=== PATIENT | female | born 1960 | race Caucasian/White ===

== ENCOUNTER 2017-01-24 10:43 | Inpatient (IN) | payer OTHER ==
[2017-01-24] MEDS ORDERED: SODIUM CHLORIDE 1,000 ML IV STA (11:03)
--- NOTE | 2017-01-24 11:03 | PDOC ---
History of Present Illness - General History Source: Patient, Family, Old Records Exam Limitations: No Limitations - History of Present Illness Initial Comments: 01/24/17 11:12 The patient is a 56-year-old woman, accompanied by family, with a significant past medical history of anemia, lymphoma, human immunodeficiency virus (on 01/06 CD4 count was 153 non compliant with medications for extended period of time), asthma, chronic obstructive pulmonary disease, and liver disease who presents to the emergency department via walk in for further evaluation of persistent shortness of breath for the past month. Upon ER arrival, patient was noted to have a fever of 103, tachycardic to 108, hypoxic to 90% on room air and was immediately placed on 3L O2 NC. Patient states that she has been experiencing a constant productive cough with yellow phlegm with associated left sided shoulder pain and shortness of breath. Patient states she has a history of Pneumonia and states that her current symptoms are similar to her previous presentation. No chills, weakness, chest pain, lightheadedness, dizziness, headache, abdominal pain, nausea, vomiting, diarrhea. Patient called Nurse Practitioner, Abner Camacho on the night of 01/19- 01/20 and was advised to go to the ER. She went to [facility] and had a chest x-ray performed and she was diagnosed with bronchitis and discharged on Cefuroxime. Allergies: None Known Past Surgical History: Left Anxillary Lymph Node Biopsy. Social History: Current everyday cigarettes smoker (approximately 3 cigarettes/ day). Social ETOH use. Cocaine use Primary Care Physician: Dr. Estefanía Vargas [phone] <Dora Vidal - Last Filed: 01/24/17 12:49> <Randal Hdz - Last Filed: 01/24/17 12:53> - General Chief Complaint: Shortness of Breath Stated Complaint: SOB, FEVER, LEG PAIN Time Seen by Provider: 01/24/17 10:57 Past History <Dora Vidal - Last Filed: 01/24/17 12:49> - Past Medical History Anemia: Yes Asthma: Yes Cancer: Yes (LYMPHOMA) Cardiac Disorders: No CVA: No COPD: Yes CHF: No Dementia: No Diabetes: No GI Disorders: No Disorders: No HTN: No Hypercholesterolemia: No HIV: Yes Liver Disease: Yes Suicide Attempt (Hx): No Seizures: No Thyroid Disease: No - Surgical History Abdominal Surgery: Yes Appendectomy: No Cardiac Surgery: No Cholecystectomy: No Lung Surgery: No Neurologic Surgery: No Orthopedic Surgery: No - Immunization History Immunization Up to Date: Yes - Psycho/Social/Smoking Cessation Hx Anxiety: No Suicidal Ideation: No Smoking Status: No Smoking History: Current every day smoker Have you smoked in the past 12 months: Yes Number of Cigarettes Smoked Daily: 3 If you are a former smoker, when did you quit?: 1YR Cigars Per Day: 0 Information on smoking cessation initiated: No 'Breaking Loose' booklet given: 11/04/15 Hx Alcohol Use: No Drug/Substance Use Hx: Yes (occasional cocaine) Substance Use Type: None Hx Substance Use Treatment: Yes <Randal Hdz - Last Filed: 01/24/17 12:53> - Past Medical History Allergies/Adverse Reactions: Allergies Allergy/AdvReac Type Severity Reaction Status Date / Time No Known Allergies Allergy Verified 01/24/17 10:51 Home Medications: Ambulatory Orders Dapsone - 100 mg PO DAILY #30 tablet 06/03/16 Cane 1 each MC DAILY #1 each 07/01/16 Ipratropium/Albuterol Sulfate [Combivent Respimat Inhal Bedias] 4 gm IH QID PRN # 1 aer.w.adap 08/19/16 Fluticasone Propionate [Flovent Diskus] 100 mcg IH BID #1 disk.w.dev 12/13/16 Guaifenesin Dm [Robitussin Dm -] 2 tsp PO Q4H PRN #240 ml 12/13/16 Loratadine [Claritin -] 10 mg PO DAILY PRN #30 tablet 12/13/16 Sodium Chloride [Saline Nasal Bedias] 1 - 2 sprays NS PRN #1 spray 12/13/16 Abacavir/Dolutegravir/Lamivudi [Triumeq Tablet] 1 each PO DAILY #30 tablet 01/06 Albuterol 0.083% Nebulizer Neha [Ventolin 0.083% Nebulizer Soln -] 1 neb NEB QID PRN #120 amp 01/06/17 Albuterol Sulfate Inhaler - [Ventolin HFA Inhaler -] 1 - 2 inh PO QID #1 inhaler 02/23/17 Cefuroxime Axetil [Ceftin -] 500 mg PO Q12H #20 tablet 01/06/17 Darunavir/Cobicistat [Prezcobix 800 mg-150 mg Tablet] 1 each PO DAILY #30 tablet 01/06/17 Nebulizer [Aeroeclipse] 1 each MC QID #1 each NS 01/06/17 Valacyclovir HCl [Valtrex -] 500 mg PO BID #60 tablet 01/06/17 Triamcinolone 0.025% Cream [Aristocort 0.025% Cream -] 1 applic TP BID #6 tube 01/20/17 Review of Systems - Review of Systems Able to Perform ROS?: Yes Constitutional: Yes: Chills, Fever Respiratory: Yes: Cough, Shortness of Breath Cardiac (ROS): Yes: Chest Pain ABD/GI: No: Diarrhea, Vomiting : No: Dysuria Musculoskeletal: Yes: Muscle Pain All Other Systems: Reviewed and Negative <Randal Hdz - Last Filed: 01/24/17 12:53> *Physical Exam - Vital Signs Last Vital Signs Temp Pulse Resp BP Pulse Ox 103 F H 108 H 20 98/37 90 L 01/24/17 10:46 01/24/17 10:46 01/24/17 10:46 01/24/17 10:46 01/24/17 10:46 - Physical Exam Comments: 01/24/17 11:12 GENERAL: The patient is awake, alert, and fully oriented. Ambulating but coughing and tachypneic. HEAD: Normal with no signs of trauma. EYES: Pupils equal, round and reactive to light, extraocular movements intact, sclera anicteric, conjunctiva clear with no pallor. ENT: Ears normal, nares patent, oropharynx clear without exudates. Moist mucous membranes. NECK: Normal range of motion, supple without lymphadenopathy, JVD, or masses. LUNGS: Tachypneic. There are coarse breath sounds throughout with scant expiratory and inspiratory wheezes. There are also decreased breaths sounds at the left base. HEART: Slight tachycardia but Regular rate and rhythm without murmur or rub. ABDOMEN: Soft/nontender/nondistended. BS wnl. No guarding or rebound. No palpable masses. No hepatosplenomegaly. EXTREMITIES: Normal range of motion, no edema. No clubbing or cyanosis. No cords, erythema, or tenderness. NEUROLOGICAL: Cranial nerves II through XII grossly intact. Normal speech. PSYCH: Normal mood, normal affect. SKIN: Warm to the touch. Dry, normal turgor, no rashes or lesions noted. <Dora Vidal - Last Filed: 01/24/17 12:49> - Vital Signs Last Vital Signs Temp Pulse Resp BP Pulse Ox 103 F H 108 H 20 98/37 90 L 01/24/17 10:46 01/24/17 10:46 01/24/17 10:46 01/24/17 10:46 01/24/17 10:46 <Randal Hdz - Last Filed: 01/24/17 12:53> Heart Score/ECG Review #1 ECG reviewed & interpreted by me at: 11:06 General ECG Interpretation: Sinus Rhythm, Normal Rate (94), Normal Intervals ( qtc 94), No acute ischemic changes Compared to previous ECG there are: No significant change (05/06/16) <Randal Hdz - Last Filed: 01/24/17 12:53> ED Treatment Course - LABORATORY CBC & Chemistry Diagram: 01/24/17 11:30 01/24/17 11:30 - RADIOLOGY Radiograph Interpretation: 01/24/17 12:29 EXAM: RAD/CHEST X-RAY PORTABLE IMPRESSION: Sepsis. Single portable chest x-ray. Comparison study January 06, 2017. Airspace opacity noted in the medial aspect of the left lower lobe. No blunting of the left costophrenic angle, effacement of the left diaphragm. Unchanged contour of the cardiomediastinal silhouette. No pneumothorax is seen. Surgical clips are noted in the left axillary region. <Dora Vidal - Last Filed: 01/24/17 12:49> - LABORATORY CBC & Chemistry Diagram: 01/24/17 11:30 01/24/17 11:30 <Randal Hdz - Last Filed: 01/24/17 12:53> Medical Decision Making - Medical Decision Making 01/24/17 12:[address] Vargas. Immediate response. Case was discussed. Admit to [facility]. 01/24/17 12:30 MicroBlogged Symphony 01/24/17 12:[address] Abelardo Valverde. Case discussed. <Dora Vidal - Last Filed: 01/24/17 12:49> - Critical Care Time Total Critical Care Time (minutes): 30 Critical Care Statement: The care of this patient involved high complexity decision making to prevent further life threatening deterioration of the patient 's condition and/or to evalute & treat vital organ system(s) failure or risk of failure. - Medical Decision Making 01/24/17 12:05 A portion of this note was documented by scribe services under my direction. I have reviewed the details of the note, within reason, and agree with the documentation with the following case summary and management plan written by me. 56-year-old female with history of poorly controlled HIV secondary to medication noncompliance, history of COPD presents with persistent cough with shortness of breath and fever/chills over 1-2 weeks. Seen at [facility] and reportedly started on antibiotics, but unclear that she is actually taking any. Presents with evidence of sepsis, febrile and tachycardic and hypoxic. Otherwise alert and ambulating. Remainder of exam as noted 56-year-old immunocompromise female with fever, sepsis. Likely pneumonia with COPD exacerbation Sepsis protocol initiated Antipyretics, antibiotics Admission 01/24/17 12:19 Left lower lobe pneumonia on chest x-ray, chemistries are within normal limits including negative troponin and normal lactate WBC 14.3 with elevated neutrophils and no bands. Received IV antibiotics. Proceed with admission. 01/24/17 12:[address] Vargas, agrees with management. Accepted for inpatient med/surg by Dr. Valverde. <Randal Hdz - Last Filed: 01/24/17 12:53> *DC/Admit/Observation/Transfer - Attestations Scribe Attestion: 01/24/17 11:12 Documentation prepared by Dora Vidal, acting as medical clerk for Randal Hdz MD. <Dora Vidal - Last Filed: 01/24/17 12:49> - Discharge Dispostion Admit: Yes <Randal Hdz - Last Filed: 01/24/17 12:53> Diagnosis at time of Disposition: COPD exacerbation, HIV (human immunodeficiency virus infection) Sepsis Qualifiers: Sepsis type: sepsis due to unspecified organism Qualified Code(s): A41.9 - Sepsis, unspecified organism Left lower lobe pneumonia Qualifiers: Pneumonia type: due to unspecified organism Qualified Code(s): J18.9 - Pneumonia, unspecified organism - Discharge Dispostion Condition at time of disposition: Fair - Referrals Referrals: Estefanía Vargas MD [Primary Care Provider] -
[2017-01-24] MEDS ORDERED: ACETAMINOPHEN 500 MG TABLET (FP) PO ONE (11:04)
[2017-01-24] MEDS ORDERED: ACETAMINOPHEN 325 MG TABLET (FP) ONE ×2 (11:06→11:12)
[2017-01-24 11:39] LABS: VENOUS BLOOD GAS HCO3 26.3 meq/L (19-25); VENOUS PH 7.42 (7.32-7.42)
[2017-01-24 11:40] LABS: BASOPHIL 0.5 % (0-2.0); EOSINOPHIL 0.2 % (0-4.5); MCH 30.7 pg (25.7-33.7); MCHC 33.1 g/dl (32.0-36.0); MEAN CELL VOLUME 92.6 fl (80-96); PLATELET COUNT 242 K/MM3 (134-434); RDW 14.2 % (11.6-15.6); WHITE BLOOD COUNT 14.3 K/mm3 (4.0-10.0)
[2017-01-24] MEDS ORDERED: AZITHROMYCIN IVPB 500 MG in DEXTROSE 5%-WATER - 250 ML IVPB ONE (11:41)
[2017-01-24] MEDS ORDERED: CEFTRIAXONE 1 GM in DEXTROSE 5%-WATER - 50 ML IVPB ONE (11:41)
[2017-01-24 11:55] LABS: ANION GAP 8 (8-16); BILIRUBIN,TOTAL 0.5 mg/dL (0.2-1.0); CALCIUM 8.1 mg/dL (8.5-10.1); CO2 27 mmol/L (21-32); CREATININE 0.9 mg/dL (0.55-1.02); GLUCOSE,RANDOM 81 mg/dL (74-106); SGOT/AST 33 U/L (15-37); SGPT/ALT 44 U/L (12-78); TOT PROT 7.6 g/dl (6.4-8.2)
[2017-01-24] MEDS ORDERED: AZITHROMYCIN IVPB 250 ML IVPB ONE (11:55)
[2017-01-24] MEDS ORDERED: CEFTRIAXONE 50 ML ONE (11:55)
[2017-01-24 11:58] LABS: ALK PHOS 331 U/L (45-117); TROPONIN I < 0.02 ng/ml (0.00-0.05)
[2017-01-24 12:00] LABS: INR 1.19 (0.82-1.09); PROTHROMBIN TIME (PATIENT) 13.1 SEC (9.98-11.88)
[2017-01-24 12:02] LABS: ACTIVATED PTT 31.9 SECONDS (26.9-34.4)
[2017-01-24] MEDS ORDERED: ALBUTEROL SO4 2.5/IPRATROPIUM 0.5 INH SOL 3 ML VIAL.NEB. NEB ONE (12:08)
[2017-01-24] MEDS: SODIUM CHLORIDE 0.9% 1000 ML INFUS.BAG IV PRN ×2 (12:41→15:30)
[2017-01-24 14:19] LABS: URINE APPEARANCE CLEAR; URINE BILIRUBIN NEGATIVE (NEGATIVE); URINE COLOR STRAW; URINE GLUCOSE (UA) NEGATIVE (NEGATIVE); URINE KETONE NEGATIVE (NEGATIVE); URINE LEUK ESTERASE NEGATIVE (NEGATIVE); URINE NITRITE NEGATIVE (NEGATIVE); URINE PROTEIN NEGATIVE (NEGATIVE); URINE UROBILINOGEN NEGATIVE E.U./dl (0.2-1.0)
[2017-01-24 14:32] LABS: URINE BLOOD 1+ (NEGATIVE)
[2017-01-24 14:38] LABS: URINE RBC 2 /hpf (0-3); URINE WBC <1 /hpf (3-5)
--- NOTE | 2017-01-24 14:44 | PN ---
Progress Note (short form) - Note Progress Note: ID consult dictated 56 year old with history of HIV, lymphoma (treated by Dr Hoyos) asthma active cigarette/cocaine smoker no IVDU developed sob,cough, fever yesterday- attributes this to some bad crack she smoked chills with fever in ED this am PE notable for left supraclavicular, left preauricular and left/right axillary adenopathy lungs with bilateral rhonchi labs notable for leukocytosis, anemia, elevated alk phos cxray with LLL infiltrate cd4 153, vl 265,630 imp/reccd CAP-cxray with lobar infiltrate more suggestive of bacterial pneumonia then PCP AIDS- poorly adherent with art new cervical adenopathy- ?recurrent lymphoma asthma active substance use cigarette smoker continue rocephin/zithromax f/u blood cultures, f/u sputum culture check legionella antigen check LDH resume dapsone 100 mg daily (taking intermittently at home) resume ART- she will get family to bring in meds would get ct scan of neck to evaluate adenopathy consider oncology eval (dr hoyos)
--- NOTE | 2017-01-24 14:56 | EKG ---
Test Reason : Blood Pressure : / mmHG Vent. Rate : 094 BPM Atrial Rate : 094 BPM P-R Int : 122 ms QRS Dur : 084 ms QT Int : 344 ms P-R-T Axes : 025 -08 039 degrees QTc Int : 430 ms NORMAL SINUS RHYTHM NORMAL ECG WHEN COMPARED WITH ECG OF 06-MAY-2016 11:06, VENT. RATE HAS INCREASED BY 41 BPM T WAVE VARIATION Confirmed by MAYUR ROACH MD ([id number]) on 01/24/2017 2:56:21 PM Referred By: Confirmed By:MAYUR ROACH MD
--- NOTE | 2017-01-24 15:57 | HP ---
CHIEF COMPLAINT: "i have a bad cough" PCP: Dr Vargas HISTORY OF PRESENT ILLNESS: This is a 56 yo F with PMH of HIV (noncompliant meds [id number] 01/06), anemia, lymphoma, asthma, COPD, Liver disease, and past PNA, who presents with cough, fever and sob. She states she was coughing for the past 2 weeks, productive of white sputum. she has also been getting progressively sob (not on home O2). Her inhalers have not been helping her. she states she has been wheezing more than usual. She has been having fevers and chills for nevin past 3 days and well as nausea. She continues to smoke daily. 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 She was at [facility] on 01/19 where she has CXR, was told she had bronchitis and was given cefuroxime, which did not help her. She denies chest pain, loc, h/a, vomiting, abd pain, constipation or diarrhea. She denies sick contacts. She currently feels ill, better of NC O2 as she was hypoxin 90% on RA. She complains of f/c (admission temp 103F) ER course was notable for: (1)labs (2)cxr (3)ela de la torre Recent Travel: denies PAST MEDICAL HISTORY: as above PAST SURGICAL HISTORY: lymph node biopsy Social History: lives at home with Smokin.5 pack/day x 5 yrs Alcohol: denies Drugs: denies Family History: HTN Allergies No Known Allergies Allergy (Verified 01/24/17 10:51) HOME MEDICATIONS: Home Medications Medication Instructions Recorded Dapsone - 100 mg PO DAILY #30 tablet 06/03/16 Cane 1 each MC DAILY #1 each 07/01/16 Ipratropium/Albuterol Sulfate 4 gm IH QID PRN #1 aer.w.adap 08/19/16 [Combivent Respimat Inhal L[place]] Fluticasone Propionate [Flovent 100 mcg IH BID #1 disk.w.dev 12/13/16 Diskus] Guaifenesin Dm [Robitussin Dm -] 2 tsp PO Q4H PRN #240 ml 12/13/16 Loratadine [Claritin -] 10 mg PO DAILY PRN #30 tablet 12/13/16 Sodium Chloride [Saline Nasal 1 - 2 sprays NS PRN #1 spray 12/13/16 Loring] Abacavir/Dolutegravir/Lamivudi 1 each PO DAILY #30 tablet 01/06/17 [Triumeq Tablet] Albuterol 0.083% Nebulizer Neha 1 neb NEB QID PRN #120 amp 01/06/17 [Ventolin 0.083% Nebulizer Soln -] Albuterol Sulfate Inhaler - 1 - 2 inh PO QID #1 inhaler 01/06/17 [Ventolin HFA Inhaler -] Cefuroxime Axetil [Ceftin -] 500 mg PO Q12H #20 tablet 01/06/17 Darunavir/Cobicistat [Prezcobix 1 each PO DAILY #30 tablet 01/06/17 800 mg-150 mg Tablet] Nebulizer [Aeroeclipse] 1 each MC QID #1 each NS 01/06/17 Valacyclovir HCl [Valtrex -] 500 mg PO BID #60 tablet 01/06/17 Triamcinolone 0.025% Cream 1 applic TP BID #6 tube 01/20/17 [Aristocort 0.025% Cream -] Unobtainable 01/24/17 REVIEW OF SYSTEMS CONSTITUTIONAL: Absent: loss of appetite, weight change HEENT: Absent: rhinorrhea, nasal congestion, throat pain CARDIOVASCULAR: Absent: chest pain, syncope, palpitations RESPIRATORY: Absent: orthopnea, stridor, hemoptysis GASTROINTESTINAL: Absent: abdominal pain, abdominal distension, nausea, vomiting, diarrhea, constipation, melena, hematochezia GENITOURINARY: Absent: dysuria MUSCULOSKELETAL: Absent: myalgia, arthralgia SKIN: Absent: rash, itching, pallor HEMATOLOGIC/IMMUNOLOGIC: Absent: frequent infections ENDOCRINE: Absent: unexplained weight gain, unexplained weight loss NEUROLOGIC: Absent: headache, focal weakness or paresthesias PSYCHIATRIC: Absent: anxiety, depression PHYSICAL EXAMINATION Vital Signs - 24 hr 01/24/17 14:40 Pulse Rate [ 73 Apical] Blood Pressure 91/63 [Left Arm] O2 Sat by Pulse 95 Oximetry (%) GENERAL: Awake, alert, and fully oriented, in no acute distress. HEAD: Normal with no signs of trauma. EYES: Pupils equal, round and reactive to light, extraocular movements intact, sclera anicteric, conjunctiva clear. EARS, NOSE, THROAT: Moist mucous membranes. NECK: supple without masses. LUNGS: RLL ronchi. no wheezes HEART: Regular rate and rhythm, normal S1 and S2 ABDOMEN: Soft, nontender, not distended, normoactive bowel sounds MUSCULOSKELETAL: No CVA tenderness. UPPER EXTREMITIES: 2+ pulses, warm, well-perfused. No peripheral edema. LOWER EXTREMITIES: 2+ pulses, warm, well-perfused. No calf tenderness. No peripheral edema. NEUROLOGICAL: Cranial nerves II-XII grossly intact. PSYCHIATRIC: Cooperative. Good eye contact. Appropriate mood and affect. SKIN: Warm, dry Laboratory Results - last 24 hr 01/24/17 14:00 Urine Color Straw Urine Appearance Clear Urine pH 6.0 Ur Specific Milton 1.003 Urine Protein Negative Urine Glucose (UA) Negative Urine Ketones Negative Urine Blood 1+ H Urine Nitrite Negative Urine Bilirubin Negative Urine Urobilinogen Negative Ur Leukocyte Esterase Negative Urine RBC 2 Urine WBC <1 Ur Epithelial Cells Rare ASSESSMENT/PLAN: Sepsis due to Community acquired PNA -CXR LLL opacity -fever 103 -leukocytosis 14.3 -immunocompromised -lactic acid negative -am cbc -s/p rocephin, azithromycin, can continue -IVF HIV -noncompliant -01/06 AA2=439 -prezcobix, valtrex, triumeg COPD -no apparent exacerbation -duoneb -consider prednisone 40 d Asthma -no apparent exacerbation Anemia -Hgb 10.5 stable Tobacco user -counseled on quitting FEN NS@75 lytes stbable regular diet SCD Dispo: admit to med nils Problem List - Problem (1) COPD exacerbation Code(s): J44.1 - CHRONIC OBSTRUCTIVE PULMONARY DISEASE W (ACUTE) EXACERBATION (2) Left lower lobe pneumonia Code(s): J18.9 - PNEUMONIA, UNSPECIFIED ORGANISM Qualifiers: Pneumonia type: due to unspecified organism (3) Sepsis Code(s): A41.9 - SEPSIS, UNSPECIFIED ORGANISM Qualifiers: Sepsis type: sepsis due to unspecified organism Qualified Code(s): A41.9 - Sepsis, unspecified organism (4) HIV (human immunodeficiency virus infection) Code(s): Z21 - ASYMPTOMATIC HUMAN IMMUNODEFICIENCY VIRUS INFECTION STATUS (5) Fever Code(s): R50.9 - FEVER, UNSPECIFIED Qualifiers: Fever type: unspecified cause of fever Qualified Code(s): R50.9 - Fever , unspecified (6) Hypoxemia Code(s): R09.02 - HYPOXEMIA (7) Pneumonia Code(s): J18.9 - PNEUMONIA, UNSPECIFIED ORGANISM Qualifiers: Pneumonia type: due to unspecified organism Laterality: left Lung location: lower lobe of lung Qualified Code(s): J18.9 - Pneumonia, unspecified organism (8) Tobacco use disorder Code(s): Z72.0 - TOBACCO USE (9) Asthma Code(s): J45.909 - UNSPECIFIED ASTHMA, UNCOMPLICATED (10) COPD (chronic obstructive pulmonary disease) Code(s): J44.9 - CHRONIC OBSTRUCTIVE PULMONARY DISEASE, UNSPECIFIED Visit type - Emergency Visit Emergency Visit: Yes ED Registration Date: 01/24/17 Care time: The patient presented to the Emergency Department on the above date and was hospitalized for further evaluation of their emergent condition. - New Patient This patient is new to me today: Yes Date on this admission: 01/24/17 - Critical Care Critical Care patient: No
[2017-01-24 16:45] VITALS: BMI 23.0
--- NOTE | 2017-01-24 17:56 | PN ---
Teaching Attending Note Name of Resident: Dejah Maedra ATTENDING PHYSICIAN STATEMENT I saw and evaluated the patient. I reviewed the resident's note and discussed the case with the resident. I agree with the resident's findings and plan as documented. SUBJECTIVE: OBJECTIVE: Vital Signs Period Temp Pulse Resp BP Sys/Rosas Pulse Ox Last 24 Hr 99 F-103 F 72-108 18-20 91-104/37-64 90-100 HEART: S1 S2, tachycardic LUNGS: Bilateral rhonchi, crackles at left base ABDOMEN: Soft, non-tender, non-distended, normal BS EXTREMITIES: No edema ASSESSMENT AND PLAN:
[2017-01-24] MEDS: ACETAMINOPHEN 325 MG TABLET (FP) PO PRN (22:15)
--- NOTE | 2017-01-24 22:43 | CONS ---
DATE OF CONSULTATION: DATE OF DICTATION: 01/24/2017 INFECTIOUS DISEASE CONSULTATION REQUESTING PHYSICIAN: Hospitalist Service CONSULTING PHYSICIAN: Farida Angeles M.D. HISTORY OF PRESENT ILLNESS: This is a 56-year-old woman who I follow at the [facility]. She has a history of longstanding HIV disease, history of lymphoma treated by Dr. Felipe in the past. She has a history of asthma. She is an active cigarette and cocaine user. There is no history of any intravenous drug use. About a month back, she had an episode of bronchospasm cough, dysuria. She was treated with a short course of antibiotics. The symptoms occurred again. She went to [facility] where she was given cough medicine. Yesterday she apparently smoked some bad crack and after she smoked that she developed shortness of breath along with worsening of her cough and fever. She presented today with chills and fever in the emergency room. PAST MEDICAL HISTORY: Notable for anemia, lymphoma, HIV disease, asthma, COPD. She has had a left axillary lymph node biopsy, and she has been treated for lymphoma at [facility] with Dr. Felipe; she has not followed up with him. She has no known drug allergies. MEDICATION: As an outpatient include dapsone 100 mg daily. She uses Flovent and Combivent. Her ART includes Triumeq and Prezcobix. She takes Valtrex as well, and she uses nebulizers p.r.n. FAMILY HISTORY: Noncontributory. SOCIAL HISTORY: She lives with her daughter and her daughter's father. She is an active cigarette smoker. She is an active cocaine user. She does not use any injection drugs. Her alcohol use is very rare. REVIEW OF SYSTEMS: She is currently not sexually active. She denies any abdominal pain. She has had no nausea, vomiting. She has had no dysuria. She notes chills and fever and cough, and the chest pain is confined to her left chest when she coughs. PHYSICAL EXAMINATION: Vital signs: Temperature was 103 in the emergency room, repeat was 100, currently 99, pulse 72, blood pressure 104/64, respiratory rate 19. Her O2 saturations are 100%. HEENT: Normocephalic. Eyes are anicteric. She has no thrush. Neck: Supple. She has a left preauricular node as well as supraclavicular adenopathy on the left. She has bilateral axillary nodes. Heart: Regular rate and rhythm. Lungs: Rhonchi throughout and some crackles at the left base. Abdomen: Soft, nontender. Extremities: Without edema. Skin: She has no rash. LABORATORY: White count 14.3, hemoglobin 10.5. INR 1.1. BUN and creatinine are 18 and 0.9 with an alkaline phosphatase of 331 and urinalysis is negative. Influenza screen was done in the emergency room and is negative. Blood cultures and urine cultures have been sent. Chest x-ray reveals left lower lobe infiltrate. Most recent T cells done in December at the [facility], her CD4 count is 153 with a viral load of greater than 250,000. IMPRESSION: 1. In summary, this is a 56-year-old woman with community acquired pneumonia with a left lower lobe infiltrate suggestive of bacterial pneumonia. 2. Acquired immune deficiency syndrome , poorly adherent with her antiretroviral therapy. 3. New cervical adenopathy, concern would be for recurrent lymphoma. 4. Asthma. 5. Active substance use. 6. Cigarette use. I would continue with Zithromax, follow up her cultures, check her legionella urinary antigen. Check an LVH. I would resume dapsone for PCP prophylaxis, which she has been taking intermittently. Would resume her ART. She will get her family to bring in her medications, as the hospital does not carry them. Would get a CAT scan of her neck to evaluate the adenopathy and consider oncology evaluation with Dr. Felipe. FARIDA ANGELES M.D. [id number]
[2017-01-24] MEDS: ALBUTEROL SO4 2.5/IPRATROPIUM 0.5 INH SOL 3 ML VIAL.NEB. NEB PRN (23:40)
[2017-01-25] MEDS: ALBUTEROL SO4 2.5/IPRATROPIUM 0.5 INH SOL 3 ML VIAL.NEB. NEB PRN ×2 (05:34→22:50)
[2017-01-25 08:18] LABS: MCH 31.2 pg (25.7-33.7); MCHC 33.2 g/dl (32.0-36.0); MEAN CELL VOLUME 93.9 fl (80-96); MEAN PLT VOLUME 8.6 fl (7.5-11.1); PLATELET COUNT 199 K/MM3 (134-434); RDW 14.6 % (11.6-15.6)
[2017-01-25] MEDS ORDERED: SENNOSIDES/DOCUSATE COMBO (SENNA PLUS) TABLET (UD) PO PRN (08:21)
--- NOTE | 2017-01-25 08:29 | PN ---
Progress Note (short form) - Note Progress Note: Subjective: no fever or chills, report SOB and productive cough of yellow sputum . reports constipation , also BRBPR yesterday in ER when she was straining in bathroom. also another episode at home Objective: Vital Signs: Last Vital Signs Temp Pulse Resp BP Pulse Ox 98.2 F 78 18 116/60 96 01/25/17 06:18 01/25/17 06:18 01/25/17 06:18 01/25/17 06:18 01/24/17 22:27 Physical Exam: NAD , Awake and alert. HEENT: NC , AT, no facial droop, MMM. LAP in L and R posterior jugular chain . CV: RRR, 2/6 Sm At RUAB Lungs : crackles heard at L base , no wheezes ,good air entry Abd : soft, NT, ND , NL BS Ext : no edema non tender Lymph nodes felt in L and R posterior jugular chain , groins and axillae . REctal: no external hemorrhoids, nl hair distribution , she did not cooperate with rectal exam, no masses felt , examiner finger could not be advanced, but stool was felt low in Rectum. OB Neg Labs: Laboratory Results - last 24 hr 01/24/17 01/24/17 01/24/17 11:03 11:25 11:30 WBC 14.3 H D RBC 3.42 L Hgb 10.5 L Hct 31.7 L MCV 92.6 MCHC 33.1 RDW 14.2 Plt Count 242 D MPV 8.0 D Neutrophils % 81.0 D Lymphocytes % 9.7 D Monocytes % 8.6 Eosinophils % 0.2 D Basophils % 0.5 INR PTT (Actin FS) VBG pH 7.42 POC VBG pCO2 41.7 POC VBG pO2 36.8 Mixed VBG HCO3 26.3 H Sodium Potassium Chloride Carbon Dioxide Anion Gap BUN Creatinine Creat Clearance w eGFR Random Glucose Lactic Acid Calcium Total Bilirubin AST ALT Alkaline Phosphatase Creatine Kinase Troponin I Total Protein Albumin Urine Color Urine Appearance Urine pH Ur Specific [place] Urine Protein Urine Glucose (UA) Urine Ketones Urine Blood Urine Nitrite Urine Bilirubin Urine Urobilinogen Ur Leukocyte Esterase Urine RBC Urine WBC Ur Epithelial Cells Blood Type O POSITIVE Antibody Screen Negative 01/24/17 01/24/17 01/24/17 11:30 11:30 11:30 WBC RBC Hgb Hct MCV MCHC RDW Plt Count MPV Neutrophils % Lymphocytes % Monocytes % Eosinophils % Basophils % INR 1.19 H PTT (Actin FS) 31.9 VBG pH POC VBG pCO2 POC VBG pO2 Mixed VBG HCO3 Sodium 136 Potassium 3.9 Chloride 101 Carbon Dioxide 27 Anion Gap 8 BUN 18 D Creatinine 0.9 Creat Clearance w eGFR > 60 Random Glucose 81 Lactic Acid 0.977 Calcium 8.1 L Total Bilirubin 0.5 D AST 33 ALT 44 Alkaline Phosphatase 331 H Creatine Kinase 45 Troponin I < 0.02 Total Protein 7.6 Albumin 3.0 L Urine Color Urine Appearance Urine pH Ur Specific [place] Urine Protein Urine Glucose (UA) Urine Ketones Urine Blood Urine Nitrite Urine Bilirubin Urine Urobilinogen Ur Leukocyte Esterase Urine RBC Urine WBC Ur Epithelial Cells Blood Type Antibody Screen 01/24/17 01/25/17 14:00 07:40 WBC 10.0 D RBC 3.03 L Hgb 9.5 L Hct 28.4 L MCV 93.9 MCHC 33.2 RDW 14.6 Plt Count 199 MPV 8.6 Neutrophils % Lymphocytes % Monocytes % Eosinophils % Basophils % INR PTT (Actin FS) VBG pH POC VBG pCO2 POC VBG pO2 Mixed VBG HCO3 Sodium Potassium Chloride Carbon Dioxide Anion Gap BUN Creatinine Creat Clearance w eGFR Random Glucose Lactic Acid Calcium Total Bilirubin AST ALT Alkaline Phosphatase Creatine Kinase Troponin I Total Protein Albumin Urine Color Straw Urine Appearance Clear Urine pH 6.0 Ur Specific [place] 1.003 Urine Protein Negative Urine Glucose (UA) Negative Urine Ketones Negative Urine Blood 1+ H Urine Nitrite Negative Urine Bilirubin Negative Urine Urobilinogen Negative Ur Leukocyte Esterase Negative Urine RBC 2 Urine WBC <1 Ur Epithelial Cells Rare Blood Type Antibody Screen Imaging: Cxray reviewed. LLL infiltrate Assessment/Plan: 56 y/o lady with h/l Lymphoma, treated with chemo, HIV,copd , non compliance , anemia , PNA , and drug use who presented with SOB and productive cough , she was found to have LLL PNA 1- LLL CAP : labs pending today. No fever - cont CTX and azithromycin day 2 - follow blood cx , sputum cx and urine legionella nad pneumococcal - good air entry, no wheezes, and no hypoxia, no need for steroids . 2- h/o Lymphoma , not clear which type. treated with chemo long time ago. - now has generalized LAP , in neck , axillae and groins. Likely due to recurrence of her lymphoma . - no need for CT of the neck as LAP is generalized. - will consult Dr. Quiroga - will need an exesional lymph node bx . - check LDH 3- rectal bleed: likely hemorrhoidal in setting of constipation , only 2 episodes. Hb is 10.5 as of yesterday's labs last colonoscopy > 2 yrs ago . per her NL . rectal exam neg for OB . - follow Hb - treat constipation - if Hb drops then might need GI consult , otherwise will have her f/u with GI as out p t - need out pt colonoscopy 4- Normocytic anemia , base lien HB 9.5-10.8. iron studies in past missing ferritin - check iron studies . - B12, folate . - repeat OB in stool 5- HIV to bring meds from home ont sal 6- DVT pX HLOC Visit type - Emergency Visit Emergency Visit: Yes ED Registration Date: 01/24/17 Care time: The patient presented to the Emergency Department on the above date and was hospitalized for further evaluation of their emergent condition. - New Patient This patient is new to me today: Yes Date on this admission: 01/25/17 - Critical Care Critical Care patient: No
[2017-01-25 09:02] LABS: ALBUMIN 2.5 g/dl (3.4-5.0); ANION GAP 8 (8-16); CALCIUM 8.2 mg/dL (8.5-10.1); CO2 26 mmol/L (21-32); CREATININE 0.7 mg/dL (0.55-1.02); GLUCOSE,RANDOM 76 mg/dL (74-106); MAGNESIUM 1.7 mg/dL (1.8-2.4); PHOSPHOROUS 2.7 mg/dL (2.5-4.9); SGOT/AST 34 U/L (15-37); SGPT/ALT 45 U/L (12-78)
[2017-01-25 09:04] LABS: ALK PHOS 282 U/L (45-117); BILIRUBIN,TOTAL 0.6 mg/dL (0.2-1.0); TOT PROT 6.3 g/dl (6.4-8.2)
[2017-01-25] MEDS: AZITHROMYCIN IVPB 250 ML IVPB SCH (11:01)
[2017-01-25] MEDS: cefTRIAXone 2 GM/100 ML BAG (PRE-DOCKED) IVPB SCH (11:02)
[2017-01-25] MEDS: POLYETHYLENE GLYCOL 3350 119 GM BTL PO SCH (11:02)
[2017-01-25] MEDS: DAPSONE 100 MG TABLET PO SCH (14:11)
[2017-01-25] MEDS ORDERED: MAGNESIUM SULF 50% (8.12 MEQ/2 ML-1 GM VIAL) IVPB ONE (16:15)
[2017-01-25] MEDS: ACETAMINOPHEN 325 MG TABLET (FP) PO PRN (22:54)
[2017-01-26 07:53] LABS: BASOPHIL 0.4 % (0-2.0); MCH 31.4 pg (25.7-33.7); MCHC 33.3 g/dl (32.0-36.0); MEAN CELL VOLUME 94.3 fl (80-96); MEAN PLT VOLUME 8.4 fl (7.5-11.1); NEUTROPHILS 66.2 % (42.8-82.8); PLATELET COUNT 208 K/MM3 (134-434); RDW 14.8 % (11.6-15.6); WHITE BLOOD COUNT 5.2 K/mm3 (4.0-10.0)
[2017-01-26 08:41] LABS: LDH 217 U/L (84-246)
[2017-01-26] MEDS: DAPSONE 100 MG TABLET PO SCH (10:25)
[2017-01-26] MEDS: AZITHROMYCIN IVPB 250 ML IVPB SCH (10:25)
[2017-01-26] MEDS: cefTRIAXone 2 GM/100 ML BAG (PRE-DOCKED) IVPB SCH (10:25)
[2017-01-26] MEDS: POLYETHYLENE GLYCOL 3350 119 GM BTL PO SCH (10:26)
--- NOTE | 2017-01-26 12:26 | PN ---
Physical Exam: SUBJECTIVE: Patient seen and examined Patient resting in bed NAD. No acute events. fever 100.2 at 10 pm last night, afebrile since, hemodynamically stable. satting 90% on 2l, now on RA. states she feels better, cough is reduced and denies sob. states her HIV meds are at home but her would not be able to find them. Denies f/c, n/v, abd pain, chest pain, dysuria, h/a. OBJECTIVE: Vital Signs Period Temp Pulse Resp BP Sys/Rosas Pulse Ox Last 24 Hr 97.8 F-100.3 F 64-95 18-20 100-120/51-61 90-94 GENERAL: Awake, alert, and fully oriented, in no acute distress. HEAD: Normal with no signs of trauma. EYES: Pupils equal, round and reactive to light, extraocular movements intact, sclera anicteric, conjunctiva clear. EARS, NOSE, THROAT: Moist mucous membranes. NECK: supple without masses + adenopathy. LUNGS: RLL ronchi. no wheezes HEART: Regular rate and rhythm, normal S1 and S2 ABDOMEN: Soft, nontender, not distended, normoactive bowel sounds MUSCULOSKELETAL: No CVA tenderness. UPPER EXTREMITIES: 2+ pulses, warm, well-perfused. No peripheral edema. LOWER EXTREMITIES: 2+ pulses, warm, well-perfused. No calf tenderness. No peripheral edema. NEUROLOGICAL: Cranial nerves II-XII grossly intact. PSYCHIATRIC: Cooperative. Good eye contact. Appropriate mood and affect. SKIN: Warm, dry Laboratory Results - last 24 hr 01/26/17 01/26/17 07:00 07:00 WBC 5.2 D RBC 3.19 L Hgb 10.0 L Hct 30.1 L MCV 94.3 MCHC 33.3 RDW 14.8 Plt Count 208 MPV 8.4 Neutrophils % 66.2 Lymphocytes % 16.4 D Monocytes % 9.0 Eosinophils % 8.0 H D Basophils % 0.4 LD Total 195 Active Medications Generic Name Dose Route Start Last Admin Trade Name Freq PRN Reason Stop Dose Admin Acetaminophen 650 mg 01/24/17 18:46 01/25/17 22:54 Tylenol - PO 650 mg Q4H PRN Administration FEVER OR PAIN Albuterol/Ipratropium 1 amp 01/24/17 17:33 01/25/17 22:50 Duoneb - NEB 1 amp Q4H PRN Administration SHORTNESS OF BREATH Ceftriaxone Sodium 2 gm 01/25/17 10:00 01/26/17 10:25 Rocephin 2gm Ivpb (Pre-Docked) IVPB 2 gm DAILY HIPOLITO Administration Protocol Dapsone 100 mg 01/25/17 10:00 01/26/17 10:25 Dapsone - PO 100 mg DAILY HIPOLITO Administration Azithromycin 250 mls @ 250 mls/hr 01/25/17 10:00 01/26/17 10:25 Zithromax 500mg Ivpb (Pre-Docked) IVPB 250 mls/hr DAILY [facility]O Administration Polyethylene Glycol 17 gm 01/25/17 10:00 01/26/17 10:26 Miralax (For Daily Use) - PO 17 gm DAILY [facility]OL[facility]O Administration Senna/Docusate Sodium 2 tablet 01/25/17 08:21 Pericolace - PO HS PRN CONSTIPATION Sodium Chloride 600 ml 01/24/17 11:03 01/24/17 15:30 Normal Saline - IV 600 ml Q20M PRN Administration MAP<65mm Hg OR SBP <90 ASSESSMENT/PLAN: Sepsis due to Community acquired PNA -CXR LLL opacity -fever 103 on admission, resolving -leukocytosis resolved -immunocompromised -lactic acid negative -ID: rocephin, azithromycin day 3 -isolation MRSA history HIV -noncompliant -01/06 [id number] -prezcobix, valtrex, triumeg -cant obtain home meds COPD -no apparent exacerbation -duoneb Asthma -no apparent exacerbation Lymphoma -unknown type -s/p chemo and biopsy many yrs ago -cervical adenopathy -consult Dr Quiroga -consider biopsy Anemia -Hgb 10 stable Rectal bleed -no bleeding today -hemorrhoids -recommend outpatient colonoscopy Tobacco user -counseled on quitting FEN no IVF lytes stbable regular diet SCD Dispo: med nils Problem List - Problems (1) COPD exacerbation Code(s): J44.1 - CHRONIC OBSTRUCTIVE PULMONARY DISEASE W (ACUTE) EXACERBATION (2) Left lower lobe pneumonia Code(s): J18.9 - PNEUMONIA, UNSPECIFIED ORGANISM Qualifiers: Pneumonia type: due to unspecified organism Qualified Code(s): J18.1 - Lobar pneumonia, unspecified organism (3) Sepsis Code(s): A41.9 - SEPSIS, UNSPECIFIED ORGANISM Qualifiers: Sepsis type: sepsis due to unspecified organism Qualified Code(s): A41.9 - Sepsis, unspecified organism (4) HIV (human immunodeficiency virus infection) Code(s): Z21 - ASYMPTOMATIC HUMAN IMMUNODEFICIENCY VIRUS INFECTION STATUS (5) Fever Code(s): R50.9 - FEVER, UNSPECIFIED Qualifiers: Fever type: unspecified cause of fever (6) Hypoxemia Code(s): R09.02 - HYPOXEMIA (7) Pneumonia Code(s): J18.9 - PNEUMONIA, UNSPECIFIED ORGANISM Qualifiers: Pneumonia type: due to unspecified organism Laterality: left Lung location: lower lobe of lung Qualified Code(s): J18.1 - Lobar pneumonia, unspecified organism (8) Tobacco use disorder Code(s): Z72.0 - TOBACCO USE (9) Asthma Code(s): J45.909 - UNSPECIFIED ASTHMA, UNCOMPLICATED (10) COPD (chronic obstructive pulmonary disease) Code(s): J44.9 - CHRONIC OBSTRUCTIVE PULMONARY DISEASE, UNSPECIFIED Visit type - Emergency Visit Emergency Visit: Yes ED Registration Date: 01/24/17 Care time: The patient presented to the Emergency Department on the above date and was hospitalized for further evaluation of their emergent condition. - New Patient This patient is new to me today: No - Critical Care Critical Care patient: No - Discharge Referral Referred to [facility] No
--- NOTE | 2017-01-26 12:46 | PN ---
Progress Note (short form) - Note Progress Note: feels better still some low grade temp and cough overall much improved Vital Signs Period Temp Pulse Resp BP Sys/Rosas Pulse Ox Last 24 Hr 97.8 F-100.3 F 64-95 18-20 100-120/51-61 90-94 cor-rrr llungs scattered rhonchi no wheeze abd soft,nt ext no edema +BRIJESH CBC, BMP 01/26/17 07:00 01/25/17 07:40 a/p pneumonia- CAP- improved continue rocephin/zithromax AIDS-continue dapsone can't bring meds, she doesnot want to switch to more pills here to resume on discharge at home BRIJESH-history of NHL treated [phone] Mallory at [facility] I have called him and am waiting call back suspect recurrence substance abuse
--- NOTE | 2017-01-26 15:14 | PN ---
Teaching Attending Note Name of Resident: Dejah Madera ATTENDING PHYSICIAN STATEMENT I saw and evaluated the patient. I reviewed the resident's note and discussed the case with the resident. I agree with the resident's findings and plan as documented. Patient is feeling better, but feels weak. Vital Signs Temperature 97.7 F 01/26/17 14:21 Pulse Rate 76 01/26/17 14:21 Respiratory Rate 20 01/26/17 14:21 Blood Pressure 111/71 01/26/17 14:21 O2 Sat by Pulse Oximetry (%) 94 L 01/26/17 09:00 CBCD WBC 5.2 K/mm3 (4.0-10.0) D 01/26/17 07:00 RBC 3.19 M/mm3 (3.60-5.2) L 01/26/17 07:00 Hgb 10.0 GM/dL (10.7-15.3) L 01/26/17 07:00 Hct 30.1 % (32.4-45.2) L 01/26/17 07:00 MCV 94.3 fl (80-96) 01/26/17 07:00 MCHC 33.3 g/dl (32.0-36.0) 01/26/17 07:00 RDW 14.8 % (11.6-15.6) 01/26/17 07:00 Plt Count 208 K/MM3 (134-434) 01/26/17 07:00 MPV 8.4 fl (7.5-11.1) 01/26/17 07:00 CMP Sodium 141 mmol/L (136-145) 01/25/17 07:40 Potassium 3.5 mmol/L (3.5-5.1) 01/25/17 07:40 Chloride 107 mmol/L (98-107) 01/25/17 07:40 Carbon Dioxide 26 mmol/L (21-32) 01/25/17 07:40 Anion Gap 8 (8-16) 01/25/17 07:40 BUN 10 mg/dL (7-18) D 01/25/17 07:40 Creatinine 0.7 mg/dL (0.55-1.02) D 01/25/17 07:40 Creat Clearance w eGFR > 60 (>60) 01/25/17 07:40 Random Glucose 76 mg/dL (74-106) 01/25/17 07:40 Calcium 8.2 mg/dL (8.5-10.1) L 01/25/17 07:40 Total Bilirubin 0.6 mg/dL (0.2-1.0) 01/25/17 07:40 AST 34 U/L (15-37) 01/25/17 07:40 ALT 45 U/L (12-78) 01/25/17 07:40 Alkaline Phosphatase 282 U/L (45-117) H 01/25/17 07:40 Total Protein 6.3 g/dl (6.4-8.2) L 01/25/17 07:40 Albumin 2.5 g/dl (3.4-5.0) L 01/25/17 07:40 CARDIAC ENZYMES Creatine Kinase 45 IU/L (26-192) 01/24/17 11:30 Troponin I < 0.02 ng/ml (0.00-0.05) 01/24/17 11:30 Current Medications Generic Name Dose Route Start Last Admin Trade Name Thad PRN Reason Stop Dose Admin Acetaminophen 650 mg 01/24/17 18:46 01/25/17 22:54 Tylenol - PO 650 mg Q4H PRN Administration FEVER OR PAIN Albuterol/Ipratropium 1 amp 01/24/17 17:33 01/25/17 22:50 Duoneb - NEB 1 amp Q4H PRN Administration SHORTNESS OF BREATH Ceftriaxone Sodium 2 gm 01/25/17 10:00 01/26/17 10:25 Rocephin 2gm Ivpb (Pre-Docked) IVPB 2 gm DAILY HIPOLITO Administration Protocol Dapsone 100 mg 01/25/17 10:00 01/26/17 10:25 Dapsone - PO 100 mg DAILY HIPOLITO Administration Azithromycin 250 mls @ 250 mls/hr 01/25/17 10:00 01/26/17 10:25 Zithromax 500mg Ivpb (Pre-Docked) IVPB 250 mls/hr DAILY HIPOL[facility]O Administration Polyethylene Glycol 17 gm 01/25/17 10:00 01/26/17 10:26 Miralax (For Daily Use) - PO 17 gm DAILY [facility]O Administration Senna/Docusate Sodium 2 tablet 01/25/17 08:21 Pericolace - PO HS PRN CONSTIPATION Sodium Chloride 600 ml 01/24/17 11:03 01/24/17 15:30 Normal Saline - IV 600 ml Q20M PRN Administration MAP<65mm Hg OR SBP <90 Home Medications Medication Instructions Recorded Dapsone - 100 mg PO DAILY #30 tablet 06/03/16 Ipratropium/Albuterol Sulfate 4 gm IH QID PRN #1 aer.w.adap 08/19/16 [Combivent Respimat Inhal [place]] Fluticasone Propionate [Flovent 100 mcg IH BID #1 disk.w.dev 12/13/16 Diskus] Guaifenesin Dm [Robitussin Dm -] 2 tsp PO Q4H PRN #240 ml 12/13/16 Loratadine [Claritin -] 10 mg PO DAILY PRN #30 tablet 12/13/16 Sodium Chloride [Saline Nasal 1 - 2 sprays NS PRN #1 spray 12/13/16 [place]] Abacavir/Dolutegravir/Lamivudi 1 each PO DAILY #30 tablet 01/06/17 [Triumeq Tablet] Albuterol 0.083% Nebulizer Neha 1 neb NEB QID PRN #120 amp 01/06/17 [Ventolin 0.083% Nebulizer Soln -] Albuterol Sulfate Inhaler - 1 - 2 inh PO QID #1 inhaler 01/06/17 [Ventolin HFA Inhaler -] Darunavir/Cobicistat [Prezcobix 1 each PO DAILY #30 tablet 01/06/17 800 mg-150 mg Tablet] Valacyclovir HCl [Valtrex -] 500 mg PO BID #60 tablet 01/06/17 Unobtainable 01/24/17 Cxray reviewed. LLL infiltrate Assessment/Plan: Patient is a 56 y/o lady with h/l non hodgkin's Lymphoma, s/p chemo, HIV,copd , anemia , PNA , and drug use who presented with SOB and productive cough , she was found to have LLL PNA # Acute LLL CAP : on CTX and azithromycin day 3 , sputum cx and urine legionella /pneumococcal negative # Hx of Non Hodgkin's Lymphoma.s/p chemo long time ago. likely due recurrence of her lymphoma. Consult Dr. Quiroga oncology consult will need an exesional lymph node bx. # Hx of HIV continue meds as per Dr.Hariharan david huang , patient's CD4 count # rectal bleed: likely hemorrhoidal in setting of constipation , only 2 episodes. Hb is 10.5--> 10.0 today As per last colonoscopy was > 2 yrs ago with normal result and negative rectal exam for OB . # Normocytic anemia , base line hemoglobin 9.5-10.8. check Iron studies iron studies, B12, folate DVT pX :SCDs PT evaluation
[2017-01-27 08:22] LABS: MCH 30.8 pg (25.7-33.7); MCHC 32.6 g/dl (32.0-36.0); MEAN CELL VOLUME 94.5 fl (80-96); MEAN PLT VOLUME 8.3 fl (7.5-11.1); PLATELET COUNT 233 K/MM3 (134-434); RDW 14.7 % (11.6-15.6); WHITE BLOOD COUNT 5.2 K/mm3 (4.0-10.0)
[2017-01-27 08:43] LABS: CALCIUM 8.6 mg/dL (8.5-10.1); CREATININE 0.8 mg/dL (0.55-1.02)
[2017-01-27] MEDS: POLYETHYLENE GLYCOL 3350 119 GM BTL PO SCH (09:20)
[2017-01-27] MEDS: DAPSONE 100 MG TABLET PO SCH (09:20)
[2017-01-27] MEDS: cefTRIAXone 2 GM/100 ML BAG (PRE-DOCKED) IVPB SCH (09:23)
[2017-01-27] MEDS: AZITHROMYCIN IVPB 250 ML IVPB SCH (09:28)
[2017-01-27] MEDS: ALBUTEROL SO4 2.5/IPRATROPIUM 0.5 INH SOL 3 ML VIAL.NEB. NEB PRN (11:21)
--- NOTE | 2017-01-27 13:11 | PN ---
Progress Note, Physician Chief Complaint: ID Feeling better - Current Medication List Current Medications: Active Medications Acetaminophen (Tylenol -) 650 mg PO Q4H PRN PRN Reason: FEVER OR PAIN Last Admin: 01/25/17 22:54 Dose: 650 mg Albuterol/Ipratropium (Duoneb -) 1 amp NEB Q4H PRN PRN Reason: SHORTNESS OF BREATH Last Admin: 01/27/17 11:21 Dose: 1 amp Ceftriaxone Sodium (Rocephin 2gm Ivpb (Pre-Docked)) 2 gm IVPB DAILY HIPOLITO PRN Reason: Protocol Last Admin: 01/27/17 09:23 Dose: 2 gm Dapsone (Dapsone -) 100 mg PO DAILY [facility] Last Admin: 01/27/17 09:20 Dose: 100 mg Azithromycin (Zithromax 500mg Ivpb (Pre-Docked)) 250 mls @ 250 mls/hr IVPB DAILY [facility] Last Admin: 01/27/17 09:28 Dose: 250 mls/hr Polyethylene Glycol (Miralax (For Daily Use) -) 17 gm PO DAILY [facility] Last Admin: 01/27/17 09:20 Dose: Not Given Senna/Docusate Sodium (Pericolace -) 2 tablet PO HS PRN PRN Reason: CONSTIPATION Sodium Chloride (Normal Saline -) 600 ml IV Q20M PRN PRN Reason: MAP<65mm Hg OR SBP <90 Last Admin: 01/24/17 15:30 Dose: 600 ml - Objective Vital Signs: Vital Signs Temperature 98.2 F 01/27/17 10:00 Pulse Rate 70 01/27/17 10:00 Respiratory Rate 20 01/27/17 10:00 Blood Pressure 120/78 01/27/17 10:00 O2 Sat by Pulse Oximetry (%) 96 01/27/17 09:00 Constitutional: Yes: Well Nourished, No Distress Neck: Yes: WNL, Supple, Lymphadenopathy Cardiovascular: Yes: Regular Rate and Rhythm, S1, S2 Respiratory: Yes: WNL, Regular, CTA Bilaterally, Rhonchi Gastrointestinal: Yes: WNL, Normal Bowel Sounds, Soft. No: Tenderness Edema: No Labs: CBC, BMP 01/27/17 07:50 01/27/17 07:50 INR, PTT INR 1.19 (0.82-1.09) H 01/24/17 11:30 Problem List - Problems (1) COPD exacerbation Code(s): J44.1 - CHRONIC OBSTRUCTIVE PULMONARY DISEASE W (ACUTE) EXACERBATION (2) Left lower lobe pneumonia Code(s): J18.9 - PNEUMONIA, UNSPECIFIED ORGANISM Qualifiers: Pneumonia type: due to unspecified organism Qualified Code(s): J18.1 - Lobar pneumonia, unspecified organism (3) HIV (human immunodeficiency virus infection) Code(s): Z21 - ASYMPTOMATIC HUMAN IMMUNODEFICIENCY VIRUS INFECTION STATUS Assessment/Plan Microbiology 01/24/17 18:17 Urine For Antigen Detection Legionella Antigen - Final 01/24/17 18:17 Urine For Antigen Detection Streptococcus pneumoniae Antigen (M - Final 01/24/17 18:02 Sputum - Expectorated Gram Stain - Final 01/24/17 18:02 Sputum - Expectorated Sputum Culture - Final NORMAL RESPIRATORY GAVIN 01/24/17 11:20 Blood - Peripheral Venous Blood Culture - Preliminary NO GROWTH OBTAINED AFTER 72 HOURS, INCUBATION TO CONTINUE FOR 2 DAYS. 01/24/17 11:20 Blood - Peripheral Venous Blood Culture - Preliminary NO GROWTH OBTAINED AFTER 72 HOURS, INCUBATION TO CONTINUE FOR 2 DAYS. Laboratory Tests 02/03/12 12/03/14 01/16/15 11:40 06:50 13:15 WBC Hgb Hct Plt Count BUN Creatinine Lactic Acid 1.124 Calcium Direct Bilirubin 0.3 H D AST ALT Alkaline Phosphatase C-Reactive Protein 0.6 Urine RBC Urine WBC 01/16/15 01/17/15 01/17/15 16:20 06:00 06:00 WBC 13.0 H D Hgb 9.0 L D Hct 26.9 L D Plt Count 200 BUN Creatinine Lactic Acid Calcium 7.9 L Direct Bilirubin AST 30 D ALT 45 D Alkaline Phosphatase 515 H D C-Reactive Protein Urine RBC 2 Urine WBC 2 01/27/17 01/27/17 07:50 07:50 WBC 5.2 Hgb 10.6 L Hct Plt Count 233 BUN 13 D Creatinine 0.8 Lactic Acid Calcium Direct Bilirubin AST ALT Alkaline Phosphatase C-Reactive Protein Urine RBC Urine WBC Assessment Pneumonia COPD HIV infection/AIDS History of lymphoma Plan Consider Levofloxacin 750mg daily for 4 days orally Kishan TURCIOS
--- NOTE | 2017-01-27 13:58 | DS ---
Physical Exam: SUBJECTIVE: Patient seen and examined Patient resting in bed NAD. No acute events. afebrile and hemodynamically stable. states she feels better, cough is dry and reduced. denies sob. Denies f/ c, n/v, abd pain, chest pain, dysuria, h/a. OBJECTIVE: Vital Signs Period Temp Pulse Resp BP Sys/Rosas Pulse Ox Last 24 Hr 97.7 F-99.0 F 66-81 20-20 111-120/57-78 94-96 PHYSICAL EXAM GENERAL: Awake, alert, and fully oriented, in no acute distress. HEAD: Normal with no signs of trauma. EYES: Pupils equal, round and reactive to light, extraocular movements intact, sclera anicteric, conjunctiva clear. EARS, NOSE, THROAT: Moist mucous membranes. NECK: supple without masses + adenopathy. LUNGS: mild RLL ronchi. no wheezes HEART: Regular rate and rhythm, normal S1 and S2 ABDOMEN: Soft, nontender, not distended, normoactive bowel sounds MUSCULOSKELETAL: No CVA tenderness. UPPER EXTREMITIES: 2+ pulses, warm, well-perfused. No peripheral edema. LOWER EXTREMITIES: 2+ pulses, warm, well-perfused. No calf tenderness. No peripheral edema. NEUROLOGICAL: Cranial nerves II-XII grossly intact. PSYCHIATRIC: Cooperative. Good eye contact. Appropriate mood and affect. SKIN: Warm, dry LABS Laboratory Results - last 24 hr 01/27/17 01/27/17 07:50 07:50 WBC 5.2 RBC 3.44 L Hgb 10.6 L Hct 32.5 MCV 94.5 MCHC 32.6 RDW 14.7 Plt Count 233 MPV 8.3 Sodium 141 Potassium 3.9 Chloride 109 H Carbon Dioxide 24 Anion Gap 8 BUN 13 D Creatinine 0.8 Random Glucose 81 Calcium 8.6 HOSPITAL COURSE: Date of Admission:01/24/17 This is a 56 yo F with PMH of HIV (noncompliant meds QO7=794 01/06), anemia, lymphoma, asthma, COPD, Liver disease, and past PNA, who presents with cough, fever and sob. She states she was coughing for the past 2 weeks, productive of white sputum, complains of progressively sob. Having fevers and chills for 3 days. On admission hypoxic 90% on RA, fever 103F. She was admitted for Sepsis due to Community acquired PNA. CXR showed LLL opacity. + leukocytosis. Was seen by ID who is also her PCP and was placed on rocephin, azithromycin. Improved clinically throughout admission, leukocytosis resolved and fever resolved. SOB resolved, cough improved. was sent home after 4 day course of IV abx, on PO abx. patient was found to have cervical lymphadenopathy and was advised to f/u with her oncologist Dr Quiroga. Date of Discharge: 01/27/17 Minutes to complete discharge: 30 (na) Discharge Summary Reason For Visit: LEFT LOWER LOBE PNEUMONIA,HIV Current Active Problems COPD exacerbation (Acute) Left lower lobe pneumonia (Acute) Sepsis (Acute) HIV (human immunodeficiency virus infection) (Chronic) Condition: Good - Instructions Diet, Activity, Other Instructions: you were in the hospital due to Pneumonia. you finished a course of IV antibiotics. Take oral antobiotic for 4 more days (sent to your pharmacy.) Please follow up with Dr Vargas, you need to take your HIV medication every day. Please follow up with oncologist Dr Quiroga to assess the enlarged lymph nodes in your neck. Return to hospital if symptoms return. Referrals: Estefanía Vargas MD [Primary Care Provider] - 1 Week Casey Felipe MD [Staff Physician] - Disposition: HOME - Home Medications Comprehensive Discharge Medication List: Ambulatory Orders Dapsone - 100 mg PO DAILY #30 tablet 06/03/16 Ipratropium/Albuterol Sulfate [Combivent Respimat Inhal [place]] 4 gm IH QID PRN # 1 aer.w.adap 08/19/16 Fluticasone Propionate [Flovent Diskus] 100 mcg IH BID #1 disk.w.dev 12/13/16 Guaifenesin Dm [Robitussin Dm -] 2 tsp PO Q4H PRN #240 ml 12/13/16 Loratadine [Claritin -] 10 mg PO DAILY PRN #30 tablet 12/13/16 Sodium Chloride [Saline Nasal [place]] 1 - 2 sprays NS PRN #1 spray 12/13/16 Abacavir/Dolutegravir/Lamivudi [Triumeq Tablet] 1 each PO DAILY #30 tablet 01/06 Albuterol 0.083% Nebulizer Neha [Ventolin 0.083% Nebulizer Soln -] 1 neb NEB QID PRN #120 amp 01/06/17 Albuterol Sulfate Inhaler - [Ventolin HFA Inhaler -] 1 - 2 inh PO QID #1 inhaler 01/06/17 Darunavir/Cobicistat [Prezcobix 800 mg-150 mg Tablet] 1 each PO DAILY #30 tablet 01/06/17 Valacyclovir HCl [Valtrex -] 500 mg PO BID #60 tablet 01/06/17 Levofloxacin [Levaquin -] 750 mg PO DAILY #4 tablet 01/27/17 Problem List - Problems (1) COPD exacerbation Code(s): J44.1 - CHRONIC OBSTRUCTIVE PULMONARY DISEASE W (ACUTE) EXACERBATION (2) Left lower lobe pneumonia Code(s): J18.9 - PNEUMONIA, UNSPECIFIED ORGANISM Qualifiers: Pneumonia type: due to unspecified organism Qualified Code(s): J18.1 - Lobar pneumonia, unspecified organism (3) Sepsis Code(s): A41.9 - SEPSIS, UNSPECIFIED ORGANISM Qualifiers: Sepsis type: sepsis due to unspecified organism Qualified Code(s): A41.9 - Sepsis, unspecified organism (4) HIV (human immunodeficiency virus infection) Code(s): Z21 - ASYMPTOMATIC HUMAN IMMUNODEFICIENCY VIRUS INFECTION STATUS (5) Fever Code(s): R50.9 - FEVER, UNSPECIFIED Qualifiers: Fever type: unspecified cause of fever (6) Hypoxemia Code(s): R09.02 - HYPOXEMIA (7) Pneumonia Code(s): J18.9 - PNEUMONIA, UNSPECIFIED ORGANISM Qualifiers: Pneumonia type: due to unspecified organism Laterality: left Lung location: lower lobe of lung Qualified Code(s): J18.1 - Lobar pneumonia, unspecified organism (8) Tobacco use disorder Code(s): Z72.0 - TOBACCO USE (9) Asthma Code(s): J45.909 - UNSPECIFIED ASTHMA, UNCOMPLICATED (10) COPD (chronic obstructive pulmonary disease) Code(s): J44.9 - CHRONIC OBSTRUCTIVE PULMONARY DISEASE, UNSPECIFIED This patient is new to me today: No Emergency Visit: Yes ED Registration Date: 01/24/17 Care time: The patient presented to the Emergency Department on the above date and was hospitalized for further evaluation of their emergent condition. Critical Care patient: No - Discharge Referral Referred to [facility] Med P.C.: No
[2017-01-27 14:28] VITALS: BP 101/55; PULSE 82; TEMP 98.1
--- NOTE | 2017-01-27 20:07 | PN ---
Teaching Attending Note Name of Resident: Dejah Madera ATTENDING PHYSICIAN STATEMENT I saw and evaluated the patient. I reviewed the resident's note and discussed the case with the resident. I agree with the resident's findings and plan as documented. Vital Signs Temperature 98.1 F 01/27/17 14:27 Pulse Rate 82 01/27/17 14:27 Respiratory Rate 20 01/27/17 14:27 Blood Pressure 101/55 01/27/17 14:27 O2 Sat by Pulse Oximetry (%) 96 01/27/17 09:00 CBCD WBC 5.2 K/mm3 (4.0-10.0) 01/27/17 07:50 RBC 3.44 M/mm3 (3.60-5.2) L 01/27/17 07:50 Hgb 10.6 GM/dL (10.7-15.3) L 01/27/17 07:50 Hct 32.5 % (32.4-45.2) 01/27/17 07:50 MCV 94.5 fl (80-96) 01/27/17 07:50 MCHC 32.6 g/dl (32.0-36.0) 01/27/17 07:50 RDW 14.7 % (11.6-15.6) 01/27/17 07:50 Plt Count 233 K/MM3 (134-434) 01/27/17 07:50 MPV 8.3 fl (7.5-11.1) 01/27/17 07:50 CMP Sodium 141 mmol/L (136-145) 01/27/17 07:50 Potassium 3.9 mmol/L (3.5-5.1) 01/27/17 07:50 Chloride 109 mmol/L (98-107) H 01/27/17 07:50 Carbon Dioxide 24 mmol/L (21-32) 01/27/17 07:50 Anion Gap 8 (8-16) 01/27/17 07:50 BUN 13 mg/dL (7-18) D 01/27/17 07:50 Creatinine 0.8 mg/dL (0.55-1.02) 01/27/17 07:50 Creat Clearance w eGFR > 60 (>60) 01/25/17 07:40 Random Glucose 81 mg/dL (74-106) 01/27/17 07:50 Calcium 8.6 mg/dL (8.5-10.1) 01/27/17 07:50 Total Bilirubin 0.6 mg/dL (0.2-1.0) 01/25/17 07:40 AST 34 U/L (15-37) 01/25/17 07:40 ALT 45 U/L (12-78) 01/25/17 07:40 Alkaline Phosphatase 282 U/L (45-117) H 01/25/17 07:40 Total Protein 6.3 g/dl (6.4-8.2) L 01/25/17 07:40 Albumin 2.5 g/dl (3.4-5.0) L 01/25/17 07:40 CARDIAC ENZYMES Creatine Kinase 45 IU/L (26-192) 01/24/17 11:30 Troponin I < 0.02 ng/ml (0.00-0.05) 01/24/17 11:30 Home Medications Medication Instructions Recorded Dapsone - 100 mg PO DAILY #30 tablet 06/03/16 Ipratropium/Albuterol Sulfate 4 gm IH QID PRN #1 aer.w.adap 08/19/16 [Combivent Respimat Inhal [place]] Fluticasone Propionate [Flovent 100 mcg IH BID #1 disk.w.dev 12/13/16 Diskus] Guaifenesin Dm [Robitussin Dm -] 2 tsp PO Q4H PRN #240 ml 12/13/16 Loratadine [Claritin -] 10 mg PO DAILY PRN #30 tablet 12/13/16 Sodium Chloride [Saline Nasal 1 - 2 sprays NS PRN #1 spray 12/13/16 [place]] Abacavir/Dolutegravir/Lamivudi 1 each PO DAILY #30 tablet 01/06/17 [Triumeq Tablet] Albuterol 0.083% Nebulizer Neha 1 neb NEB QID PRN #120 amp 01/06/17 [Ventolin 0.083% Nebulizer Soln -] Albuterol Sulfate Inhaler - 1 - 2 inh PO QID #1 inhaler 01/06/17 [Ventolin HFA Inhaler -] Darunavir/Cobicistat [Prezcobix 1 each PO DAILY #30 tablet 01/06/17 800 mg-150 mg Tablet] Valacyclovir HCl [Valtrex -] 500 mg PO BID #60 tablet 01/06/17 Levofloxacin [Levaquin -] 750 mg PO DAILY #4 tablet 01/27/17 Cxray reviewed. LLL infiltrate Assessment/Plan: Patient is a 56 y/o lady with h/l non hodgkin's Lymphoma, s/p chemo, HIV,copd , anemia , PNA , and drug use who presented with SOB and productive cough , she was found to have LLL PNA # Acute LLL CAP : completed 3 days of CTX and azithromycin day 3 , will discharge the patient with Levaquin 750mg for 4 days. sputum cx and urine legionella /pneumococcal negative # Hx of Non Hodgkin's Lymphoma.s/p chemo in the past will follow with as an outpatient. for possible recurrence of her lymphoma. needs an exesional lymph node bx.as an outpatient. # Hx of HIV continue meds as per cont dapson as per ID # Normocytic anemia , base line hemoglobin 9.5-10.8.
[2017-01-28] MEDS ORDERED: LEVOFLOXACIN 750 MG TABLET PO SCH (06:00)
== END 2017-01-27 14:43 | disposition home or self-care (01) | DRG 890 ==
LOC: JER 10:43 → JERBED 12:53 → J6S 21:38
PROVIDERS: ADMIT Internal Medicine; ATTEND Internal Medicine
DX: A41.9 Sepsis, unspecified organism (principal); D64.9 Anemia, unspecified; R09.02 Hypoxemia; K62.5 Hemorrhage of anus and rectum; F17.210 Nicotine dependence, cigarettes, uncomplicated; C85.80 Other specified types of non-Hodgkin lymphoma, unspecified site; J18.9 Pneumonia, unspecified organism; J44.1 Chronic obstructive pulmonary disease with (acute) exacerbation; B20 Human immunodeficiency virus [HIV] disease; Z91.14 Patient's other noncompliance with medication regimen; Z85.72 Personal history of non-Hodgkin lymphomas
CPT/HCPCS: 36415; 71010-TC; 80048; 80053; 81003; 81015; 82550; 82803; 83605; 83615; 83735; 84100; 84484; 85025; 85027; 85610; 85730; 86850; 86900; 86901; 87040; 87070; 87081; 87086; 87205; 87254; 87804; 87899; 93005; 93010; 94640; 97116-GP; 97161-GP; 99285-25

== ENCOUNTER 2017-07-02 08:04 | Emergency (ER) | payer OTHER ==
[2017-07-02 08:10] VITALS: BP 125/72; PULSE 74; TEMP 98.2; BMI 22.4
--- NOTE | 2017-07-02 08:54 | PDOC ---
History of Present Illness - General Chief Complaint: Cold Symptoms Stated Complaint: COLD SYMPTOMS Time Seen by Provider: 07/02/17 08:44 History Source: Patient Exam Limitations: No Limitations - History of Present Illness Initial Comments: 07/02/17 08:49 Patient is a 57-year-old female, history of HIV and crack use. Last used 3 days ago. Presents emergency Department with infection to right nares, nasal congestion. Denies any fever, patient with discharge to right nares. Patient denies any fever, no nausea vomiting or diarrhea. Allergies: No known allergies Medications: See medication list Family History: Non-contributory Social History: Denies smoking, alcohol use, or IVDU Review of Systems GENERAL/CONSTITUTIONAL: No fever or chills. No weakness. No weight change. HEAD, EYES, EARS, NOSE AND THROAT: No change in vision. No ear pain or discharge. No sore throat. Right nares with crusted and exudate. Nasal congestion CARDIOVASCULAR: No chest pain or shortness of breath. RESPIRATORY: No cough, wheezing, or hemoptysis. GASTROINTESTINAL: No nausea, vomiting, diarrhea or constipation. No rectal bleeding. GENITOURINARY: No dysuria, frequency, or change in urination. MUSCULOSKELETAL: No joint or muscle swelling or pain. No neck or back pain. SKIN : No rash or easy bruising. Right nares with crusting exudate, nasal congestion NEUROLOGIC: No headache, vertigo, loss of consciousness, or loss of sensation. PSYCHIATRIC: Depression, no anxiety, denies any suicidal ideation HEMATOLOGIC/LYMPHATIC: No anemia, easy bleeding, or history of blood clots. No lymphadenopathy ALLERGIC/IMMUNOLOGIC: No hives or skin allergy. No latex allergy. Physical Exam: GENERAL: The patient is awake, alert, and fully oriented, in no acute distress. EYES: Pupils equal, round and reactive to light, extraocular movements intact, sclera anicteric, conjunctiva clear. ENT: Ears normal, nares right side inflammed, garcía discharge, oropharynx clear without exudates. Moist mucous membranes. No uvula deviation. Right frontal sinus pressure NECK: Normal range of motion, supple without lymphadenopathy, JVD, or masses. LUNGS: Breath sounds equal, clear to auscultation bilaterally. No wheezes, and no crackles. HEART: Regular rate and rhythm, normal S1 and S2 without murmur, rub or gallop. ABDOMEN: Soft, nontender, normoactive bowel sounds. No guarding, no rebound. No masses. No bruising or abrasions MUSCULOSKELETAL: Normal range of motion, no edema. No clubbing or cyanosis. No cords, erythema, or tenderness. No CVA Tenderness with fist. NEUROLOGICAL: Cranial nerves II through XII grossly intact. Normal speech, normal gait. SKIN: Warm, Dry, normal turgor, no rashes or lesions noted. Crusted, wound to right lateral nares with yellowish discharge, garcía discharge from right nares Past History - Past Medical History Allergies/Adverse Reactions: Allergies Allergy/AdvReac Type Severity Reaction Status Date / Time No Known Allergies Allergy Verified 07/02/17 08:10 Home Medications: Ambulatory Orders Abacavir/Dolutegravir/Lamivudi [Triumeq Tablet] 1 each PO DAILY #30 tablet 06/09 Albuterol 0.083% Nebulizer Neha [Ventolin 0.083% Nebulizer Soln -] 1 neb NEB QID PRN #120 amp 06/09/17 Albuterol Sulfate Inhaler - [Ventolin HFA Inhaler -] 1 - 2 inh PO QID #1 inhaler 06/09/17 Beclomethasone Dipropionate [Qvar] 8.7 gm IH BID #1 aer.w.adap 06/09/17 Cetirizine HCl [Zyrtec -] 10 mg PO DAILY #30 tablet 06/09/17 Darunavir/Cobicistat [Prezcobix 800 mg-150 mg Tablet] 1 each PO DAILY #30 tablet 06/09/17 Docusate Sodium [Colace -] 100 mg PO TID PRN #90 capsule 06/09/17 Ipratropium/Albuterol Sulfate [Combivent Respimat Inhal [place]] 4 gm IH QID PRN # 1 aer.w.adap 06/09/17 Sodium Chloride [Saline Nose [place]] 89 ml NS BID PRN #1 spray 06/09/17 Valacyclovir HCl [Valtrex -] 500 mg PO BID #60 tablet 06/09/17 Dapsone - 100 mg PO DAILY 07/01/17 Amox-Tr/K Cl [Augmentin - 875Mg Tablet] 1 tab PO BID #14 tablet 07/02/17 Mupirocin Cream [Bactroban 2% Cream -] 1 applic TP BID #1 tube 07/02/17 Anemia: Yes Asthma: Yes Cancer: Yes (LYMPHOMA) Cardiac Disorders: No CVA: No COPD: Yes CHF: No Dementia: No Diabetes: No GI Disorders: No Disorders: No HTN: No Hypercholesterolemia: No HIV: Yes Liver Disease: Yes Suicide Attempt (Hx): No Seizures: No Thyroid Disease: No - Surgical History Abdominal Surgery: Yes Appendectomy: No Cardiac Surgery: No Cholecystectomy: No Lung Surgery: No Neurologic Surgery: No Orthopedic Surgery: No - Immunization History Immunization Up to Date: Yes - Psycho/Social/Smoking Cessation Hx Anxiety: No Suicidal Ideation: No Smoking Status: No Smoking History: Never smoked Have you smoked in the past 12 months: Yes Number of Cigarettes Smoked Daily: 10 If you are a former smoker, when did you quit?: 1YR Cigars Per Day: 0 Information on smoking cessation initiated: No 'Breaking Loose' booklet given: 11/04/15 Hx Alcohol Use: Yes (occasional) Drug/Substance Use Hx: Yes (occasional cocaine) Substance Use Type: None Hx Substance Use Treatment: Yes *Physical Exam - Vital Signs Last Vital Signs Temp Pulse Resp BP Pulse Ox 98.2 F 74 18 125/72 99 07/02/17 08:07 07/02/17 08:07 07/02/17 08:07 07/02/17 08:07 07/02/17 08:07 Medical Decision Making - Medical Decision Making 07/02/17 08:52 A/P: Patient with acute sinusitis will DC patient on Augmentin, Bactroban cream for crusted lesions to right nares. Patient states that she is requesting to go to rehabilitation, has not actively used in the last 3 days. Called to [facility] , states that they will take walking admissions on Tuesday, patient instructed to go on Tuesday morning. is at bedside who states that he will watch patient closely and bring her on Tuesday Patient currently not under the influence is a right mind. Not demonstrating any erratic behavior. It is reasonable at this time to DC patient home and follow-up on Tuesday. I discussed the physical exam findings, ancillary test results and final diagnoses with the patient. I answered all of the patient's questions. The patient was satisfied with the care received and felt comfortable with the discharge plan and treatment plan. The patient will follow-up and will return to the Emergency Department with any new, persistent or worsening symptoms. *DC/Admit/Observation/Transfer Diagnosis at time of Disposition: Crack cocaine use Sinusitis Qualifiers: Sinusitis location: frontal Chronicity: acute Recurrence: non-recurrent Qualified Code(s): J01.10 - Acute frontal sinusitis, unspecified - Discharge Dispostion Disposition: HOME Condition at time of disposition: Good Admit: No - Prescriptions Prescriptions: Amox-Tr/K Cl [Augmentin - 875Mg Tablet] 1 tab PO BID #14 tablet Mupirocin Cream [Bactroban 2% Cream -] 1 applic TP BID #1 tube - Patient Instructions Printed Discharge Instructions: Sinusitis Additional Instructions: Please take medications as prescribed Please follow up at [address] on Tuesday morning to the behavioral health services for detox. Please return to the emergency Department with any emergent concerns.
== END 2017-07-02 09:02 | disposition home or self-care (01) ==
LOC: JERFT 08:04
DX: J01.10 Acute frontal sinusitis, unspecified (principal); F14.10 Cocaine abuse, uncomplicated; J45.909 Unspecified asthma, uncomplicated; J44.9 Chronic obstructive pulmonary disease, unspecified; Z21 Asymptomatic human immunodeficiency virus [HIV] infection status; Z85.72 Personal history of non-Hodgkin lymphomas; Z87.891 Personal history of nicotine dependence
CPT/HCPCS: 99281-25

== ENCOUNTER 2017-10-08 15:01 | Emergency (ER) | payer OTHER ==
[2017-10-08 15:39] VITALS: BP 132/77; PULSE 82; TEMP 98.5; BMI 23.9
[2017-10-08 16:20] LABS: BASOPHIL 0.8 % (0-2.0); EOSINOPHIL 2.7 % (0-4.5); MCH 30.4 pg (25.7-33.7); MCHC 33.1 g/dl (32.0-36.0); MEAN CELL VOLUME 91.7 fl (80-96); NEUTROPHILS 58.5 % (42.8-82.8); PLATELET COUNT 207 K/MM3 (134-434); RDW 15.6 % (11.6-15.6); WHITE BLOOD COUNT 5.7 K/mm3 (4.0-10.0)
[2017-10-08 16:47] LABS: ANION GAP 7 (8-16); CO2 28 mmol/L (21-32); GLUCOSE,RANDOM 85 mg/dL (74-106)
[2017-10-08 16:48] LABS: TROPONIN I < 0.02 ng/ml (0.00-0.05)
--- NOTE | 2017-10-08 17:19 | PDOC ---
Attending Attestation - HPI HPI: 10/08/17 18:33 The patient is a 57 year old female with a significant PMH of chronic asthma who presents to the emergency department with shortness of breath beginning approximately this morning. The patient complains of no other symptoms today. The patient denies chest pain, shortness of breath, headache and dizziness. Denies fever, chills, nausea, vomit, diarrhea and constipation. Allergies: NKA Past surgical history: None reported Social history: No reported PCP: Dr. Taylor - Physicial Exam PE: 10/08/17 18:36 Vitals: Triage Vital signs reviewed General Appearance: no acute distress, well nourished well developed, Head: Atraumatic, normocephalic Eyes: Pupils equal reactive round, extraocular movement intact Neck: Supple;No Nuchal rigidity Chest Wall: Nontender Cardiac: Regular rate and rhythm, no murmurs, no rubs, no gallops, Lungs: (+) Wheezing with crackles. Extremities: Full range of motion to all extremities, no cyanosis, clubbing, or edema Skin: Warm and dry, no rashes or lesions, no petechiae <Faith Kelly - Last Filed: 10/08/17 18:33> - Resident Resident Name: William Pereira - ED Attending Attestation I have performed the following: I have examined & evaluated the patient, The case was reviewed & discussed with the resident, I agree w/resident's findings & plan, Exceptions are as noted - Medical Decision Making 10/08/17 20:19 This is a 57 yo F with PMH of HIV (in the past noncompliant meds UF6=916 01/06) , anemia, lymphoma, asthma, COPD, Liver disease, and past PNA, who presents with chills sob and muscle pains cough and difficulty breathing Her lung examination was notable for crackles and wheezing. Chest x-ray demonstrated no acute pathology she was treated with Solu-Medrol and DuoNeb's Her d-dimer was resulted as positive a CTA of her chest was ordered Dr. Stinson to f/ u results and reasses <Nam Okeefe - Last Filed: 10/08/17 20:20>
[2017-10-08] MEDS ORDERED: methylPREDNISolone NA SUCC 125 MG/2 ML VIAL IVPB ONE (18:21)
[2017-10-08] MEDS ORDERED: ALBUTEROL SO4 2.5/IPRATROPIUM 0.5 INH SOL 3 ML VIAL.NEB. NEB ONE (18:22)
--- NOTE | 2017-10-08 18:39 | PDOC ---
History of Present Illness - General Chief Complaint: Shortness of Breath Stated Complaint: DIFF. BREATHING Time Seen by Provider: 10/08/17 16:40 History Source: Patient Exam Limitations: No Limitations - History of Present Illness Initial Comments: 10/08/17 19:44 This is a 57 yo F with PMH of HIV (in the past noncompliant meds BS7=605 01/06) , anemia, lymphoma, asthma, COPD, Liver disease, and past PNA, who presents with chills sob and muscle pains since she woke up this morning. Patient usually followed by dr. Quiroga for her lymphoma and chemotherapy treatrment but hasn't been compliant with treatment. Past History - Past Medical History Allergies/Adverse Reactions: Allergies Allergy/AdvReac Type Severity Reaction Status Date / Time No Known Allergies Allergy Verified 10/08/17 16:15 Home Medications: Ambulatory Orders Abacavir/Dolutegravir/Lamivudi [Triumeq Tablet] 1 each PO DAILY #30 tablet 06/09 Albuterol Sulfate Inhaler - [Ventolin HFA Inhaler -] 1 - 2 inh PO QID #1 inhaler 06/09/17 Cetirizine HCl [Zyrtec -] 10 mg PO DAILY #30 tablet 06/09/17 Darunavir/Cobicistat [Prezcobix 800 mg-150 mg Tablet] 1 each PO DAILY #30 tablet 06/09/17 Docusate Sodium [Colace -] 100 mg PO TID PRN #90 capsule 06/09/17 Sodium Chloride [Saline Nose [place]] 89 ml NS BID PRN #1 spray 06/09/17 Valacyclovir HCl [Valtrex -] 500 mg PO BID #60 tablet 06/09/17 Dapsone - 100 mg PO DAILY 07/01/17 Amox-Tr/K Cl [Augmentin - 875Mg Tablet] 1 tab PO BID #14 tablet 07/02/17 Mupirocin Cream [Bactroban 2% Cream -] 1 applic TP BID #1 tube 07/02/17 Albuterol 0.083% Nebulizer Neha [Ventolin 0.083% Nebulizer Soln -] 1 neb NEB QID PRN #120 amp 09/01/17 Beclomethasone Dipropionate [Qvar] 8.7 gm IH BID #1 aer.w.adap 09/01/17 Cefuroxime Axetil [Ceftin -] 500 mg PO Q12H #20 tablet 09/01/17 Dapsone 100 mg GT DAILY #30 tablet 09/01/17 Ipratropium/Albuterol Sulfate [Combivent Respimat Inhal [place]] 4 gm IH QID PRN # 1 aer.w.adap 09/01/17 Methylprednisolone [Medrol Dose [place]] 4 mg PO ASDIR #21 tablet 09/08/17 Unobtainable 10/08/17 Anemia: Yes Asthma: Yes Cancer: Yes (LYMPHOMA) Cardiac Disorders: No CVA: No COPD: Yes CHF: No Dementia: No Diabetes: No GI Disorders: No Disorders: No HTN: No Hypercholesterolemia: No Liver Disease: Yes Seizures: No Thyroid Disease: No - Surgical History Abdominal Surgery: Yes Appendectomy: No Cardiac Surgery: No Cholecystectomy: No Lung Surgery: No Neurologic Surgery: No Orthopedic Surgery: No - Immunization History Immunization Up to Date: Yes - Suicide/Smoking/Psychosocial Hx Smoking Status: No Smoking History: Current every day smoker Have you smoked in the past 12 months: Yes Number of Cigarettes Smoked Daily: 20 If you are a former smoker, when did you quit?: 1YR Cigars Per Day: 0 Information on smoking cessation initiated: No 'Breaking Loose' booklet given: 11/04/15 Hx Alcohol Use: No Drug/Substance Use Hx: No Substance Use Type: None Hx Substance Use Treatment: Yes Review of Systems - Review of Systems Able to Perform ROS?: Yes Is the patient limited Bengali proficient: No Constitutional: Yes: Chills, Fever, Night Sweats HEENTM: No: Symptoms Reported Respiratory: Yes: Cough, Shortness of Breath, Wheezing Cardiac (ROS): No: Symptoms Reported ABD/GI: No: Symptoms Reported : No: Symptoms Reported Musculoskeletal: No: Symptoms Reported Integumentary: No: Symptoms Reported Neurological: No: Symptoms reported All Other Systems: Reviewed and Negative *Physical Exam - Vital Signs Last Vital Signs Temp Pulse Resp BP Pulse Ox 98.5 F 82 14 132/77 95 10/08/17 15:05 10/08/17 15:05 10/08/17 15:05 10/08/17 15:05 10/08/17 15:05 - Physical Exam General Appearance: Yes: Nourished, Appropriately Dressed. No: Apparent Distress HEENT: positive: EOMI, ADA, Normal ENT Inspection Neck: positive: Trachea midline. negative: Tender Respiratory/Chest: positive: Crackles, Wheezing. negative: Chest Tender, Respiratory Distress Cardiovascular: positive: Regular Rhythm, Regular Rate, S1, S2 Gastrointestinal/Abdominal: positive: Normal Bowel Sounds, Flat, Soft. negative : Tender Musculoskeletal: positive: Normal Inspection Extremity: positive: Normal Capillary Refill ED Treatment Course - LABORATORY CBC & Chemistry Diagram: 10/08/17 16:01 10/08/17 16:01 - ADDITIONAL ORDERS Additional order review: Laboratory Results 10/08/17 10/08/17 17:50 16:01 D-Dimer 265 H Sodium 139 Potassium 3.7 D Chloride 104 Carbon Dioxide 28 Anion Gap 7 L BUN 18 D Creatinine 1.0 D Random Glucose 85 Calcium 8.0 L Troponin I < 0.02 10/08/17 16:01 RBC 3.91 MCV 91.7 MCHC 33.1 RDW 15.6 MPV 9.0 Neutrophils % 58.5 Lymphocytes % 27.5 D Monocytes % 10.5 H Eosinophils % 2.7 Basophils % 0.8 Medical Decision Making - Medical Decision Making 10/08/17 19:47 This is a 57 yo F with PMH of HIV anemia, lymphoma, asthma, COPD, Liver disease , and past PNA, who presents with cough,chills and sob. as well as muscle pain. low suspicion for PE D-Dimer + in the 500's, ordered CTA CTA pending, patient signed out to Dr. Corona. 10/08/17 19:49 cbc, cmp WNL *DC/Admit/Observation/Transfer Diagnosis at time of Disposition: Dyspnea - Referrals Referrals: Pauly Taylor [Primary Care Provider] - - Patient Instructions - Post Discharge Activity
--- NOTE | 2017-10-08 19:26 | PDOC ---
*Physical Exam - Vital Signs Patient's care signed out to me by Dr. Pereira. 57 YOF with h/o HIV and lymphoma who presents with SOB and diffuse bodily aches with chest pain since this morning. D-dimer elevated, awaiting chest CT PE protocol. Will decide dispo pending results. Last Vital Signs Temp Pulse Resp BP Pulse Ox 98.5 F 82 14 132/77 95 10/08/17 15:05 10/08/17 15:05 10/08/17 15:05 10/08/17 15:05 10/08/17 15:05 ED Treatment Course - LABORATORY CBC & Chemistry Diagram: 10/08/17 16:01 10/08/17 16:01 - ADDITIONAL ORDERS Additional order review: Laboratory Results 10/08/17 10/08/17 17:50 16:01 D-Dimer 265 H Sodium 139 Potassium 3.7 D Chloride 104 Carbon Dioxide 28 Anion Gap 7 L BUN 18 D Creatinine 1.0 D Random Glucose 85 Calcium 8.0 L Troponin I < 0.02 10/08/17 16:01 RBC 3.91 MCV 91.7 MCHC 33.1 RDW 15.6 MPV 9.0 Neutrophils % 58.5 Lymphocytes % 27.5 D Monocytes % 10.5 H Eosinophils % 2.7 Basophils % 0.8 - Medications Given in the ED: ED Medications Discontinued Medications Generic Name Dose Route Start Last Admin Trade Name Blake PRN Reason Stop Dose Admin Albuterol/Ipratropium 3 amp 10/08/17 18:22 10/08/17 19:10 Duoneb - NEB 10/08/17 18:23 3 amp ONCE ONE Administration Methylprednisolone Sodium Succinate 125 mg 10/08/17 18:21 10/08/17 19:10 Solu-Medrol - IVPB 10/08/17 18:22 125 mg ONCE ONE Administration Medical Decision Making - Medical Decision Making 10/08/17 21:55 CT results without e/o PE but with bilateral mild basilar PNA and mild atelectasis. LDH is sent. 10/08/17 22:24 Patient does not want to wait for results of LDH; wants to leave instead. She is offered admission to the hospital given bilateral PNA with AIDS status in July. She is informed that her illness may be very serious and life threatening. She signs out AMA after doses of Bactrim and Levaquin are given. Rx are sent to her pharmacy for appropriate courses of Bactrim and Levaquin. *DC/Admit/Observation/Transfer Diagnosis at time of Disposition: Pneumonia associated with acquired immune deficiency syndrome (AIDS) - Discharge Dispostion Disposition: AGAINST MEDICAL ADVICE Condition at time of disposition: Fair Admit: No - Prescriptions Prescriptions: Levofloxacin [Levaquin] 750 mg PO DAILY #7 tab Sulfamethoxazole/Trimethoprim [Bactrim Ds -] 2 tab PO TID #120 tablet - Referrals Referrals: Pauly Taylor [Primary Care Provider] - - Patient Instructions Printed Discharge Instructions: DI for Pneumonia -- Adult, DI for AIDS Additional Instructions: You were seen in the ER tonight, and we did both lab studies, a chest x-ray, and a chest CT scan. You have pneumonia on both sides of your lungs and we discussed with you that this is a serious illness. We highly recommended that you stay in the hospital for IV antibiotics and further workup and monitoring. You are choosing to go home instead and signing out against medical advise. Your blood levels of your CD4 cells meed criteria for AIDS today in the ER; you should definitely follow up with your doctor regarding this. We are giving you your first doses of antibiotics here in the ER and sending the remaining antibiotics to your pharmacy. Please pick these up and take the entire course of both, whether or not you feel better. Return to the ER if you feel worse at all with new or worse symptoms like fever, chest pain, cough, passing out, or anything else. - Post Discharge Activity
[2017-10-08] MEDS ORDERED: SULFAMETHOXAZOLE/TRIMETHOPRIM 800MG/160MG D.S. TABLET PO ONE (22:08)
[2017-10-08] MEDS ORDERED: LEVOFLOXACIN 750 MG TABLET PO ONE (22:08)
[2017-10-08] MEDS ORDERED: SULFAMETHOXAZOLE/TRIMETHOPRIM 800MG/160MG D.S. TABLET ONE (22:20)
[2017-10-08] MEDS ORDERED: LEVOFLOXACIN 500 MG TABLET (FP) ONE (22:20)
[2017-10-08] MEDS ORDERED: LEVOFLOXACIN 250 MG TABLET (FP) ONE (22:20)
--- NOTE | 2017-10-10 14:39 | EKG ---
Test Reason : Blood Pressure : / mmHG Vent. Rate : 071 BPM Atrial Rate : 071 BPM P-R Int : 132 ms QRS Dur : 076 ms QT Int : 378 ms P-R-T Axes : 020 000 050 degrees QTc Int : 410 ms NORMAL SINUS RHYTHM NORMAL ECG WHEN COMPARED WITH ECG OF 24-JAN-2017 11:06, NO SIGNIFICANT CHANGE WAS FOUND Confirmed by MAYUR ROACH MD ([id number]) on 10/10/2017 2:38:53 PM Referred By: Confirmed By:MAYUR ROACH MD
== END 2017-10-08 22:53 | disposition left against medical advice (07) ==
LOC: JER 15:01
PROC: 3E0F7GC Introduction of Other Therapeutic Substance into Respiratory Tract, Via Natural or Artificial Opening (ICD-10-PCS; principal; 2017-10-08)
PROC: 3E0333Z Introduction of Anti-inflammatory into Peripheral Vein, Percutaneous Approach (ICD-10-PCS; 2017-10-08)
DX: B59 Pneumocystosis (principal); B20 Human immunodeficiency virus [HIV] disease; J44.9 Chronic obstructive pulmonary disease, unspecified; D64.9 Anemia, unspecified; K76.89 Other specified diseases of liver; F17.210 Nicotine dependence, cigarettes, uncomplicated
CPT/HCPCS: 36415; 71020-TC; 71275-TC; 80048; 83615; 84484; 85025; 85379; 93005; 93010; 94640; 96374; 99283-25

== ENCOUNTER 2017-12-27 10:30 | Emergency (ER) | payer OTHER ==
[2017-12-27] MEDS ORDERED: predniSONE 20 MG TABLET (UD) PO ONE (10:57)
[2017-12-27 11:03] VITALS: BP 150/78; PULSE 89; TEMP 98.1; BMI 28.3
[2017-12-27] MEDS ORDERED: ALBUTEROL SO4 2.5/IPRATROPIUM 0.5 INH SOL 3 ML VIAL.NEB. NEB ONE (11:15)
--- NOTE | 2017-12-27 12:12 | PDOC ---
History of Present Illness - General Chief Complaint: Pain, Acute Stated Complaint: LEG PAIN Time Seen by Provider: 12/27/17 10:33 History Source: Patient Exam Limitations: No Limitations - History of Present Illness Initial Comments: 12/27/17 12:07 57-year-old female presents to the ED for evaluation of bilateral ear pain, frontal headache, sore throat, and cough with wheezing for the past 5 days. Patient states no fever or chills or difficulty breathing. Patient states has been having this chronic right leg pain in the hip region which has been evaluated by her PCP and orthopedist. Patient states has been using her inhaler for her coughing and wheezing with good improvement but symptoms to return within hours. Patient does smoke cigarettes and is HIV positive. Timing/Duration: reports: getting worse Severity: reports: mild Possible Cause: Yes: occasional episodes Modifying Factors: improves with: albuterol inhaler, coughing Associated Symptoms: reports: cough, earache, headache, nasal congestion, sore throat, wheezing Past History - Travel Traveled outside of the country in the last 30 days: No - Past Medical History Allergies/Adverse Reactions: Allergies Allergy/AdvReac Type Severity Reaction Status Date / Time No Known Allergies Allergy Verified 12/27/17 11:05 Home Medications: Ambulatory Orders Albuterol 0.083% Nebulizer Neha [Ventolin 0.083% Nebulizer Soln -] 1 neb NEB QID PRN #120 amp 12/15/17 Albuterol Sulfate Inhaler - [Ventolin HFA Inhaler -] 1 - 2 inh PO QID #1 inhaler 12/15/17 Beclomethasone Dipropionate [Qvar] 8.7 gm IH BID #1 aer.w.adap 12/15/17 Dapsone - 100 mg PO DAILY #30 tablet 12/15/17 Docusate Sodium [Colace -] 100 mg PO TID PRN #90 capsule 12/15/17 Dolutegravir Sodium [Tivicay] 50 mg PO DAILY #30 tablet 12/15/17 Emtricitabine/Tenofov Alafenam [Descovy 200-25 mg Tablet (Nf)] 1 each PO DAILY # 30 tablet 12/15/17 Anemia: Yes Asthma: Yes Cancer: Yes (LYMPHOMA) Cardiac Disorders: No CVA: No COPD: No CHF: No DVT: No Dementia: No Diabetes: No GI Disorders: No Disorders: No HTN: No Hypercholesterolemia: No Liver Disease: Yes Seizures: No Thyroid Disease: No - Surgical History Abdominal Surgery: Yes Appendectomy: No Cardiac Surgery: No Cholecystectomy: No Lung Surgery: No Neurologic Surgery: No Orthopedic Surgery: No - Immunization History Immunization Up to Date: Yes - Suicide/Smoking/Psychosocial Hx Smoking Status: No Smoking History: Unknown if ever smoked Have you smoked in the past 12 months: No Number of Cigarettes Smoked Daily: 20 If you are a former smoker, when did you quit?: 1YR Cigars Per Day: 0 Information on smoking cessation initiated: No 'Breaking Loose' booklet given: 11/04/15 Hx Alcohol Use: No Drug/Substance Use Hx: No Substance Use Type: None Hx Substance Use Treatment: Yes Patient Lives Alone: No Lives with/in: spouse/SO Respiratory Specific PMHX - Complaint Specific PMHX Bronchitis: Yes Pneumonia: No TB (Tuberculosis): No Review of Systems - Review of Systems Able to Perform ROS?: Yes Constitutional: No: Symptoms Reported HEENTM: Yes: Ear Pain, Throat Pain Respiratory: Yes: Cough, Wheezing. No: Shortness of Breath Cardiac (ROS): No: Symptoms Reported ABD/GI: No: Symptoms Reported : No: Symptoms Reported Musculoskeletal: Yes: Joint Pain (right hip) Integumentary: No: Symptoms Reported Neurological: No: Symptoms reported Endocrine: No: Symptoms Reported *Physical Exam - Vital Signs Last Vital Signs Temp Pulse Resp BP Pulse Ox 98.1 F 89 18 150/78 96 12/27/17 10:35 12/27/17 10:35 12/27/17 10:35 12/27/17 10:35 12/27/17 10:35 - Physical Exam General Appearance: Yes: Nourished, Appropriately Dressed. No: Apparent Distress HEENT: positive: EOMI, ADA, TMs Normal, Pharynx Normal, Thrush. negative: Pale Conjunctivae Respiratory/Chest: positive: Wheezing (expiratory bilateral). negative: Respiratory Distress, Accessory Muscle Use, Labored Respiration Cardiovascular: positive: Regular Rhythm, Regular Rate. negative: Murmur Gastrointestinal/Abdominal: positive: Soft. negative: Tenderness Extremity: positive: Normal Capillary Refill. negative: Pedal Edema Integumentary: positive: Normal Color, Warm, Moist Neurologic: positive: Normal Mood/Affect, Motor Strength 5/5 (ambulatory) ED Treatment Course - Medications Given in the ED: ED Medications Discontinued Medications Generic Name Dose Route Start Last Admin Trade Name Blake PRN Reason Stop Dose Admin Albuterol/Ipratropium 1 amp 12/27/17 11:15 12/27/17 11:16 Duoneb - NEB 12/27/17 11:16 1 amp ONCE ONE Administration Prednisone 60 mg 12/27/17 10:57 12/27/17 11:12 Deltasone - PO 12/27/17 10:58 60 mg ONCE ONE Administration Medical Decision Making - Medical Decision Making 12/27/17 12:08 Patient history of asthma, smoking history and HIV presents the ED with complaints of bilateral ear pain, sore throat, wheezing and cough. Patient initially stated leg pain but states that is chronic, has had negative x-ray, and pain is relieved with Tylenol. Patient exam did have expiratory wheezing bilateral along with complaints of sore throat. Due to patient's history I Will treat for acute wheezy bronchitis but will check for influenza since she states her 2 grandchildren just diagnosed last week with influenza. 12/27/17 12:20 She states feeling much better wants to be discharged home. Patient be discharged home with prednisone and a Z-Hieu. patient states has a full inhaler. As per lab we are out of the reagent for influenza testing. *DC/Admit/Observation/Transfer Diagnosis at time of Disposition: Acute wheezy bronchitis - Discharge Dispostion Disposition: HOME Condition at time of disposition: Improved - Referrals Referrals: Guerda Brewster [Primary Care Provider] - - Patient Instructions Printed Discharge Instructions: DI for Acute Bronchitis Additional Instructions: Please take prednisone as prescribed starting tomorrow. Please start azithromycin antibiotic today. Use your inhaler as needed for wheezing. Return to ED if symptoms worsen. Otherwise follow-up with your primary care physician - Post Discharge Activity
== END 2017-12-27 12:31 | disposition home or self-care (01) ==
LOC: JER 10:30
PROC: 3E0F7GC Introduction of Other Therapeutic Substance into Respiratory Tract, Via Natural or Artificial Opening (ICD-10-PCS; principal; 2017-12-27)
PROC: 3E0F7GC Introduction of Other Therapeutic Substance into Respiratory Tract, Via Natural or Artificial Opening (ICD-10-PCS; 2017-12-27)
DX: J20.9 Acute bronchitis, unspecified (principal); J45.909 Unspecified asthma, uncomplicated
CPT/HCPCS: 87804; 94640; 99283-25

== ENCOUNTER 2018-01-20 10:44 | Emergency (ER) | payer OTHER ==
[2018-01-20 10:53] VITALS: BP 119/81; PULSE 76; TEMP 98.4; BMI 25.0
[2018-01-20] MEDS ORDERED: ALBUTEROL SO4 2.5/IPRATROPIUM 0.5 INH SOL 3 ML VIAL.NEB. NEB ONE ×2 (11:40→11:43)
--- NOTE | 2018-01-20 11:40 | PDOC ---
History of Present Illness - General Chief Complaint: Asthma Stated Complaint: ASTHMA History Source: Patient Exam Limitations: No Limitations - History of Present Illness Initial Comments: 01/20/18 19:31 This 57-year-old female who is well known to our facility presents here to the emergency room with complaints of asthma for 2 weeks. She states this is having a cough as well as some wheezing on and off for 2 weeks. She ran out of her albuterol at home. Her next appointment is with Dr. Vargas in a week. Patient medical history positive HIV, patient is a poor historian and is unable to tell me any of her lab work or CD4 count. Past History - Past Medical History Allergies/Adverse Reactions: Allergies Allergy/AdvReac Type Severity Reaction Status Date / Time No Known Allergies Allergy Verified 01/20/18 10:49 Home Medications: Ambulatory Orders Albuterol 0.083% Nebulizer Neha [Ventolin 0.083% Nebulizer Soln -] 1 neb NEB QID PRN #120 amp 12/15/17 Beclomethasone Dipropionate [Qvar] 8.7 gm IH BID #1 aer.w.adap 12/15/17 Dapsone - 100 mg PO DAILY #30 tablet 12/15/17 Docusate Sodium [Colace -] 100 mg PO TID PRN #90 capsule 12/15/17 Dolutegravir Sodium [Tivicay] 50 mg PO DAILY #30 tablet 12/15/17 Emtricitabine/Tenofov Alafenam [Descovy 200-25 mg Tablet (Nf)] 1 each PO DAILY # 30 tablet 12/15/17 Azithromycin [Zithromax Tri-Hieu (3 DAYS) -] 500 mg PO DAILY #3 tablet 12/27/17 predniSONE [Deltasone -] 40 mg PO DAILY #8 tablet 12/27/17 Albuterol Sulfate Inhaler - [Ventolin HFA Inhaler -] 1 - 2 inh PO QID #1 inhaler 01/20/18 Anemia: Yes Asthma: Yes Cancer: Yes (LYMPHOMA) Cardiac Disorders: No CVA: No COPD: No CHF: No DVT: No Dementia: No Diabetes: No GI Disorders: No Disorders: No HTN: No Hypercholesterolemia: No Liver Disease: Yes Seizures: No Thyroid Disease: No - Surgical History Abdominal Surgery: Yes Appendectomy: No Cardiac Surgery: No Cholecystectomy: No Lung Surgery: No Neurologic Surgery: No Orthopedic Surgery: No - Immunization History Immunization Up to Date: Yes - Suicide/Smoking/Psychosocial Hx Smoking Status: No Smoking History: Unknown if ever smoked Have you smoked in the past 12 months: No Number of Cigarettes Smoked Daily: 20 If you are a former smoker, when did you quit?: 1month Cigars Per Day: 0 Information on smoking cessation initiated: No 'Breaking Loose' booklet given: 11/04/15 Hx Alcohol Use: No Drug/Substance Use Hx: No Substance Use Type: None Hx Substance Use Treatment: Yes Respiratory Specific PMHX - Complaint Specific PMHX Bronchitis: Yes Pneumonia: No TB (Tuberculosis): No Review of Systems - Review of Systems Able to Perform ROS?: Yes Comments:: 01/20/18 19:32 General statement: 57-year-old female Hematology: neg history of bleeding/blood thinners Skin: Neg for lesions, rash, bruising. HEENT: Neg symptoms Respiratory: Positive SOB with positive wheezing but no difficulty in breathing Cardiac: Neg chest pain GI: Neg pain, n/v : Neg problems on voiding MS: Neg for joint pain/stiffness, no edema Neuro: Neg for LOC, weakness, Endocrine: Neg for excess thirst/hunger, cold/heat intolerance, excess sweating Allergies: Neg for allergies *Physical Exam - Vital Signs Last Vital Signs Temp Pulse Resp BP Pulse Ox 98.4 F 76 15 119/81 98 01/20/18 10:50 01/20/18 10:50 01/20/18 10:50 01/20/18 10:50 01/20/18 10:50 - Physical Exam Comments: 01/20/18 19:33 General Appearance: This 57-year-old female V/S: hemodynamically stable, afebrile Skin: WNL of pt's skin color, no signs of pallor, mottling, cyanosis Head:symmetrical Eyes: EOM's intact, PERRLA Ears: denies pain Nose: patent Throat: lips, teeth, gums, tongue, buccal mucos pink and moist Lungs: Chest symmetry equal. Cap refill <3 seconds. Lung sounds bilateral wheezing mild no respiratory distress Cardiac: PMI at R 4MCL space, pos S1 and S2, regular rate. Abdomen: Soft, round, nontender : Not observed Muscularskeletal: Gait steady, ambulated in to ER, no edema +PMS Neuro: AAOx3, cognitively intact, speech clear and appropriate. Medical Decision Making - Medical Decision Making 01/20/18 19:33 She initially was seen and examined. Patient underwent a chest x-ray that does not show any infiltrates or consolidation. I have given her a DuoNeb. This seemed to help with her wheezing. I've also ordered her an albuterol inhaler where she can pick it up until she follows up with Dr. Vargas. Patient feels much better and is being discharged. *DC/Admit/Observation/Transfer Diagnosis at time of Disposition: Asthma Qualifiers: Asthma severity: mild - Discharge Dispostion Disposition: HOME Condition at time of disposition: Stable Admit: No - Prescriptions Prescriptions: Albuterol Sulfate Inhaler - [Ventolin HFA Inhaler -] 1 - 2 inh PO QID #1 inhaler - Referrals - Patient Instructions Printed Discharge Instructions: Asthma -- Adult Additional Instructions: Discharge instructions 1. Please follow up with your primary physician within the next few days and explain that you have been seen here in the Emergency Room. 2. If you experience any worsening of symptoms, please return to the ER 3. Rest 4. Drink plenty of water - Post Discharge Activity
== END 2018-01-20 12:50 | disposition home or self-care (01) ==
LOC: JERFT 10:44
PROC: 3E0F7GC Introduction of Other Therapeutic Substance into Respiratory Tract, Via Natural or Artificial Opening (ICD-10-PCS; principal; 2018-01-20)
DX: J45.20 Mild intermittent asthma, uncomplicated (principal); Z21 Asymptomatic human immunodeficiency virus [HIV] infection status; Z86.2 Personal history of diseases of the blood and blood-forming organs and certain disorders involving the immune mechanism; Z87.19 Personal history of other diseases of the digestive system; Z85.72 Personal history of non-Hodgkin lymphomas
CPT/HCPCS: 71046-TC-FY; 94640; 99281-25

== ENCOUNTER 2018-02-17 15:36 | Inpatient (IN) | payer OTHER ==
[2018-02-17 15:59] VITALS: BMI 26.5
--- NOTE | 2018-02-17 16:14 | PDOC ---
History of Present Illness - General Chief Complaint: SIRS, Suspected/Possible Stated Complaint: FEVER Time Seen by Provider: 02/17/18 15:45 - History of Present Illness Initial Comments: This is a 57 yo F with PMH of HIV (dorysy non-compliant on meds [id number] ), anemia, lymphoma, asthma, COPD, liver disease, and past PNA presenting with chills, sob, muscle pains, and cough for the past few days. Her fevers were unmeasured, her cough is occasionally productive, and her muscle aches are in her arms and legs. She states she is non-compliant with some of her HIV mediations because the "liquid ones are nasty". Denies chest pain, headache, visual symptoms, nausea, vomiting, diarrhea, focal neuro deficit, neck stiffness , or other symptoms. 02/17/18 16:19 Past History - Past Medical History Allergies/Adverse Reactions: Allergies Allergy/AdvReac Type Severity Reaction Status Date / Time No Known Allergies Allergy Verified 02/17/18 15:46 Home Medications: Ambulatory Orders Albuterol 0.083% Nebulizer Neha [Ventolin 0.083% Nebulizer Soln -] 1 neb NEB QID PRN #120 amp 12/15/17 Beclomethasone Dipropionate [Qvar] 8.7 gm IH BID #1 aer.w.adap 12/15/17 Dapsone - 100 mg PO DAILY #30 tablet 12/15/17 Docusate Sodium [Colace -] 100 mg PO TID PRN #90 capsule 12/15/17 Dolutegravir Sodium [Tivicay] 50 mg PO DAILY #30 tablet 12/15/17 Emtricitabine/Tenofov Alafenam [Descovy 200-25 mg Tablet (Nf)] 1 each PO DAILY # 30 tablet 12/15/17 Azithromycin [Zithromax Tri-Hieu (3 DAYS) -] 500 mg PO DAILY #3 tablet 12/27/17 predniSONE [Deltasone -] 40 mg PO DAILY #8 tablet 12/27/17 Albuterol Sulfate Inhaler - [Ventolin HFA Inhaler -] 1 - 2 inh PO QID #1 inhaler 01/20/18 Sulfamethoxazole/Trimethoprim [Bactrim Ds -] 1 tab PO BID #14 tablet 01/25/18 Calamine/Zinc Oxide [Calamine Lotion] 1 applic TP QID PRN #1 bottle 01/30/18 Gabapentin [Neurontin -] 100 mg PO HS PRN #30 capsule MDD 300mg 01/30/18 Valacyclovir HCl [Valtrex -] 1,000 mg PO TID #21 tablet 01/30/18 Cane 1 each MC PRN #1 each 02/09/18 Unobtainable Medication List 02/17/18 Anemia: Yes Asthma: Yes Cancer: Yes (LYMPHOMA) Cardiac Disorders: No CVA: No COPD: No CHF: No DVT: No Dementia: No Diabetes: No GI Disorders: No Disorders: No HTN: Yes Hypercholesterolemia: No Liver Disease: Yes Seizures: No Thyroid Disease: No - Surgical History Abdominal Surgery: Yes Appendectomy: No Cardiac Surgery: No Cholecystectomy: No Lung Surgery: No Neurologic Surgery: No Orthopedic Surgery: No - Immunization History Immunization Up to Date: Yes - Suicide/Smoking/Psychosocial Hx Smoking Status: No Smoking History: Current some day smoker Have you smoked in the past 12 months: Yes Number of Cigarettes Smoked Daily: 20 If you are a former smoker, when did you quit?: 1month Cigars Per Day: 0 Information on smoking cessation initiated: No 'Breaking Loose' booklet given: 11/04/15 Hx Alcohol Use: No Drug/Substance Use Hx: No Substance Use Type: None Hx Substance Use Treatment: Yes Review of Systems - Review of Systems Constitutional: Yes: Chills, Fever HEENTM: No: Blurred Vision, Tearing Respiratory: Yes: Cough, Shortness of Breath, Productive cough Cardiac (ROS): No: Chest Pain, Irregular Heart Rate ABD/GI: No: Diarrhea, Nausea, Vomiting : No: Burning, Dysuria, Discharge Musculoskeletal: No: Back Pain, Joint Pain Integumentary: No: Bruising, Change in Color Neurological: No: Headache, Numbness, Paresthesia *Physical Exam - Vital Signs Last Vital Signs Temp Pulse Resp BP Pulse Ox 101.6 F H 85 20 121/68 97 02/17/18 15:46 02/17/18 15:46 02/17/18 15:46 02/17/18 15:46 02/17/18 15:46 - Physical Exam General Appearance: Yes: Nourished, Appropriately Dressed. No: Apparent Distress HEENT: positive: EOMI, ADA, Normal ENT Inspection, Normal Voice Neck: positive: Trachea midline, Normal Thyroid, Supple. negative: Tender, Rigid Respiratory/Chest: negative: Chest Tender, Lungs Clear (blateral inspiratory and expiratory crackles worsened at the LLB), Normal Breath Sounds, Respiratory Distress, Accessory Muscle Use, Labored Respiration Cardiovascular: positive: Regular Rhythm, Regular Rate Gastrointestinal/Abdominal: positive: Normal Bowel Sounds, Flat, Soft. negative : Tender Musculoskeletal: positive: Normal Inspection. negative: CVA Tenderness Extremity: positive: Normal Capillary Refill, Normal Inspection, Normal Range of Motion. negative: Tender, Coldness Integumentary: positive: Normal Color, Dry, Warm Neurologic: positive: Fully Oriented, Alert, Normal Response, Motor Strength 5/ 5. negative: Normal Mood/Affect (easily excitable) ED Treatment Course - LABORATORY CBC & Chemistry Diagram: 02/17/18 16:40 02/17/18 16:40 Medical Decision Making - Medical Decision Making 57 year old immuncompromised patient with HIV medication non-compliant with medications. Labs WNL but CXR demonstrating LLL infiltrate. Will admit for immunocompromised PNA. Given Vanc and Cefepime (although not neutropenic, patient is immuncompromised) an admitted under Dr. Peres. 02/17/18 18:53 *DC/Admit/Observation/Transfer Diagnosis at time of Disposition: PNA (pneumonia) Qualifiers: Pneumonia type: due to unspecified organism Laterality: left Lung location: lower lobe of lung Qualified Code(s): J18.1 - Lobar pneumonia, unspecified organism - Discharge Dispostion Condition at time of disposition: Stable Admit: Yes - Referrals Referrals: Pauly Taylor [Primary Care Provider] - - Patient Instructions - Post Discharge Activity
[2018-02-17] MEDS ORDERED: IBUPROFEN 600 MG TABLET (FP) PO ONE (16:33)
[2018-02-17] MEDS ORDERED: ALBUTEROL SO4 2.5/IPRATROPIUM 0.5 INH SOL 3 ML VIAL.NEB. NEB ONE (16:35)
[2018-02-17] MEDS ORDERED: SODIUM CHLORIDE 0.9% 500 ML INFUS.BAG IV ONE (16:39)
[2018-02-17 16:51] LABS: BASO % 0.4 % (0-2.0); HEMATOCRIT 30.8 % (32.4-45.2); HEMOGLOBIN 10.5 GM/dL (10.7-15.3); LYMPH % 17.6 % (8-40); MCH 31.8 pg (25.7-33.7); MCHC 34.2 g/dl (32.0-36.0); MEAN CELL VOLUME 92.8 fl (80-96); MEAN PLT VOLUME 8.6 fl (7.5-11.1); MONO % 8.1 % (3.8-10.2); NEUT % 70.9 % (42.8-82.8); PLATELET COUNT 246 K/MM3 (134-434); RBC 3.32 M/mm3 (3.60-5.2); RDW 13.7 % (11.6-15.6); WHITE BLOOD COUNT 6.5 K/mm3 (4.0-10.0)
[2018-02-17 16:53] LABS: VENOUS PC02 49.9 mmHg (38-52); VENOUS PH 7.34 (7.32-7.42); VENOUS PO2 26.1 mmHg (28-48)
[2018-02-17 17:17] LABS: ALBUMIN 3.4 g/dl (3.4-5.0); ANION GAP 9 (8-16); BILIRUBIN,TOTAL 0.4 mg/dL (0.2-1.0); BLOOD UREA NITROGEN 15 mg/dL (7-18); CALCIUM 9.1 mg/dL (8.5-10.1); CHLORIDE 104 mmol/L (98-107); CO2 26 mmol/L (21-32); CREATININE 0.9 mg/dL (0.55-1.02); GLUCOSE,RANDOM 81 mg/dL (74-106); LDH 222 U/L (84-246); POTASSIUM 3.8 mmol/L (3.5-5.1); SGOT/AST 20 U/L (15-37); SGPT/ALT 35 U/L (12-78); SODIUM 139 mmol/L (136-145); TOT PROT 7.7 g/dl (6.4-8.2)
[2018-02-17 17:18] LABS: ALK PHOS 274 U/L (45-117)
[2018-02-17] MEDS ORDERED: VANCOMYCIN 1,500 MG in DEXTROSE 5%-WATER - 500 ML IVPB ONE (18:06)
[2018-02-17] MEDS ORDERED: CEFEPIME HCL/D5W 2 GM/50 ML BAG IVPB ONE (18:08)
--- NOTE | 2018-02-17 18:19 | PDOC ---
Attending Attestation - Resident Resident Name: Patricia Calvert - ED Attending Attestation I have performed the following: I have examined & evaluated the patient, The case was reviewed & discussed with the resident, I agree w/resident's findings & plan, Exceptions are as noted - HPI HPI: 02/17/18 18:16 The patient is a 57 year old male with history of HIV (CD4 unknown, not medication compliant), anemia, lymphoma s/p resection, asthma, COPD, liver disease, drug abuse, who presents to the ED with complaints of shortness of breath, cough, fever, diffuse myalgias, and malaise for approximately 1 week. Pt denies dysuria. Denies N/V/D, denies abdominal pain. Denies chest pain. Denies LEYVA/neck pain. - Physicial Exam PE: 02/17/18 18:18 "GENERAL: Awake, alert, and fully oriented, in no acute distress. Generally weak appearing. HEAD: No signs of trauma EYES: PERRLA, EOMI, sclera anicteric, conjunctiva clear ENT: Auricles normal inspection, hearing grossly normal, nares patent, oropharynx clear without exudates. Moist mucosa NECK: Nontender, no stepoffs, Normal ROM, supple, no lymphadenopathy, JVD, or masses LUNGS: diffuse rhonchi, L>R, no wheezes HEART: Regular rate and rhythm, normal S1 and S2, no murmurs, rubs or gallops ABDOMEN: Soft, normoactive bowel sounds. No guarding, no rebound. No masses EXTREMITIES: Normal range of motion, no edema. No clubbing or cyanosis. No cords, erythema, or tenderness NEUROLOGICAL: Cranial nerves II through XII intact. 5/5 strength and sensation in all extremities, Normal speech, normal gait, normal cerebellar function SKIN: Warm, Dry, normal turgor, no rashes or lesions noted. " - Medical Decision Making 02/17/18 18:18 57 F with malaise, cough, SOB x 1 week. Has fever of 101 in ED and rhonchi on lung exam, concerning for PNA. Pt with unknown CD4 count, possible PCP. - Labs, LDH - Cultures - CXR, UA - IVF, Abx - Admit
[2018-02-17 19:00] LABS: URINE APPEARANCE CLEAR; URINE BILIRUBIN NEGATIVE (<2.0 mg/dL); URINE BLOOD NEGATIVE (NEGATIVE); URINE COLOR YELLOW; URINE GLUCOSE (UA) NEGATIVE (NEGATIVE); URINE KETONE TRACE (NEGATIVE); URINE LEUK ESTERASE NEGATIVE (NEGATIVE); URINE NITRITE NEGATIVE (NEGATIVE); URINE PROTEIN NEGATIVE (NEGATIVE); URINE UROBILINOGEN 4.0 E.U/dl mg/dL (0.2-1.0)
--- NOTE | 2018-02-17 20:33 | HP ---
CHIEF COMPLAINT: fwvwr, chills, cough PCP: none HISTORY OF PRESENT ILLNESS: The patient is a 57 year old female with a PMH of HIV (diagnosed 20 years ago, last CD4 204 02/09/18), lymphoma s/p chemotherapy 2 years ago, parotid mass, never f/u with oncologist, recent treatment for bronchitis (02/09/18), herpes zoster 01/30/18 who presented to the hospital complaining of subjective fever, chills, cough (bringing up yellow sputum), nasal congestion, muscle pain and sore throat that started 4-5 days ago. She went to [facility] where she was given ear drops for 'ear infection". She is still taking the medication but doesn't remember the name. She also states that she went to [facility] after she fell at home on 4 days ago. She states that she slipped and hit her left knee and head but didn't loose consciousness. The patient also reports increased frequency to urination for 4-5 days. The patient also reports that she was treated for skin infection last month but doesn't remember the name of medication. She is following Dr Vargas but doesn't take antiviral medications due to bad taste. She doesn't remember her home medications. She denies dysuria, urgency, chest pain, palpitations, nausea, vomiting, diarrhea. The patient is a poor historian. History was taken partially from her and from medical records. ER course was notable for: (1)CXR (2)CBC, CMP (3)Cefepime and Vancomycin PAST MEDICAL HISTORY: as above PAST SURGICAL HISTORY: c sections Social History: Smokin-4/ day, cut down from 1,5 pack a day for 20 years Alcohol: occasionally beer Drugs: denies Family History: mother; n/a father; recently due to bone cancer 9 children; healthy Lives with , uses crutches Allergies No Known Allergies Allergy (Verified 02/17/18 15:46) HOME MEDICATIONS: Home Medications Medication Instructions Recorded Albuterol 0.083% Nebulizer Neha 1 neb NEB QID PRN #120 amp 12/15/17 [Ventolin 0.083% Nebulizer Soln -] Beclomethasone Dipropionate [Qvar] 8.7 gm IH BID #1 aer.w.adap 02/01/18 Dapsone - 100 mg PO DAILY #30 tablet 12/15/17 Docusate Sodium [Colace -] 100 mg PO TID PRN #90 capsule 12/15/17 Dolutegravir Sodium [Tivicay] 50 mg PO DAILY #30 tablet 12/15/17 Emtricitabine/Tenofov Alafenam 1 each PO DAILY #30 tablet 12/15/17 [Descovy 200-25 mg Tablet (Nf)] Azithromycin [Zithromax Tri-Hieu (3 500 mg PO DAILY #3 tablet 12/27/17 DAYS) -] predniSONE [Deltasone -] 40 mg PO DAILY #8 tablet 12/27/17 Albuterol Sulfate Inhaler - 1 - 2 inh PO QID #1 inhaler 01/20/18 [Ventolin HFA Inhaler -] Sulfamethoxazole/Trimethoprim 1 tab PO BID #14 tablet 01/25/18 [Bactrim Ds -] Calamine/Zinc Oxide [Calamine 1 applic TP QID PRN #1 bottle 01/30/18 Lotion] Gabapentin [Neurontin -] 100 mg PO HS PRN #30 capsule MDD 01/30/18 300mg Valacyclovir HCl [Valtrex -] 1,000 mg PO TID #21 tablet 01/30/18 Cane 1 each MC PRN #1 each 02/09/18 Unobtainable Medication List 02/17/18 REVIEW OF SYSTEMS CONSTITUTIONAL: fever, chills Absent: diaphoresis, generalized weakness, malaise, loss of appetite, weight change HEENT: nasal congestion, throat pain Absent: rhinorrhea, throat swelling, difficulty swallowing, mouth swelling CARDIOVASCULAR: Absent: chest pain, syncope, palpitations, irregular heart rate, lightheadedness , peripheral edema RESPIRATORY: cough, shortness of breath, Absent: dyspnea with exertion, orthopnea, wheezing, stridor, hemoptysis GASTROINTESTINAL: Absent: abdominal pain, abdominal distension, nausea, vomiting, diarrhea, constipation GENITOURINARY: frequency Absent: dysuria, urgency, hesitancy, hematuria, flank pain, genital pain MUSCULOSKELETAL: myalgia Absent: arthralgia, joint swelling, back pain, neck pain SKIN: Absent: rash, itching, pallor HEMATOLOGIC/IMMUNOLOGIC: Absent: easy bleeding, easy bruising ENDOCRINE: Absent: unexplained weight gain, unexplained weight loss NEUROLOGIC: Absent: headache, focal weakness or paresthesias, dizziness PSYCHIATRIC: Absent: anxiety, depression PHYSICAL EXAMINATION Vital Signs - 24 hr 02/17/18 02/17/18 15:46 17:00 Temperature 101.6 F H 99.2 F Pulse Rate 85 Pulse Rate [ 90 Apical] Respiratory 20 Rate Blood Pressure 121/68 Blood Pressure 128/63 [Left Arm] O2 Sat by Pulse 97 96 Oximetry (%) GENERAL: Awake, alert, and fully oriented, in no acute distress. HEAD: Normal with no signs of trauma. EYES: Pupils equal, round and reactive to light, extraocular movements intact, sclera anicteric, conjunctiva clear. No lid lag. EARS, NOSE, THROAT: Ears normal, nares patent, oropharynx clear without exudates. Moist mucous membranes, left parotid enlarged 3x3 cm, tender to palpation, no skin rash, right parotid gland 1 cm, mild tenderness. NECK: Normal range of motion, supple without lymphadenopathy, JVD, or masses. LUNGS: Breath sounds equal, ronchi and rales, crackles more on right side, no wheezing. No accessory muscle use. HEART: Regular rate and rhythm, normal S1 and S2 without murmur, rub or gallop. ABDOMEN: Soft, nontender, not distended, normoactive bowel sounds, no guarding, no rebound, no masses. No hepatomegaly or splenomegaly. MUSCULOSKELETAL: Normal range of motion at all joints. No bony deformities or tenderness. No CVA tenderness. UPPER EXTREMITIES: 2+ pulses, warm, no cyanosis. No clubbing. No peripheral edema. LOWER EXTREMITIES: 2+ pulses, warm. No calf tenderness. No peripheral edema, left knee: no tenderness, no crepitus, nl ROM. NEUROLOGICAL: No facial asymmetry, motor 5/5, sensation intact, normal speech. Gait not observed. PSYCHIATRIC: Cooperative, anxious. SKIN: Warm, dry, normal turgor, dark brown rash in left upper extremity, no redness, no swelling. Laboratory Results - last 24 hr 02/17/18 02/17/18 02/17/18 16:40 16:40 16:40 WBC 6.5 RBC 3.32 L Hgb 10.5 L D Hct 30.8 L D MCV 92.8 MCH 31.8 MCHC 34.2 RDW 13.7 Plt Count 246 MPV 8.6 Neutrophils % 70.9 D Lymphocytes % 17.6 D Monocytes % 8.1 Eosinophils % 3.0 Basophils % 0.4 VBG pH 7.34 POC VBG pCO2 49.9 POC VBG pO2 26.1 L D Mixed VBG HCO3 26.3 H Sodium 139 Potassium 3.8 Chloride 104 Carbon Dioxide 26 Anion Gap 9 BUN 15 Creatinine 0.9 Creat Clearance w eGFR > 60 Random Glucose 81 Lactic Acid Calcium 9.1 Total Bilirubin 0.4 D AST 20 ALT 35 Alkaline Phosphatase 274 H LD Total 222 Total Protein 7.7 Albumin 3.4 Urine Color Urine Appearance Urine pH Ur Specific [place] Urine Protein Urine Glucose (UA) Urine Ketones Urine Blood Urine Nitrite Urine Bilirubin Urine Urobilinogen Ur Leukocyte Esterase 02/17/18 02/17/18 16:40 18:35 WBC RBC Hgb Hct MCV MCH MCHC RDW Plt Count MPV Neutrophils % Lymphocytes % Monocytes % Eosinophils % Basophils % VBG pH POC VBG pCO2 POC VBG pO2 Mixed VBG HCO3 Sodium Potassium Chloride Carbon Dioxide Anion Gap BUN Creatinine Creat Clearance w eGFR Random Glucose Lactic Acid 1.4 Calcium Total Bilirubin AST ALT Alkaline Phosphatase LD Total Total Protein Albumin Urine Color Yellow Urine Appearance Clear Urine pH 5.0 Ur Specific [place] 1.020 Urine Protein Negative Urine Glucose (UA) Negative Urine Ketones Trace H Urine Blood Negative Urine Nitrite Negative Urine Bilirubin Negative Urine Urobilinogen 4.0 e.u/dl H Ur Leukocyte Esterase Negative ASSESSMENT/PLAN: The patient is a 57 year old female with a PMH of HIV (diagnosed 20 years ago, last CD4 204 02/09/18), lymphoma s/p chemotherapy 2 years ago, b/l parotid mass, who presented to the hospital complaining of subjective fever, chills, cough ( bringing up yellow sputum), nasal congestion and sore throat that started 4-5 days ago. She is admitted for pneumonia. CAP in immunocompromised patient: -records from [facility] (02/09/18) show that she was given Azithromycin, done CXR - the patient doesn't remember if she took the medication -fever recorded in ED to 101.6, CXR suggestive of infiltrate on left side, waiting for official read -given Cefepime and Vacomycin in ED, will continue Ceftriaxone 1 g daily and Azithromycin 500 mg first day, followed by 250 mg IV -ordered urine Legionella, Flu swab -consulted Dr Vargas-ID -Albuterol given n ED, will continue HIV: -CD4 204, CD4/CD8 ratio 0.22 -f/u ID recommendations -will confirm home medications in AM Parotid mass: -diagnosed with MRI, possible adenoma, never followed with [facility] -the patient states that she has appointment in February Lymphoma; -s/p chemiotherapy, her Oncologist is Dr Felipe -h/o of right adnexal mass, never followed obgyn Herpes zoster: -treated with Valtrex -brown rash in LUE, no signs of active infection Nicotine dependance: -counseling DVT PPX: -Heparin sq -ambulating -scds F/E/N: no/no changes/regular diet The patient will bring her home medication list in the morning. Problem List - Problem (1) Pneumonia Code(s): J18.9 - PNEUMONIA, UNSPECIFIED ORGANISM Qualifiers: Pneumonia type: due to unspecified organism Laterality: left Lung location: lower lobe of lung Qualified Code(s): J18.1 - Lobar pneumonia, unspecified organism (2) Fever Code(s): R50.9 - FEVER, UNSPECIFIED Qualifiers: Fever type: unspecified cause of fever (3) Herpes zoster Code(s): B02.9 - ZOSTER WITHOUT COMPLICATIONS (4) Left lower lobe pneumonia Code(s): J18.9 - PNEUMONIA, UNSPECIFIED ORGANISM Qualifiers: Pneumonia type: due to unspecified organism Qualified Code(s): J18.1 - Lobar pneumonia, unspecified organism (5) Parotid swelling Code(s): R60.9 - EDEMA, UNSPECIFIED (6) Pneumonia associated with acquired immune deficiency syndrome (AIDS) Code(s): B20 - HUMAN IMMUNODEFICIENCY VIRUS [HIV] DISEASE; J18.9 - PNEUMONIA, UNSPECIFIED ORGANISM (7) HIV (human immunodeficiency virus infection) Code(s): Z21 - ASYMPTOMATIC HUMAN IMMUNODEFICIENCY VIRUS INFECTION STATUS (8) Lymphoma Code(s): C85.90 - NON-HODGKIN LYMPHOMA, UNSPECIFIED, UNSPECIFIED SITE Qualifiers: Lymphoma type: unspecified type (9) Smoking Code(s): F17.200 - NICOTINE DEPENDENCE, UNSPECIFIED, UNCOMPLICATED Visit type - Emergency Visit Emergency Visit: Yes ED Registration Date: 02/17/18 Care time: The patient presented to the Emergency Department on the above date and was hospitalized for further evaluation of their emergent condition. - New Patient This patient is new to me today: Yes Date on this admission: 02/18/18 - Critical Care Critical Care patient: No Hospitalist Screening - Colonoscopy Questionnaire Colonoscopy Questionnaire: Colonoscopy Questionnaire - Patient: 50 - 75 years old and never had a screening colonoscopy: No History of colon or rectal polyps, or CA: No History of IBD, Crohn's disease or UC: No History of abdominal radiation therapy as a child: No - Relative: 1 with colon or rectal CA, or polyps at age 60 or younger: No Colon or rectal CA diagnosed at age 45 or younger: No Multiple relatives with colon or rectal CA: No - Outcome: Screening Result: Negative Screen
[2018-02-17] MEDS: ALBUTEROL SO4 0.083% IH SOL 2.5 MG/3 ML VIAL.NEB. NEB PRN (22:41)
[2018-02-17] MEDS: HEPARIN NA (PORCINE) 5,000 UNITS/ML 1ML VIAL SQ SCH (23:00)
--- NOTE | 2018-02-17 23:21 | PN ---
Teaching Attending Note Name of Resident: Amara Rosas ATTENDING PHYSICIAN STATEMENT I saw and evaluated the patient. I reviewed the resident's note and discussed the case with the resident. I agree with the resident's findings and plan as documented. SUBJECTIVE: OBJECTIVE: ASSESSMENT AND PLAN: 57 y/o female patient with hx of HIV non-compliant, DL, HTN, herpes presented with worsening SOB, and fever, she was recently diagnosed with atypical pneumonia however the patient did not complete the therapy, she was just taking medication for her ear infection the drops. she stated that she is non-compliant with her HIV medication due to the taste of the medicaiton . ROS negative PE: AAOX3 s1 and S2 RRR lungs Good air entry with rhochi on the left lower base no edema normal bowel sounds PERRLA Plan: admit to med surg start iv ceftriaxone and azithromycin ID consult if the patient CD4 count is low star the patient on prophylaxis for PCP
[2018-02-18] MEDS ORDERED: IBUPROFEN 600 MG TABLET (FP) PO ONE (01:02)
[2018-02-18] MEDS ORDERED: SODIUM CHLORIDE 0.9% 500 ML INFUS.BAG IV ONE (06:04)
[2018-02-18 07:31] LABS: BASO % 0.6 % (0-2.0); EOS % 6.9 % (0-4.5); HEMATOCRIT 27.1 % (32.4-45.2); HEMOGLOBIN 9.4 GM/dL (10.7-15.3); LYMPH % 13.5 % (8-40); MCH 32.1 pg (25.7-33.7); MCHC 34.6 g/dl (32.0-36.0); MEAN CELL VOLUME 92.9 fl (80-96); MEAN PLT VOLUME 8.7 fl (7.5-11.1); MONO % 6.3 % (3.8-10.2); NEUT % 72.7 % (42.8-82.8); PLATELET COUNT 212 K/MM3 (134-434); RBC 2.92 M/mm3 (3.60-5.2); RDW 13.8 % (11.6-15.6); WHITE BLOOD COUNT 5.7 K/mm3 (4.0-10.0)
[2018-02-18 07:56] LABS: CHLORIDE 110 mmol/L (98-107); POTASSIUM 3.7 mmol/L (3.5-5.1); SODIUM 141 mmol/L (136-145)
[2018-02-18 08:03] LABS: ALBUMIN 2.6 g/dl (3.4-5.0); ALK PHOS 222 U/L (45-117); ANION GAP 7 (8-16); BILIRUBIN,TOTAL 0.3 mg/dL (0.2-1.0); BLOOD UREA NITROGEN 17 mg/dL (7-18); CALCIUM 8.2 mg/dL (8.5-10.1); CO2 24 mmol/L (21-32); CREATININE 0.8 mg/dL (0.55-1.02); GLUCOSE,RANDOM 100 mg/dL (74-106); SGOT/AST 16 U/L (15-37); SGPT/ALT 26 U/L (12-78)
--- NOTE | 2018-02-18 08:07 | PN ---
Progress Note, Physician Chief Complaint: ID One of multiple admissions for this 57 y/o HIV positive female of many years admitted with fevers couph sputum production and SOB. She was seen earlier this week [facility]'s ER and give Z pack. However she did not feel better so admitted now. Apparently told she had an ear infection recently by another provider. Followed for years in the [facility] HIV clinic and supposedly on Dolutegavir and Truvada. There is long history of nonadherence to ART. That said her recent T cells count 204 with HIV PCR RNA January 50 copies really good numbers for her. She smokes and has COPD - Current Medication List Current Medications: Active Medications Albuterol Sulfate (Ventolin 0.083% Nebulizer Soln -) 1 amp NEB Q6H PRN PRN Reason: SHORT OF BREATH/WHEEZING Last Admin: 02/17/18 22:41 Dose: 1 amp Heparin Sodium (Porcine) (Heparin -) 5,000 unit SQ BID HIPOLITO Last Admin: 02/17/18 23:00 Dose: 5,000 unit Azithromycin 500 mg/ Dextrose 250 mls @ 250 mls/hr IVPB ONCE ONE Stop: 02/18/18 10:59 Azithromycin 250 mg/ Dextrose 250 mls @ 250 mls/hr IVPB DAILY [facility] CEFTRIAXONE 1 G/50 ML PREMIX (Ceftriaxone 1 Gm-D5w Bag) 50 mls @ 100 mls/hr IVPB DAILY HIPOLITO - Objective Vital Signs: Vital Signs Temperature 98.0 F 02/18/18 06:28 Pulse Rate 60 02/18/18 07:51 Respiratory Rate 18 02/18/18 07:51 Blood Pressure 102/60 02/18/18 07:51 O2 Sat by Pulse Oximetry (%) 97 02/18/18 04:00 Constitutional: Yes: No Distress HENT: Yes: Other (Left parotid swelling nontender ( chronic)) Cardiovascular: Yes: Regular Rate and Rhythm, S1, S2 Respiratory: Yes: Rales Gastrointestinal: Yes: WNL, Normal Bowel Sounds, Soft. No: Tenderness, Tenderness, Epigastrium Edema: No Labs: CBC, BMP 02/18/18 06:00 Problem List - Problems (1) Pneumonia Code(s): J18.9 - PNEUMONIA, UNSPECIFIED ORGANISM Qualifiers: Pneumonia type: due to unspecified organism Laterality: left Lung location: lower lobe of lung Qualified Code(s): J18.1 - Lobar pneumonia, unspecified organism (2) Lymphadenitis Code(s): I88.9 - NONSPECIFIC LYMPHADENITIS, UNSPECIFIED (3) Parotid swelling Code(s): R60.9 - EDEMA, UNSPECIFIED (4) COPD (chronic obstructive pulmonary disease) Code(s): J44.9 - CHRONIC OBSTRUCTIVE PULMONARY DISEASE, UNSPECIFIED (5) HIV (human immunodeficiency virus infection) Code(s): Z21 - ASYMPTOMATIC HUMAN IMMUNODEFICIENCY VIRUS INFECTION STATUS Assessment/Plan Microbiology 01/26/17 17:45 Nose MRSA Screen - Final Mr S Aureus 01/26/17 17:45 Nares - Left Nares MRSA Screen - Final Mr S Aureus Laboratory Tests 02/17/18 02/18/18 16:40 06:00 WBC 5.7 Hgb 9.4 L D Hct 27.1 L RDW 13.8 Alkaline Phosphatase 274 H Assessment Left lung consolidation History of MRSA colonization HIV infection COPD Left parotid swelling Extensive lymphadenopathy by history Smoker Plan Vancomycin and Levofloxacin Examine left ear for Otitis Ct imaging CHEST and ABD PELVIS for comparison LGA Being followed [place] for parotid swelling CRP LDH ESR Kishan TURCIOS
[2018-02-18] MEDS ORDERED: AZITHROMYCIN IVPB 500 MG in DEXTROSE 5%-WATER - 250 ML IVPB ONE (10:00)
[2018-02-18] MEDS ORDERED: CEFTRIAXONE 1 GM in DEXTROSE 5%-WATER - 50 ML IVPB SCH (10:00)
[2018-02-18] MEDS: HEPARIN NA (PORCINE) 5,000 UNITS/ML 1ML VIAL SQ SCH ×2 (10:40→22:33)
--- NOTE | 2018-02-18 10:49 | PN ---
Progress Note, Physician Chief Complaint: PATIENT SEEN, NOTES AND RECORDS REVIEWED I AGREE WITH RESIDENTS PLAN - Current Medication List Current Medications: Active Medications Albuterol Sulfate (Ventolin 0.083% Nebulizer Soln -) 1 amp NEB Q6H PRN PRN Reason: SHORT OF BREATH/WHEEZING Last Admin: 02/17/18 22:41 Dose: 1 amp Heparin Sodium (Porcine) (Heparin -) 5,000 unit SQ BID [place]OL[place]O Last Admin: 02/18/18 10:40 Dose: 5,000 unit Vancomycin HCl 1,000 mg/ (Dextrose) 250 mls @ 166.667 mls/hr IVPB BID HIPOL[place]O PRN Reason: Protocol Levofloxacin (Levaquin 500 Mg Premixed Ivpb -) 500 mg in 100 mls @ 100 mls/hr IVPB DAILY [facility] Last Admin: 02/18/18 10:40 Dose: 100 mls/hr - Objective Vital Signs: Vital Signs Temperature 97.7 F 02/18/18 10:00 Pulse Rate 60 02/18/18 10:00 Respiratory Rate 18 02/18/18 10:00 Blood Pressure 100/53 02/18/18 10:00 O2 Sat by Pulse Oximetry (%) 97 02/18/18 04:00 Constitutional: Yes: Mild Distress Eyes: Yes: WNL HENT: Yes: WNL Neck: Yes: WNL Cardiovascular: Yes: WNL Respiratory: Yes: On Nasal O2, Rhonchi, SOB Gastrointestinal: Yes: WNL Genitourinary: Yes: WNL Musculoskeletal: Yes: Muscle Weakness Integumentary: Yes: WNL Wound/Incision: Yes: Clean/Dry Neurological: Yes: Pre-Existing Deficit ...Motor Strength: LLE, RLE Labs: CBC, BMP 02/18/18 06:00 02/18/18 06:00 Problem List - Problems (1) Pneumonia Code(s): J18.9 - PNEUMONIA, UNSPECIFIED ORGANISM Qualifiers: Pneumonia type: due to unspecified organism Laterality: left Lung location: lower lobe of lung Qualified Code(s): J18.1 - Lobar pneumonia, unspecified organism (2) AIDS Code(s): B20 - HUMAN IMMUNODEFICIENCY VIRUS [HIV] DISEASE (3) Acute wheezy bronchitis Code(s): J20.9 - ACUTE BRONCHITIS, UNSPECIFIED (4) Depression Code(s): F32.9 - MAJOR DEPRESSIVE DISORDER, SINGLE EPISODE, UNSPECIFIED Assessment/Plan IV ABX ID AND PULM EVAL NEBS OOB TO CHAIR DVT PROPHYLAXIS
[2018-02-18] MEDS: VANCOMYCIN 1,000 MG in DEXTROSE 5%-WATER - 250 ML IVPB SCH ×2 (11:37→22:32)
[2018-02-18] MEDS: ALBUTEROL SO4 0.083% IH SOL 2.5 MG/3 ML VIAL.NEB. NEB PRN (20:49)
[2018-02-19 08:28] LABS: ANION GAP 9 (8-16); BLOOD UREA NITROGEN 12 mg/dL (7-18); CALCIUM 8.9 mg/dL (8.5-10.1); CHLORIDE 111 mmol/L (98-107); CO2 25 mmol/L (21-32); CREATININE 0.7 mg/dL (0.55-1.02); GLUCOSE,RANDOM 81 mg/dL (74-106); POTASSIUM 4.3 mmol/L (3.5-5.1); SODIUM 145 mmol/L (136-145)
--- NOTE | 2018-02-19 08:33 | PN ---
Progress Note, Physician Chief Complaint: ID Feeling much better NO fever couph less Vancomycin and Levofloxacin - Current Medication List Current Medications: Active Medications Albuterol Sulfate (Ventolin 0.083% Nebulizer Soln -) 1 amp NEB Q6H PRN PRN Reason: SHORT OF BREATH/WHEEZING Last Admin: 02/18/18 20:49 Dose: 1 amp Heparin Sodium (Porcine) (Heparin -) 5,000 unit SQ BID HIPOLITO Last Admin: 02/18/18 22:33 Dose: 5,000 unit Vancomycin HCl 1,000 mg/ (Dextrose) 250 mls @ 166.667 mls/hr IVPB BID [place] PRN Reason: Protocol Last Admin: 02/18/18 22:32 Dose: 166.667 mls/hr Levofloxacin (Levaquin 500 Mg Premixed Ivpb -) 500 mg in 100 mls @ 100 mls/hr IVPB DAILY [facility] Last Admin: 02/18/18 10:40 Dose: 100 mls/hr - Objective Vital Signs: Vital Signs Temperature 97.9 F 02/19/18 06:08 Pulse Rate 63 02/19/18 06:08 Respiratory Rate 18 02/19/18 06:08 Blood Pressure 101/63 02/19/18 06:08 O2 Sat by Pulse Oximetry (%) 97 02/18/18 21:00 Constitutional: Yes: No Distress HENT: Yes: WNL, Atraumatic Neck: Yes: WNL, Supple Cardiovascular: Yes: Regular Rate and Rhythm, S1, S2 Respiratory: Yes: WNL, Regular, CTA Bilaterally Gastrointestinal: Yes: Soft. No: Tenderness Edema: No Problem List - Problems (1) Pneumonia Code(s): J18.9 - PNEUMONIA, UNSPECIFIED ORGANISM Qualifiers: Pneumonia type: due to unspecified organism Laterality: left Lung location: lower lobe of lung Qualified Code(s): J18.1 - Lobar pneumonia, unspecified organism (2) Lymphadenitis Code(s): I88.9 - NONSPECIFIC LYMPHADENITIS, UNSPECIFIED (3) Parotid swelling Code(s): R60.9 - EDEMA, UNSPECIFIED (4) COPD (chronic obstructive pulmonary disease) Code(s): J44.9 - CHRONIC OBSTRUCTIVE PULMONARY DISEASE, UNSPECIFIED (5) HIV (human immunodeficiency virus infection) Code(s): Z21 - ASYMPTOMATIC HUMAN IMMUNODEFICIENCY VIRUS INFECTION STATUS Assessment/Plan Microbiology 02/17/18 23:45 Urine For Antigen Detection Legionella Antigen - Final 02/17/18 23:45 Urine For Antigen Detection Streptococcus pneumoniae Antigen (M - Final 02/17/18 23:30 Nasopharyngeal Swab Influenza Types A,B Antigen (ALEX) - Final 02/17/18 23:30 Nasopharyngeal Swab - Final 02/17/18 16:43 Blood - Peripheral Venous Blood Culture - Preliminary NO GROWTH OBTAINED AFTER 24 HOURS, INCUBATION TO CONTINUE FOR 4 DAYS. 02/17/18 16:40 Blood - Peripheral Venous Blood Culture - Preliminary NO GROWTH OBTAINED AFTER 24 HOURS, INCUBATION TO CONTINUE FOR 4 DAYS. Laboratory Tests 02/18/18 02/19/18 02/19/18 06:00 06:00 06:00 WBC 5.7 Pending Hgb Pending Hct Pending BUN 12 Creatinine 0.7 Assessment Unofficially I do not see much infiltrated or effusion left base ? atalectasis Need official reading for adenopathy? Plan Stop Vancomycin Continue Levofloxacin IV Consider discharge in 24 hours Kishan TURCIOS
[2018-02-19 08:34] LABS: HEMATOCRIT 28.9 % (32.4-45.2); HEMOGLOBIN 9.8 GM/dL (10.7-15.3); MCH 31.5 pg (25.7-33.7); MCHC 33.9 g/dl (32.0-36.0); MEAN CELL VOLUME 93.1 fl (80-96); MEAN PLT VOLUME 8.6 fl (7.5-11.1); PLATELET COUNT 247 K/MM3 (134-434); RDW 14.4 % (11.6-15.6); WHITE BLOOD COUNT 3.7 K/mm3 (4.0-10.0)
[2018-02-19 08:38] LABS: LDH 179 U/L (84-246)
[2018-02-19] MEDS: HEPARIN NA (PORCINE) 5,000 UNITS/ML 1ML VIAL SQ SCH ×2 (09:22→21:25)
[2018-02-19] MEDS: VANCOMYCIN 1,000 MG in DEXTROSE 5%-WATER - 250 ML IVPB SCH ×2 (09:23→21:25)
[2018-02-19] MEDS ORDERED: AZITHROMYCIN IVPB 250 MG in DEXTROSE 5%-WATER - 250 ML IVPB SCH (10:00)
--- NOTE | 2018-02-19 12:41 | PN ---
Progress Note (short form) - Note Progress Note: 57 y/o female patient with hx of HIV non-compliant, DL, HTN, herpes presented with worsening SOB, and fever, she was recently diagnosed with atypical pneumonia however the patient did not complete the therapy, she was just taking medication for her ear infection the drops. she is doing well no fever or chills cough improved ROS negative PE: AAOX3 s1 and S2 RRR lungs Good air entry with rhochi on the left lower base no edema normal bowel sounds PERRLA Plan: levofloxacin IV f/u with ID recommendation Visit type - Emergency Visit Emergency Visit: No - New Patient This patient is new to me today: No - Critical Care Critical Care patient: No - Discharge Referral Referred to [facility] Med P.C.: No
--- NOTE | 2018-02-19 15:32 | PN ---
Progress Note (short form) - Note Progress Note: PULMONARY CONSULTATION DICTATED 02/19/18 IMP [facility] PNEUMONIA HIV H/O LYMPHOMA S/P CHEMO ASTHMA/COPD TOBACCO ABUSE PLAN IV ABX PER ID INHALED BRONCHODILATORS O2 F/U CHEST X-RAYS TO DOCUMENT RESOLUTION SMOKING CESSATION COUNSELED DR WILSON Problem List - Problems (1) Pneumonia Code(s): J18.9 - PNEUMONIA, UNSPECIFIED ORGANISM Qualifiers: Pneumonia type: due to unspecified organism Laterality: left Lung location: lower lobe of lung Qualified Code(s): J18.1 - Lobar pneumonia, unspecified organism (2) AIDS Code(s): B20 - HUMAN IMMUNODEFICIENCY VIRUS [HIV] DISEASE (3) Asthma exacerbation in COPD Code(s): J44.1 - CHRONIC OBSTRUCTIVE PULMONARY DISEASE W (ACUTE) EXACERBATION; J45.901 - UNSPECIFIED ASTHMA WITH (ACUTE) EXACERBATION (4) HIV (human immunodeficiency virus infection) Code(s): Z21 - ASYMPTOMATIC HUMAN IMMUNODEFICIENCY VIRUS INFECTION STATUS (5) Tobacco use disorder Code(s): Z72.0 - TOBACCO USE (6) COPD (chronic obstructive pulmonary disease) Code(s): J44.9 - CHRONIC OBSTRUCTIVE PULMONARY DISEASE, UNSPECIFIED
--- NOTE | 2018-02-19 16:12 | CONS ---
DATE OF CONSULTATION: 02/19/2018 REFERRING PHYSICIAN: Tyson Dolan MD. HISTORY OF PRESENT ILLNESS: The patient is a 57-year-old female with a past medical history of HIV diagnosed 20 years ago; last CD4 count was 204 that was in January 2018, history of lymphoma, status post chemotherapy 2 years ago prior to this, history of tobacco use greater than 1 pack a day for many years currently smokes 5 cigarettes a day, and asthma admitted to [facility] on February 17 secondary to complaint of fever, chills, cough productive of yellow sputum, congestion, muscle pain and weakness. The patient denied any nausea, vomiting, or diarrhea and he denies any hemoptysis. The patient apparently went to [facility] at which time she was given ear drops for an ear infection. The patient went to [facility] 4 days prior to admission status post fall 4 but there was no loss of consciousness. The patient is also complaining about frequent urination. The patient was admitted with the above complaints. On admission she had a chest x-ray performed which revealed possible left lower lobe pneumonia. She was evaluated by Dr. Holley for infectious disease and placed on antibiotic therapy. She underwent a CT scan of the chest which revealed a nodular infiltrate in the left base. The patient denies any hemoptysis and she denies any chest pains or palpitations. She denies any shortness of breath or bronchospasm. PAST MEDICAL HISTORY: Again include HIV, history of lymphoma, and asthma. REVIEW OF SYSTEMS: Positive . No congestion, no fever, no hemoptysis, no abdominal pain, and no shortness of breath. CURRENT MEDICATIONS: Include Levaquin, vancomycin, heparin, and albuterol. SOCIAL HISTORY: She was born in [place] and moved to the [facility] years ago. Positive history of tobacco use. No occupational exposures. PHYSICAL EXAMINATION: General: The patient is a well-developed, well-nourished female, awake and alert in no acute distress. Vital Signs: Blood pressure is 104/71, respiratory rate is 20, temperature is 97.9, and oxygen saturation is 95% on room air. HEENT: Normocephalic, atraumatic. Neck: Supple. Heart: Regular, S1, S2. Chest: A few crackles at the left base. Abdomen: Soft, bowel sounds are positive. Extremities: No cyanosis or edema. LABORATORY DATA: WBC is 3.7, hemoglobin 9.8, hematocrit 28.9, with a platelet count of 247,000. BUN 12, creatinine 0.7. Chest CT as noted earlier. IMPRESSION: 1. Pneumonia left lower lobe, community-acquired. 2. History of human immunodeficiency virus. 3. History of lymphoma, status post chemotherapy. 4. History of asthma. 5. Tobacco abuse PLAN: Continue inhaled bronchodilators, supplemental oxygen, and Bactrim antibiotics. Obtain followup chest -x-ray, documented resolution of infiltrates. Smoking cessation counseled. NOEMI WILSON M.D. [id number]
[2018-02-19] MEDS ORDERED: DOLUTEGRAVIR SODIUM 50 MG TABLET PO SCH (17:45)
[2018-02-19] MEDS ORDERED: PT OWN MED DRAWER 7, Y5N ONE (20:42)
--- NOTE | 2018-02-20 09:53 | PN ---
Progress Note (short form) - Note Progress Note: ID Levofloxacin Asymtomatic Selected Entries 02/20/18 05:57 Temperature 97.6 F Pulse Rate 59 L Respiratory 20 Rate Blood Pressure 112/52 Microbiology 02/17/18 23:45 Urine For Antigen Detection Legionella Antigen - Final 02/17/18 23:45 Urine For Antigen Detection Streptococcus pneumoniae Antigen (M - Final 02/17/18 23:30 Nasopharyngeal Swab Influenza Types A,B Antigen (ALEX) - Final 02/17/18 23:30 Nasopharyngeal Swab - Final 02/17/18 16:43 Blood - Peripheral Venous Blood Culture - Preliminary NO GROWTH OBTAINED AFTER 48 HOURS, INCUBATION TO CONTINUE FOR 3 DAYS. 02/17/18 16:40 Blood - Peripheral Venous Blood Culture - Preliminary NO GROWTH OBTAINED AFTER 48 HOURS, INCUBATION TO CONTINUE FOR 3 DAYS. Laboratory Tests 02/19/18 02/19/18 02/19/18 06:00 06:00 06:00 WBC 3.7 L D Hgb 9.8 L Hct 28.9 L ESR 77 H BUN 12 Creatinine 0.7 Assessment Still no reading on CT scans Small PNA COPD Plan PO Levofloxacin for 5 days Give her copies of the CT scan reports to take to [facility] Holley MD Problem List - Problems (1) Pneumonia Code(s): J18.9 - PNEUMONIA, UNSPECIFIED ORGANISM Qualifiers: Pneumonia type: due to unspecified organism Laterality: left Lung location: lower lobe of lung Qualified Code(s): J18.1 - Lobar pneumonia, unspecified organism (2) Lymphadenitis Code(s): I88.9 - NONSPECIFIC LYMPHADENITIS, UNSPECIFIED (3) Parotid swelling Code(s): R60.9 - EDEMA, UNSPECIFIED (4) COPD (chronic obstructive pulmonary disease) Code(s): J44.9 - CHRONIC OBSTRUCTIVE PULMONARY DISEASE, UNSPECIFIED (5) HIV (human immunodeficiency virus infection) Code(s): Z21 - ASYMPTOMATIC HUMAN IMMUNODEFICIENCY VIRUS INFECTION STATUS
[2018-02-20] MEDS: ALBUTEROL SO4 0.083% IH SOL 2.5 MG/3 ML VIAL.NEB. NEB PRN (09:54)
[2018-02-20] MEDS ORDERED: EMTRICITABINE 200MG/TENOFOVIR 300MG PO SCH (10:00)
[2018-02-20] MEDS ORDERED: DESCOVY PO SCH (10:00)
[2018-02-20] MEDS ORDERED: TIVICAY 50 MG PO SCH (10:00)
[2018-02-20] MEDS ORDERED: DOLUTEGRAVIR SODIUM 50 MG TABLET PO SCH (10:00)
[2018-02-20] MEDS: HEPARIN NA (PORCINE) 5,000 UNITS/ML 1ML VIAL SQ SCH (10:41)
--- NOTE | 2018-02-20 13:48 | PN ---
Progress Note (short form) - Note Progress Note: Breathing feels better. Residual cough. No hemoptysis. Intake & Output 02/17/18 02/18/18 02/19/18 02/20/18 23:59 23:59 23:59 23:59 Intake Total 100 1650 1500 480 Balance 100 1650 1500 480 Weight 150 lb Last Vital Signs Temp Pulse Resp BP Pulse Ox 97.8 F 73 18 119/73 98 02/20/18 13:25 02/20/18 13:25 02/20/18 13:25 02/20/18 13:25 02/20/18 09:00 Active Medications Albuterol Sulfate (Ventolin 0.083% Nebulizer Soln -) 1 amp NEB Q6H PRN PRN Reason: SHORT OF BREATH/WHEEZING Last Admin: 02/20/18 09:54 Dose: 1 amp Heparin Sodium (Porcine) (Heparin -) 5,000 unit SQ BID [facility] Last Admin: 02/20/18 10:41 Dose: 5,000 unit Levofloxacin (Levaquin -) 500 mg PO DAILY@0600 [facility] Tivicay ( Dolutegravir) 50mg Non-Formulary Med 1 each PO DAILY [facility] Last Admin: 02/20/18 10:41 Dose: 1 each Descovy ( Emtricitabine And Tenofovir Alafenamide) Non- Formulary Med 1 each PO DAILY [facility] Last Admin: 02/20/18 10:41 Dose: 1 each Constitutional: Yes: NAD Eyes: Yes: WNL HENT: Yes: WNL Neck: Yes: WNL Cardiovascular: Yes: WNL Respiratory: Yes: On Nasal O2, Rhonchi Gastrointestinal: Yes: WNL Genitourinary: Yes: WNL Musculoskeletal: Yes: Muscle Weakness Integumentary: Yes: WNL Wound/Incision: Yes: Clean/Dry Neurological: Yes: Pre-Existing Deficit ...Motor Strength: LLE, RLE Labs: Problem List - Problems (1) Pneumonia Code(s): J18.9 - PNEUMONIA, UNSPECIFIED ORGANISM Qualifiers: Pneumonia type: due to unspecified organism Laterality: left Lung location: lower lobe of lung Qualified Code(s): J18.1 - Lobar pneumonia, unspecified organism (2) AIDS Code(s): B20 - HUMAN IMMUNODEFICIENCY VIRUS [HIV] DISEASE (3) Asthma exacerbation in COPD Code(s): J44.1 - CHRONIC OBSTRUCTIVE PULMONARY DISEASE W (ACUTE) EXACERBATION; J45.901 - UNSPECIFIED ASTHMA WITH (ACUTE) EXACERBATION (4) HIV (human immunodeficiency virus infection) Code(s): Z21 - ASYMPTOMATIC HUMAN IMMUNODEFICIENCY VIRUS INFECTION STATUS (5) Tobacco use disorder Code(s): Z72.0 - TOBACCO USE (6) COPD (chronic obstructive pulmonary disease) Code(s): J44.9 - CHRONIC OBSTRUCTIVE PULMONARY DISEASE, UNSPECIFIED IMP LLL PNEUMONIA HIV H/O LYMPHOMA S/P CHEMO ASTHMA/COPD TOBACCO ABUSE PLAN IV ABX PER ID INHALED BRONCHODILATORS O2 F/U CHEST X-RAYS TO DOCUMENT RESOLUTION (PATIENT FOLLOWS AT [facility]) SMOKING CESSATION COUNSELED DR FULLER
[2018-02-20 17:39] VITALS: BP 122/65; PULSE 72; TEMP 97.6
--- NOTE | 2018-02-20 17:55 | DS ---
Physical Examination Vital Signs: Vital Signs Temperature 97.6 F 02/20/18 17:38 Pulse Rate 72 02/20/18 17:38 Respiratory Rate 20 02/20/18 17:38 Blood Pressure 122/65 02/20/18 17:38 O2 Sat by Pulse Oximetry (%) 98 02/20/18 09:00 Cardiovascular: Yes: S1, S2 Respiratory: Yes: Regular. No: Wheezes Gastrointestinal: Yes: Normal Bowel Sounds, Soft Labs: CBC, BMP 02/19/18 06:00 02/19/18 06:00 Discharge Summary Reason For Visit: PNEUMONIA Current Active Problems Pneumonia (Acute) Hospital Course: 57 year old female with a PMH of HIV (diagnosed 20 years ago, last CD4 204 ), lymphoma s/p chemotherapy 2 years ago, parotid mass, never f/u with oncologist, recent treatment for bronchitis (02/09/18), herpes zoster 01/30/18 who presented to the hospital complaining of subjective fever, chills, cough ( bringing up yellow sputum), nasal congestion, muscle pain and sore throat that started 4-5 days ago. She went to [facility] where she was given ear drops for ' ear infection". She is still taking the medication but doesn't remember the name. She also states that she went to [facility] after she fell at home on 4 days ago. She states that she slipped and hit her left knee and head but didn't loose consciousness. The patient also reports increased frequency to urination for 4-5 days. The patient also reports that she was treated for skin infection last month but doesn't remember the name of medication. She is following Dr Vargas but doesn't take antiviral medications due to bad taste. Problem List - Problems (1) Pneumonia PO Levofloxacin for 5 days Give her copies of the CT scan reports to take to [place] per dr Holley Code(s): J18.9 - PNEUMONIA, UNSPECIFIED ORGANISM Qualifiers: Pneumonia type: due to unspecified organism Laterality: left Lung location: lower lobe of lung Qualified Code(s): J18.1 - Lobar pneumonia, unspecified organism (2) Lymphoma F/U CHEST X-RAYS TO DOCUMENT RESOLUTION (PATIENT FOLLOWS AT [facility]) Code(s): I88.9 - NONSPECIFIC LYMPHADENITIS, UNSPECIFIED (3) Parotid swelling Code(s): R60.9 - EDEMA, UNSPECIFIED (4) COPD (chronic obstructive pulmonary disease) 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 Code(s): J44.9 - CHRONIC OBSTRUCTIVE PULMONARY DISEASE, UNSPECIFIED (5) HIV (human immunodeficiency virus infection) resume meds id follow up Code(s): Z21 - ASYMPTOMATIC HUMAN IMMUNODEFICIENCY VIRUS INFECTION STATUS Condition: Improved - Instructions Referrals: Pauly Taylor [Primary Care Provider] - Disposition: HOME - Home Medications Comprehensive Discharge Medication List: Ambulatory Orders Albuterol 0.083% Nebulizer Neha [Ventolin 0.083% Nebulizer Soln -] 1 neb NEB QID PRN #120 amp 12/15/17 Beclomethasone Dipropionate [Qvar] 8.7 gm IH BID #1 aer.w.adap 12/15/17 Dapsone - 100 mg PO DAILY #30 tablet 12/15/17 Docusate Sodium [Colace -] 100 mg PO TID PRN #90 capsule 12/15/17 Dolutegravir Sodium [Tivicay] 50 mg PO DAILY #30 tablet 12/15/17 Emtricitabine/Tenofov Alafenam [Descovy 200-25 mg Tablet (Nf)] 1 each PO DAILY # 30 tablet 12/15/17 Albuterol Sulfate Inhaler - [Ventolin HFA Inhaler -] 1 - 2 inh PO QID #1 inhaler 01/20/18 Sulfamethoxazole/Trimethoprim [Bactrim DS -] 1 tab PO BID #14 tablet 01/25/18 Calamine/Zinc Oxide [Calamine Lotion] 1 applic TP QID PRN #1 bottle 01/30/18 Gabapentin [Neurontin -] 100 mg PO HS PRN #30 capsule MDD 300mg 01/30/18 Valacyclovir HCl [Valtrex -] 1,000 mg PO TID #21 tablet 01/30/18 Cane 1 each MC PRN #1 each 02/09/18 Unobtainable Medication List 02/17/18 levoFLOXacin [Levaquin -] 500 mg PO DAILY@0600 #5 tablet 02/20/18
--- NOTE | 2018-02-21 13:36 | EKG ---
Test Reason : Blood Pressure : / mmHG Vent. Rate : 083 BPM Atrial Rate : 083 BPM P-R Int : 132 ms QRS Dur : 078 ms QT Int : 338 ms P-R-T Axes : 016 008 040 degrees QTc Int : 397 ms NORMAL SINUS RHYTHM NORMAL ECG WHEN COMPARED WITH ECG OF 08-OCT-2017 16:41, NO SIGNIFICANT CHANGE WAS FOUND Confirmed by MD Gonsalez Daniel ([id number]) on 02/21/2018 1:35:55 PM Referred By: Confirmed By:Renato Gonsalez MD
== END 2018-02-20 18:52 | disposition home or self-care (01) | DRG 894 ==
LOC: JER 15:36 → JERBED 19:25 → J7W 20:50
PROVIDERS: ADMIT Internal Medicine; ATTEND Family Medicine
DX: J18.9 Pneumonia, unspecified organism (principal); B20 Human immunodeficiency virus [HIV] disease; F32.9 Major depressive disorder, single episode, unspecified; F17.210 Nicotine dependence, cigarettes, uncomplicated; Z80.7 Family history of other malignant neoplasms of lymphoid, hematopoietic and related tissues; B02.9 Zoster without complications; R60.9 Edema, unspecified; R50.9 Fever, unspecified; Z86.14 Personal history of Methicillin resistant Staphylococcus aureus infection; J44.1 Chronic obstructive pulmonary disease with (acute) exacerbation; J20.9 Acute bronchitis, unspecified; J44.0 Chronic obstructive pulmonary disease with (acute) lower respiratory infection
CPT/HCPCS: 36415; 71046-TC-FY; 71250-TC; 74176-TC; 80048; 80053; 81003; 82803; 83605; 83615; 85025; 85027; 85651; 86038; 86140; 86431; 87040; 87804; 87899; 93005; 93010; 94010; 94640; 97116-GP; 97161-GP; 99282-25; J1644

== ENCOUNTER 2018-04-19 08:53 | Emergency (ER) | payer OTHER ==
[2018-04-19 09:04] VITALS: BP 129/79; PULSE 69; TEMP 97.7; BMI 26.7
--- NOTE | 2018-04-19 09:15 | PDOC ---
History of Present Illness - General Chief Complaint: Chronic pain Stated Complaint: NECK PAIN Time Seen by Provider: 04/19/18 09:14 History Source: Patient Exam Limitations: No Limitations - History of Present Illness Initial Comments: 04/19/18 10:01 Patient is a 58-year-old female PMH of HIV, lymphoma, and asthma, who presents emergency Department with neck pain and right arm pain status post mechanical trip and fall on Tuesday04/14/18. Patient states she was evaluated at [facility] after the fall and given crutches for leg pain and back pain. She states that her leg pain has since resolved. She states that she now feels neck pain. States that was worse yesterday. She states that today she can move it but still has some residual pain. Denies numbness and tingling to the extremities, weakness, fevers, nausea, vomiting, saddle anesthesia, bladder bowel incontinence. Past History - Travel Traveled outside of the country in the last 30 days: No Close contact w/someone who was outside of country & ill: No - Past Medical History Allergies/Adverse Reactions: Allergies Allergy/AdvReac Type Severity Reaction Status Date / Time No Known Allergies Allergy Verified 04/19/18 09:00 Home Medications: Ambulatory Orders Albuterol 0.083% Nebulizer Neha [Ventolin 0.083% Nebulizer Soln -] 1 neb NEB QID PRN #120 amp 12/15/17 Docusate Sodium [Colace -] 100 mg PO TID PRN #90 capsule 12/15/17 Albuterol Sulfate Inhaler - [Ventolin HFA Inhaler -] 1 - 2 inh PO QID #1 inhaler 03/23/18 Beclomethasone Dipropionate [Qvar] 8.7 gm IH BID #1 aer.w.adap 03/23/18 Dapsone - 100 mg PO DAILY #30 tablet 03/23/18 Dolutegravir Sodium [Tivicay] 50 mg PO DAILY #30 tablet 03/23/18 Emtricitabine/Tenofov Alafenam [Descovy 200-25 mg Tablet (Nf)] 1 each PO DAILY # 30 tablet 03/23/18 Anemia: Yes Asthma: Yes Cancer: Yes (LYMPHOMA 2016) Cardiac Disorders: No CVA: No COPD: No CHF: No DVT: No Dementia: No Diabetes: No GI Disorders: No Disorders: No HTN: Yes Hypercholesterolemia: No Liver Disease: Yes Seizures: No Thyroid Disease: No - Surgical History Abdominal Surgery: Yes Appendectomy: No Cardiac Surgery: No Cholecystectomy: No Lung Surgery: No Neurologic Surgery: No Orthopedic Surgery: No - Immunization History Immunization Up to Date: Yes - Suicide/Smoking/Psychosocial Hx Smoking Status: No Smoking History: Current some day smoker Have you smoked in the past 12 months: Yes Number of Cigarettes Smoked Daily: 20 If you are a former smoker, when did you quit?: 1month Cigars Per Day: 0 Information on smoking cessation initiated: Yes 'Breaking Loose' booklet given: 11/04/15 Hx Alcohol Use: No Drug/Substance Use Hx: No Substance Use Type: None Hx Substance Use Treatment: Yes Review of Systems - Review of Systems Able to Perform ROS?: Yes Comments:: 04/19/18 09:45 CONSTITUTIONAL: Absent: fever, chills, diaphoresis, generalized weakness, malaise, loss of appetite HEENT: Absent: rhinorrhea, nasal congestion, throat pain, throat swelling, difficulty swallowing, mouth swelling, ear pain, eye pain, visual Changes MUSCULOSKELETAL: Present: neck pain, R arm pain Absent: myalgia, arthralgia, joint swelling SKIN: Absent: rash, itching, pallor NEUROLOGIC: Absent: headache, focal weakness or paresthesias, dizziness, unsteady gait, seizure, mental status changes, bladder or bowel incontinence PSYCHIATRIC: Absent: anxiety, depression, suicidal or homicidal ideation, hallucinations. Is the patient limited Portuguese proficient: No *Physical Exam - Vital Signs Last Vital Signs Temp Pulse Resp BP Pulse Ox 97.7 F 69 16 129/79 99 04/19/18 09:01 04/19/18 09:01 04/19/18 09:01 04/19/18 09:01 04/19/18 09:01 - Physical Exam Comments: 04/19/18 09:46 GENERAL: Well developed, well nourished. Awake and alert. No acute distress. HEENT: Normocephalic, atraumatic. PERRLA, EOMI. No conjunctival pallor. Sclera are non- icteric. Moist mucous membranes. Oropharynx is clear. NECK: TTP of the trapezius muscles b/l. No midline tenderness. Supple. Full ROM. No JVD. No lymphadenopathy. MUSCULOSKELETAL Normal range of motion at all joints. No bony deformities or tenderness. No CVA tenderness. EXTREMITIES: No cyanosis. No clubbing. No edema. No calf tenderness. SKIN: Warm and dry. Normal capillary refill. No rashes. No jaundice. NEUROLOGICAL: Alert, awake, appropriate. Cranial nerves 2-12 intact. No deficits to light touch and temperature in face, upper extremities and lower extremities. No motor deficits in the in face, upper extremities and lower extremities. Normoreflexic in the upper and lower extremities. Normal speech. Toes are down- going bilaterally. Gait is normal without ataxia. PSYCHIATRIC: Cooperative. Good eye contact. Appropriate mood and affect. Medical Decision Making - Medical Decision Making 04/19/18 10:02 Patient is a 58-year-old female with PMH of HIV, lymphoma, and asthma, who presents emergency department today with neck pain status post mechanical trip and fall approximately 1 week ago. Patient is currently afebrile, vital signs are stable. Patient has tenderness to palpation of both trapezius muscles in the neck. Most likely whiplash from a trip and fall. Patient has full range of motion at this time no midline tenderness, or lymphadenopathy. Toradol given with relief. Will DC home at this time with naproxen. Patient to follow-up with her primary care doctor. Return precautions given. Patient says all discharge instructions and all questions were answered. *DC/Admit/Observation/Transfer Diagnosis at time of Disposition: Neck pain - Discharge Dispostion Disposition: HOME Condition at time of disposition: Good Decision to Admit order: No - Referrals Referrals: Eder Jean MD [Primary Care Provider] - Estefanía Vargas MD [Staff Physician] - - Patient Instructions Printed Discharge Instructions: DI for Neck Pain Additional Instructions: You have neck pain Please take the Naprosyn twice a day for one week to help with your symptoms You may use heating packs to the area Please follow up with your primary care doctor this week Return to the ED if you have worsening pain, fevers, nausea, vomiting, headaches or have any changes in your symptoms - Post Discharge Activity
[2018-04-19] MEDS ORDERED: KETOROLAC TROMETHAMINE 60 MG/2 ML VIAL IM ONE (09:38)
[2018-04-19] MEDS ORDERED: KETOROLAC TROMETHAMINE 60 MG/2 ML VIAL ONE (09:45)
== END 2018-04-19 10:02 | disposition home or self-care (01) ==
LOC: JERFT 08:53
PROC: 3E0233Z Introduction of Anti-inflammatory into Muscle, Percutaneous Approach (ICD-10-PCS; principal; 2018-04-19)
DX: M54.2 Cervicalgia (principal)
CPT/HCPCS: 99281-25

== ENCOUNTER 2018-10-19 09:26 | Emergency (ER) | payer OTHER ==
[2018-10-19 09:39] VITALS: TEMP 98.4; BMI 22.6
--- NOTE | 2018-10-19 09:42 | PDOC ---
History of Present Illness - General Chief Complaint: Pain, Acute Stated Complaint: ABD PAIN History Source: Patient Exam Limitations: No Limitations Past History - Past Medical History Allergies/Adverse Reactions: Allergies Allergy/AdvReac Type Severity Reaction Status Date / Time No Known Allergies Allergy Verified 10/19/18 09:33 Home Medications: Ambulatory Orders Albuterol 0.083% Nebulizer Neha [Ventolin 0.083% Nebulizer Soln -] 1 neb NEB QID PRN #120 amp 09/28/18 Albuterol Sulfate Inhaler - [Ventolin HFA Inhaler -] 1 - 2 inh PO QID #1 inhaler 09/28/18 Budesonide/Formeterol Fumarate [SYMBICORT 80/4.5mcg -] 2 inh PO BID #1 cannister 09/28/18 Dapsone - 100 mg PO DAILY #30 tablet 09/28/18 Docusate Sodium [Colace -] 100 mg PO TID PRN #90 capsule 09/28/18 Dolutegravir Sodium [Tivicay] 50 mg PO DAILY #30 tablet 09/28/18 Emtricitabine/Tenofov Alafenam [Descovy 200-25 mg Tablet (Nf)] 1 each PO DAILY # 30 tablet 09/28/18 Polyethylene Glycol 3350 [Miralax 119 gm Btl -] 17 gm PO DAILY PRN #1 bottle Valacyclovir HCl [Valtrex -] 500 mg PO BID #60 tablet 09/28/18 Anemia: Yes Asthma: Yes Cancer: Yes (LYMPHOMA 2016) Cardiac Disorders: No CVA: No COPD: No CHF: No DVT: No Dementia: No Diabetes: No GI Disorders: No Disorders: No HTN: Yes Hypercholesterolemia: No Liver Disease: Yes Seizures: No Thyroid Disease: No - Surgical History Abdominal Surgery: Yes Appendectomy: No Cardiac Surgery: No Cholecystectomy: No Lung Surgery: No Neurologic Surgery: No Orthopedic Surgery: No - Immunization History Immunization Up to Date: Yes - Suicide/Smoking/Psychosocial Hx Smoking Status: No Smoking History: Smoker current status UNK Have you smoked in the past 12 months: Yes Number of Cigarettes Smoked Daily: 20 If you are a former smoker, when did you quit?: 1month Cigars Per Day: 0 'Breaking Loose' booklet given: 11/04/15 Hx Alcohol Use: No Drug/Substance Use Hx: No (Crack in the past) Substance Use Type: None Hx Substance Use Treatment: No *Physical Exam - Vital Signs Last Vital Signs Temp Pulse Resp BP Pulse Ox 98.4 F 75 16 128/80 98 10/19/18 09:38 10/19/18 09:38 10/19/18 09:38 10/19/18 09:38 10/19/18 09:38 Moderate Sedation - Procedure Monitoring Vital Signs: Procedure Monitoring Vital Signs Temperature 98.4 F 10/19/18 09:38 Pulse Rate 75 10/19/18 09:38 Respiratory Rate 16 10/19/18 09:38 Blood Pressure 128/80 10/19/18 09:38 O2 Sat by Pulse Oximetry (%) 98 10/19/18 09:38 ED Treatment Course - LABORATORY CBC & Chemistry Diagram: 10/19/18 10:40 10/19/18 10:40 *DC/Admit/Observation/Transfer Diagnosis at time of Disposition: HIV (human immunodeficiency virus infection) Abdominal pain Qualifiers: Abdominal location: right lower quadrant Qualified Code(s): R10.31 - Right lower quadrant pain - Discharge Dispostion Disposition: HOME Decision to Admit order: No - Referrals Referrals: Estefanía Vargas MD [Primary Care Provider] - Mathew Lennon MD [Staff Physician] - - Patient Instructions Printed Discharge Instructions: DI for Abdominal Pain-Adult Additional Instructions: you were seen in the emergency department for your diarrhea and abdominal pain. your labs were within normal limits except for a lower white blood cell count and an absolute neutrophil count of 1.0. I spoke to Dr. Madden and he agreed that you are safe to go home, but should follow up with your Dr. Wills within 72 hours after discharge. Please keep yourself hydrated and please return to the emergency department if you have worsening pain or new concerning symptoms such as altered mental status, abdominal pain, vaginal bleeding/ discharge, and fevers. Thank you. Please follow up with the referred orthopedic doctor within 72 hours after discharge for follow up care for your right hip. - Post Discharge Activity
[2018-10-19 10:55] LABS: BASO % 1.3 % (0-2.0); EOS % 8.8 % (0-4.5); HEMATOCRIT 42.3 % (32.4-45.2); HEMOGLOBIN 13.4 GM/dL (10.7-15.3); LYMPH % 44.1 % (8-40); MCH 29.3 pg (25.7-33.7); MCHC 31.7 g/dl (32.0-36.0); MEAN CELL VOLUME 92.5 fl (80-96); MEAN PLT VOLUME 9.6 fl (7.5-11.1); MONO % 13.3 % (3.8-10.2); NEUT % 32.5 % (42.8-82.8); PLATELET COUNT 214 K/MM3 (134-434); RBC 4.57 M/mm3 (3.60-5.2); RDW 16.6 % (11.6-15.6); WHITE BLOOD COUNT 2.9 K/mm3 (4.0-10.0)
[2018-10-19 11:14] LABS: URINE APPEARANCE SLCLOUDY; URINE BILIRUBIN NEGATIVE (<2.0 mg/dL); URINE COLOR YELLOW; URINE GLUCOSE (UA) NEGATIVE (NEGATIVE); URINE KETONE NEGATIVE (NEGATIVE); URINE LEUK ESTERASE NEGATIVE (NEGATIVE); URINE NITRITE NEGATIVE (NEGATIVE); URINE PROTEIN NEGATIVE (NEGATIVE); URINE UROBILINOGEN NEGATIVE mg/dL (0.2-1.0)
[2018-10-19 11:36] LABS: ALBUMIN 3.6 g/dl (3.4-5.0); ALK PHOS 204 U/L (45-117); ANION GAP 6 MMOL/L (8-16); BILIRUBIN,TOTAL 0.5 mg/dL (0.2-1); BLOOD UREA NITROGEN 9 mg/dL (7-18); CALCIUM 8.8 mg/dL (8.5-10.1); CHLORIDE 108 mmol/L (98-107); CO2 25 mmol/L (21-32); CREATININE 0.7 mg/dL (0.55-1.3); GLUCOSE,RANDOM 74 mg/dL (74-106); POTASSIUM 4.6 mmol/L (3.5-5.1); SGOT/AST 37 U/L (15-37); SGPT/ALT 32 U/L (13-61); SODIUM 139 mmol/L (136-145); TOT PROT 7.7 g/dl (6.4-8.2)
[2018-10-19] MEDS ORDERED: SODIUM CHLORIDE 1,000 ML IV STA (12:00)
[2018-10-19 12:14] LABS: INR 1.03 (0.83-1.09); PROTHROMBIN TIME (PATIENT) 12.1 SEC (9.7-13.0)
[2018-10-19 12:16] LABS: ACTIVATED PTT 27.6 SECONDS (25.2-36.5)
--- NOTE | 2018-10-19 13:15 | PDOC ---
Attending Attestation - Resident Resident Name: OcHakan - ED Attending Attestation I have performed the following: I have examined & evaluated the patient, The case was reviewed & discussed with the resident, I agree w/resident's findings & plan, Exceptions are as noted - HPI HPI: 10/19/18 13:14 58 F with h/o HIV/AIDS on ARVs, asthma, lymphoma, presenting with abdominal pain. Pt states that she ate "bad pork" days ago and shortly after began to have diffuse abdominal pain and diarrhea. Pt saw her PMD yesterday and was told to come to the ER. She presents today with improvement in her pain and diarrhea. She states that she feels much better but reports that her R hip has been bothering her. Pt has chronic R hip pain. Denies any recent trauma. Denies weakness/numbness in her leg. Denies F/C. Denies back pain. - Physicial Exam PE: 10/19/18 13:22 "GENERAL: Awake, alert, and fully oriented, in no acute distress. HEAD: No signs of trauma EYES: PERRLA, EOMI, sclera anicteric, conjunctiva clear ENT: Auricles normal inspection, hearing grossly normal, nares patent, oropharynx clear without exudates. Moist mucosa NECK: Nontender, no stepoffs, Normal ROM, supple, no lymphadenopathy, JVD, or masses LUNGS: Breath sounds equal, clear to auscultation bilaterally. No wheezes, and no crackles HEART: Regular rate and rhythm, normal S1 and S2, no murmurs, rubs or gallops ABDOMEN: Soft, nontender, normoactive bowel sounds. No guarding, no rebound. No masses EXTREMITIES: Normal range of motion, no edema. No clubbing or cyanosis. No cords, erythema, or tenderness NEUROLOGICAL: Cranial nerves II through XII intact. 5/5 strength and sensation in all extremities, Normal speech, normal gait, normal cerebellar function SKIN: Warm, Dry, normal turgor, no rashes or lesions noted. - Medical Decision Making 10/19/18 13:22 58 F with diarrhea and abdominal pain, now resolved. Likely food poisoning. Pt also with chronic R hip pain. No back pain or neuro deficits on exam. Pt able to ambulate without pain, no evidence of septic arthritis. 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 Pt reassessed - continues to feel well with no abdominal pain or diarrhea. Pt is well appearing, with normal vitals. Clinically stable for DC at this time. I discussed the physical exam findings, ancillary test results and final diagnoses with the patient. I answered all of the patient's questions. The patient was satisfied with the care received and felt comfortable with the discharge plan and treatment plan. The patient agrees to follow up with the primary care physician within 24-72 hours.
[2018-10-19] MEDS ORDERED: KETOROLAC TROMETHAMINE 15 MG/ML VIAL IVPUSH ONE (14:03)
[2018-10-19] MEDS ORDERED: KETOROLAC TROMETHAMINE 15 MG/ML VIAL ONE (14:13)
[2018-10-19 14:51] VITALS: BP 139/83; PULSE 71
== END 2018-10-19 14:50 | disposition home or self-care (01) ==
LOC: JER 09:26
PROC: 3E0337Z Introduction of Electrolytic and Water Balance Substance into Peripheral Vein, Percutaneous Approach (ICD-10-PCS; principal; 2018-10-19)
PROC: 3E033GC Introduction of Other Therapeutic Substance into Peripheral Vein, Percutaneous Approach (ICD-10-PCS; 2018-10-19)
DX: R10.31 Right lower quadrant pain (principal); B20 Human immunodeficiency virus [HIV] disease; Z85.72 Personal history of non-Hodgkin lymphomas; D72.819 Decreased white blood cell count, unspecified
CPT/HCPCS: 36415; 71045-TC-FY; 74177-TC; 80053; 81003; 83605; 85025; 85610; 85730; 87086; 99284-25; J7030

== ENCOUNTER 2019-01-25 05:00 | Inpatient (IN) | payer OTHER ==
[2019-01-25] MEDS ORDERED: methylPREDNISolone NA SUCC 125 MG/2 ML VIAL IVPB ONE (05:17)
[2019-01-25] MEDS ORDERED: SODIUM CHLORIDE 1,000 ML IV STA ×2 (05:18→12:06)
[2019-01-25] MEDS ORDERED: ACETAMINOPHEN 1000 MG/100 ML VIAL (NON FORMULARY) IVPB ONE (05:18)
--- NOTE | 2019-01-25 05:21 | PDOC ---
Attending Attestation - Resident Resident Name: Bartolo Araiza - ED Attending Attestation I have performed the following: I have examined & evaluated the patient, The case was reviewed & discussed with the resident, I agree w/resident's findings & plan - HPI HPI: 01/25/19 05:18 58-year-old female HIV positive, meet needs criteria with a CD4 count of less than 200 on last documented labs with fever cough and shortness of breath. Patient denies abdominal pain or vomiting. She has had multiple episodes of pneumonia in the past. - Physicial Exam PE: 01/25/19 05:18 Agree with resident's exam - Medical Decision Making 01/25/19 05:18 58-year-old female with fever cough, HIV positive with AIDS criteria Chest x-ray, sepsis evaluation DuoNeb's, Zithromax 500 mg IV with probable admission
[2019-01-25] MEDS ORDERED: ACETAMINOPHEN INJECTION 100 ML IVPB ONE (05:23)
[2019-01-25] MEDS ORDERED: methylPREDNISolone NA SUCC 125 MG/2 ML VIAL ONE (05:23)
[2019-01-25] MEDS ORDERED: ALBUTEROL SO4 2.5/IPRATROPIUM 0.5 INH SOL 3 ML VIAL.NEB. NEB ONE (05:23)
[2019-01-25] MEDS: ALBUTEROL SO4 2.5/IPRATROPIUM 0.5 INH SOL 3 ML VIAL.NEB. NEB SCH ×4 (05:35→06:09)
[2019-01-25 05:37] LABS: ALLENS TEST POSITIVE
--- NOTE | 2019-01-25 05:38 | PDOC ---
History of Present Illness - General Chief Complaint: Cold Symptoms Stated Complaint: FLU-LIKE SYMPTOMS Time Seen by Provider: 01/25/19 05:04 History Source: Patient Exam Limitations: No Limitations - History of Present Illness Initial Comments: 01/25/19 05:33 Patient is 58F with history of HIV/AIDS (last CD4 170 in 10/01), anemia, HTN, lymphoma (in remission), asthma, cocaine abuse here today complaining of shortness of breath and cough. Patient states that she has a cough at baseline, but it was so bad today that she couldn't sleep. Endorses fevers, chills, and substernal chest pain worse with inspiration. Denies nausea, vomiting, abdominal pain. Denies leg swelling, dysuria. Patient endorses compliance with HIV medications. Chart review shows multiple admissions for pneumonia. Past History - Past Medical History Allergies/Adverse Reactions: Allergies Allergy/AdvReac Type Severity Reaction Status Date / Time No Known Allergies Allergy Verified 01/25/19 05:09 Home Medications: Ambulatory Orders Dapsone - 100 mg PO DAILY #30 tablet 09/28/18 Docusate Sodium [Colace -] 100 mg PO TID PRN #90 capsule 09/28/18 Polyethylene Glycol 3350 [Miralax 119 gm Btl -] 17 gm PO DAILY PRN #1 bottle Albuterol 0.083% Nebulizer Neha [Ventolin 0.083% Nebulizer Soln -] 1 neb NEB QID PRN #120 amp 10/24/18 Albuterol Sulfate Inhaler - [Ventolin HFA Inhaler -] 1 - 2 inh PO QID #1 inhaler 10/24/18 Budesonide/Formeterol Fumarate [SYMBICORT 80/4.5mcg -] 2 inh PO BID #1 cannister 10/24/18 Dolutegravir Sodium [Tivicay] 50 mg PO DAILY #30 tablet 10/24/18 Emtricitabine/Tenofov Alafenam [Descovy 200-25 mg Tablet (Nf)] 1 each PO DAILY # 30 tablet 10/24/18 Valacyclovir HCl [Valtrex -] 500 mg PO BID #60 tablet 10/24/18 Azithromycin [Zithromax -] 250 mg PO DAILY #6 tablet 11/02/18 Cefuroxime Axetil [Ceftin -] 500 mg PO Q12H #20 tablet 12/19/18 Prednisone 10 mg PO DAILY #20 tablet 12/19/18 Anemia: Yes Asthma: Yes Cancer: Yes (LYMPHOMA 2016) Cardiac Disorders: No CVA: No COPD: No CHF: No DVT: No Dementia: No Diabetes: No GI Disorders: No Disorders: No HTN: Yes Hypercholesterolemia: No Liver Disease: Yes Seizures: No Thyroid Disease: No - Surgical History Abdominal Surgery: Yes Appendectomy: No Cardiac Surgery: No Cholecystectomy: No Lung Surgery: No Neurologic Surgery: No Orthopedic Surgery: No - Immunization History Immunization Up to Date: Yes - Suicide/Smoking/Psychosocial Hx Smoking Status: No Smoking History: Current every day smoker Have you smoked in the past 12 months: Yes Number of Cigarettes Smoked Daily: 5 If you are a former smoker, when did you quit?: 1month Cigars Per Day: 0 Information on smoking cessation initiated: No 'Breaking Loose' booklet given: 11/04/15 Hx Alcohol Use: No Drug/Substance Use Hx: No Substance Use Type: None Hx Substance Use Treatment: No Review of Systems - Review of Systems Able to Perform ROS?: Yes Comments:: 01/25/19 05:36 GENERAL/CONSTITUTIONAL: +fever +chills. No weakness. HEAD, EYES, EARS, NOSE AND THROAT: No change in vision. No sore throat. CARDIOVASCULAR: +chest pain +shortness of breath RESPIRATORY: +cough, +wheezing, no hemoptysis. GASTROINTESTINAL: No nausea, vomiting, diarrhea or constipation. GENITOURINARY: No dysuria, frequency, or change in urination. MUSCULOSKELETAL: No joint or muscle swelling or pain. No neck or back pain. SKIN: No rash NEUROLOGIC: No headache, vertigo, loss of consciousness, or change in strength/ sensation. ENDOCRINE: No increased thirst. No abnormal weight change HEMATOLOGIC/LYMPHATIC: +anemia, no easy bleeding, or history of blood clots. ALLERGIC/IMMUNOLOGIC: No hives or skin allergy. *Physical Exam - Vital Signs Last Vital Signs Temp Pulse Resp BP Pulse Ox 101.1 F H 92 H 18 129/79 96 01/25/19 05:09 01/25/19 05:09 01/25/19 05:09 01/25/19 05:09 01/25/19 05:09 - Physical Exam Comments: 01/25/19 05:38 GENERAL: Awake, alert, and fully oriented, in no acute distress HEAD: No signs of trauma, normocephalic, atraumatic EYES: PERRLA, EOMI, sclera anicteric, conjunctiva clear ENT: Auricles normal inspection, hearing grossly normal, nares patent, oropharynx clear without exudates. Moist mucosa NECK: Normal ROM, supple, no lymphadenopathy, JVD, or masses LUNGS: No distress, speaks full sentences, loud wheezes and coarse breath sounds bilaterally HEART: Regular rate and rhythm, normal S1 and S2, no murmurs, rubs or gallops, peripheral pulses normal and equal bilaterally. ABDOMEN: Soft, nontender, normoactive bowel sounds. No guarding, no rebound. No masses EXTREMITIES: Normal inspection, Normal range of motion, no edema. No clubbing or cyanosis. NEUROLOGICAL: Cranial nerves II through XII grossly intact. Normal speech, no focal sensorimotor deficits SKIN: Warm, Dry, normal turgor, no rashes or lesions noted. Moderate Sedation - Procedure Monitoring Vital Signs: Procedure Monitoring Vital Signs Temperature 101.1 F H 01/25/19 05:09 Pulse Rate 92 H 01/25/19 05:09 Respiratory Rate 18 01/25/19 05:09 Blood Pressure 129/79 01/25/19 05:09 O2 Sat by Pulse Oximetry (%) 96 01/25/19 05:09 ED Treatment Course - LABORATORY CBC & Chemistry Diagram: 01/25/19 05:40 01/25/19 05:40 - RADIOLOGY Radiology Studies Ordered: Category Date Time Status CHEST X-RAY PORTABLE* [RAD] Stat Radiology 01/25/19 05:15 Ordered Medical Decision Making - Medical Decision Making 01/25/19 05:39 Patient is 58F with history of HIV/AIDS, anemia, asthma, lymphoma, htn, cocaine abuse here today with wheezing, shortness of breath, fever. Vitals notable for fever, hypoxia, tachycardia. Septic criteria met, sepsis order set used. DDx includes, but is not limited to: pneumonia, copd/asthma exacerbation, pneumocystis, influenza. ABG, influenza added to sepsis order set. Tylenol, steroids, duonebs and fluids ordered. Patient will require admission. 01/25/19 05:44 Aa gradient of 36.7 01/25/19 05:50 EKG shows NSR with rate of 85. No st elevation/depressions. Normal axis. Normal intervals. No significant t wave abnormalities. 01/25/19 06:05 CXR shows ?LLL infiltrate, given immunocompromised state, low threshold to cover. Will cover for CAP. CXR not consistent with pneumocystis. 01/25/19 06:18 Flu neg, cbc reassuring. 01/25/19 07:[address] Sanchez. *DC/Admit/Observation/Transfer Diagnosis at time of Disposition: Pneumonia - Discharge Dispostion Condition at time of disposition: Stable - Referrals Referrals: Eder Jean MD [Primary Care Provider] - - Patient Instructions - Post Discharge Activity
[2019-01-25 05:41] LABS: ARTERIAL BLD GAS O2 SATURATION 92.6 % (95-98); ARTERIAL BLOOD GAS BASE EXCESS 1.5 meq/l (-2-2); ARTERIAL BLOOD GAS PCO2 34.9 mmHg (35-45); ARTERIAL BLOOD GAS PO2 69.4 mmHg (80-105); ARTERIAL BLOOD GAS pH 7.46 (7.35-7.45); CARBOXYHEMOGLOBIN 0 % (0-2)
[2019-01-25 05:57] LABS: BASO % 0.5 % (0-2.0); EOS % 1.9 % (0-4.5); HEMATOCRIT 36.2 % (32.4-45.2); HEMOGLOBIN 12.4 GM/dL (10.7-15.3); LYMPH % 17.3 % (8-40); MCH 31.5 pg (25.7-33.7); MCHC 34.2 g/dl (32.0-36.0); MONO % 6.1 % (3.8-10.2); NEUT % 74.2 % (42.8-82.8); PLATELET COUNT 224 K/MM3 (134-434); RBC 3.94 M/mm3 (3.60-5.2); WHITE BLOOD COUNT 9.9 K/mm3 (4.0-10.0)
[2019-01-25] MEDS ORDERED: CEFTRIAXONE 1,000 MG in DEXTROSE 5%-WATER - 50 ML IVPB ONE (06:05)
[2019-01-25] MEDS ORDERED: AZITHROMYCIN IVPB 500 MG in DEXTROSE 5%-WATER - 250 ML IVPB ONE (06:05)
[2019-01-25] MEDS ORDERED: CEFTRIAXONE 1 GM/50 ML BAG ONE (06:38)
[2019-01-25] MEDS ORDERED: AZITHROMYCIN IVPB 500 MG/250 ML BAG IVPB ONE (06:54)
[2019-01-25 07:04] LABS: ALBUMIN 3.1 g/dl (3.4-5.0); ALK PHOS 215 U/L (45-117); ANION GAP 6 MMOL/L (8-16); BILIRUBIN,TOTAL 0.4 mg/dL (0.2-1); BLOOD UREA NITROGEN 11 mg/dL (7-18); CALCIUM 8.4 mg/dL (8.5-10.1); CHLORIDE 106 mmol/L (98-107); CO2 27 mmol/L (21-32); CREATININE 0.8 mg/dL (0.55-1.3); GLUCOSE,RANDOM 124 mg/dL (74-106); POTASSIUM 3.6 mmol/L (3.5-5.1); SGOT/AST 16 U/L (15-37); SGPT/ALT 19 U/L (13-61); SODIUM 138 mmol/L (136-145); TOT PROT 6.8 g/dl (6.4-8.2)
--- NOTE | 2019-01-25 07:12 | PDOC ---
*Physical Exam - Vital Signs Last Vital Signs Temp Pulse Resp BP Pulse Ox 99.1 F 92 H 18 129/79 98 01/25/19 06:36 01/25/19 05:09 01/25/19 05:09 01/25/19 05:09 01/25/19 05:53 ED Treatment Course - LABORATORY CBC & Chemistry Diagram: 01/25/19 05:40 01/25/19 05:40 - ADDITIONAL ORDERS Additional order review: Laboratory Results 01/25/19 01/25/19 01/25/19 05:40 05:40 05:40 Anticoagulation Therapy Puncture Site ABG pH ABG pCO2 at Pt Temp ABG pO2 at Pt Temp ABG HCO3 ABG O2 Sat (Measured) ABG O2 Content ABG Base Excess Hern[place] Test Carboxyhemoglobin Methemoglobin O2 Delivery Device Oxygen Flow Rate Vent Mode Vent Rate Mechanical Rate Pressure Support Vent Sodium Potassium Chloride Carbon Dioxide Anion Gap BUN Creatinine Creat Clearance w eGFR Random Glucose Lactic Acid 2.1 H Calcium Total Bilirubin AST ALT Alkaline Phosphatase LD Total 167 Troponin I < 0.02 Total Protein Albumin 01/25/19 01/25/19 05:40 05:28 Anticoagulation Therapy No Result Required. Puncture Site No Result Required. ABG pH 7.46 H ABG pCO2 at Pt Temp 34.9 L ABG pO2 at Pt Temp 69.4 L ABG HCO3 24.5 ABG O2 Sat (Measured) 92.6 L ABG O2 Content 15.8 ABG Base Excess 1.5 [place] Test Positive Carboxyhemoglobin 0 Methemoglobin 0.2 O2 Delivery Device Room air Oxygen Flow Rate 21% Vent Mode No Result Required. Vent Rate No Result Required. Mechanical Rate No Result Required. Pressure Support Vent No Result Required. Sodium 138 Potassium 3.6 Chloride 106 Carbon Dioxide 27 Anion Gap 6 L BUN 11 Creatinine 0.8 Creat Clearance w eGFR > 60 Random Glucose 124 H Lactic Acid Calcium 8.4 L Total Bilirubin 0.4 AST 16 ALT 19 Alkaline Phosphatase 215 H LD Total Troponin I Total Protein 6.8 Albumin 3.1 L 01/25/19 05:40 RBC 3.94 MCV 92.0 MCHC 34.2 RDW 14.0 D MPV 9.0 Neutrophils % 74.2 D Lymphocytes % 17.3 D Monocytes % 6.1 Eosinophils % 1.9 Basophils % 0.5 - Medications Given in the ED: ED Medications Discontinued Medications Generic Name Dose Route Start Last Admin Trade Name Freq PRN Reason Stop Dose Admin Acetaminophen 1,000 mg 01/25/19 05:18 01/25/19 05:51 Ofirmev Injection - IVPB 01/25/19 05:19 1,000 mg ONCE ONE Administration Albuterol/Ipratropium 1 amp 01/25/19 05:30 01/25/19 06:09 Duoneb - NEB 01/25/19 06:16 1 amp Q15M HIPOLITO Administration Sodium Chloride 1,000 mls @ 1,000 mls/hr 01/25/19 05:18 01/25/19 05:51 Normal Saline - IV 01/25/19 06:17 1,000 mls/hr ASDIR STA Administration Azithromycin 500 mg/ Dextrose 250 mls @ 250 mls/hr 01/25/19 06:05 01/25/19 07 :01 IVPB 01/25/19 07:04 250 mls/hr ONCE ONE Administration Ceftriaxone Sodium 1,000 mg/ 50 mls @ 100 mls/hr 01/25/19 06:05 01/25/19 06: 44 Dextrose IVPB 01/25/19 06:34 100 mls/hr ONCE ONE Administration Methylprednisolone Sodium Succinate 125 mg 01/25/19 05:17 01/25/19 05:51 Solu-Medrol - IVPB 01/25/19 05:18 125 mg ONCE ONE Administration Medical Decision Making - Medical Decision Making 01/25/19 07:00 Received sign out from resident Dr. Araiza. In short, pt is a 58 y/ o female presenting for several days of progressive cough and SOB. Found to be febrile, hypoxic, mildly tachycardic. CXR concerning for left lower lobe pneumonia. Pt is HIV positive, last CD4 170 (09/2018). H/o of COPD/Asthma. 01/25/19 07:18 [facility] setting of AIDS and COPD. 01/25/19 08:10 Telephone consult with resident Dr. Mayfield. Verbally appraised of the pts HPI, ED course, and current plan of management. Will admit pt to med/surg on inpatient status for attending [place]. *DC/Admit/Observation/Transfer Diagnosis at time of Disposition: Pneumonia Qualifiers: Pneumonia type: due to unspecified organism Laterality: left Lung location: lower lobe of lung Qualified Code(s): J18.1 - Lobar pneumonia, unspecified organism - Discharge Dispostion Condition at time of disposition: Stable Decision to Admit order: Yes - Referrals - Patient Instructions - Post Discharge Activity
[2019-01-25] MEDS ORDERED: ALBUTEROL SO4 0.083% IH SOL 2.5 MG/3 ML VIAL.NEB. NEB PRN (09:54)
[2019-01-25] MEDS ORDERED: ACETAMINOPHEN 325 MG TABLET (FP) PO PRN (09:54)
[2019-01-25] MEDS ORDERED: POLYETHYLENE GLYCOL 3350 119 GM BTL PO PRN (10:01)
[2019-01-25] MEDS ORDERED: DOCUSATE SODIUM 100 MG CAPSULE (FP) PO PRN (10:01)
--- NOTE | 2019-01-25 10:10 | HP ---
CHIEF COMPLAINT:shortness of breath PCP: [facility] HISTORY OF PRESENT ILLNESS: 58 yo F with PMHx of HIV(on ART), lymphoma and asthma presents with 3 day history of worsening shortness of breath and cough. She states that for past three days she has had cough productive of yellow sputum with associated body aches, headaches and subjective fevers. [facility] is [facility] at [facility] for her HIV last seen 12/19/2018 . CD4 at that time was 170. She is on prophylaxis Dapsone. She endorses sick boyfriend at home. Denies CP, palpitations, abdominal pain, nausea, or vomiting. ER course was notable for: (1)CXR shows mild congestive changes. (2)Fever 101.1 (3) Recent Travel: denies PAST MEDICAL HISTORY: HIV(on ART), lymphoma and asthma PAST SURGICAL HISTORY: none Social History: Smokin cigs/day - 50 pack year smoking history Alcohol: socially Drugs: Crack cocaine occasionally last use 2 weeks ago. Family History: Allergies No Known Allergies Allergy (Verified 01/25/19 05:09) HOME MEDICATIONS: Home Medications Medication Instructions Recorded Dapsone - 100 mg PO DAILY #30 tablet 09/28/18 Docusate Sodium [Colace -] 100 mg PO TID PRN #90 capsule 09/28/18 Polyethylene Glycol 3350 [Miralax 17 gm PO DAILY PRN #1 bottle 09/28/18 119 gm Btl -] Albuterol 0.083% Nebulizer Neha 1 neb NEB QID PRN #120 amp 10/24/18 [Ventolin 0.083% Nebulizer Soln -] Albuterol Sulfate Inhaler - 1 - 2 inh PO QID #1 inhaler 10/24/18 [Ventolin HFA Inhaler -] Budesonide/Formeterol Fumarate 2 inh PO BID #1 cannister 10/24/18 [SYMBICORT 80/4.5mcg -] Dolutegravir Sodium [Tivicay] 50 mg PO DAILY #30 tablet 10/24/18 Emtricitabine/Tenofov Alafenam 1 each PO DAILY #30 tablet 10/24/18 [Descovy 200-25 mg Tablet (Nf)] Valacyclovir HCl [Valtrex -] 500 mg PO BID #60 tablet 10/24/18 Azithromycin [Zithromax -] 250 mg PO DAILY #6 tablet 11/02/18 Cefuroxime Axetil [Ceftin -] 500 mg PO Q12H #20 tablet 12/19/18 Prednisone 10 mg PO DAILY #20 tablet 12/19/18 REVIEW OF SYSTEMS CONSTITUTIONAL: fever, chills, diaphoresis, generalized weakness Absent: malaise, loss of appetite, weight change HEENT: Absent: rhinorrhea, nasal congestion, throat pain, throat swelling, difficulty swallowing, mouth swelling, ear pain, eye pain, visual changes CARDIOVASCULAR: Absent: chest pain, syncope, palpitations, irregular heart rate, lightheadedness , peripheral edema RESPIRATORY: cough, shortness of breath Absent: , dyspnea with exertion, orthopnea, wheezing, stridor, hemoptysis GASTROINTESTINAL: Absent: abdominal pain, abdominal distension, nausea, vomiting, diarrhea, constipation, melena, hematochezia GENITOURINARY: Absent: dysuria, frequency, urgency, hesitancy, hematuria, flank pain, genital pain MUSCULOSKELETAL: Absent: myalgia, arthralgia, joint swelling, back pain, neck pain SKIN: Absent: rash, itching, pallor HEMATOLOGIC/IMMUNOLOGIC: Absent: easy bleeding, easy bruising, lymphadenopathy, frequent infections ENDOCRINE: Absent: unexplained weight gain, unexplained weight loss, heat intolerance, cold intolerance NEUROLOGIC: Absent: headache, focal weakness or paresthesias, dizziness, unsteady gait, seizure, mental status changes, bladder or bowel incontinence PSYCHIATRIC: Absent: anxiety, depression, suicidal or homicidal ideation, hallucinations. PHYSICAL EXAMINATION Vital Signs - 24 hr 01/25/19 01/25/19 01/25/19 05:09 05:30 05:53 Temperature 101.1 F H Pulse Rate 92 H Pulse Rate [ Apical] Respiratory 18 Rate Blood Pressure 129/79 Blood Pressure [Right] O2 Sat by Pulse 96 100 98 Oximetry (%) 01/25/19 01/25/19 06:36 08:33 Temperature 99.1 F Pulse Rate Pulse Rate [ 93 H Apical] Respiratory 18 Rate Blood Pressure Blood Pressure 98/50 L [Right] O2 Sat by Pulse 94 L Oximetry (%) GENERAL: AAOx3, NAD HEAD: NCAT EYES: PERRLA,EOMI, sclera anicteric, conjunctiva clear. No lid lag. EARS, NOSE, THROAT:Moist mucous membranes.No thrush NECK: Normal ROM, Supple without lymphadenopathy, JVD, or masses. LUNGS: Slightly diminished breath sounds LLL. minimal wheezes, and no crackles. No accessory muscle use. HEART:RRR, normal S1 and S2 without murmur, rub or gallop. ABDOMEN: Soft, NTND,NABS no guarding, no rebound, no masses. No hepatomegaly or splenomegaly. MUSCULOSKELETAL: RLE tenderness. No CVA tenderness. LOWER EXTREMITIES: 2+ pulses, warm, well-perfused. No calf tenderness. No peripheral edema. NEUROLOGICAL: Cranial nerves II-XII intact. Normal speech. gait not observed PSYCHIATRIC: Cooperative. Good eye contact. Appropriate mood and affect. SKIN: Warm, dry, normal turgor, no rashes or lesions noted, normal capillary refill. Laboratory Results - last 24 hr 01/25/19 01/25/19 01/25/19 05:28 05:40 05:40 WBC 9.9 RBC 3.94 Hgb 12.4 Hct 36.2 MCV 92.0 MCH 31.5 MCHC 34.2 RDW 14.0 D Plt Count 224 MPV 9.0 Absolute Neuts (auto) 7.3 Neutrophils % 74.2 D Lymphocytes % 17.3 D Monocytes % 6.1 Eosinophils % 1.9 Basophils % 0.5 Nucleated RBC % 0 Anticoagulation Therapy No Result Required. Puncture Site No Result Required. ABG pH 7.46 H ABG pCO2 at Pt Temp 34.9 L ABG pO2 at Pt Temp 69.4 L ABG HCO3 24.5 ABG O2 Sat (Measured) 92.6 L ABG O2 Content 15.8 ABG Base Excess 1.5 [place] Test Positive Carboxyhemoglobin 0 Methemoglobin 0.2 O2 Delivery Device Room air Oxygen Flow Rate 21% Vent Mode No Result Required. Vent Rate No Result Required. Mechanical Rate No Result Required. Pressure Support Vent No Result Required. Sodium 138 Potassium 3.6 Chloride 106 Carbon Dioxide 27 Anion Gap 6 L BUN 11 Creatinine 0.8 Creat Clearance w eGFR > 60 Random Glucose 124 H Lactic Acid Calcium 8.4 L Total Bilirubin 0.4 AST 16 ALT 19 Alkaline Phosphatase 215 H LD Total Troponin I Total Protein 6.8 Albumin 3.1 L Influenza A (Rapid) Influenza B (Rapid) 01/25/19 01/25/19 01/25/19 05:40 05:40 05:40 WBC RBC Hgb Hct MCV MCH MCHC RDW Plt Count MPV Absolute Neuts (auto) Neutrophils % Lymphocytes % Monocytes % Eosinophils % Basophils % Nucleated RBC % Anticoagulation Therapy Puncture Site ABG pH ABG pCO2 at Pt Temp ABG pO2 at Pt Temp ABG HCO3 ABG O2 Sat (Measured) ABG O2 Content ABG Base Excess [place] Test Carboxyhemoglobin Methemoglobin O2 Delivery Device Oxygen Flow Rate Vent Mode Vent Rate Mechanical Rate Pressure Support Vent Sodium Potassium Chloride Carbon Dioxide Anion Gap BUN Creatinine Creat Clearance w eGFR Random Glucose Lactic Acid 2.1 H Calcium Total Bilirubin AST ALT Alkaline Phosphatase LD Total 167 Troponin I < 0.02 Total Protein Albumin Influenza A (Rapid) Influenza B (Rapid) 01/25/19 05:40 WBC RBC Hgb Hct MCV MCH MCHC RDW Plt Count MPV Absolute Neuts (auto) Neutrophils % Lymphocytes % Monocytes % Eosinophils % Basophils % Nucleated RBC % Anticoagulation Therapy Puncture Site ABG pH ABG pCO2 at Pt Temp ABG pO2 at Pt Temp ABG HCO3 ABG O2 Sat (Measured) ABG O2 Content ABG Base Excess [place] Test Carboxyhemoglobin Methemoglobin O2 Delivery Device Oxygen Flow Rate Vent Mode Vent Rate Mechanical Rate Pressure Support Vent Sodium Potassium Chloride Carbon Dioxide Anion Gap BUN Creatinine Creat Clearance w eGFR Random Glucose Lactic Acid Calcium Total Bilirubin AST ALT Alkaline Phosphatase LD Total Troponin I Total Protein Albumin Influenza A (Rapid) Negative Influenza B (Rapid) Negative IMAGING: * CXR: A single AP view of the chest reveal scoliosis with convexity to the right, left axillary clips, normal mediastinum and some mild congestive changes. The angles are sharp. The soft tissues are intact. Correlation recommended. Reported By: Flaco Agudelo MD 01/25/19 0708 ASSESSMENT/PLAN: 58 yo F with PMHx of HIV(on ART), lymphoma and asthma presents with 3 day history of worsening shortness of breath and cough admitted to med/surg for community acquired PNA in the setting of HIV. Problem List - Problem (1) Acute bronchitis Assessment/Plan: * Given Ceftriaxone and Azithro in ER * Will continue with Azithro 500mg daily * Will consult ID * on dapsone for PCP prophylaxis. * Flu negative * Urine for PNA antigens sent * Sputum for stain and culture pending. * BD TX PRN * supplemental O2 PRN - maintain SpO2>90% * Prednisone 10mg PO daily. (2) AIDS Assessment/Plan: * Cont. descovy, tivicay * Dapsone (Dapsone -) 100 mg PO DAILY [facility] * Valacyclovir HCl (Valtrex -) 500 mg PO BID [facility] * Consult ID. * Last CD4 09/28/18 170 (3) Asthma Assessment/Plan: * Continue Symbicort * Albuterol PRN SOB (4) Non-Hodgkin lymphoma Assessment/Plan: * no active disease * routine f/u with oncology (5) Tobacco use Assessment/Plan: * Counseled on importance of cessation and explained the health impact of continued use. * No motivation to quit. * offered nicotine patch (6) Crack cocaine use Assessment/Plan: Counseled on the importance of cessation and health impact of continued use. * She seems receptive and agrees she needs to quit. (7) DVT prophylaxis Assessment/Plan: Lovenox 40mg SQ (8) Lactic acid increased Assessment/Plan: this elevation was seen after 4 rounds of Duonebs * Will give 1L bolus of NS * repeat LA in PM Visit type - Emergency Visit Emergency Visit: Yes ED Registration Date: 01/25/19 Care time: The patient presented to the Emergency Department on the above date and was hospitalized for further evaluation of their emergent condition. - New Patient This patient is new to me today: Yes Date on this admission: 01/29/19 - Critical Care Critical Care patient: No
[2019-01-25] MEDS ORDERED: predniSONE 10 MG TABLET (UD) PO SCH (10:15)
[2019-01-25 10:26] LABS: INR 1.16 (0.83-1.09); PROTHROMBIN TIME (PATIENT) 13.7 SEC (9.7-13.0)
--- NOTE | 2019-01-25 10:49 | EKG ---
Test Reason : Blood Pressure : / mmHG Vent. Rate : 085 BPM Atrial Rate : 085 BPM P-R Int : 140 ms QRS Dur : 080 ms QT Int : 354 ms P-R-T Axes : 070 -20 049 degrees QTc Int : 421 ms NORMAL SINUS RHYTHM NORMAL ECG WHEN COMPARED WITH ECG OF 01-JUN-2018 09:45, NO SIGNIFICANT CHANGE WAS FOUND Confirmed by JED COVINGTON MD ([id number]) on 01/25/2019 10:49:05 AM Referred By: Confirmed By:JED COVINGTON MD
[2019-01-25 10:57] LABS: BASO % 0.1 % (0-2.0); EOS % 0.1 % (0-4.5); HEMATOCRIT 36.1 % (32.4-45.2); HEMOGLOBIN 12.2 GM/dL (10.7-15.3); LYMPH % 2.4 % (8-40); MCH 31.6 pg (25.7-33.7); MCHC 33.8 g/dl (32.0-36.0); MEAN CELL VOLUME 93.5 fl (80-96); MONO % 2.3 % (3.8-10.2); NEUT % 95.1 % (42.8-82.8); PLATELET COUNT 242 K/MM3 (134-434); RBC 3.86 M/mm3 (3.60-5.2); RDW 14.6 % (11.6-15.6); WHITE BLOOD COUNT 11.7 K/mm3 (4.0-10.0)
[2019-01-25] MEDS ORDERED: valACYclovir HCL 500 MG TABLET (FP) ONE (11:13)
[2019-01-25] MEDS: DOLUTEGRAVIR SODIUM 50 MG TABLET (NON-FORMULARY) PO SCH (11:20)
[2019-01-25] MEDS: valACYclovir HCL 500 MG TABLET (FP) PO SCH ×2 (11:20→22:58)
[2019-01-25] MEDS: DAPSONE 100 MG TABLET PO SCH (11:20)
[2019-01-25] MEDS: ENOXAPARIN NA (PORCINE) 40 MG/0.4 ML DISP.SYRIN SQ SCH (11:20)
[2019-01-25] MEDS: EMTRICITABINE/TENOFOV ALAFENAM (DESCOVY) TABLET PO SCH (11:20)
[2019-01-25 13:07] LABS: ANISOCYTOSIS 0; MACROCYTOSIS 1+; PLATELET ESTIMATE NORMAL
[2019-01-25] MEDS ORDERED: predniSONE 20 MG TABLET (UD) PO SCH (19:48)
--- NOTE | 2019-01-25 19:52 | PN ---
Teaching Attending Note Name of Resident: Cristiano Mayfield ATTENDING PHYSICIAN STATEMENT I saw and evaluated the patient. I reviewed the resident's note and discussed the case with the resident. I agree with the resident's findings and plan as documented. SUBJECTIVE: Some improvement in SOB. No further fevers. Cough - yellow sputum. No CP/hemoptysis OBJECTIVE: Tmax 101.1, currently afebrile. Hemodynamically Stable. Last Vital Signs Temp Pulse Resp BP Pulse Ox 99.1 F 69 16 97/50 L 96 01/25/19 06:36 01/25/19 11:21 01/25/19 11:21 01/25/19 11:21 01/25/19 11:21 HEENT - Atraumatic, Normocephalic Heart - S1, S2, RRR Lungs - few scattered wheeze Abdomen - Soft, non-tender. Bowel Sounds normal. Extremities - No edema, no calf tenderness Laboratory Results - last 24 hr 01/25/19 01/25/19 01/25/19 05:28 05:40 05:40 WBC 9.9 RBC 3.94 Hgb 12.4 Hct 36.2 MCV 92.0 MCH 31.5 MCHC 34.2 RDW 14.0 D Plt Count 224 MPV 9.0 Absolute Neuts (auto) 7.3 Neutrophils % 74.2 D Neutrophils % (Manual) Band Neutrophils % Lymphocytes % 17.3 D Lymphocytes % (Manual) Monocytes % 6.1 Monocytes % (Manual) Eosinophils % 1.9 Eosinophils % (Manual) Basophils % 0.5 Basophils % (Manual) Myelocytes % (Man) Promyelocytes % (Man) Blast Cells % (Manual) Nucleated RBC % 0 Metamyelocytes Hypochromia Platelet Estimate Polychromasia Poikilocytosis Anisocytosis Microcytosis Macrocytosis PT with INR 13.70 H INR 1.16 H Anticoagulation Therapy No Result Required. Puncture Site No Result Required. ABG pH 7.46 H ABG pCO2 at Pt Temp 34.9 L ABG pO2 at Pt Temp 69.4 L ABG HCO3 24.5 ABG O2 Sat (Measured) 92.6 L ABG O2 Content 15.8 ABG Base Excess 1.5 [place] Test Positive Carboxyhemoglobin 0 Methemoglobin 0.2 O2 Delivery Device Room air Oxygen Flow Rate 21% Vent Mode No Result Required. Vent Rate No Result Required. Mechanical Rate No Result Required. Pressure Support Vent No Result Required. Sodium Potassium Chloride Carbon Dioxide Anion Gap BUN Creatinine Creat Clearance w eGFR Random Glucose Lactic Acid Calcium Total Bilirubin AST ALT Alkaline Phosphatase LD Total Troponin I Total Protein Albumin Influenza A (Rapid) Influenza B (Rapid) 01/25/19 01/25/19 01/25/19 05:40 05:40 05:40 WBC RBC Hgb Hct MCV MCH MCHC RDW Plt Count MPV Absolute Neuts (auto) Neutrophils % Neutrophils % (Manual) Band Neutrophils % Lymphocytes % Lymphocytes % (Manual) Monocytes % Monocytes % (Manual) Eosinophils % Eosinophils % (Manual) Basophils % Basophils % (Manual) Myelocytes % (Man) Promyelocytes % (Man) Blast Cells % (Manual) Nucleated RBC % Metamyelocytes Hypochromia Platelet Estimate Polychromasia Poikilocytosis Anisocytosis Microcytosis Macrocytosis PT with INR INR Anticoagulation Therapy Puncture Site ABG pH ABG pCO2 at Pt Temp ABG pO2 at Pt Temp ABG HCO3 ABG O2 Sat (Measured) ABG O2 Content ABG Base Excess Hernesto Test Carboxyhemoglobin Methemoglobin O2 Delivery Device Oxygen Flow Rate Vent Mode Vent Rate Mechanical Rate Pressure Support Vent Sodium 138 Potassium 3.6 Chloride 106 Carbon Dioxide 27 Anion Gap 6 L BUN 11 Creatinine 0.8 Creat Clearance w eGFR > 60 Random Glucose 124 H Lactic Acid 2.1 H Calcium 8.4 L Total Bilirubin 0.4 AST 16 ALT 19 Alkaline Phosphatase 215 H LD Total Troponin I < 0.02 Total Protein 6.8 Albumin 3.1 L Influenza A (Rapid) Influenza B (Rapid) 01/25/19 01/25/19 01/25/19 05:40 05:40 09:45 WBC 11.7 H RBC 3.86 Hgb 12.2 Hct 36.1 MCV 93.5 MCH 31.6 MCHC 33.8 RDW 14.6 Plt Count 242 MPV 9.0 Absolute Neuts (auto) 11.1 H Neutrophils % 95.1 H D Neutrophils % (Manual) 94.0 H Band Neutrophils % 1.0 Lymphocytes % 2.4 L D Lymphocytes % (Manual) 3.0 L Monocytes % 2.3 L Monocytes % (Manual) 1 L Eosinophils % 0.1 D Eosinophils % (Manual) 0.0 Basophils % 0.1 Basophils % (Manual) 0.0 Myelocytes % (Man) 0 Promyelocytes % (Man) 0 Blast Cells % (Manual) 0 Nucleated RBC % 0 Metamyelocytes 0 Hypochromia 0 Platelet Estimate Normal Polychromasia 0 Poikilocytosis 1+ Anisocytosis 0 Microcytosis 0 Macrocytosis 1+ PT with INR INR Anticoagulation Therapy Puncture Site ABG pH ABG pCO2 at Pt Temp ABG pO2 at Pt Temp ABG HCO3 ABG O2 Sat (Measured) ABG O2 Content ABG Base Excess Hernesto Test Carboxyhemoglobin Methemoglobin O2 Delivery Device Oxygen Flow Rate Vent Mode Vent Rate Mechanical Rate Pressure Support Vent Sodium Potassium Chloride Carbon Dioxide Anion Gap BUN Creatinine Creat Clearance w eGFR Random Glucose Lactic Acid Calcium Total Bilirubin AST ALT Alkaline Phosphatase LD Total 167 Troponin I Total Protein Albumin Influenza A (Rapid) Negative Influenza B (Rapid) Negative 01/25/19 09:56 WBC RBC Hgb Hct MCV MCH MCHC RDW Plt Count MPV Absolute Neuts (auto) Neutrophils % Neutrophils % (Manual) Band Neutrophils % Lymphocytes % Lymphocytes % (Manual) Monocytes % Monocytes % (Manual) Eosinophils % Eosinophils % (Manual) Basophils % Basophils % (Manual) Myelocytes % (Man) Promyelocytes % (Man) Blast Cells % (Manual) Nucleated RBC % Metamyelocytes Hypochromia Platelet Estimate Polychromasia Poikilocytosis Anisocytosis Microcytosis Macrocytosis PT with INR INR Anticoagulation Therapy Puncture Site ABG pH ABG pCO2 at Pt Temp ABG pO2 at Pt Temp ABG HCO3 ABG O2 Sat (Measured) ABG O2 Content ABG Base Excess Hernesto Test Carboxyhemoglobin Methemoglobin O2 Delivery Device Oxygen Flow Rate Vent Mode Vent Rate Mechanical Rate Pressure Support Vent Sodium Potassium Chloride Carbon Dioxide Anion Gap BUN Creatinine Creat Clearance w eGFR Random Glucose Lactic Acid 4.1 H* Calcium Total Bilirubin AST ALT Alkaline Phosphatase LD Total Troponin I Total Protein Albumin Influenza A (Rapid) Influenza B (Rapid) Current Medications Generic Name Dose Route Start Last Admin Trade Name Freq PRN Reason Stop Dose Admin Acetaminophen 650 mg 01/25/19 09:54 Tylenol - PO Q4H PRN FEVER Albuterol Sulfate 1 amp 01/25/19 09:54 Ventolin 0.083% Nebulizer Soln - NEB Q4H PRN SHORT OF BREATH/WHEEZING Budesonide/Formoterol Fumarate 2 puff 01/25/19 10:15 Symbicort 80/4.5mcg - IH BID HIPOLITO Dapsone 100 mg 01/25/19 10:15 01/25/19 11:20 Dapsone - PO 100 mg DAILY HIPOLITO Administration Docusate Sodium 100 mg 01/25/19 10:01 01/25/19 11:20 Colace - PO 100 mg TID PRN Administration CONSTIPATION Enoxaparin Sodium 40 mg 01/25/19 10:15 01/25/19 11:20 Lovenox - SQ 40 mg DAILY HIPOLITO Administration Azithromycin 500 mg in 250 mls @ 250 mls/hr 01/26/19 10:00 Zithromax 500mg Ivpb (Pre-Docked) IVPB DAILY [facility] Polyethylene Glycol 17 gm 01/25/19 10:01 Miralax (For Daily Use) - PO DAILY PRN CONSTIPATION Prednisone 40 mg 01/25/19 19:48 Deltasone - PO DAILY HIPOLITO Valacyclovir HCl 500 mg 01/25/19 10:15 01/25/19 11:20 Valtrex - PO 500 mg BID HIPOLITO Administration Home Medications Medication Instructions Recorded Dapsone - 100 mg PO DAILY #30 tablet 09/28/18 Docusate Sodium [Colace -] 100 mg PO TID PRN #90 capsule 09/28/18 Polyethylene Glycol 3350 [Miralax 17 gm PO DAILY PRN #1 bottle 09/28/18 119 gm Btl -] Albuterol 0.083% Nebulizer Neha 1 neb NEB QID PRN #120 amp 10/24/18 [Ventolin 0.083% Nebulizer Soln -] Albuterol Sulfate Inhaler - 1 - 2 inh PO QID #1 inhaler 10/24/18 [Ventolin HFA Inhaler -] Budesonide/Formeterol Fumarate 2 inh PO BID #1 cannister 10/24/18 [SYMBICORT 80/4.5mcg -] Dolutegravir Sodium [Tivicay] 50 mg PO DAILY #30 tablet 10/24/18 Emtricitabine/Tenofov Alafenam 1 each PO DAILY #30 tablet 10/24/18 [Descovy 200-25 mg Tablet (Nf)] Valacyclovir HCl [Valtrex -] 500 mg PO BID #60 tablet 10/24/18 Azithromycin [Zithromax -] 250 mg PO DAILY #6 tablet 11/02/18 Cefuroxime Axetil [Ceftin -] 500 mg PO Q12H #20 tablet 12/19/18 Prednisone 10 mg PO DAILY #20 tablet 12/19/18 ASSESSMENT AND PLAN: 58 year old female with history of HIV/AIDS (on HAART, Dapsone prophylaxis), Lymphoma, Asthma, active smoker presents with 3 day history of SOB, cough, yellow sputum. No chest pain/hemoptysis. 1. Acute Asthma/?COPD Exacerbation ?cocaine induced bronchospasm Flu neg CXR - no infiltrate Currently afebrile, hemodynamically stable. Unknown COPD, active smoker, counselled. DuoNebs, Prednisone 40mg, Azithromycin Continue Symbicort 2. HIV/AIDS CD4 09/28/18 170 Continue HAART Continue Dapsone/Valacyclovir ID consulted. 3. Non-Hodgkin's Lymphoma - in resmission - follow with Oncology 4. Substance Abuse - crack cocaine Counselled. 5. Elevated LActaic Acid. Not acidotic. Secondary to multiple Beonchodilator Nebs in succession. Hydrate and repeat Lactic Acid. DVT Px - Lovenox.
[2019-01-25 22:47] VITALS: BMI 23.4
[2019-01-25] MEDS: BUDESONIDE/FORMETEROL FUMARATE 80/4.5 mcg INHALER IH SCH ×2 (22:58→23:02)
--- NOTE | 2019-01-26 07:33 | PN ---
Physical Exam: SUBJECTIVE: Patient seen and examined OBJECTIVE: Vital Signs Period Temp Pulse Resp BP Sys/Rosas Pulse Ox Last 24 Hr 98.4 F-98.5 F 69-95 16-20 97-133/50-96 94-97 GENERAL: AAOx3, NAD HEAD: NCAT EYES: PERRLA,EOMI, sclera anicteric, conjunctiva clear. No lid lag. EARS, NOSE, THROAT:Moist mucous membranes.No thrush NECK: Normal ROM, Supple without lymphadenopathy, JVD, or masses. LUNGS: Slightly diminished breath sounds LLL. minimal wheezes, and no crackles. No accessory muscle use. HEART:RRR, normal S1 and S2 without murmur, rub or gallop. ABDOMEN: Soft, NTND,NABS no guarding, no rebound, no masses. No hepatomegaly or splenomegaly. MUSCULOSKELETAL: RLE tenderness. No CVA tenderness. LOWER EXTREMITIES: 2+ pulses, warm, well-perfused. No calf tenderness. No peripheral edema. NEUROLOGICAL: Cranial nerves II-XII intact. Normal speech. gait not observed PSYCHIATRIC: Cooperative. Good eye contact. Appropriate mood and affect. SKIN: Warm, dry, normal turgor, no rashes or lesions noted, normal capillary refill. Laboratory Results - last 24 hr 01/25/19 01/25/19 01/25/19 05:40 09:45 09:56 WBC 11.7 H RBC 3.86 Hgb 12.2 Hct 36.1 MCV 93.5 MCH 31.6 MCHC 33.8 RDW 14.6 Plt Count 242 MPV 9.0 Absolute Neuts (auto) 11.1 H Neutrophils % 95.1 H D Neutrophils % (Manual) 94.0 H Band Neutrophils % 1.0 Lymphocytes % 2.4 L D Lymphocytes % (Manual) 3.0 L Monocytes % 2.3 L Monocytes % (Manual) 1 L Eosinophils % 0.1 D Eosinophils % (Manual) 0.0 Basophils % 0.1 Basophils % (Manual) 0.0 Myelocytes % (Man) 0 Promyelocytes % (Man) 0 Blast Cells % (Manual) 0 Nucleated RBC % 0 Metamyelocytes 0 Hypochromia 0 Platelet Estimate Normal Polychromasia 0 Poikilocytosis 1+ Anisocytosis 0 Microcytosis 0 Macrocytosis 1+ PT with INR 13.70 H INR 1.16 H Lactic Acid 4.1 H* Active Medications Generic Name Dose Route Start Last Admin Trade Name Freq PRN Reason Stop Dose Admin Acetaminophen 650 mg 01/25/19 09:54 01/26/19 01:10 Tylenol - PO 650 mg Q4H PRN Administration FEVER Albuterol Sulfate 1 amp 01/25/19 09:54 Ventolin 0.083% Nebulizer Soln - NEB Q4H PRN SHORT OF BREATH/WHEEZING Budesonide/Formoterol Fumarate 2 puff 01/25/19 10:15 01/25/19 23:02 Symbicort 80/4.5mcg - IH 2 puff BID HIPOLITO Administration Dapsone 100 mg 01/25/19 10:15 01/25/19 11:20 Dapsone - PO 100 mg DAILY HIPOLITO Administration Docusate Sodium 100 mg 01/25/19 10:01 01/25/19 11:20 Colace - PO 100 mg TID PRN Administration CONSTIPATION Enoxaparin Sodium 40 mg 01/25/19 10:15 01/25/19 11:20 Lovenox - SQ 40 mg DAILY HIPOLITO Administration Azithromycin 500 mg in 250 mls @ 250 mls/hr 01/26/19 10:00 Zithromax 500mg Ivpb (Pre-Docked) IVPB DAILY [facility] Polyethylene Glycol 17 gm 01/25/19 10:01 Miralax (For Daily Use) - PO DAILY PRN CONSTIPATION Prednisone 40 mg 01/25/19 19:48 Deltasone - PO DAILY HIPOLITO Valacyclovir HCl 500 mg 01/25/19 10:15 01/25/19 22:58 Valtrex - PO 500 mg BID HIPOLITO Administration IMAGING: * CXR: A single AP view of the chest reveal scoliosis with convexity to the right, left axillary clips, normal mediastinum and some mild congestive changes. The angles are sharp. The soft tissues are intact. Correlation recommended. Reported By: Flaco Agudelo MD 01/25/19 0708 ASSESSMENT/PLAN: 58 yo F with PMHx of HIV(on ART), lymphoma and asthma presents with 3 day history of worsening shortness of breath and cough admitted to med/surg for community acquired PNA in the setting of HIV. Acute bronchitis Given Ceftriaxone and Azithro in ER Will continue with Azithro 500mg daily Will consult ID on dapsone for PCP prophylaxis. Flu negative Urine for PNA antigens sent Sputum for stain and culture pending. BD TX PRN supplemental O2 PRN - maintain SpO2>90% Prednisone 10mg PO daily. Elevated LActaic Acid. Not acidotic. Secondary to multiple Bronchodilators Nebs in succession. Hydrate and repeat Lactic Acid AIDS Cont. descovy, tivicay Dapsone (Dapsone -) 100 mg PO DAILY HIPOLITO Valacyclovir HCl (Valtrex -) 500 mg PO BID HIPOLITO Consult ID. Last CD4 09/28/18 170 Asthma Continue Symbicort Albuterol PRN SOB Non-Hodgkin lymphoma in resmission - follow with Oncology no active disease routine f/u with oncology Tobacco use Counseled on importance of cessation and explained the health impact of continued use. No motivation to quit. offered nicotine patch Crack cocaine use Counseled on the importance of cessation and health impact of continued use. * She seems receptive and agrees she needs to quit. DVT prophylaxis Lovenox 40mg SQ
[2019-01-26 08:21] LABS: ALBUMIN 2.9 g/dl (3.4-5.0); ALK PHOS 211 U/L (45-117); ANION GAP 8 MMOL/L (8-16); BILIRUBIN,TOTAL 0.2 mg/dL (0.2-1); BLOOD UREA NITROGEN 23 mg/dL (7-18); CALCIUM 8.5 mg/dL (8.5-10.1); CHLORIDE 112 mmol/L (98-107); CO2 22 mmol/L (21-32); CREATININE 0.9 mg/dL (0.55-1.3); GLUCOSE,RANDOM 112 mg/dL (74-106); MAGNESIUM 1.7 mg/dL (1.8-2.4); PHOSPHOROUS 2.8 mg/dL (2.5-4.9); POTASSIUM 3.8 mmol/L (3.5-5.1); SGOT/AST 30 U/L (15-37); SGPT/ALT 32 U/L (13-61); SODIUM 143 mmol/L (136-145); TOT PROT 6.3 g/dl (6.4-8.2)
[2019-01-26] MEDS ORDERED: PT OWN MED DRAWER 7, Y5N ONE (09:39)
[2019-01-26] MEDS: valACYclovir HCL 500 MG TABLET (FP) PO SCH (09:48)
[2019-01-26] MEDS: DOLUTEGRAVIR SODIUM 50 MG TABLET (NON-FORMULARY) PO SCH (09:49)
[2019-01-26] MEDS: DAPSONE 100 MG TABLET PO SCH (09:49)
[2019-01-26] MEDS: EMTRICITABINE/TENOFOV ALAFENAM (DESCOVY) TABLET PO SCH (09:49)
[2019-01-26] MEDS: BUDESONIDE/FORMETEROL FUMARATE 80/4.5 mcg INHALER IH SCH (09:52)
[2019-01-26] MEDS: ENOXAPARIN NA (PORCINE) 40 MG/0.4 ML DISP.SYRIN SQ SCH (09:52)
[2019-01-26] MEDS ORDERED: AZITHROMYCIN IVPB 500 MG/250 ML BAG IVPB SCH (10:00)
[2019-01-26 10:57] VITALS: BP 118/68; PULSE 68; TEMP 98
--- NOTE | 2019-01-26 13:52 | DS ---
Physical Exam: SUBJECTIVE: Patient seen and examined at bedside. no acute events overnight. pt says her cough and breathing are much improved. denies fever, chills, cp, sob, n /v/d, urinary sxs, weakness OBJECTIVE: Vital Signs Period Temp Pulse Resp BP Sys/Rosas Pulse Ox Last 24 Hr 98 F-98.5 F 68-95 18-20 104-133/54-96 95-97 PHYSICAL EXAM GENERAL: AAOx3, NAD HEAD: NCAT EYES: PERRLA,EOMI, sclera anicteric, conjunctiva clear. No lid lag. EARS, NOSE, THROAT:Moist mucous membranes.No thrush NECK: Normal ROM, Supple without lymphadenopathy, JVD, or masses. LUNGS: minimal wheezes, and no crackles. No accessory muscle use. HEART:RRR, normal S1 and S2 without murmur, rub or gallop. ABDOMEN: Soft, NTND,NABS no guarding, no rebound, no masses. No hepatomegaly or splenomegaly. MUSCULOSKELETAL: no tenderness. No CVA tenderness. LOWER EXTREMITIES: 2+ pulses, warm, well-perfused. No calf tenderness. No peripheral edema. NEUROLOGICAL: Cranial nerves II-XII intact. Normal speech. gait not observed PSYCHIATRIC: Cooperative. Good eye contact. Appropriate mood and affect. SKIN: Warm, dry, normal turgor, no rashes or lesions noted, normal capillary refill. LABS Laboratory Results - last 24 hr 01/26/19 01/26/19 06:30 09:50 Sodium 143 Potassium 3.8 Chloride 112 H Carbon Dioxide 22 Anion Gap 8 BUN 23 H Creatinine 0.9 Creat Clearance w eGFR 64.09 Random Glucose 112 H Lactic Acid 2.1 H Calcium 8.5 Phosphorus 2.8 Magnesium 1.7 L Total Bilirubin 0.2 AST 30 ALT 32 Alkaline Phosphatase 211 H Total Protein 6.3 L Albumin 2.9 L IMAGING: CXR: A single AP view of the chest reveal scoliosis with convexity to the right, left axillary clips, normal mediastinum and some mild congestive changes. The angles are sharp. The soft tissues are intact. Correlation recommended. Reported By: Flaco Agudelo MD 01/25/19 0708 HOSPITAL COURSE: Date of Admission:01/25/19 Date of Discharge: 01/26/19 58 yo F with PMHx HIV/AIDS Last CD4 09/28/18 170 (on HAART, Dapsone prophylaxis) , Lymphoma, Asthma, active smoker presents with 3 day history of SOB, cough, yellow sputum. No chest pain/hemoptysis. Admitted for Acute Asthma/?COPD Exacerbation ?cocaine induced bronchospasm. one episode of fever that quickly resolved. currently afebrile, hemodynamically stable. +leukocytosis but likely 2/2 steroids. Flu neg, bcx neg, CXR - no infiltrate. s/p Ceftriaxone and Azithro in ER. we tx w/ DuoNebs, Prednisone 40mg, Azithromycin. pt sxs improved. pt did not require any intubation or ICU level of care. we will dc pt w/ 3 more days of azithro and prednisone. Unknown COPD but active smoker, pt has not had PFTs, we referred pt to pulm outpt ([facility] ) for PFT w/u. pt counseled on importance of smoking cessation and explained the health impact of continued use. offered and prescribed nicotine patch. Of note pt noted w/ Elevated Lactaic Acid, but not acidotic. Likely 2/2 multiple Bronchodilator Nebs in succession. repeat Lactic Acid is downtrending/ resolving. #HIV/AIDS CD4 09/28/18 170 Continue HAART Continue Dapsonefor PCP prophylaxis. c/w Valacyclovir #Non-Hodgkin lymphoma in resmission - follow with Oncology outpt routine f/u with oncology #Crack cocaine use Counseled on the importance of cessation and health impact of continued use. She seems receptive and agrees she needs to quit. pt stable and ready for dc w/ appropriate f/u w/ pulm Minutes to complete discharge: 39 Discharge Summary Reason For Visit: PNEUMONIA ASSOCIATED W ACQUIRED IMMUNE DEFICIENCY Condition: Stable - Instructions Diet, Activity, Other Instructions: you came in for shortness of breath and cough. we gave you steroids, breathing treatment, and antibiotic azithromycin which helped your symptoms. you chest x ray was normal. you did not have a pneumonia infection. You likely had an exacerbation of your asthma or you may also have a disease called COPD (chronic obstructive pulmonary disease) which is typically seen in smokers. Please follow up with [facility] [employer] with Dr. Fried within 1 week and discuss getting PFTs (pulmonary function test) to assess your lung function and to see if you have COPD. Please stop smoking as this will worsen your asthma and COPD if you have it and smoking can lead to cancer. we will prescribe you nicotine patches to help you with quitting. please take one patch per day Please resume your home meds NEW MEDICATIONS Please continue taking prednisone 40mg once a day for 3 more days Please continue taking aziththromycin 250mg once a day for 3 more days Please follow up with [facility] [employer] with Dr. Fried within 1 week If you experience any fevers, chills, shortness of breath, chest pain, nausea, vomit, diarrhea, please call 911 or go to the ER. Referrals: Froylan Fried MD [Staff Physician] - 1 Week Disposition: HOME - Home Medications Comprehensive Discharge Medication List: Ambulatory Orders Dapsone - 100 mg PO DAILY #30 tablet 09/28/18 Docusate Sodium [Colace -] 100 mg PO TID PRN #90 capsule 09/28/18 Polyethylene Glycol 3350 [Miralax 119 gm Btl -] 17 gm PO DAILY PRN #1 bottle Albuterol Sulfate Inhaler - [Ventolin HFA Inhaler -] 1 - 2 inh PO QID #1 inhaler 10/24/18 Budesonide/Formeterol Fumarate [SYMBICORT 80/4.5mcg -] 2 inh PO BID #1 cannister 10/24/18 Dolutegravir Sodium [Tivicay] 50 mg PO DAILY #30 tablet 10/24/18 Emtricitabine/Tenofov Alafenam [Descovy 200-25 mg Tablet (Nf)] 1 each PO DAILY # 30 tablet 10/24/18 Valacyclovir HCl [Valtrex -] 500 mg PO BID #60 tablet 10/24/18 Azithromycin 250 mg PO DAILY 3 Days #3 tablet 01/26/19 predniSONE [Deltasone -] 40 mg PO DAILY 3 Days #6 tablet 01/26/19 This patient is new to me today: Yes Date on this admission: 01/26/19 Emergency Visit: Yes ED Registration Date: 01/25/19 Care time: The patient presented to the Emergency Department on the above date and was hospitalized for further evaluation of their emergent condition. Critical Care patient: No - Discharge Referral Referred to [facility] Med [facility].: No
--- NOTE | 2019-01-26 15:17 | PN ---
Teaching Attending Note Name of Resident: Ernst Graham ATTENDING PHYSICIAN STATEMENT I saw and evaluated the patient. I reviewed the resident's note and discussed the case with the resident. I agree with the resident's findings and plan as documented. SUBJECTIVE: Improvement in Cough and SOB. No further fevers. No CP/hemoptysis OBJECTIVE: Afebrile. Hemodynamically Stable. Last Vital Signs Temp Pulse Resp BP Pulse Ox 98 F 68 18 118/68 97 01/26/19 10:56 01/26/19 10:56 01/26/19 10:56 01/26/19 10:56 01/26/19 09:00 HEENT - Atraumatic, Normocephalic Heart - S1, S2, RRR Lungs - occasional wheeze Abdomen - Soft, non-tender. Bowel Sounds normal. Extremities - No edema, no calf tenderness Laboratory Results - last 24 hr 01/26/19 01/26/19 06:30 09:50 Sodium 143 Potassium 3.8 Chloride 112 H Carbon Dioxide 22 Anion Gap 8 BUN 23 H Creatinine 0.9 Creat Clearance w eGFR 64.09 Random Glucose 112 H Lactic Acid 2.1 H Calcium 8.5 Phosphorus 2.8 Magnesium 1.7 L Total Bilirubin 0.2 AST 30 ALT 32 Alkaline Phosphatase 211 H Total Protein 6.3 L Albumin 2.9 L Discharge Medications Medication Instructions Recorded Dapsone - 100 mg PO DAILY #30 tablet 09/28/18 Docusate Sodium [Colace -] 100 mg PO TID PRN #90 capsule 09/28/18 Polyethylene Glycol 3350 [Miralax 17 gm PO DAILY PRN #1 bottle 09/28/18 119 gm Btl -] Albuterol Sulfate Inhaler - 1 - 2 inh PO QID #1 inhaler 10/24/18 [Ventolin HFA Inhaler -] Budesonide/Formeterol Fumarate 2 inh PO BID #1 cannister 10/24/18 [SYMBICORT 80/4.5mcg -] Dolutegravir Sodium [Tivicay] 50 mg PO DAILY #30 tablet 10/24/18 Emtricitabine/Tenofov Alafenam 1 each PO DAILY #30 tablet 10/24/18 [Descovy 200-25 mg Tablet (Nf)] Valacyclovir HCl [Valtrex -] 500 mg PO BID #60 tablet 10/24/18 Azithromycin 250 mg PO DAILY 3 Days #3 tablet 01/26/19 Nicotine Patch [Nicoderm Patch -] 1 patch TD DAILY #15 patch 01/26/19 predniSONE [Deltasone -] 40 mg PO DAILY 3 Days #6 tablet 01/26/19 ASSESSMENT AND PLAN: 58 year old female with history of HIV/AIDS (on HAART, Dapsone prophylaxis), Lymphoma s/p CTx 10 years ago, Asthma, active smoker presents with 3 day history of SOB, cough, yellow sputum. No chest pain/hemoptysis. 1. Acute Asthma/?COPD Exacerbation with possible superimposed ?cocaine induced bronchospasm Flu neg CXR - no infiltrate Currently afebrile, hemodynamically stable. Unknown COPD, active smoker, counselled. Continue Prednisone 40mg, Azithromycin for total 5 days. Continue Symbicort and Albuterol. SpO2 97% on RA - medically stable for discharge home Pulm follow up as out-patient for PFTs and care optimization 2. HIV/AIDS CD4 09/28/18 170 Continue HAART Continue Dapsone/Valacyclovir Will follow with ID as out-patient. 3. Non-Hodgkin's Lymphoma s/p CTx over 10 years ago - in remission. 4. Substance Abuse - crack cocaine Counselled. 5. Elevated Lactic Acid. Not acidotic. Secondary to multiple Bronchodilator Nebs in succession. Repeat Lactate improved s/p IV hydration Medically Stable for discharge with Pulmonary follow up.
== END 2019-01-26 13:32 | disposition home or self-care (01) | DRG 140 ==
LOC: JER 05:00 → JERBED 07:12 → J6S 22:03
PROC: 3E0F7GC Introduction of Other Therapeutic Substance into Respiratory Tract, Via Natural or Artificial Opening (ICD-10-PCS; principal; 2019-01-25)
DX: J44.1 Chronic obstructive pulmonary disease with (acute) exacerbation (principal); B20 Human immunodeficiency virus [HIV] disease; J45.901 Unspecified asthma with (acute) exacerbation; M41.9 Scoliosis, unspecified; I10 Essential (primary) hypertension; J20.9 Acute bronchitis, unspecified; F14.10 Cocaine abuse, uncomplicated; D64.9 Anemia, unspecified; Z85.72 Personal history of non-Hodgkin lymphomas; F17.210 Nicotine dependence, cigarettes, uncomplicated; D72.829 Elevated white blood cell count, unspecified
CPT/HCPCS: 36415; 36600; 71045-TC-FY; 80053; 82375; 82803; 83050; 83605; 83615; 83735; 84100; 84484; 85025; 85610; 87040; 87804; 93005; 93010; 99284-25; J0131; J7030

== ENCOUNTER 2019-02-10 10:48 | Emergency (ER) | payer OTHER ==
[2019-02-10 11:09] VITALS: BP 111/60; PULSE 80; TEMP 97.9; BMI 24.0
--- NOTE | 2019-02-10 11:17 | PDOC ---
History of Present Illness - General Chief Complaint: Urinary Problem Stated Complaint: ABD PAIN Time Seen by Provider: 02/10/19 11:16 History Source: Patient, Family Past History - Travel Traveled outside of the country in the last 30 days: No Close contact w/someone who was outside of country & ill: No - Past Medical History Allergies/Adverse Reactions: Allergies Allergy/AdvReac Type Severity Reaction Status Date / Time No Known Allergies Allergy Verified 02/10/19 10:59 Home Medications: Ambulatory Orders Docusate Sodium [Colace -] 100 mg PO TID PRN #90 capsule 09/28/18 Polyethylene Glycol 3350 [Miralax 119 gm Btl -] 17 gm PO DAILY PRN #1 bottle Albuterol Sulfate Inhaler - [Ventolin HFA Inhaler -] 1 - 2 inh PO QID #1 inhaler 02/01/19 Budesonide/Formeterol Fumarate [SYMBICORT 80/4.5mcg -] 2 inh PO BID #1 cannister 02/01/19 Citalopram Hydrobromide [Celexa -] 20 mg PO DAILY #30 tablet 02/01/19 Dapsone - 100 mg PO DAILY #30 tablet 02/01/19 Dolutegravir Sodium [Tivicay] 50 mg PO DAILY #30 tablet 02/01/19 Emtricitabine/Tenofov Alafenam [Descovy 200-25 mg Tablet (Nf)] 1 each PO DAILY # 30 tablet 02/01/19 Valacyclovir HCl [Valtrex -] 500 mg PO BID #60 tablet 02/01/19 Cephalexin Monohydrate [Keflex -] 500 mg PO BID #14 capsule 02/10/19 Phenazopyridine HCl [Pyridium -] 100 mg PO TID #9 tablet 02/10/19 Anemia: Yes Asthma: Yes Cancer: Yes ([facility]MPH[facility] 2016) Cardiac Disorders: No CVA: No COPD: No CHF: No DVT: No Dementia: No Diabetes: No GI Disorders: No Disorders: No HTN: Yes Hypercholesterolemia: No Liver Disease: Yes Seizures: No Thyroid Disease: No - Surgical History Abdominal Surgery: Yes Appendectomy: No Cardiac Surgery: No Cholecystectomy: No Lung Surgery: No Neurologic Surgery: No Orthopedic Surgery: No - Immunization History Immunization Up to Date: Yes - Suicide/Smoking/Psychosocial Hx Smoking Status: No Smoking History: Current every day smoker Have you smoked in the past 12 months: Yes Number of Cigarettes Smoked Daily: 20 If you are a former smoker, when did you quit?: 1month Cigars Per Day: 0 Information on smoking cessation initiated: No 'Breaking Loose' booklet given: 01/25/19 Hx Alcohol Use: Yes (occasionally) Drug/Substance Use Hx: Yes (crack) Substance Use Type: Cocaine Hx Substance Use Treatment: No Review of Systems - Review of Systems Able to Perform ROS?: Yes Comments:: 02/10/19 12:25 CONSTITUTIONAL: Absent: fever, chills, diaphoresis, generalized weakness, malaise, loss of appetite HEENT: Absent: rhinorrhea, nasal congestion, throat pain, throat swelling, difficulty swallowing, mouth swelling, ear pain, eye pain, visual Changes CARDIOVASCULAR: Absent: chest pain, loss of consciousness, palpitations, irregular heart rate, peripheral edema RESPIRATORY: Absent: cough, shortness of breath, dyspnea with exertion, orthopnea, wheezing, stridor, hemoptysis GASTROINTESTINAL: Present: lower abdominal discomfort Absent: abdominal pain, abdominal distension , nausea, vomiting, diarrhea, constipation, melena, hematochezia GENITOURINARY: Present: frequency, urgency, Absent: dysuria, hesitancy, hematuria, flank pain, genital pain MUSCULOSKELETAL: Absent: myalgia, arthralgia, joint swelling SKIN: Absent: rash, itching, pallor NEUROLOGIC: Absent: headache, focal weakness or paresthesias, dizziness, unsteady gait, seizure, mental status changes, bladder or bowel incontinence PSYCHIATRIC: Absent: anxiety, depression, suicidal or homicidal ideation, hallucinations. Is the patient limited [place]ian proficient: No *Physical Exam - Vital Signs Last Vital Signs Temp Pulse Resp BP Pulse Ox 97.9 F 80 18 111/60 98 02/10/19 11:01 02/10/19 11:01 02/10/19 11:01 02/10/19 11:01 02/10/19 11:01 - Physical Exam Comments: 02/10/19 12:27 GENERAL: Well developed, well nourished. Awake and alert. No acute distress. ABDOMINAL: Suprapubic discomfort. Soft. Non-tender. Non-distended. No rebound or guarding. No organomegaly. Normoactive bowel sounds. MUSCULOSKELETAL Normal range of motion at all joints. No bony deformities or tenderness. No CVA tenderness. EXTREMITIES: No cyanosis. No clubbing. No edema. No calf tenderness. SKIN: Warm and dry. Normal capillary refill. No rashes. No jaundice. NEUROLOGICAL: Alert, awake, appropriate. Cranial nerves 2-12 intact. No deficits to light touch and temperature in face, upper extremities and lower extremities. No motor deficits in the in face, upper extremities and lower extremities. Normoreflexic in the upper and lower extremities. Normal speech. Toes are down- going bilaterally. Gait is normal without ataxia. PSYCHIATRIC: Cooperative. Good eye contact. Appropriate mood and affect. Medical Decision Making - Medical Decision Making 02/10/19 12:29 The patient is a 58-year-old female with past medical history of HIV, last CD4 count 180 (09/2018) presents to the ER with 1 day of suprapubic tenderness, increased frequency and urgency. She states that she was up all last night using the restroom. Patient admits that she has had incontinence over the past couple of months, however it has been worse over the past night. Denies fevers, chills, difficulty breathing, nausea, vomiting and diarrhea. A/P: UTI Urine shows trace leukocytes with 2 WBCs, however given patient's HIV status and superpubic tenderness we will treat prophylactically. Keflex sent to the pharmacy. Suspect incontinence is due to structural issue. Patient has 8 children. We'll refer to [facility] [facility]. Patient is comfortable with discharge planning I discussed the physical exam findings, ancillary test results and final diagnoses with the patient. I answered all of the patient's questions. The patient was satisfied with the care received and felt comfortable with the discharge plan and treatment plan. The Patient agrees to follow up with the primary care physician/specialist within 24-72 hours. Return precautions were given. *DC/Admit/Observation/Transfer Diagnosis at time of Disposition: UTI (urinary tract infection) Qualifiers: Urinary tract infection type: acute cystitis Hematuria presence: without hematuria Qualified Code(s): N30.00 - Acute cystitis without hematuria - Discharge Dispostion Disposition: HOME Condition at time of disposition: Stable Decision to Admit order: No - Prescriptions Prescriptions: Cephalexin Monohydrate [Keflex -] 500 mg PO BID #14 capsule Phenazopyridine HCl [Pyridium -] 100 mg PO TID #9 tablet - Referrals Referrals: Rosa Joseph DO [Staff Physician] - - Patient Instructions Printed Discharge Instructions: DI for Urinary Tract Infection (UTI) Additional Instructions: You have a urinary tract infection. This caused by bacteria. Please drink plenty of fluids. Take your antibiotics as prescribed. Finish the entire dose even if you feel better. You may take Tylenol or Motrin as needed for pain Please follow up with your primary care doctor this week. Return to the emergency department if you have fevers, chills, nausea, vomiting , back pain, or have any changes in your symptoms. - Post Discharge Activity
[2019-02-10 12:09] LABS: EPI CELLS 0.9 /HPF (0-5); URINE APPEARANCE CLEAR; URINE BACTERIA 9.6 /hpf (NEGATIVE); URINE BILIRUBIN NEGATIVE (NEGATIVE); URINE CASTS 1 /hpf (0-8); URINE COLOR YELLOW; URINE GLUCOSE (UA) NEGATIVE (NEGATIVE); URINE KETONE NEGATIVE (NEGATIVE); URINE LEUK ESTERASE TRACE (NEGATIVE); URINE NITRITE NEGATIVE (NEGATIVE); URINE PROTEIN NEGATIVE (NEGATIVE); URINE RBC 4 /hpf (0-4); URINE UROBILINOGEN 0.2 mg/dL (0.2-1.0); URINE WBC 2 /hpf (0-5)
== END 2019-02-10 12:40 | disposition home or self-care (01) ==
LOC: JER 10:48 → JERFT 10:48
DX: N30.00 Acute cystitis without hematuria (principal); I10 Essential (primary) hypertension; J45.909 Unspecified asthma, uncomplicated; D64.9 Anemia, unspecified; Z85.72 Personal history of non-Hodgkin lymphomas; B20 Human immunodeficiency virus [HIV] disease; F17.210 Nicotine dependence, cigarettes, uncomplicated
CPT/HCPCS: 81003; 87086; 99281-25

== ENCOUNTER 2019-02-14 07:51 | Emergency (ER) | payer OTHER ==
[2019-02-14 08:13] VITALS: BP 110/80; PULSE 71; TEMP 98.5; BMI 24.0
--- NOTE | 2019-02-14 09:10 | PDOC ---
Attending Attestation - HPI HPI: 02/14/19 09:29 The patient is a 58-year-old, with a past medical history of asthma, COPD, DM, HIV/AIDS (last CD4 count 180 (09/2018), lymphoma -2016, crack cocaine abuse, who presents to the ED with 3 days of cough and increased shortness of breath. Patient used her ventolin pump once at home with no relief of her symptoms. She also reports headache, runny nose, and lower back pain. The patient denies any fever, chills, nausea, vomiting, diarrhea, constipation or abdominal pain. Denies any chest pain or palpitations. Denies any urinary symptoms. Allergies: NKA Surgical History: None reported. Social History: Crack cocaine abuse. - Medical Decision Making 02/14/19 11:53 Dr. Vargas was paged and notified via phone service. <Jessica Jackman - Last Filed: 02/14/19 11:53> - Resident Resident Name: Letitia Whittington - ED Attending Attestation I have performed the following: I have examined & evaluated the patient, The case was reviewed & discussed with the resident, I agree w/resident's findings & plan, Exceptions are as noted - Physicial Exam PE: 02/14/19 11:44 Patient is awake and alert, mildly tachypneic and dyspneic, hypoxemic on room air at 93%; and mild respiratory distress Normocephalic, atraumatic PERRLA, EOMI, conjunctiva pink No JVD RRR Bibasilar rhonchi more pronounced at the left base, with mild end expiratory wheezing bilaterally No lower extremity edema - Medical Decision Making 02/14/19 11:45 Patient is a 58-year-old female with history of HIV/AIDS on haart, COPD, crack/ cocaine use presents with signs and symptoms of acute COPD exacerbation. ACS or AK highly unlikely. Patient denies chest pain. Does complain of mildly productive cough. Patient's afebrile, normotensive, with a heart rate of 70-80 in the ED. Chest x-ray reveals no evidence of infiltrate or effusion. There is no evidence of significant leukocytosis. We'll administer Combivent therapy, Solu-Medrol, magnesium sulfate, will reassess. 02/14/19 12:43 Patient reassessed. Patient is resting comfortably. Patient's tachypnea has resolved. Patient's oxygen saturation on room air is noted to be 96%. Adventitious lung sounds have also resolved. Patient eating a meal in the ER. Patient's case discussed with Dr. Vargas of infectious disease. Will order hepatitis panel to evaluate for elevated LFTs. Given the patient has no right upper quadrant symptoms, she will be discharged with outpatient follow-up. Will discharge with Z-Hieu, by mouth prednisone and continuous albuterol MDI as needed. <Shyam Ortega - Last Filed: 02/14/19 12:45> Attestations - Attestations 02/14/19 09:30 Documentation prepared by Jessica Jackman, acting as medical assistant cardiology for Shyam Ortega MD. <Jessica Jackman - Last Filed: 02/14/19 11:53>
[2019-02-14] MEDS ORDERED: ALBUTEROL SO4 2.5/IPRATROPIUM 0.5 INH SOL 3 ML VIAL.NEB. NEB ONE (09:21)
--- NOTE | 2019-02-14 09:22 | PDOC ---
History of Present Illness <Letitia Whittington - Last Filed: 02/14/19 12:18> <Shyam Ortega - Last Filed: 02/14/19 12:48> - General Chief Complaint: Asthma Stated Complaint: ASTHMA Time Seen by Provider: 02/14/19 08:52 Past History - Past Medical History Anemia: Yes Asthma: Yes Cancer: Yes ([facility]MPH[facility] 2016) Cardiac Disorders: No CVA: No COPD: No CHF: No DVT: No Dementia: No Diabetes: No GI Disorders: No Disorders: No HTN: Yes Hypercholesterolemia: No Liver Disease: Yes Seizures: No Thyroid Disease: No - Surgical History Abdominal Surgery: Yes Appendectomy: No Cardiac Surgery: No Cholecystectomy: No Lung Surgery: No Neurologic Surgery: No Orthopedic Surgery: No - Immunization History Immunization Up to Date: Yes - Suicide/Smoking/Psychosocial Hx Smoking Status: No Smoking History: Never smoked Have you smoked in the past 12 months: Yes Number of Cigarettes Smoked Daily: 20 If you are a former smoker, when did you quit?: 1month Cigars Per Day: 0 'Breaking Loose' booklet given: 01/25/19 Hx Alcohol Use: No Drug/Substance Use Hx: No Substance Use Type: Cocaine Hx Substance Use Treatment: No <Letitia Whittington - Last Filed: 02/14/19 12:18> <Shyam Ortega - Last Filed: 02/14/19 12:48> - Past Medical History Allergies/Adverse Reactions: Allergies Allergy/AdvReac Type Severity Reaction Status Date / Time No Known Allergies Allergy Verified 02/14/19 08:09 Home Medications: Ambulatory Orders Docusate Sodium [Colace -] 100 mg PO TID PRN #90 capsule 09/28/18 Polyethylene Glycol 3350 [Miralax 119 gm Btl -] 17 gm PO DAILY PRN #1 bottle Albuterol Sulfate Inhaler - [Ventolin HFA Inhaler -] 1 - 2 inh PO QID #1 inhaler 02/01/19 Budesonide/Formeterol Fumarate [SYMBICORT 80/4.5mcg -] 2 inh PO BID #1 cannister 02/01/19 Citalopram Hydrobromide [Celexa -] 20 mg PO DAILY #30 tablet 02/01/19 Dapsone - 100 mg PO DAILY #30 tablet 02/01/19 Dolutegravir Sodium [Tivicay] 50 mg PO DAILY #30 tablet 02/01/19 Emtricitabine/Tenofov Alafenam [Descovy 200-25 mg Tablet (Nf)] 1 each PO DAILY # 30 tablet 02/01/19 Valacyclovir HCl [Valtrex -] 500 mg PO BID #60 tablet 02/01/19 Cephalexin Monohydrate [Keflex -] 500 mg PO BID #14 capsule 02/10/19 Phenazopyridine HCl [Pyridium -] 100 mg PO TID #9 tablet 02/10/19 Azithromycin [Zithromax 250mg Tablets -] 250 mg PO UTDICT #6 tab 02/14/19 predniSONE [Deltasone -] 40 mg PO DAILY #10 tablet 02/14/19 Review of Systems - Review of Systems Comments:: General: No fevers, no chills, no weight or appetite change, no malaise HEENT: No changes in vision, no changes in hearing, no congestion, no sore throat CV: No chest pain, no palpitations, no LE edema Pulm: +SOB, no cough, +wheezing GI: No nausea or vomiting, no change in bowel habits, no melena : +frequency, no urgency, no dysuria Musc: + chronic back pain, no joint swelling, no recent injury Skin: No rash, no lesions, no erythema Endo: No excessive thirst, no heat/cold intolerance Heme: No unusual bruising or bleeding, no swollen glands Neuro: No syncope, no numbness/tingling, no focal weakness Vasc: No claudication Psych: No recent change in mood, no SI or HI <Letitia Whittington - Last Filed: 02/14/19 12:18> *Physical Exam - Vital Signs Last Vital Signs Temp Pulse Resp BP Pulse Ox 98.5 F 71 16 110/80 94 L 02/14/19 08:09 02/14/19 08:09 02/14/19 08:09 02/14/19 08:09 02/14/19 08:09 - Physical Exam Comments: General: Comfortable, no acute distress HEENT: PERRL, EOMI, MMM, voice normal, normal neck ROM, no LAD Cards: RRR, no murmur appreciated Pulm: Mild diffuse wheezing, worst in left lower lung posteriorly. Productive cough Abd: Soft, nontender, nondistended Ext: Atraumatic. No LE edema. ROM intact. Strength 5/5 and equal bilaterally Vasc: Extremities WWP. Neuro: A&Ox3, CN grossly intact, normal speech, motor/sensory grossly intact and symmetric Psych: Mood appropriate to situation <Letitia Whittington - Last Filed: 02/14/19 12:18> - Vital Signs Last Vital Signs Temp Pulse Resp BP Pulse Ox 98.5 F 71 16 110/80 94 L 02/14/19 08:09 02/14/19 08:09 02/14/19 08:09 02/14/19 08:09 02/14/19 08:09 <Shyam Ortega - Last Filed: 02/14/19 12:48> ED Treatment Course - LABORATORY CBC & Chemistry Diagram: 02/14/19 09:33 02/14/19 09:17 - RADIOLOGY Radiology Studies Ordered: Category Date Time Status CHEST PA & LAT [RAD] Stat Radiology 02/14/19 09:17 Ordered <PkLetitia - Last Filed: 02/14/19 12:18> - LABORATORY CBC & Chemistry Diagram: 02/14/19 09:33 02/14/19 09:17 - ADDITIONAL ORDERS Additional order review: Laboratory Results 02/14/19 09:17 Sodium 139 Potassium 4.0 Chloride 106 Carbon Dioxide 24 Anion Gap 8 BUN 12 Creatinine 0.8 Creat Clearance w eGFR 73.42 Random Glucose 80 Calcium 8.1 L Total Bilirubin 0.3 AST 80 H ALT 117 H Alkaline Phosphatase 401 H Total Protein 6.9 Albumin 3.5 02/14/19 09:33 RBC 3.55 L MCV 95.6 MCHC 33.2 RDW 16.5 H MPV 9.1 Neutrophils % 42.9 D Lymphocytes % 36.4 D Monocytes % 15.8 H D Eosinophils % 3.7 D Basophils % 1.2 D - Medications Given in the ED: ED Medications Discontinued Medications Generic Name Dose Route Start Last Admin Trade Name Freq PRN Reason Stop Dose Admin Albuterol/Ipratropium 1 amp 02/14/19 09:30 02/14/19 10:15 Duoneb - NEB 02/14/19 10:16 1 amp Q15M HIPOLITO Administration Magnesium Sulfate 2 gm 02/14/19 10:38 04/03/19 11:05 Magnesium Sulfate IVPB 02/14/19 10:39 2 gm ONCE ONE Administration Methylprednisolone Sodium Succinate 125 mg 02/14/19 10:00 02/14/19 10:15 Solu-Medrol - IVPUSH 02/14/19 10:01 125 mg ONCE ONE Administration <Shyam Ortega - Last Filed: 02/14/19 12:48> Medical Decision Making - Medical Decision Making 02/14/19 09:19 Sarah Shannon is a 58yo woman with a PMH of HIV/AIDs (CD4 ), HTN, lymphoma ( in remission), COPD, current smoking, crack cocaine abuse, chronic anemia who presents with 2-3 days of increased cough and SOB. Her only other symptom is frequent urination - Most likely COPD exacerbation, viral URI. Ddx also includes pneumonia, TB, or more rare pulmonary diseases including fungal infection given her HIV/AIDs status - Mildly hypoxic on RA - CBC, CMP, UA, CXR - Duonebs for SOB and cough - Re-eval after completing meds 02/14/19 10:39 - Labs reviewed. No concerning abnormalities - CXR completed. No focal pathology or acute change from previous - Given methylprednisolone for continued hypoxia at 94% (baseline in high 90's) - IV mag ordered. Will re-eval when completed 02/14/19 12:18 - Feels significantly improved following steroids, IV mag - Labs w/ LFT elevations. Dr Ortega spoke to Dr Vargas; recommending hepatitis panel. Ordered by Dr Ortega. <Letitia Whittington - Last Filed: 02/14/19 12:18> *DC/Admit/Observation/Transfer <Letitia Whittington - Last Filed: 02/14/19 12:18> <Shyam Ortega - Last Filed: 02/14/19 12:48> Diagnosis at time of Disposition: Acute exacerbation of chronic bronchitis HIV (human immunodeficiency virus infection) Qualifiers: HIV symptom status: unspecified Qualified Code(s): B20 - Human immunodeficiency virus [HIV] disease - Discharge Dispostion Disposition: HOME Condition at time of disposition: Stable - Referrals Referrals: Estefanía Vargas MD [Staff Physician] - - Patient Instructions Printed Discharge Instructions: DI for Chronic Bronchitis Additional Instructions: Your liver function test indicates some degree of liver inflammation. Please follow-up with infectious disease for further evaluation and treatment. Take medication as advised. Return immediately for worsening symptoms.
[2019-02-14] MEDS: ALBUTEROL SO4 2.5/IPRATROPIUM 0.5 INH SOL 3 ML VIAL.NEB. NEB SCH ×4 (09:30→10:15)
[2019-02-14 09:40] LABS: BASO % 1.2 % (0-2.0); EOS % 3.7 % (0-4.5); HEMATOCRIT 33.9 % (32.4-45.2); HEMOGLOBIN 11.3 GM/dL (10.7-15.3); LYMPH % 36.4 % (8-40); MCH 31.8 pg (25.7-33.7); MCHC 33.2 g/dl (32.0-36.0); MEAN CELL VOLUME 95.6 fl (80-96); MEAN PLT VOLUME 9.1 fl (7.5-11.1); MONO % 15.8 % (3.8-10.2); NEUT % 42.9 % (42.8-82.8); PLATELET COUNT 178 K/MM3 (134-434); RBC 3.55 M/mm3 (3.60-5.2); RDW 16.5 % (11.6-15.6); WHITE BLOOD COUNT 4.1 K/mm3 (4.0-10.0)
[2019-02-14] MEDS ORDERED: methylPREDNISolone NA SUCC 125 MG/2 ML VIAL IVPUSH ONE (10:00)
[2019-02-14] MEDS ORDERED: methylPREDNISolone NA SUCC 125 MG/2 ML VIAL ONE (10:08)
[2019-02-14 10:14] LABS: ALBUMIN 3.5 g/dl (3.4-5.0); ALK PHOS 401 U/L (45-117); ANION GAP 8 MMOL/L (8-16); BILIRUBIN,TOTAL 0.3 mg/dL (0.2-1); BLOOD UREA NITROGEN 12 mg/dL (7-18); CALCIUM 8.1 mg/dL (8.5-10.1); CHLORIDE 106 mmol/L (98-107); CO2 24 mmol/L (21-32); CREATININE 0.8 mg/dL (0.55-1.3); GLUCOSE,RANDOM 80 mg/dL (74-106); SGOT/AST 80 U/L (15-37); SGPT/ALT 117 U/L (13-61); SODIUM 139 mmol/L (136-145); TOT PROT 6.9 g/dl (6.4-8.2)
[2019-02-14] MEDS ORDERED: MAGNESIUM SULF 50% (8.12 MEQ/2 ML-1 GM VIAL) IVPB ONE (10:38)
[2019-02-14] MEDS ORDERED: MAGNESIUM 1GM/D5W - 2 GM/200 ML IVPB IVPB ONE (10:48)
[2019-02-14] MEDS ORDERED: chlordiazePOXIDE HCL 25 MG CAPSULE ONE (10:56)
[2019-02-14] MEDS ORDERED: predniSONE 20 MG TABLET (UD) PO ONE (12:44)
[2019-02-14] MEDS ORDERED: predniSONE 20 MG TABLET (UD) ONE (13:16)
[2019-02-15 04:18] LABS: HEP.C VIRUS AB <0.1 s/co ratio (0.0-0.9)
== END 2019-02-14 13:19 | disposition home or self-care (01) ==
LOC: JER 07:51
PROC: 3E0F7GC Introduction of Other Therapeutic Substance into Respiratory Tract, Via Natural or Artificial Opening (ICD-10-PCS; principal; 2019-02-14)
PROC: 3E033GC Introduction of Other Therapeutic Substance into Peripheral Vein, Percutaneous Approach (ICD-10-PCS; 2019-02-14)
DX: B20 Human immunodeficiency virus [HIV] disease (principal); J42 Unspecified chronic bronchitis; I10 Essential (primary) hypertension; F17.210 Nicotine dependence, cigarettes, uncomplicated; C85.80 Other specified types of non-Hodgkin lymphoma, unspecified site; F14.10 Cocaine abuse, uncomplicated
CPT/HCPCS: 36415; 71046-TC-FY; 80053; 80074; 85025; 94640; 96374; 96375; 99282-25

== ENCOUNTER 2019-04-03 16:57 | Emergency (ER) | payer OTHER ==
--- NOTE | 2019-04-03 17:02 | PDOC ---
Rapid Medical Evaluation Time Seen by Provider: 04/03/19 17:01 Medical Evaluation: Allergies Allergy/AdvReac Type Severity Reaction Status Date / Time No Known Allergies Allergy Verified 02/14/19 08:09 04/03/19 17:07 I have performed a brief in-person evaluation of this patient. The patient presents with a chief complaint of: cough, short of breath Pertinent physical exam findings:stable and in NAD, non-focal, rhonchous cough I have ordered the following:labs, chest xray The patient will proceed to the ED for further evaluation.
[2019-04-03 17:06] VITALS: PULSE 92; BMI 26.5
[2019-04-03] MEDS ORDERED: ALBUTEROL SO4 2.5/IPRATROPIUM 0.5 INH SOL 3 ML VIAL.NEB. NEB ONE ×2 (17:07→20:40)
[2019-04-03 17:47] LABS: BASO % 0.8 % (0-2.0); EOS % 11.6 % (0-4.5); HEMATOCRIT 37.1 % (32.4-45.2); HEMOGLOBIN 12.2 GM/dL (10.7-15.3); LYMPH % 36.5 % (8-40); MCH 30.9 pg (25.7-33.7); MCHC 32.8 g/dl (32.0-36.0); MEAN CELL VOLUME 94.4 fl (80-96); MONO % 11.3 % (3.8-10.2); NEUT % 39.8 % (42.8-82.8); PLATELET COUNT 226 K/MM3 (134-434); RBC 3.93 M/mm3 (3.60-5.2); RDW 15.5 % (11.6-15.6); WHITE BLOOD COUNT 6.2 K/mm3 (4.0-10.0)
--- NOTE | 2019-04-03 19:50 | PDOC ---
*Physical Exam - Vital Signs Last Vital Signs Temp Pulse Resp BP Pulse Ox 98.1 F 92 H 19 164/82 91 L 04/03/19 17:03 04/03/19 17:03 04/03/19 17:03 04/03/19 17:03 04/03/19 17:03 ED Treatment Course - LABORATORY CBC & Chemistry Diagram: 04/03/19 17:23 04/03/19 17:23 - ADDITIONAL ORDERS Additional order review: 04/03/19 17:23 RBC 3.93 MCV 94.4 MCHC 32.8 RDW 15.5 MPV 9.0 Neutrophils % 39.8 L Lymphocytes % 36.5 Monocytes % 11.3 H Eosinophils % 11.6 H D Basophils % 0.8 - Medications Given in the ED: ED Medications Discontinued Medications Generic Name Dose Route Start Last Admin Trade Name Freq PRN Reason Stop Dose Admin Albuterol/Ipratropium 1 amp 04/03/19 17:07 04/03/19 17:27 Duoneb - NEB 04/03/19 17:08 1 amp ONCE ONE Administration Medical Decision Making - Medical Decision Making 04/03/19 19:49 Patient seen by the advanced practice provider under my direct supervision. Ancillary testing reviewed as necessary. I agree with plan as outlined by the advanced practice provider. *DC/Admit/Observation/Transfer Diagnosis at time of Disposition: Cephalgia - Referrals - Patient Instructions - Post Discharge Activity
[2019-04-03] MEDS ORDERED: predniSONE 20 MG TABLET (UD) PO ONE (20:00)
[2019-04-03] MEDS ORDERED: predniSONE 20 MG TABLET (UD) ONE (20:39)
[2019-04-03 20:41] LABS: ALBUMIN 3.7 g/dl (3.4-5.0); BILIRUBIN,TOTAL 0.3 mg/dL (0.2-1); CALCIUM 8.9 mg/dL (8.5-10.1); CREATININE 0.8 mg/dL (0.55-1.3); POTASSIUM 3.9 mmol/L (3.5-5.1); TOT PROT 7.5 g/dl (6.4-8.2)
[2019-04-03] MEDS ORDERED: ALBUTEROL SO4 2.5/IPRATROPIUM 0.5 INH SOL 3 ML VIAL.NEB. NEB SCH (20:45)
[2019-04-03] MEDS: ALBUTEROL SO4 2.5/IPRATROPIUM 0.5 INH SOL 3 ML VIAL.NEB. NEB SCH ×3 (20:45→21:15)
[2019-04-03] MEDS ORDERED: IBUPROFEN 400 MG TABLET (FP) PO ONE (20:49)
[2019-04-03 21:15] VITALS: BP 113/83; TEMP 97.3
--- NOTE | 2019-04-03 21:41 | PDOC ---
History of Present Illness - General Chief Complaint: Pain, Acute Stated Complaint: LEFT SHOULDER PAIN, wheezing Time Seen by Provider: 04/03/19 17:01 History Source: Patient Exam Limitations: No Limitations Past History - Past Medical History Allergies/Adverse Reactions: Allergies Allergy/AdvReac Type Severity Reaction Status Date / Time No Known Allergies Allergy Verified 04/03/19 17:06 Home Medications: Ambulatory Orders Docusate Sodium [Colace -] 100 mg PO TID PRN #90 capsule 09/28/18 Polyethylene Glycol 3350 [Miralax 119 gm Btl -] 17 gm PO DAILY PRN #1 bottle Dapsone - 100 mg PO DAILY #30 tablet 02/01/19 Dolutegravir Sodium [Tivicay] 50 mg PO DAILY #30 tablet 02/01/19 Emtricitabine/Tenofov Alafenam [Descovy 200-25 mg Tablet (Nf)] 1 each PO DAILY # 30 tablet 02/01/19 Valacyclovir HCl [Valtrex -] 500 mg PO BID #60 tablet 02/01/19 Cephalexin Monohydrate [Keflex -] 500 mg PO BID #14 capsule 02/10/19 Phenazopyridine HCl [Pyridium -] 100 mg PO TID #9 tablet 02/10/19 Azithromycin [Zithromax 250mg Tablets -] 250 mg PO UTDICT #6 tab 02/14/19 predniSONE [Deltasone -] 40 mg PO DAILY #10 tablet 02/14/19 Budesonide/Formeterol Fumarate [SYMBICORT 80/4.5mcg -] 2 inh PO BID #1 cannister 02/27/19 Albuterol Sulfate Inhaler - [Ventolin HFA Inhaler -] 1 - 2 inh PO QID PRN #1 inhaler 03/06/19 Bacitracin - [Bacitracin Topical Ointment -] 1 applic TP BID #15 g 03/06/19 predniSONE [Deltasone -] 40 mg PO DAILY #8 tablet 04/03/19 Anemia: Yes Asthma: Yes Cancer: Yes (LYMPHOMA 2016) Cardiac Disorders: No CVA: No COPD: Yes CHF: No DVT: No Dementia: No Diabetes: No GI Disorders: No Disorders: No HTN: Yes Hypercholesterolemia: No Liver Disease: Yes Seizures: No Thyroid Disease: No - Surgical History Abdominal Surgery: Yes Appendectomy: No Cardiac Surgery: No Cholecystectomy: No Lung Surgery: No Neurologic Surgery: No Orthopedic Surgery: No - Immunization History Immunization Up to Date: Yes - Suicide/Smoking/Psychosocial Hx Smoking Status: No Smoking History: Current every day smoker Have you smoked in the past 12 months: Yes Number of Cigarettes Smoked Daily: 20 If you are a former smoker, when did you quit?: 1month Cigars Per Day: 0 Information on smoking cessation initiated: No 'Breaking Loose' booklet given: 01/25/19 Hx Alcohol Use: No Drug/Substance Use Hx: No Substance Use Type: Cocaine Hx Substance Use Treatment: No *Physical Exam - Vital Signs Last Vital Signs Temp Pulse Resp BP Pulse Ox 97.3 F L 92 H 19 113/83 100 04/03/19 21:12 04/03/19 21:12 04/03/19 21:12 04/03/19 21:12 04/03/19 21:12 - Physical Exam General Appearance: No: Apparent Distress HEENT: positive: Normal Voice, TMs Normal, Pharynx Normal. negative: Pharyngeal Erythema, Tonsillar Exudate, Tonsillar Erythema Neck: positive: Supple. negative: Rigidity, Tender lateral, Tender midline Respiratory/Chest: positive: Wheezing. negative: Respiratory Distress, Labored Respiration, Rhonchi, Stridor Cardiovascular: positive: Regular Rhythm, Regular Rate, S1, S2. negative: Murmur Gastrointestinal/Abdominal: positive: Normal Bowel Sounds, Soft. 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 NML intact, Fully Oriented, Alert, Normal Mood/ Affect, Motor Strength 5/5 ED Treatment Course - LABORATORY CBC & Chemistry Diagram: 04/03/19 17:23 04/03/19 17:23 - ADDITIONAL ORDERS Additional order review: Laboratory Results 04/03/19 17:23 Sodium 139 Potassium 3.9 Chloride 107 Carbon Dioxide 27 Anion Gap 5 L BUN 16 Creatinine 0.8 Est GFR (CKD-EPI)AfAm 92.87 Est GFR (CKD-EPI)NonAf 80.13 Random Glucose 94 Calcium 8.9 Total Bilirubin 0.3 AST 49 H ALT 68 H Alkaline Phosphatase 422 H Total Protein 7.5 Albumin 3.7 04/03/19 17:23 RBC 3.93 MCV 94.4 MCHC 32.8 RDW 15.5 MPV 9.0 Neutrophils % 39.8 L Lymphocytes % 36.5 Monocytes % 11.3 H Eosinophils % 11.6 H D Basophils % 0.8 - RADIOLOGY Radiology Studies Ordered: Category Date Time Status HEAD CT WITH CONTRAST [CT] Stat CT Scan 04/03/19 20:49 Ordered - Medications Given in the ED: ED Medications Discontinued Medications Generic Name Dose Route Start Last Admin Trade Name Blake PRN Reason Stop Dose Admin Albuterol/Ipratropium 1 amp 04/03/19 17:07 04/03/19 17:27 Duoneb - NEB 04/03/19 17:08 1 amp ONCE ONE Administration Albuterol/Ipratropium 1 amp 04/03/19 20:00 04/03/19 20:45 Duoneb - NEB 04/03/19 20:31 1 amp Q15M HIPOLITO Administration Albuterol/Ipratropium 1 amp 04/03/19 20:45 04/03/19 20:45 Duoneb - NEB 04/03/19 21:16 1 amp Q15M HIPOL[place]O Administration Prednisone 60 mg 04/03/19 20:00 04/03/19 20:45 Deltasone - PO 04/03/19 20:01 60 mg ONCE ONE Administration Medical Decision Making - Medical Decision Making 59 y/o F hx of former smoker (quit 3 months ago), former use of crack cocaine ( last used around 3 months ago), AIDS, lymphoma (in remission), HTN, COPD presents with L LEYVA x 3 days (pain is behind the L ear and along the skull). States she went to [facility] regarding this pain yesterday, but they just gave her a Toradol shot and duoneb treatments and sent her home; states pain is still not gone. Also having some SOB since 4 days ago. (Was seen here 1 month ago for COPD exacerbation). States she was not discharged on steroids when leaving [facility] yesterday. Denies fever, cp, abd pain, n/v/d, changes in vision/gait, numbness/tingling/weakness of extremities. L sided skull pain - PE unremarkable, no focal deficits D/W attending - recommends CT head to r/o anomaly given patient's history COPD exacerbation - duonebs, steroids, reassess CXR shows no acute findings 04/03/19 21:42 Patient feeling better on reassessment CT head negative (finding of old stroke noted);patient given copy of report Liver enzymes elevated - were elevated in the past as well; had hepatitis panel done which was negative; advised to f/u with her PCP regarding this Stable for dc 04/03/19 22:36 *DC/Admit/Observation/Transfer Diagnosis at time of Disposition: COPD exacerbation Cephalgia Qualifiers: Headache type: unspecified Headache chronicity pattern: acute headache Intractability: not intractable Qualified Code(s): R51 - Headache - Discharge Dispostion Disposition: HOME Condition at time of disposition: Improved Decision to Admit order: No - Prescriptions Prescriptions: predniSONE [Deltasone -] 40 mg PO DAILY #8 tablet - Referrals - Patient Instructions Printed Discharge Instructions: DI for Headache, DI for Chronic Obstructive Pulmonary Disease Additional Instructions: Thank you for choosing [facility]. It was a pleasure taking care of you. Your CT scan of head was normal Of note your liver enzymes were elevated in your labs; they were elevated in the past as well. Recommend follow-up with your doctor regarding this Please also follow-up with your svp monetization for management of your COPD Return to the Emergency Department if your symptoms worsen or persist or have other concerning symptoms. - Post Discharge Activity
== END 2019-04-03 22:50 | disposition home or self-care (01) ==
LOC: JER 16:57
PROC: 3E0F7GC Introduction of Other Therapeutic Substance into Respiratory Tract, Via Natural or Artificial Opening (ICD-10-PCS; principal; 2019-04-03)
PROC: 3E0F7GC Introduction of Other Therapeutic Substance into Respiratory Tract, Via Natural or Artificial Opening (ICD-10-PCS; 2019-04-03)
PROC: 3E0F7GC Introduction of Other Therapeutic Substance into Respiratory Tract, Via Natural or Artificial Opening (ICD-10-PCS; 2019-04-03)
DX: J44.1 Chronic obstructive pulmonary disease with (acute) exacerbation (principal); R51 Headache; I10 Essential (primary) hypertension; J44.9 Chronic obstructive pulmonary disease, unspecified; B20 Human immunodeficiency virus [HIV] disease
CPT/HCPCS: 36415; 70450-TC; 71046-TC-FY; 80053; 85025; 94640; 99282-25

== ENCOUNTER 2019-04-07 12:54 | Inpatient (IN) | payer OTHER ==
[2019-04-07 13:02] VITALS: BMI 20.3
[2019-04-07] MEDS ORDERED: SODIUM CHLORIDE 1,565 ML IV ONE (13:24)
[2019-04-07] MEDS ORDERED: ALBUTEROL SO4 2.5/IPRATROPIUM 0.5 INH SOL 3 ML VIAL.NEB. NEB ONE ×2 (13:25→13:59)
--- NOTE | 2019-04-07 13:26 | PDOC ---
History of Present Illness - General Chief Complaint: Shortness of Breath Stated Complaint: SHORTNESS OF BREATH Time Seen by Provider: 04/07/19 13:09 History Source: Patient Exam Limitations: No Limitations - History of Present Illness Initial Comments: 04/07/19 13:13 59YOF with complex medical h/o HIV (last CD4 count done 03/29 was 324), lymphoma (in remission), HTN, COPD, chronically elevated LFTs, former smoker (quit 3 months ago), and former use of crack cocaine (last used around 3 months ago), who p/w SOB, chest pain, and cough. She additionally notes a recent diffuse headache (present for the past week and unchanging, but no neck pain/stiffness) , as well as right hip/upper thigh pain since falling from ground level about a week ago. She has not taken medication for any of her symptoms. Denies n/v/d/c, chest pain, abdominal pain, or other symptoms. Adherent to her HAART therapy regimen and sees Dr. Vargas regularly. Past History - Past Medical History Allergies/Adverse Reactions: Allergies Allergy/AdvReac Type Severity Reaction Status Date / Time No Known Allergies Allergy Verified 04/03/19 17:06 Home Medications: Ambulatory Orders Docusate Sodium [Colace -] 100 mg PO TID PRN #90 capsule 09/28/18 Polyethylene Glycol 3350 [Miralax 119 gm Btl -] 17 gm PO DAILY PRN #1 bottle Dapsone - 100 mg PO DAILY #30 tablet 02/01/19 Dolutegravir Sodium [Tivicay] 50 mg PO DAILY #30 tablet 02/01/19 Emtricitabine/Tenofov Alafenam [Descovy 200-25 mg Tablet (Nf)] 1 each PO DAILY # 30 tablet 02/01/19 Valacyclovir HCl [Valtrex -] 500 mg PO BID #60 tablet 02/01/19 Cephalexin Monohydrate [Keflex -] 500 mg PO BID #14 capsule 02/10/19 Phenazopyridine HCl [Pyridium -] 100 mg PO TID #9 tablet 02/10/19 Azithromycin [Zithromax 250mg Tablets -] 250 mg PO UTDICT #6 tab 02/14/19 predniSONE [Deltasone -] 40 mg PO DAILY #10 tablet 02/14/19 Budesonide/Formeterol Fumarate [SYMBICORT 80/4.5mcg -] 2 inh PO BID #1 cannister 02/27/19 Albuterol Sulfate Inhaler - [Ventolin HFA Inhaler -] 1 - 2 inh PO QID PRN #1 inhaler 03/06/19 Bacitracin - [Bacitracin Topical Ointment -] 1 applic TP BID #15 g 03/06/19 predniSONE [Deltasone -] 40 mg PO DAILY #8 tablet 04/03/19 Albuterol 0.083% Nebulizer Neha [Ventolin 0.083% Nebulizer Soln -] 1 neb NEB Q6H PRN #120 vial 04/06/19 Anemia: Yes Asthma: Yes Cancer: Yes (LYMPHOMA 2016) Cardiac Disorders: No CVA: No COPD: Yes CHF: No DVT: No Dementia: No Diabetes: No GI Disorders: No Disorders: No HTN: Yes Hypercholesterolemia: No Liver Disease: Yes Seizures: No Thyroid Disease: No - Surgical History Abdominal Surgery: Yes Appendectomy: No Cardiac Surgery: No Cholecystectomy: No Lung Surgery: No Neurologic Surgery: No Orthopedic Surgery: No - Immunization History Immunization Up to Date: Yes - Suicide/Smoking/Psychosocial Hx Smoking Status: No Smoking History: Former smoker Have you smoked in the past 12 months: No Number of Cigarettes Smoked Daily: 20 If you are a former smoker, when did you quit?: 1month Cigars Per Day: 0 Information on smoking cessation initiated: No 'Breaking Loose' booklet given: 01/25/19 Hx Alcohol Use: No Drug/Substance Use Hx: No Substance Use Type: Cocaine Hx Substance Use Treatment: No Review of Systems - Review of Systems Able to Perform ROS?: Yes Comments:: 04/07/19 13:30 GEN: fever, chills, malaise, generalized weakness, no weight change HEENT: no ear pain, sore throat, vision change, or eye pain CV: no chest pain, palpitations, lightheadedness, syncope, or edema RESP: cough, wheezing, SOB GI: no abdominal pain, nausea, vomiting, diarrhea, constipation, or white/black/ bloody stool : no dysuria, hematuria, incontinence, retention, bleeding, or discharge MSK: right thigh/hip pain (since falling), no neck/back pain, muscle weakness/ pain, or joint swelling/pain NEURO: headache, no seizure, vertigo, numbness, tingling, or focal weakness PSYCH: no substance use, no behavior change SKIN: no jaundice, no rash ROS otherwise negative except as noted in HPI *Physical Exam - Vital Signs Last Vital Signs Temp Pulse Resp BP Pulse Ox 101.7 F H 90 18 135/80 93 L 04/07/19 12:59 04/07/19 12:59 04/07/19 12:59 04/07/19 12:59 04/07/19 12:59 - Physical Exam Comments: 04/07/19 13:36 GENERAL: nontoxic but a bit uncomfortable appearing, A/Ox4, mild distress, answers questions appropriately, a bit bizarre affect and hyperkinetic movement HEENT: PERRLA, EOMI, slightly dry mucous membranes NECK/BACK: no midline ttp, no spinal stepoff or deformity, no hematoma, full ROM , neck supple CARDIOVASCULAR: regular rate/rhythm, normal S1S2, no MGR, strong peripheral pulses, capillary refill <2 seconds, extremities wwp, no edema LUNGS/RESPIRATORY: mild respiratory distress, able to lay flat on bed without worsening SOB, b/l faint wheezes and rhonchi, diffuse crackles, frequent productive-sounding cough GI/ABDOMEN: symmetric [id number], normoactive BS, soft, no ttp, no midline pulsatile masses : no CVA tenderness EXTREMITIES: no muscle atrophy, no acute deformity SKIN: warm and dry, no pallor, no jaundice, no rash, no bruising, no skin breakdown, no cuts, no lesions NEUROLOGICAL: GCS 15, CN II-XII grossly intact, 5/5 strength proximally and distally, no facial droop Heart Score/ECG Review #1 04/07/19 12:58 NSR, rate 90, normal axis and intervals, no ischemic ST-T changes ED Treatment Course - LABORATORY CBC & Chemistry Diagram: 04/07/19 14:03 04/07/19 14:03 Medical Decision Making - Medical Decision Making 04/07/19 13:30 59YOF HIV+ patient presents with SOB, cough, and fever worsening for the past day. Initial Vital Signs Temp Pulse Resp BP Pulse Ox 101.7 F H 90 18 135/80 93 L 04/07/19 12:59 04/07/19 12:59 04/07/19 12:59 04/07/19 12:59 04/07/19 12:59 Exam: As noted in Physical Exam section. DDX IBNLT: PNA (with some c/f PCP PNA although patient has CD4 of 324 from 9 days ago), bronchitis, COPD exacerbation, viral URI, Unlikely CHF as she has no reported hx, unlikely UTI as she has no sxs, but these diagnoses are still considered. Low c/f meningitis as patient's headache has been present for one week and not worsening W/U ordered: EKG CXR Sepsis order set Tx ordered: IVF DuoNebs EKG: Reviewed; results as noted in ECG Review section. RAD/CHEST X-RAY PORTABLE* Chest: Sepsis A single AP view of the chest is submitted. Since the prior study of 04/03/2019 at 1746 hours, the mediastinum is unchanged and not enlarged. There is a normal heart, normal aorta and slightly prominent cresencio. The lungs are well expanded. There are some new atelectatic change suggested at the left base. The angles are sharp. The bones are intact. There are left axillary clips as before. Impression: New atelectasis left base. Otherwise stable findings since 04/03/2019. Laboratory Tests 04/07/19 04/07/19 04/07/19 14:03 14:03 14:03 WBC 8.6 RBC 3.99 Hgb 12.2 Hct 37.1 MCV 92.9 MCH 30.6 MCHC 32.9 RDW 14.9 Plt Count 222 MPV 9.0 Absolute Neuts (auto) 5.6 Neutrophils % 65.6 D Lymphocytes % 24.3 D Monocytes % 8.4 Eosinophils % 1.1 D Basophils % 0.6 Nucleated RBC % 0 PT with INR INR PTT (Actin FS) Sodium 138 Potassium 4.2 Chloride 105 Carbon Dioxide 27 Anion Gap 7 L BUN 15 Creatinine 0.7 Est GFR (CKD-EPI)AfAm 109.15 Est GFR (CKD-EPI)NonAf 94.17 Random Glucose 75 Lactic Acid 0.8 Calcium 8.5 Total Bilirubin 0.4 AST 36 ALT 47 Alkaline Phosphatase 306 H Total Protein 7.0 Albumin 3.3 L 04/07/19 14:12 WBC RBC Hgb Hct MCV MCH MCHC RDW Plt Count MPV Absolute Neuts (auto) Neutrophils % Lymphocytes % Monocytes % Eosinophils % Basophils % Nucleated RBC % PT with INR 12.70 INR 1.08 PTT (Actin FS) 31.2 Sodium Potassium Chloride Carbon Dioxide Anion Gap BUN Creatinine Est GFR (CKD-EPI)AfAm Est GFR (CKD-EPI)NonAf Random Glucose Lactic Acid Calcium Total Bilirubin AST ALT Alkaline Phosphatase Total Protein Albumin Reassessment: Patient remains SOB, agreeable to admission plan. Vital Signs Temperature 101.7 F H 04/07/19 12:59 Pulse Rate 90 04/07/19 12:59 Respiratory Rate 18 04/07/19 12:59 Blood Pressure 135/80 04/07/19 12:59 O2 Sat by Pulse Oximetry (%) 98 04/07/19 13:17 04/07/19 15:25 The patient has new baseline supplemental O2 requirement and desaturates to low 90s on RA. She also came in febrile and is immune compromised. The Pt is unsafe for discharge at this time. They require further hospital observation, workup, and treatment. [facility]blog sent to [facility] for admission. Blank Decision to Admit order is placed per ED protocol. 04/07/19 15:[address] Vargas/[facility]. Dr. Morse in the ED seeing the patient. Patient going to Med/Surg Obs. Decision to Admit order corrected. *DC/Admit/Observation/Transfer Diagnosis at time of Disposition: COPD exacerbation Pneumonia Qualifiers: Pneumonia type: due to unspecified organism Laterality: left Lung location: lower lobe of lung Qualified Code(s): J18.1 - Lobar pneumonia, unspecified organism HIV (human immunodeficiency virus infection) Qualifiers: HIV symptom status: unspecified Qualified Code(s): B20 - Human immunodeficiency virus [HIV] disease - Discharge Dispostion Condition at time of disposition: Guarded Decision to Admit order: Yes - Referrals - Patient Instructions - Post Discharge Activity
[2019-04-07] MEDS ORDERED: ACETAMINOPHEN 1000 MG/100 ML VIAL (NON FORMULARY) IVPB ONE (13:35)
--- NOTE | 2019-04-07 14:07 | PDOC ---
Documentation entered by Molly Lyon SCRIBE, acting as scribe for Leilani Loo MD. Leilani Loo MD: This documentation has been prepared by the jagrutiibe, Molly Lyon SCRIBE, under my direction and personally reviewed by me in its entirety. I confirm that the documentation accurately reflects all work, treatment, procedures, and medical decision making performed by me. Attending Attestation - Resident Resident Name: Re Corona - ED Attending Attestation I have performed the following: I have examined & evaluated the patient, The case was reviewed & discussed with the resident, I agree w/resident's findings & plan - HPI HPI: 04/07/19 13:58 The patient is a 59 year old female with a significant past medical history of anemia, asthma, COPD, HIV/AIDS( last CD count 324), lymphoma (2016), hypertension, liver disease, and crack cocaine abuse (lat use 3 months ago) who presents to the emergency department with shortness of breath for 1 week. Associated with chest pain and productive cough with her shortness of breath. The patient also endorses a diffuse headache for a week as well with no neck pain and right lower extremity pain s/p falling a week ago . She denies taking any pain medication for any of her symptoms. She denies any other symptoms or complaints. Allergies: NKDA Past Medical History: as documented in EMR/HPI Social history: crack cocaine abuse (last use 3 months ago) Meds: as documented in EMR (compliant with HAART Therapy) ID: Dr. Vargas 04/07/19 14:14 - Physicial Exam PE: 04/07/19 14:06 Agree with the resident's HPI and PE as documented in the electronic medical record. NAD, well appearing, EOMI, PERRL, MMM, nl conjunctiva, anicteric; neck supple. lungs with bilateral diffuse wheezing, RRR, abdomen soft nontender. Back nontender. MET[place]F x4, no focal neuro deficits. No peripheral edema. normal color for ethnicity, WWP. 04/07/19 14:14 - Medical Decision Making 04/07/19 14:06 See HPI for details. Prior notes reviewed, including admissions, discharges and consultations. Vital signs reviewed, wnl. +fever, normal sats for copd and respirations. diffusely wheezing, no respiratory distress. Diff diagnosis includes ACS, angina, COPD exacerbation,pulmonary edema, effusion , viral syndrome, pneumonia, PCP pneumonia, UTI, dehydration, electrolyte/ metabolic derangements. laboratory results and imaging reviewed, basic labs and lytes wnl, VBG normal, normal sats and defer abg testing as no significant co2/bicarb derangements, pH normal. oxygenation improved. UA_prelim neg CXR_left atelectasis vs pna, infiltrate. otherwise unremarkable Cardiac panel_neg EKG normal sinus rhythm at 90 bpm, no interval abnormalities, narrow QRS, ST and T wave segments and morphology normal. ED course - IVF hydration, IV tylenol for fever. - duonebs x3 and solumedrol, given her wheezing and h/o copd. - blood/sputum and urine cultures as pt states she is urinating frequently - iv abx with ceftriaxone and azithromycin for pna coverage in immunocompromised and symptomatic pt with respiratory sx. - VS rechecked, deferfesced normotensive and sats up to 98% after tx. admit for medical management, presumed pna, hydration and copd exacerbation 04/07/19 15:29 04/10/19 10:08 Heart Score/ECG Review #1 ECG reviewed & interpreted by me at: 12:55 General ECG Interpretation: Sinus Rhythm, Normal Rate Compared to previous ECG there are: No significant change 04/07/19 14:07 EKG normal sinus rhythm at 90 bpm, no interval abnormalities, narrow QRS, ST and T wave segments and morphology normal. ED Treatment Course - LABORATORY CBC & Chemistry Diagram: 04/08/19 06:30 04/08/19 06:30 - ADDITIONAL ORDERS Additional order review: 04/07/19 14:03 RBC 3.99 MCV 92.9 MCHC 32.9 RDW 14.9 MPV 9.0 Neutrophils % 65.6 D Lymphocytes % 24.3 D Monocytes % 8.4 Eosinophils % 1.1 D Basophils % 0.6 - RADIOLOGY Radiograph Interpretation: 04/07/19 14:32 Chest X-ray Impression: New atelectasis left base. Otherwise stable findings since 2018. Reported By: Flaco Agudelo MD - Medications Given in the ED: ED Medications Discontinued Medications Generic Name Dose Route Start Last Admin Trade Name Freq PRN Reason Stop Dose Admin Acetaminophen 1,000 mg 04/07/19 13:35 04/07/19 14:11 Ofirmev Injection - IVPB 04/07/19 13:36 1,000 mg ONCE ONE Administration Albuterol/Ipratropium 2 amp 04/07/19 13:25 04/07/19 14:11 Duoneb - NEB 04/07/19 13:26 2 amp ONCE ONE Administration Methylprednisolone Sodium Succinate 125 mg 04/07/19 14:12 04/07/19 14:20 Solu-Medrol - IVPB 04/07/19 14:13 125 mg ONCE ONE Administration
[2019-04-07] MEDS ORDERED: methylPREDNISolone NA SUCC 125 MG/2 ML VIAL IVPB ONE (14:12)
[2019-04-07] MEDS ORDERED: methylPREDNISolone NA SUCC 125 MG/2 ML VIAL ONE (14:14)
[2019-04-07 14:16] LABS: VENOUS PC02 38.9 mmHg (41-51); VENOUS PH 7.43 (7.31-7.41)
[2019-04-07 14:24] LABS: BASO % 0.6 % (0-2.0); EOS % 1.1 % (0-4.5); HEMATOCRIT 37.1 % (32.4-45.2); HEMOGLOBIN 12.2 GM/dL (10.7-15.3); LYMPH % 24.3 % (8-40); MCH 30.6 pg (25.7-33.7); MCHC 32.9 g/dl (32.0-36.0); MEAN CELL VOLUME 92.9 fl (80-96); MONO % 8.4 % (3.8-10.2); NEUT % 65.6 % (42.8-82.8); PLATELET COUNT 222 K/MM3 (134-434); RBC 3.99 M/mm3 (3.60-5.2); RDW 14.9 % (11.6-15.6); WHITE BLOOD COUNT 8.6 K/mm3 (4.0-10.0)
[2019-04-07 14:38] LABS: INR 1.08 (0.83-1.09); PROTHROMBIN TIME (PATIENT) 12.7 SEC (9.7-13.0)
[2019-04-07 14:40] LABS: ACTIVATED PTT 31.2 SECONDS (25.2-36.5)
[2019-04-07] MEDS ORDERED: AZITHROMYCIN IVPB 500 MG in DEXTROSE 5%-WATER - 250 ML IVPB ONE (14:41)
[2019-04-07] MEDS ORDERED: CEFTRIAXONE 1,000 MG in DEXTROSE 5%-WATER - 50 ML IVPB ONE (14:41)
[2019-04-07 14:58] LABS: ALBUMIN 3.3 g/dl (3.4-5.0); ALK PHOS 306 U/L (45-117); ANION GAP 7 MMOL/L (8-16); BILIRUBIN,TOTAL 0.4 mg/dL (0.2-1); BLOOD UREA NITROGEN 15 mg/dL (7-18); CALCIUM 8.5 mg/dL (8.5-10.1); CHLORIDE 105 mmol/L (98-107); CO2 27 mmol/L (21-32); CREATININE 0.7 mg/dL (0.55-1.3); GLUCOSE,RANDOM 75 mg/dL (74-106); POTASSIUM 4.2 mmol/L (3.5-5.1); SGOT/AST 36 U/L (15-37); SGPT/ALT 47 U/L (13-61); SODIUM 138 mmol/L (136-145)
[2019-04-07] MEDS ORDERED: AZITHROMYCIN IVPB 500 MG/250 ML BAG IVPB ONE (15:00)
[2019-04-07] MEDS ORDERED: CEFTRIAXONE 1 GM/50 ML BAG ONE (15:00)
--- NOTE | 2019-04-07 15:26 | EKG ---
Test Reason : Blood Pressure : / mmHG Vent. Rate : 090 BPM Atrial Rate : 090 BPM P-R Int : 130 ms QRS Dur : 080 ms QT Int : 336 ms P-R-T Axes : 039 -17 042 degrees QTc Int : 411 ms NORMAL SINUS RHYTHM NORMAL ECG WHEN COMPARED WITH ECG OF 25-JAN-2019 05:40, NO SIGNIFICANT CHANGE WAS FOUND Confirmed by MD Gonsalez Daniel ([id number]) on 04/07/2019 3:26:28 PM Referred By: Confirmed By:Renato Gonsalez MD
--- NOTE | 2019-04-07 16:19 | HP ---
CHIEF COMPLAINT: shortness of breath, cough, fevers PCP: Dr. Vargas at [facility] Oncologist: Dr. Felipe Arabic Translator: Dr. Fried HISTORY OF PRESENT ILLNESS: 59 yof with PMHx of HIV on HAART (Last CD4 324 in 03/2019), Lymphoma s/p chemo ( 10 years ago, in remission), Asthma/COPD, former smoker (quit 4 months ago), H/ o crack cocaine use comes with fevers, cough with white sputum, dyspnea, prompting her to come to the ED. Patient vague in the onset of symptoms, initially reports 1 week, then 3 days, pos sick contact grand daughter with cold prior to onset of symptoms. Was seen in ED on 04/03 with dyspnea, headache, discharged on 4 days of prednisone 40 mg daily which she finished yesterday. 12 point ROS done, no chest pain, dizziness, URI like illness, abdominal or urinary symptoms currently. Reports poor oral intake today. ER course was notable for: (1) Fevers 101.7 (2) CXR ?Left basilar atelectasis (3) Ceftriaxone/azithromycin/Solumedrol Recent Travel: denies PAST MEDICAL HISTORY: HIV on HAART (Last CD4 324 in 03/2019), Lymphoma s/p chemo (10 years ago, in remission), Asthma/COPD, former smoker (quit 4 months ago), H/ o crack cocaine PAST SURGICAL HISTORY: Social History: Smoking: former smoker (quit 4 months ago) reports 1 PPD x ?5 years Alcohol: Prior history, vague in her story Drugs: h/o crack cocaine use Family History: Allergies No Known Allergies Allergy (Verified 04/03/19 17:06) HOME MEDICATIONS: Home Medications Medication Instructions Recorded Docusate Sodium [Colace -] 100 mg PO TID PRN #90 capsule 09/28/18 Polyethylene Glycol 3350 [Miralax 17 gm PO DAILY PRN #1 bottle 09/28/18 119 gm Btl -] Dapsone - 100 mg PO DAILY #30 tablet 02/01/19 Dolutegravir Sodium [Tivicay] 50 mg PO DAILY #30 tablet 02/01/19 Emtricitabine/Tenofov Alafenam 1 each PO DAILY #30 tablet 02/01/19 [Descovy 200-25 mg Tablet (Nf)] Valacyclovir HCl [Valtrex -] 500 mg PO BID #60 tablet 02/01/19 Phenazopyridine HCl [Pyridium -] 100 mg PO TID #9 tablet 02/10/19 Budesonide/Formeterol Fumarate 2 inh PO BID #1 cannister 02/27/19 [SYMBICORT 80/4.5mcg -] Albuterol Sulfate Inhaler - 1 - 2 inh PO QID PRN #1 inhaler 03/06/19 [Ventolin HFA Inhaler -] REVIEW OF SYSTEMS 12 point ROS done, per HPI PHYSICAL EXAMINATION Vital Signs - 24 hr 04/07/19 04/07/19 12:59 13:17 Temperature 101.7 F H Pulse Rate 90 Respiratory 18 Rate Blood Pressure 135/80 O2 Sat by Pulse 93 L 98 Oximetry (%) GENERAL: Awake, alert, and fully oriented, in no acute distress, mild tachypnea , able to speak in full sentences. HEAD: Normal with no signs of trauma. EYES: Pupils equal, round and reactive to light, extraocular movements intact, sclera anicteric, conjunctiva clear. No lid lag. EARS, NOSE, THROAT: Ears normal, nares patent, oropharynx clear without exudates.dry mucous membranes. NECK: Normal range of motion, supple, no JVD LUNGS: decreased air entry, scattered, left basilar rales HEART: Regular rate and rhythm, normal S1 and S2 ABDOMEN: Soft, nontender, not distended, normoactive bowel sounds, no guarding, no rebound, no masses. MUSCULOSKELETAL: Normal range of motion at all joints. No bony deformities or tenderness. No CVA tenderness. UPPER EXTREMITIES: 2+ pulses, warm, well-perfused. No cyanosis. No clubbing. No peripheral edema. LOWER EXTREMITIES: 2+ pulses, warm, well-perfused. No calf tenderness. No peripheral edema. NEUROLOGICAL: AAOX3, facial symmetry, Cranial nerves II-XII intact. Normal speech. Normal gait. PSYCHIATRIC: Cooperative. Good eye contact. Appropriate mood and affect. SKIN: Warm, dry, normal turgor, no rashes or lesions noted, normal capillary refill. Laboratory Results - last 24 hr 04/07/19 04/07/19 04/07/19 14:03 14:03 14:03 WBC 8.6 RBC 3.99 Hgb 12.2 Hct 37.1 MCV 92.9 MCH 30.6 MCHC 32.9 RDW 14.9 Plt Count 222 MPV 9.0 Absolute Neuts (auto) 5.6 Neutrophils % 65.6 D Lymphocytes % 24.3 D Monocytes % 8.4 Eosinophils % 1.1 D Basophils % 0.6 Nucleated RBC % 0 PT with INR INR PTT (Actin FS) VBG pH 7.43 H POC VBG pCO2 38.9 L POC VBG pO2 63.0 H VBG HCO3 25.6 VBG O2 Sat (Boni) 91.1 H VBG Base Excess 1.8 Sodium 138 Potassium 4.2 Chloride 105 Carbon Dioxide 27 Anion Gap 7 L BUN 15 Creatinine 0.7 Est GFR (CKD-EPI)AfAm 109.15 Est GFR (CKD-EPI)NonAf 94.17 Random Glucose 75 Lactic Acid Calcium 8.5 Total Bilirubin 0.4 AST 36 ALT 47 Alkaline Phosphatase 306 H Total Protein 7.0 Albumin 3.3 L 04/07/19 04/07/19 14:03 14:12 WBC RBC Hgb Hct MCV MCH MCHC RDW Plt Count MPV Absolute Neuts (auto) Neutrophils % Lymphocytes % Monocytes % Eosinophils % Basophils % Nucleated RBC % PT with INR 12.70 INR 1.08 PTT (Actin FS) 31.2 VBG pH POC VBG pCO2 POC VBG pO2 VBG HCO3 VBG O2 Sat (Boni) VBG Base Excess Sodium Potassium Chloride Carbon Dioxide Anion Gap BUN Creatinine Est GFR (CKD-EPI)AfAm Est GFR (CKD-EPI)NonAf Random Glucose Lactic Acid 0.8 Calcium Total Bilirubin AST ALT Alkaline Phosphatase Total Protein Albumin CXR left basilar atelectasis EKG NSR, no acute ST-T changes ASSESSMENT/PLAN: 59 yof with PMHx of HIV on HAART (Last CD4 324 in 03/2019), Lymphoma s/p chemo ( 10 years ago, in remission), Asthma/COPD, former smoker (quit 4 months ago), H/ o crack cocaine use, recently seen in ED with dyspnea/headache, d/flaca on 4 days of prednisone, redmitted with suspected LLL PNA/acute bronchitis -Suspected LLL PNA/Acute bronchitis -Acute COPD excacerbation -HIV On HAART -h/o tobacco/crack cocaine use -Lymphoma in remission Plan: Levaquin, blood/sputum cultures. Check Infleunza/RSV Based on current presentation, will hold off on further broad spectrum antibiotics, though was recently hospitalized. IVF, Prednisone, standing and prn nebs. ID consult, Continue HAART, dapsone, valacyclovir check drug screen DVTPPX lovenox Admit to obs Dispo d/c in 24-48 hours if improved and no concerns. Plan discussed with patient in detail, all questions answered. total admit time spent 65 min. Visit type - Emergency Visit Emergency Visit: Yes ED Registration Date: 04/07/19 Care time: The patient presented to the Emergency Department on the above date and was hospitalized for further evaluation of their emergent condition. - New Patient This patient is new to me today: Yes Date on this admission: 04/07/19 - Critical Care Critical Care patient: No
[2019-04-07] MEDS ORDERED: ACETAMINOPHEN 325 MG TABLET (FP) PO PRN (16:48)
[2019-04-07] MEDS ORDERED: ALBUTEROL SO4 0.083% IH SOL 2.5 MG/3 ML VIAL.NEB. NEB PRN (16:53)
[2019-04-07] MEDS ORDERED: POLYETHYLENE GLYCOL 3350 119 GM BTL PO PRN (16:57)
[2019-04-07] MEDS ORDERED: DOCUSATE SODIUM 100 MG CAPSULE (FP) PO PRN (16:57)
[2019-04-07] MEDS ORDERED: PNEUMOC 13-VAL CONJ-DIP CRM/PF 0.5 ML DISP.SYRIN IM ONE (17:43)
[2019-04-07] MEDS ORDERED: FLU VACCINE QUAD 60 MCG/0.5 ML (MDV 18-19) IM ONE (17:43)
[2019-04-07] MEDS: SODIUM CHLORIDE 1,000 ML IV SCH (19:01)
[2019-04-07] MEDS ORDERED: PT OWN MED DRAWER 7, Y5N ONE ×3 (19:13→22:33)
[2019-04-07] MEDS: ALBUTEROL SO4 2.5/IPRATROPIUM 0.5 INH SOL 3 ML VIAL.NEB. NEB SCH (20:57)
[2019-04-07] MEDS: BUDESONIDE/FORMETEROL FUMARATE 80/4.5 mcg INHALER IH SCH (21:35)
[2019-04-07] MEDS: PHENAZOPYRIDINE HCL 100 MG TABLET (FP) PO SCH (21:36)
[2019-04-07] MEDS: valACYclovir HCL 500 MG TABLET (FP) PO SCH (21:36)
[2019-04-08] MEDS ORDERED: SODIUM CHLORIDE 500 ML IV STA (00:15)
[2019-04-08 01:04] LABS: URINE APPEARANCE CLEAR; URINE BILIRUBIN NEGATIVE (NEGATIVE); URINE COLOR YELLOW; URINE GLUCOSE (UA) 2+ (NEGATIVE); URINE KETONE NEGATIVE (NEGATIVE); URINE LEUK ESTERASE NEGATIVE (NEGATIVE); URINE NITRITE NEGATIVE (NEGATIVE); URINE PROTEIN NEGATIVE (NEGATIVE)
[2019-04-08 01:20] LABS: COCAINE, UR NEGATIVE ng/ml (CUTOFF=300); METHADONE, UR NEGATIVE ng/ml (CUTOFF=300); OPIATES, URI NEGATIVE ng/ml (CUTOFF=300); PHENCYCLIDINE,URINE NEGATIVE ng/ml (CUTOFF=25); URINE AMPHETAMINES NEGATIVE ng/ml (CUTOFF=500); URINE BARBITURATES NEGATIVE ng/ml (CUTOFF=200); URINE BENZODIAZEPINES NEGATIVE ng/ml (CUTOFF=200)
[2019-04-08] MEDS: PHENAZOPYRIDINE HCL 100 MG TABLET (FP) PO SCH ×3 (06:09→22:14)
[2019-04-08] MEDS: ALBUTEROL SO4 2.5/IPRATROPIUM 0.5 INH SOL 3 ML VIAL.NEB. NEB SCH ×4 (07:40→22:13)
[2019-04-08 07:43] LABS: BASO % 0.2 % (0-2.0); HEMATOCRIT 33.1 % (32.4-45.2); HEMOGLOBIN 10.9 GM/dL (10.7-15.3); LYMPH % 8.7 % (8-40); MCH 30.9 pg (25.7-33.7); MEAN CELL VOLUME 93.5 fl (80-96); MEAN PLT VOLUME 9.4 fl (7.5-11.1); MONO % 3.9 % (3.8-10.2); NEUT % 87.2 % (42.8-82.8); PLATELET COUNT 213 K/MM3 (134-434); RBC 3.53 M/mm3 (3.60-5.2); RDW 14.7 % (11.6-15.6); WHITE BLOOD COUNT 10.9 K/mm3 (4.0-10.0)
[2019-04-08 08:17] LABS: CALCIUM 8.1 mg/dL (8.5-10.1); CREATININE 0.6 mg/dL (0.55-1.3); MAGNESIUM 1.8 mg/dL (1.8-2.4); PHOSPHOROUS 2.3 mg/dL (2.5-4.9); POTASSIUM 3.6 mmol/L (3.5-5.1)
[2019-04-08] MEDS ORDERED: PT OWN MED DRAWER 7, Y5N ONE ×2 (10:50→14:41)
[2019-04-08] MEDS: PANTOPRAZOLE 40 MG TABLET (FP) PO SCH (10:56)
[2019-04-08] MEDS: EMTRICITABINE/TENOFOV ALAFENAM (DESCOVY) TABLET PO SCH (10:57)
[2019-04-08] MEDS: DAPSONE 100 MG TABLET PO SCH (10:57)
[2019-04-08] MEDS: predniSONE 20 MG TABLET (UD) PO SCH (10:57)
[2019-04-08] MEDS: DOLUTEGRAVIR SODIUM 50 MG TABLET (NON-FORMULARY) PO SCH (10:58)
[2019-04-08] MEDS: valACYclovir HCL 500 MG TABLET (FP) PO SCH ×2 (10:58→22:13)
[2019-04-08] MEDS: ENOXAPARIN NA (PORCINE) 40 MG/0.4 ML DISP.SYRIN SQ SCH (10:58)
[2019-04-08] MEDS: BUDESONIDE/FORMETEROL FUMARATE 80/4.5 mcg INHALER IH SCH ×2 (10:59→22:16)
[2019-04-08] MEDS ORDERED: NAPH,MB-DB/K PH,MBDB POWDER PACKET PO ONE (12:00)
--- NOTE | 2019-04-08 12:16 | PN ---
Progress Note (short form) - Note Progress Note: ID CONSULT DICTATED ACUTE EXAC COPD BRONCHITIS FEVER HIV/AIDS STABLE LYMPHOMA IN REMISSION AWAIT C/S CONTINUE DENZEL
--- NOTE | 2019-04-08 12:24 | PN ---
Physical Exam: SUBJECTIVE: Patient seen and examined, breathing improved, no complaints. OBJECTIVE: Vital Signs Period Temp Pulse Resp BP Sys/Rosas Pulse Ox Last 24 Hr 97.3 F-101.7 F 71-96 16-20 113-135/62-88 93-98 Intake & Output 04/05/19 04/06/19 04/07/19 04/08/19 23:59 23:59 23:59 23:59 Intake Total 1440 1300 Balance 1440 1300 Weight 115 lb GENERAL: The patient is awake, alert, and fully oriented, in no acute distress. HEAD: Normal with no signs of trauma. EYES: PERRL, extraocular movements intact, sclera anicteric, conjunctiva clear. No ptosis. ENT: Ears normal, nares patent, oropharynx clear without exudates, moist mucous membranes. NECK: Trachea midline, full range of motion, supple. LUNGS: markedly improved air entry, no wheezing, left basilar rales HEART: Regular rate and rhythm, S1, S2 ABDOMEN: Soft, nontender, nondistended, normoactive bowel sounds, no guarding, no rebound EXTREMITIES: 2+ pulses, warm, well-perfused, no edema. PSYCH: Normal mood, normal affect. SKIN: Warm, dry, normal turgor, no rashes or lesions noted Laboratory Results - last 24 hr 04/07/19 04/07/19 04/07/19 14:03 14:03 14:03 WBC 8.6 RBC 3.99 Hgb 12.2 Hct 37.1 MCV 92.9 MCH 30.6 MCHC 32.9 RDW 14.9 Plt Count 222 MPV 9.0 Absolute Neuts (auto) 5.6 Neutrophils % 65.6 D Lymphocytes % 24.3 D Monocytes % 8.4 Eosinophils % 1.1 D Basophils % 0.6 Nucleated RBC % 0 PT with INR INR PTT (Actin FS) VBG pH 7.43 H POC VBG pCO2 38.9 L POC VBG pO2 63.0 H VBG HCO3 25.6 VBG O2 Sat (Boni) 91.1 H VBG Base Excess 1.8 Sodium 138 Potassium 4.2 Chloride 105 Carbon Dioxide 27 Anion Gap 7 L BUN 15 Creatinine 0.7 Est GFR (CKD-EPI)AfAm 109.15 Est GFR (CKD-EPI)NonAf 94.17 Random Glucose 75 Lactic Acid Calcium 8.5 Phosphorus Magnesium Total Bilirubin 0.4 AST 36 ALT 47 Alkaline Phosphatase 306 H Troponin I < 0.02 Total Protein 7.0 Albumin 3.3 L Urine Color Urine Appearance Urine pH Ur Specific Hammond Urine Protein Urine Glucose (UA) Urine Ketones Urine Blood Urine Nitrite Urine Bilirubin Urine Urobilinogen Ur Leukocyte Esterase Opiates Screen Methadone Screen Barbiturate Screen Phencyclidine Screen Ur Amphetamines Screen MDMA (Ecstasy) Screen Benzodiazepines Screen Cocaine Screen U Marijuana (THC) Screen Influenza A (Rapid) Influenza B (Rapid) RSV Rapid 04/07/19 04/07/19 04/07/19 14:03 14:12 16:20 WBC RBC Hgb Hct MCV MCH MCHC RDW Plt Count MPV Absolute Neuts (auto) Neutrophils % Lymphocytes % Monocytes % Eosinophils % Basophils % Nucleated RBC % PT with INR 12.70 INR 1.08 PTT (Actin FS) 31.2 VBG pH POC VBG pCO2 POC VBG pO2 VBG HCO3 VBG O2 Sat (Boni) VBG Base Excess Sodium Potassium Chloride Carbon Dioxide Anion Gap BUN Creatinine Est GFR (CKD-EPI)AfAm Est GFR (CKD-EPI)NonAf Random Glucose Lactic Acid 0.8 Calcium Phosphorus Magnesium Total Bilirubin AST ALT Alkaline Phosphatase Troponin I Total Protein Albumin Urine Color Urine Appearance Urine pH Ur Specific Hammond Urine Protein Urine Glucose (UA) Urine Ketones Urine Blood Urine Nitrite Urine Bilirubin Urine Urobilinogen Ur Leukocyte Esterase Opiates Screen Methadone Screen Barbiturate Screen Phencyclidine Screen Ur Amphetamines Screen MDMA (Ecstasy) Screen Benzodiazepines Screen Cocaine Screen U Marijuana (THC) Screen Influenza A (Rapid) Negative Influenza B (Rapid) Negative RSV Rapid 04/07/19 04/07/19 04/08/19 16:20 21:00 00:40 WBC RBC Hgb Hct MCV MCH MCHC RDW Plt Count MPV Absolute Neuts (auto) Neutrophils % Lymphocytes % Monocytes % Eosinophils % Basophils % Nucleated RBC % PT with INR INR PTT (Actin FS) VBG pH POC VBG pCO2 POC VBG pO2 VBG HCO3 VBG O2 Sat (Boni) VBG Base Excess Sodium Potassium Chloride Carbon Dioxide Anion Gap BUN Creatinine Est GFR (CKD-EPI)AfAm Est GFR (CKD-EPI)NonAf Random Glucose Lactic Acid 2.2 H* Calcium Phosphorus Magnesium Total Bilirubin AST ALT Alkaline Phosphatase Troponin I Total Protein Albumin Urine Color Urine Appearance Urine pH Ur Specific Hammond Urine Protein Urine Glucose (UA) Urine Ketones Urine Blood Urine Nitrite Urine Bilirubin Urine Urobilinogen Ur Leukocyte Esterase Opiates Screen Negative Methadone Screen Negative Barbiturate Screen Negative Phencyclidine Screen Negative Ur Amphetamines Screen Negative MDMA (Ecstasy) Screen Negative Benzodiazepines Screen Negative Cocaine Screen Negative U Marijuana (THC) Screen Negative Influenza A (Rapid) Influenza B (Rapid) RSV Rapid Negative 04/08/19 04/08/19 04/08/19 00:54 06:30 06:30 WBC 10.9 H RBC 3.53 L Hgb 10.9 Hct 33.1 MCV 93.5 MCH 30.9 MCHC 33.0 RDW 14.7 Plt Count 213 MPV 9.4 Absolute Neuts (auto) 9.5 H Neutrophils % 87.2 H D Lymphocytes % 8.7 D Monocytes % 3.9 Eosinophils % 0.0 D Basophils % 0.2 Nucleated RBC % 0 PT with INR INR PTT (Actin FS) VBG pH POC VBG pCO2 POC VBG pO2 VBG HCO3 VBG O2 Sat (Boni) VBG Base Excess Sodium 142 Potassium 3.6 Chloride 113 H Carbon Dioxide 24 Anion Gap 6 L BUN 12 Creatinine 0.6 Est GFR (CKD-EPI)AfAm 114.82 Est GFR (CKD-EPI)NonAf 99.07 Random Glucose 135 H Lactic Acid Calcium 8.1 L Phosphorus 2.3 L Magnesium 1.8 Total Bilirubin AST ALT Alkaline Phosphatase Troponin I Total Protein Albumin Urine Color Yellow Urine Appearance Clear Urine pH 6.0 Ur Specific Hammond 1.014 Urine Protein Negative Urine Glucose (UA) 2+ H Urine Ketones Negative Urine Blood Negative Urine Nitrite Negative Urine Bilirubin Negative Urine Urobilinogen 1.0 Ur Leukocyte Esterase Negative Opiates Screen Methadone Screen Barbiturate Screen Phencyclidine Screen Ur Amphetamines Screen MDMA (Ecstasy) Screen Benzodiazepines Screen Cocaine Screen U Marijuana (THC) Screen Influenza A (Rapid) Influenza B (Rapid) RSV Rapid 04/08/19 07:00 WBC RBC Hgb Hct MCV MCH MCHC RDW Plt Count MPV Absolute Neuts (auto) Neutrophils % Lymphocytes % Monocytes % Eosinophils % Basophils % Nucleated RBC % PT with INR INR PTT (Actin FS) VBG pH POC VBG pCO2 POC VBG pO2 VBG HCO3 VBG O2 Sat (Boni) VBG Base Excess Sodium Potassium Chloride Carbon Dioxide Anion Gap BUN Creatinine Est GFR (CKD-EPI)AfAm Est GFR (CKD-EPI)NonAf Random Glucose Lactic Acid 1.5 Calcium Phosphorus Magnesium Total Bilirubin AST ALT Alkaline Phosphatase Troponin I Total Protein Albumin Urine Color Urine Appearance Urine pH Ur Specific Hammond Urine Protein Urine Glucose (UA) Urine Ketones Urine Blood Urine Nitrite Urine Bilirubin Urine Urobilinogen Ur Leukocyte Esterase Opiates Screen Methadone Screen Barbiturate Screen Phencyclidine Screen Ur Amphetamines Screen MDMA (Ecstasy) Screen Benzodiazepines Screen Cocaine Screen U Marijuana (THC) Screen Influenza A (Rapid) Influenza B (Rapid) RSV Rapid Active Medications Generic Name Dose Route Start Last Admin Trade Name Freq PRN Reason Stop Dose Admin Acetaminophen 650 mg 04/07/19 16:48 Tylenol - PO Q6H PRN PAIN LEVEL 1-5 Albuterol Sulfate 1 amp 04/07/19 16:53 Ventolin 0.083% Nebulizer Soln - NEB Q4H PRN SHORT OF BREATH/WHEEZING Albuterol/Ipratropium 1 amp 04/07/19 20:00 04/08/19 07:40 Duoneb - NEB 1 amp RQID HIPOLITO Administration Budesonide/Formoterol Fumarate 2 puff 04/07/19 22:00 04/08/19 10:59 Symbicort 80/4.5mcg - IH 2 puff BID HIPOLITO Administration Dapsone 100 mg 04/08/19 10:00 04/08/19 10:57 Dapsone - PO 100 mg DAILY HIPOLITO Administration Docusate Sodium 100 mg 04/07/19 16:57 Colace - PO TID PRN CONSTIPATION Enoxaparin Sodium 40 mg 04/08/19 10:00 04/08/19 10:58 Lovenox - SQ 40 mg DAILY HIPOLITO Administration Sodium Chloride 1,000 mls @ 75 mls/hr 04/07/19 17:00 04/07/19 19:01 Normal Saline - IV 75 mls/hr ASDIR HIPOLITO Administration Levofloxacin 750 mg in 150 mls @ 100 mls/hr 04/08/19 10:00 04/08/19 10:56 Levaquin 750 Mg Premixed Ivpb - IVPB 04/13/19 09:59 100 mls/hr DAILY HIPOLITO Administration Protocol Pantoprazole Sodium 40 mg 04/08/19 10:00 04/08/19 10:56 Protonix - PO 40 mg DAILY HIPOLITO Administration Phenazopyridine HCl 100 mg 04/07/19 22:00 04/08/19 06:09 Pyridium - PO 100 mg TID HIPOLITO Administration Polyethylene Glycol 17 gm 04/07/19 16:57 Miralax (For Daily Use) - PO DAILY PRN CONSTIPATION Prednisone 60 mg 04/08/19 10:00 04/08/19 10:57 Deltasone - PO 60 mg DAILY HIPOLITO Administration Valacyclovir HCl 500 mg 04/07/19 22:00 04/08/19 10:58 Valtrex - PO 500 mg BID HIPOLITO Administration ASSESSMENT/PLAN: 59 yof with PMHx of HIV on HAART (Last CD4 324 in 03/2019), Lymphoma s/p chemo ( 10 years ago, in remission), Asthma/COPD, former smoker (quit 4 months ago), H/ o crack cocaine use, recently seen in ED with dyspnea/headache, d/flaca on 4 days of prednisone, redmitted with suspected LLL PNA/acute bronchitis -Suspected LLL PNA/Acute bronchitis -Acute COPD excacerbation -Lactic acidosis -HIV On HAART -h/o tobacco/crack cocaine use -Lymphoma in remission Plan: Levaquin, follow up blood/sputum culturesInfleunza/RSV neg Marked clinical improvement. Afebrile, normal WBC. Oxygenating well. IVF, Prednisone, standing and prn nebs. Lactate normalized ID inputnoted. Continue HAART, dapsone, valacyclovir Drug screen noted. DVTPPX lovenox dc later today or tomorrow pending cultures and clinical improvement. Plan discussed with patient and nursing in detail, all questions answered. Visit type - Emergency Visit Emergency Visit: Yes ED Registration Date: 04/07/19 Care time: The patient presented to the Emergency Department on the above date and was hospitalized for further evaluation of their emergent condition. - New Patient This patient is new to me today: No - Critical Care Critical Care patient: No - Discharge Referral Referred to [facility] No
[2019-04-08] MEDS: SODIUM CHLORIDE 1,000 ML IV SCH ×3 (12:43→23:27)
--- NOTE | 2019-04-08 12:48 | CONS ---
INFECTIOUS DISEASE CONSULTATION DATE OF CONSULTATION: DATE OF DICTATION: 04/08/2019 HISTORY OF PRESENT ILLNESS: The patient is a 59-year-old female, history of acquired immunodeficiency syndrome, COPD, lymphoma in remission, now evaluated for respiratory tract infection. Patient reports a several-day history of worsening dyspnea associated with cough productive of whitish sputum. She had been seen in the emergency room on April 03, 2019. A chest x-ray was done at that time and was negative for acute infiltrate. She returned to the emergency room with worsening shortness of breath and cough productive of yellowish sputum. She denies any chest pain or hemoptysis. In the emergency room she was noted to have fever of 101.7. Chest x-ray shows atelectasis versus infiltrate at the left base. Patient reports contact with an ill granddaughter with respiratory tract symptoms. PAST MEDICAL HISTORY: Positive for acquired immunodeficiency syndrome. Her last viral markers from March 2019, showed a viral load of 70 and a T-cell count of 324. Past medical history also includes COPD, asthma, hypertension and lymphoma in remission. ALLERGIES: No known allergies. MEDICATIONS: Dapsone, Tivicay, Descovy, Valtrex. SOCIAL HISTORY: Lives at home with significant other. Former smoker. Positive history of cocaine use. SYSTEMS REVIEW: Neurologic: No loss of consciousness, seizure activity, focal weakness. Cardiac: Negative chest pain or palpitations. Respiratory: As per HPI. Gastrointestinal: Negative vomiting or diarrhea. Genitourinary: Negative for urinary tract infection. LABORATORY DATA: White count 10.9, hematocrit 33.1, platelet count 213, BUN 12, creatinine 0.6. Lactic acid on admission 2.2. Urine analysis negative. Influenza swab negative. RSV negative. PHYSICAL EXAMINATION: General: She is awake and alert, ambulatory in no acute distress. Breathing is nonlabored. She is congested. Vital Signs: Temperature 97.4, T-max 101.7, blood pressure 134/70, pulse 80 regular, respiration 20 per minute. HEENT: Sclerae are anicteric. Heart: Sounds S1, S2. Lungs: Bilateral rhonchi and mild wheezing. Abdomen: Soft. No tenderness elicited. No mass, rebound or rigidity. Extremities: Negative for edema. IMPRESSION: 1. Acute exacerbation chronic obstructive pulmonary disease. 2. Bronchitis. 3. Fever. Continue fluids, bronchodilators, corticosteroids, empiric antibiotic coverage with Levaquin. Continue antiretroviral therapy. Thank you for the kind referral. ALIREZA PAT M.D. SAMI/[id number]
[2019-04-09] MEDS: PHENAZOPYRIDINE HCL 100 MG TABLET (FP) PO SCH (06:29)
[2019-04-09] MEDS: ALBUTEROL SO4 2.5/IPRATROPIUM 0.5 INH SOL 3 ML VIAL.NEB. NEB SCH ×3 (08:26→15:03)
[2019-04-09] MEDS ORDERED: PT OWN MED DRAWER 7, Y5N ONE (08:47)
[2019-04-09] MEDS: predniSONE 20 MG TABLET (UD) PO SCH (09:04)
[2019-04-09] MEDS: ENOXAPARIN NA (PORCINE) 40 MG/0.4 ML DISP.SYRIN SQ SCH (09:05)
[2019-04-09] MEDS: DAPSONE 100 MG TABLET PO SCH (09:05)
[2019-04-09] MEDS: EMTRICITABINE/TENOFOV ALAFENAM (DESCOVY) TABLET PO SCH (09:06)
[2019-04-09] MEDS: valACYclovir HCL 500 MG TABLET (FP) PO SCH (09:06)
[2019-04-09] MEDS: DOLUTEGRAVIR SODIUM 50 MG TABLET (NON-FORMULARY) PO SCH (09:06)
[2019-04-09] MEDS: PANTOPRAZOLE 40 MG TABLET (FP) PO SCH (09:06)
[2019-04-09] MEDS: BUDESONIDE/FORMETEROL FUMARATE 80/4.5 mcg INHALER IH SCH (09:09)
--- NOTE | 2019-04-09 10:16 | DS ---
Physical Exam: SUBJECTIVE: Patient seen and examined, breathing improved, eager to go home, no complaints. OBJECTIVE: Vital Signs Period Temp Pulse Resp BP Sys/Rosas Pulse Ox Last 24 Hr 98.2 F-98.9 F 58-82 18-20 138-158/68-86 Intake & Output 04/06/19 04/07/19 04/08/19 04/09/19 23:59 23:59 23:59 23:59 Intake Total 1440 3750 825 Balance 1440 3750 825 Weight 115 lb PHYSICAL EXAM GENERAL: sitting in bed in no acute distress neck: soft, supple, no JVD HEENT: PERRL, EOMI CVS;S1s2 regular Chest: improved air entry, no left basilar rales appreciated today, no wheezing Abdomen:soft, NT, ND, pos bowel sounds Extremities: no edema or tremors Psych: pleasant, co-operative LABS Microbiology 04/08/19 00:40 Sputum - Expectorated Gram Stain - Final 04/08/19 00:40 Sputum - Expectorated Sputum Culture - Preliminary NORMAL RESPIRATORY GAVIN 04/08/19 00:40 Urine - Urine Clean Catch Urine Culture - Final NO GROWTH OBTAINED 04/07/19 13:45 Blood - Peripheral Venous Blood Culture - Preliminary NO GROWTH OBTAINED AFTER 24 HOURS, INCUBATION TO CONTINUE FOR 4 DAYS. 04/07/19 14:03 Blood - Peripheral Venous Blood Culture - Preliminary NO GROWTH OBTAINED AFTER 24 HOURS, INCUBATION TO CONTINUE FOR 4 DAYS. Influenza/RSV neg HOSPITAL COURSE: Date of Admission:04/07/19 Date of Discharge: 04/09/19 Minutes to complete discharge: 40 Discharge Summary Reason For Visit: HIV, MRSA,ACUTE EXACERBATION OF CHRONIC BRONCHITI Current Active Problems COPD exacerbation (Acute) HIV (human immunodeficiency virus infection) (Acute) Pneumonia (Acute) Hospital Course: 59 yof with PMHx of HIV on HAART (Last CD4 324 in 03/2019), Lymphoma s/p chemo ( 10 years ago, in remission), Asthma/COPD, former smoker (quit 4 months ago), H/ o crack cocaine use, recently seen in ED on 04/03 for dyspnea/headache, discharged on 4 days of prednisone, comes with fevers, productive cough and dyspnea. She was noted febrile to 101.7 in ED and CXR suspicious for LLL infiltrate vs atelectasis. She was placed on levaquin, prednisone with marked improvement. No further fevers were noted. Her blood and sputum cultures are negative so far. Influenza/RSV were negative. She was deemed with no home needs prior to discharge. She was seen by infectious disease, continued on HAART. She has been advised to continue her valtrex and discontinue dapsone. She will be discharged home in stable condition with outpatient follow up. Condition: Stable - Instructions Diet, Activity, Other Instructions: MEDICATIONS: Antibiotic levaquin for 3 more days starting tomorrow 04/10/2019 Prednisone taper as follows: 50 mg daily for 3 days starting tomorrow on 04/10, 04/11, 04/12, then 40 mg daily for 3 days on 04/13, 04/14, 04/15, then 30 mg daily for 3 days on 04/16, 04/17, 04/18, then 20 mg daily for 3 days on 04/19, 04/20, 04/21, then 10 mg daily for 3 days on 04/22, 04/23, 04/24, then off. You are advised to stop Dapsone by Dr. Vargas. Continue valtrex and other medications as before FOLLOW UP: With Dr. Vargas in 1 week. Discuss with your doctor for outpatient pulmonalogist referral. If you notice fevers, worsening breathing, persistent or concerning cough with sputum or any new concerns, please call 911 or come to the ED. Referrals: Estefanía Vargas MD [Staff Physician] - Disposition: HOME - Home Medications Comprehensive Discharge Medication List: Ambulatory Orders Docusate Sodium [Colace -] 100 mg PO TID PRN #90 capsule 09/28/18 Polyethylene Glycol 3350 [Miralax 119 gm Btl -] 17 gm PO DAILY PRN #1 bottle Dolutegravir Sodium [Tivicay] 50 mg PO DAILY #30 tablet 02/01/19 Emtricitabine/Tenofov Alafenam [Descovy 200-25 mg Tablet (Nf)] 1 each PO DAILY # 30 tablet 02/01/19 Valacyclovir HCl [Valtrex -] 500 mg PO BID #60 tablet 02/01/19 Phenazopyridine HCl [Pyridium -] 100 mg PO TID #9 tablet 02/10/19 Budesonide/Formeterol Fumarate [SYMBICORT 80/4.5mcg -] 2 inh PO BID #1 cannister 02/27/19 Albuterol Sulfate Inhaler - [Ventolin HFA Inhaler -] 1 - 2 inh PO QID PRN #1 inhaler 03/06/19 Prednisone See Taper PO ASDIR #45 tablet 04/09/19 levoFLOXacin [Levaquin] 750 mg PO DAILY #3 tab 04/09/19 This patient is new to me today: No Emergency Visit: Yes ED Registration Date: 04/07/19 Care time: The patient presented to the Emergency Department on the above date and was hospitalized for further evaluation of their emergent condition. Critical Care patient: No - Discharge Referral Referred to [facility] No
[2019-04-09 15:37] VITALS: BP 155/87; PULSE 69; TEMP 98.5
== END 2019-04-09 16:48 | disposition home or self-care (01) | DRG 140 ==
LOC: JER 12:54 → JERBED 15:26 → J8W 17:19
PROVIDERS: ADMIT Hospitalist; ATTEND Hospitalist
DX: J44.1 Chronic obstructive pulmonary disease with (acute) exacerbation (principal); J45.909 Unspecified asthma, uncomplicated; J20.9 Acute bronchitis, unspecified; E87.2 Acidosis; J98.11 Atelectasis; B20 Human immunodeficiency virus [HIV] disease; J18.9 Pneumonia, unspecified organism
CPT/HCPCS: 36415; 71045-TC-FY; 80048; 80053; 80307; 81003; 82803; 83605; 83735; 84100; 84484; 85025; 85610; 85730; 87040; 87070; 87086; 87205; 87804; 87807; 90688; 93005; 93010; 94640; 94761; 99282-25; G0008; J0131; J7030

== ENCOUNTER 2019-06-21 23:49 | Emergency (ER) | payer OTHER | END 2019-06-22 04:23 | disposition left against medical advice (07) | LOC: JER 23:49 ==

== ENCOUNTER → 2019-07-09 | Outpatient (CLI) | payer OTHER | LOC: YHH 15:49 ==

== ENCOUNTER 2019-07-31 11:01 | Emergency (ER) | payer OTHER | END 2019-07-31 15:55 | disposition home or self-care (01) | LOC: JER 11:01 ==

== ENCOUNTER 2019-08-17 05:26 | Inpatient (IN) | payer OTHER ==
[2019-08-17] MEDS ORDERED: ALBUTEROL SO4 0.083% IH SOL 2.5 MG/3 ML VIAL.NEB. NEB ONE ×2 (05:59→06:05)
[2019-08-17] MEDS ORDERED: ONDANSETRON 4 MG/2 ML VIAL IVPB ONE (05:59)
--- NOTE | 2019-08-17 06:04 | PDOC ---
Attending Attestation - Resident Resident Name: GarretFrancisco sands - ED Attending Attestation I have performed the following: I have examined & evaluated the patient, The case was reviewed & discussed with the resident, I agree w/resident's findings & plan, Exceptions are as noted - HPI HPI: 08/17/19 06:00 59y F hx of hiv, non hodgkins lymphona, asthma, R uretheral stent placed presenst with nausea. pt states she has been having perssitent lower abd pain, bleeding since her stent placement. she is shculed to have it removed by urology in the coming week. states she is feeling nauseus. had gone to the medical center yesterday and had a shot of a strong pain medication (endorses it may have been dilaudid). pt enodrses some sob and chest tightness. denies any fever/chills, diarrhea. notes her abd pain is cramping in nature in the lower abdomen but is the same as she has had since her stent. pt is a poor historian. Physical exam: GENERAL: The patient is awake, alert, and fully oriented, Nontoxic - in no acute distress. HEAD: Normocephalic, atraumatic. EYES: extraocular movements intact, sclera anicteric, conjunctiva clear. ENT: Normal voice, Moist mucous membranes. LUNGS: wheezing b/l, no acute respiratory distress, speaking complete sentences. HEART: Regular rate and rhythm, normal S1 and S2 without murmur, rub or gallop. ABDOMEN: Soft, nontender, No guarding, no rebound. No CVA tenderness EXTREMITIES: Normal range of motion, no edema. NEUROLOGICAL: No facial assymetry, Normal speech, PSYCH: Normal mood, normal affect. SKIN: Warm, Dry, normal turgor, suspect asthma exacerbation doubt acs, but will obtain screening ekg/trop will obtain cxr to r/o acute pulm dz will give abluterol and zofran for sx relief will reassess - Physicial Exam PE: 08/19/19 15:19 see above - Medical Decision Making 08/17/19 07:22 cxr noted for mass will obtain CTA ches tto further evaluate Heart Score/ECG Review - ECG Impressions Comment:: 08/17/19 07:31 EKG performed 6:57 on 08/17/19 Rate of 77 regular rate/rhythm no st changes suggestive of acute ischemia
[2019-08-17] MEDS ORDERED: ONDANSETRON 4 MG/2 ML VIAL ONE (06:12)
[2019-08-17 06:33] LABS: BASO % 1.3 % (0-2.0); EOS % 6.3 % (0-4.5); HEMATOCRIT 34.3 % (32.4-45.2); HEMOGLOBIN 11.6 GM/dL (10.7-15.3); LYMPH % 16.6 % (8-40); MCH 31.2 pg (25.7-33.7); MCHC 33.7 g/dl (32.0-36.0); MEAN CELL VOLUME 92.5 fl (80-96); MEAN PLT VOLUME 9.1 fl (7.5-11.1); MONO % 6.4 % (3.8-10.2); NEUT % 69.4 % (42.8-82.8); PLATELET COUNT 231 K/MM3 (134-434); RBC 3.71 M/mm3 (3.60-5.2); RDW 14.7 % (11.6-15.6); WHITE BLOOD COUNT 13.7 K/mm3 (4.0-10.0)
--- NOTE | 2019-08-17 06:54 | PDOC ---
History of Present Illness - General Chief Complaint: Allergic Reaction Stated Complaint: ALLERGIC REACTION Time Seen by Provider: 08/17/19 05:49 History Source: Patient - History of Present Illness Initial Comments: 08/17/19 06:44 This is a 59 year old female with PMH significant for HIV (CD4 count last month , says it was "good"), asthma, and renal stones (s/p rt sided stent and ESWL scheduled on 08/30). She presents to the ER with complaints of a rash and swelling below her eyes since (08/16) morning. She has had suprapubic pain, hematuria, and burning micturation for the past few months. She visited [facility] on Tuesday night, where she received an IM painkiller, which she seems to believe was the reason for the subsequent swelling and rash that developed the next day. Shehas no known allergies, and states thast she has never had a reaction to anyting before. She has associated nausea, 1 episode of whitish nbnb vomiting , diffuse chest pain tender to palpation, SOB, productive cough with yellow sputum for the past 7 days, dysuria, and hematuria. She has a history of smoking crack cocaine (no IV drug use), but has been clean for the past 9 months. Past History - Past Medical History Allergies/Adverse Reactions: Allergies Allergy/AdvReac Type Severity Reaction Status Date / Time hydromorphone [From Dilaudid] Allergy Verified 08/17/19 06:37 Home Medications: Ambulatory Orders Docusate Sodium [Colace -] 100 mg PO TID PRN #90 capsule 09/28/18 Albuterol 0.083% Nebulizer Neha [Ventolin 0.083% Nebulizer Soln -] 1 neb NEB Q6H #30 vial 05/29/19 Albuterol Sulfate Inhaler - [Ventolin HFA Inhaler -] 1 - 2 inh PO QID PRN #1 inhaler 05/29/19 Budesonide/Formeterol Fumarate [SYMBICORT 80/4.5mcg -] 2 inh PO BID #1 cannister 05/29/19 Dolutegravir Sodium [Tivicay] 50 mg PO DAILY #30 tablet 05/29/19 Emtricitabine/Tenofov Alafenam [Descovy 200-25 mg Tablet (Nf)] 1 each PO DAILY # 30 tablet 05/29/19 Multivitamin [One-Daily Multi-Vitamin] 1 each PO DAILY #30 tablet 05/29/19 Ibuprofen [Motrin -] 600 mg PO BID PRN 07/31/19 Oxycodone HCl/Acetaminophen [Percocet 5-325 mg Tablet] 1 tab PO Q6H #10 tablet MDD 4 07/31/19 Sulfamethoxazole/Trimethoprim [Bactrim Ds -] 1 tab PO BID #14 tablet 07/31/19 Anemia: Yes Asthma: Yes Cancer: (LYMPHOMA) Cardiac Disorders: No CVA: No COPD: Yes CHF: No DVT: No Dementia: No Diabetes: No GI Disorders: No Disorders: No HTN: Yes Hypercholesterolemia: No Kidney Stones: Yes Liver Disease: Yes Seizures: No Thyroid Disease: No - Surgical History Abdominal Surgery: Yes Appendectomy: No Cardiac Surgery: No Cholecystectomy: No Lung Surgery: No Neurologic Surgery: No Orthopedic Surgery: No - Immunization History Immunization Up to Date: Yes - Psycho Social/Smoking Cessation Hx Smoking Status: No Smoking History: Current every day smoker Have you smoked in the past 12 months: Yes Number of Cigarettes Smoked Daily: 1 If you are a former smoker, when did you quit?: 1month Cigars Per Day: 0 Information on smoking cessation initiated: Yes 'Breaking Loose' booklet given: 01/25/19 Hx Alcohol Use: Yes (Seasonal) Drug/Substance Use Hx: No Substance Use Type: Cocaine Hx Substance Use Treatment: No Review of Systems - Review of Systems Respiratory: Yes: Cough, Shortness of Breath Cardiac (ROS): Yes: Chest Pain ABD/GI: Yes: Abdominal cramping : Yes: Dysuria, Hematuria Neurological: Yes: Paresthesia *Physical Exam - Vital Signs Last Vital Signs Temp Pulse Resp BP Pulse Ox 97.5 F L 90 25 H 145/90 96 08/17/19 05:35 08/17/19 05:35 08/17/19 05:35 08/17/19 05:35 08/17/19 05:35 - Physical Exam Comments: 08/17/19 07:02 GI: Soft, non distended, suprapubic tenderness. Gordon, Psoas and Rovsing's negative. Oropharnyx: clear mucosa Head: Mild periorbital edema General Appearance: Yes: Appropriately Dressed HEENT: positive: Normal ENT Inspection, Normal Voice Neck: positive: Trachea midline Respiratory/Chest: positive: Chest Tender, Wheezing Cardiovascular: positive: Regular Rhythm, Regular Rate Gastrointestinal/Abdominal: positive: Tender Neurologic: positive: Fully Oriented, Normal Mood/Affect, Motor Strength 03/18 ED Treatment Course - LABORATORY CBC & Chemistry Diagram: 08/17/19 06:19 08/17/19 06:19 - Medications Given in the ED: ED Medications Discontinued Medications Generic Name Dose Route Start Last Admin Trade Name Blake PRN Reason Stop Dose Admin Albuterol Sulfate 1 amp 08/17/19 05:59 08/17/19 06:10 Ventolin 0.083% Nebulizer Soln - NEB 08/17/19 06:00 1 amp ONCE ONE Administration Ondansetron HCl 4 mg 08/17/19 05:59 08/17/19 06:32 Zofran Injection IVPB 08/17/19 06:00 4 mg ONCE ONE Administration Medical Decision Making - Medical Decision Making 08/17/19 07:04 - CBC/CMP - UA, Urine cx - CXR - EKG, Trops - Nebs 2x - Zofran - CTAP - IV Tylenol - Signed out to Dr. Alejandra Discharge - Discharge Information Problems reviewed: Yes Clinical Impression/Diagnosis: Abdominal pain, Swelling around both eyes - Follow up/Referral - Patient Discharge Instructions - Post Discharge Activity
--- NOTE | 2019-08-17 07:07 | PDOC ---
*Physical Exam - Vital Signs Last Vital Signs Temp Pulse Resp BP Pulse Ox 97.5 F L 90 25 H 145/90 96 08/17/19 05:35 08/17/19 05:35 08/17/19 05:35 08/17/19 05:35 08/17/19 05:35 ED Treatment Course - LABORATORY CBC & Chemistry Diagram: 08/17/19 06:19 08/17/19 06:19 - ADDITIONAL ORDERS Additional order review: 08/17/19 06:19 RBC 3.71 MCV 92.5 MCHC 33.7 RDW 14.7 MPV 9.1 D Neutrophils % 69.4 D Lymphocytes % 16.6 D Monocytes % 6.4 Eosinophils % 6.3 H D Basophils % 1.3 - Medications Given in the ED: ED Medications Discontinued Medications Generic Name Dose Route Start Last Admin Trade Name Freq PRN Reason Stop Dose Admin Albuterol Sulfate 1 amp 08/17/19 05:59 08/17/19 06:10 Ventolin 0.083% Nebulizer Soln - NEB 08/17/19 06:00 1 amp ONCE ONE Administration Ondansetron HCl 4 mg 08/17/19 05:59 08/17/19 06:32 Zofran Injection IVPB 08/17/19 06:00 4 mg ONCE ONE Administration Medical Decision Making - Medical Decision Making 08/17/19 07:07 CBC CMP CTA shows 5.8x5.8x6.2cm R superior mediastinal soft tissue mass suggestive of large lymph node vs cluster of lymph nodes, R infracrarinal lymph node 2.1x1.3cm , moderate R hydronephrosis/hydroureter wall thickening and stranding CXR shows new mass (since 03/2019) in R superior mediastinum causing tracheal deviation to left - adenopathy vs aneurysm EKG NSR, HR 77, QTc 434, no ST changes Given tylenol for pain, zofran for nausea, duoneb for wheezing WBC 13, normal CMP, neg trop, UA shows blood, protein, no infection UA shows +2 leuk est w WBC, elevated WBC, complicated renal pmhx, R renal thickening - treat UTI w rocephin --- Signout from night team Shyanne Shannon is a 59 year old female with PMH significant for HIV (CD4 count last month, says it was "good"), asthma, substance abuse (cocaine) and renal stones (s/p rt sided stent and ESWL scheduled on 08/20) presenting for 2d rash and swelling below her eyes. Associated nausea, diffuse chest pain tender to palpation, SOB, productive cough with yellow sputum, dysuria, and hematuria. CTA shows 5.8x5.8x6.2cm R superior mediastinal soft tissue mass w tracheal deviation (likely adenopathy given past episode vs metastasis) not seen 5 months ago on CXR. Normal O2 sats, breathing comfortably on room air. UA shows +2 leuk est w WBC, elevated WBC, complicated renal pmhx, R renal thickening concerning for UTI. Pt has scheduled lithotripsy on 08/20. Given rocephin for UTI, tylenol for pain, zofran for nausea, duoneb for wheezing. No evidence of ACS w neg trop, EKG NSR Admitted to med/surg Dr Moy for lung mass, UTI Talked to PCP Dr Vargas, told pt has prior episode of lymphadenitis, agrees w plan to admit Discharge - Discharge Information Problems reviewed: Yes Clinical Impression/Diagnosis: Lung mass UTI (urinary tract infection) Qualifiers: Urinary tract infection type: site unspecified Hematuria presence: with hematuria Qualified Code(s): N39.0 - Urinary tract infection, site not specified Condition: Good - Follow up/Referral - Patient Discharge Instructions - Post Discharge Activity
[2019-08-17 07:13] LABS: ALBUMIN 3.4 g/dl (3.4-5.0); ALK PHOS 229 U/L (45-117); ANION GAP 6 MMOL/L (8-16); BILIRUBIN,TOTAL 0.4 mg/dL (0.2-1); BLOOD UREA NITROGEN 20.4 mg/dL (7-18); CALCIUM 8.9 mg/dL (8.5-10.1); CHLORIDE 110 mmol/L (98-107); CO2 27 mmol/L (21-32); GLUCOSE,RANDOM 91 mg/dL (74-106); POTASSIUM 5.1 mmol/L (3.5-5.1); SGOT/AST 36 U/L (15-37); SGPT/ALT 38 U/L (13-61); SODIUM 143 mmol/L (136-145); TOT PROT 6.8 g/dl (6.4-8.2)
[2019-08-17] MEDS ORDERED: ACETAMINOPHEN 1000 MG/100 ML VIAL (NON FORMULARY) IVPB ONE (07:15)
[2019-08-17 07:29] LABS: EPI CELLS 2.2 /HPF (0-5/HPF); HYALINE CASTS 7 /lpf (0-8); URINE APPEARANCE CLOUDY; URINE BACTERIA 7.4 /hpf (NEGATIVE); URINE BILIRUBIN NEGATIVE (NEGATIVE); URINE COLOR ORANGE; URINE GLUCOSE (UA) NEGATIVE (NEGATIVE); URINE KETONE NEGATIVE (NEGATIVE); URINE LEUK ESTERASE 2+ (NEGATIVE); URINE NITRITE NEGATIVE (NEGATIVE); URINE PROTEIN 2+ (NEGATIVE); URINE RBC 2394 /hpf (0-4); URINE WBC 28 /hpf (0-5)
[2019-08-17] MEDS ORDERED: ACETAMINOPHEN INJECTION 100 ML IVPB ONE (07:35)
[2019-08-17 09:49] LABS: ANISOCYTOSIS 0; MACROCYTOSIS 0; PLATELET ESTIMATE NORMAL
[2019-08-17] MEDS ORDERED: CEFTRIAXONE 1 GM in DEXTROSE 5%-WATER - 50 ML IVPB ONE (09:51)
[2019-08-17] MEDS ORDERED: CEFTRIAXONE 1 GM/50 ML BAG ONE (10:00)
[2019-08-17] MEDS ORDERED: ALBUTEROL SO4 8 GM HFA INHALER IH PRN (11:20)
[2019-08-17] MEDS ORDERED: DOCUSATE SODIUM 100 MG CAPSULE (FP) PO PRN (11:20)
--- NOTE | 2019-08-17 11:51 | HP ---
CHIEF COMPLAINT: rash, swelling PCP:Dr. Vargas HISTORY OF PRESENT ILLNESS: Patient is a 59 y/o female with a history of HIV, asthma, substance abuse( sober 9 months), renal stones, and lymphoma who presents for rash and swelling of her face. Patient reports she has pelvic pain and hematuria. she went to [facility] on Tuesday for these complaints and reports she was given a pain medication shot. Since then she noted she had rash on her face and swelling under her eyes. She has not had this in the past. Patient reports she is also having chest pain and shortness of breath. These symptons started recently. The chest pain only happened once, did not last long and has now resolved. She reports it was a tightness feeling at the same time she felt like she was wheezing and short of breath. This has also resolved. patient has a lithotripsy scheduled on the and her renal stent removal on the . Patient reports she was diagnosed with lymphoma "20 years ago" she was given chemo therapy and does not have cancer anymore. She used to follow up with a oncologist but it has been a year. She had a colonoscopy over 10 years ago and it was normal, and had a mammogram this year which was also normal. She reports she is still having hematuria and has increased frequency of urination. Denies burning on urination. Patient denies fever, chills, nausea, vomiting, or night sweats. ER course was notable for: (1) (2) (3) Recent Travel: denies PAST MEDICAL HISTORY: HIV, asthma, substance abuse( sobe r9 months), renal stones, and lymphoma PAST SURGICAL HISTORY: stent placement Social History: Smoking: "1-2 every once in a while" Alcohol: "1 beer every once in a while" Drugs: sober from cocaine for 9 months Allergies hydromorphone [From Dilaudid] Allergy (Verified 08/17/19 06:37) HOME MEDICATIONS: Home Medications Medication Instructions Recorded Docusate Sodium [Colace -] 100 mg PO TID PRN #90 capsule 09/28/18 Albuterol 0.083% Nebulizer Neha 1 neb NEB Q6H #30 vial 05/29/19 [Ventolin 0.083% Nebulizer Soln -] Albuterol Sulfate Inhaler - 1 - 2 inh PO QID PRN #1 inhaler 05/29/19 [Ventolin HFA Inhaler -] Budesonide/Formeterol Fumarate 2 inh PO BID #1 cannister 05/29/19 [SYMBICORT 80/4.5mcg -] Dolutegravir Sodium [Tivicay] 50 mg PO DAILY #30 tablet 05/29/19 Emtricitabine/Tenofov Alafenam 1 each PO DAILY #30 tablet 05/29/19 [Descovy 200-25 mg Tablet (Nf)] Multivitamin [One-Daily 1 each PO DAILY #30 tablet 05/29/19 Multi-Vitamin] Ibuprofen [Motrin -] 600 mg PO BID PRN 07/31/19 Oxycodone HCl/Acetaminophen 1 tab PO Q6H #10 tablet MDD 4 07/31/19 [Percocet 5-325 mg Tablet] Sulfamethoxazole/Trimethoprim 1 tab PO BID #14 tablet 07/31/19 [Bactrim Ds -] REVIEW OF SYSTEMS CONSTITUTIONAL: Absent: fever, chills, diaphoresis, generalized weakness, malaise, loss of appetite, weight change HEENT: Absent: rhinorrhea, nasal congestion, throat pain, throat swelling, difficulty swallowing, mouth swelling, ear pain, eye pain, visual changes CARDIOVASCULAR: chest pain, Absent: syncope, palpitations, irregular heart rate, lightheadedness, peripheral edema RESPIRATORY: shortness of breath, Absent: cough, dyspnea with exertion, orthopnea, wheezing, stridor, hemoptysis GASTROINTESTINAL: Absent: abdominal pain, abdominal distension, nausea, vomiting, diarrhea, constipation, melena, hematochezia GENITOURINARY: Absent: dysuria, frequency, urgency, hesitancy, hematuria, flank pain, genital pain MUSCULOSKELETAL: Absent: myalgia, arthralgia, joint swelling, back pain, neck pain SKIN: Absent: rash, itching, pallor HEMATOLOGIC/IMMUNOLOGIC: Absent: easy bleeding, easy bruising, lymphadenopathy, frequent infections ENDOCRINE: Absent: unexplained weight gain, unexplained weight loss, heat intolerance, cold intolerance NEUROLOGIC: Absent: headache, focal weakness or paresthesias, dizziness, unsteady gait, seizure, mental status changes, bladder or bowel incontinence PSYCHIATRIC: Absent: anxiety, depression, suicidal or homicidal ideation, hallucinations. PHYSICAL EXAMINATION Vital Signs - 24 hr 08/17/19 08/17/19 05:35 09:08 Temperature 97.5 F L 98.9 F Pulse Rate 90 Pulse Rate [ 82 Right Radial] Respiratory 25 H 20 Rate Blood Pressure 145/90 Blood Pressure 128/85 [Left Arm] O2 Sat by Pulse 96 97 Oximetry (%) GENERAL: Awake, alert, and fully oriented, in no acute distress. obese EYES: Pupils equal, round and reactive to light, extraocular movements intact, sclera anicteric, EARS, NOSE, THROAT: Normal pharynx, Moist mucous membranes. NECK: Normal range of motion, supple without lymphadenopathy, JVD, LUNGS: Breath sounds equal, clear to auscultation bilaterally. No accessory muscle use. slight inspiratory wheezing HEART: Regular rate and rhythm, normal S1 and S2 without murmur, rub or gallop. ABDOMEN: Soft, nontender, not distended, normoactive bowel sounds, MUSCULOSKELETAL: Normal range of motion at all joints. No bony deformities or tenderness. R CVA tenderness. LOWER EXTREMITIES: 2+ pulses, warm, well-perfused. No calf tenderness. No peripheral edema. NEUROLOGICAL: Cranial nerves II-XII intact. Normal speech. Normal gait. PSYCHIATRIC: Cooperative. Good eye contact. Appropriate mood and affect. SKIN: Warm, dry, normal turgor, no rashes or lesions noted, normal capillary refill. No facial rash noted Laboratory Results - last 24 hr CBC, BMP 08/17/19 06:19 08/17/19 06:19 ASSESSMENT/PLAN: Patient is a 59 y/o female with a history of HIV, asthma, substance abuse( sober 9 months), renal stones, and lymphoma who is admitted for UTI and found to have a large lymph node. #UTI, with hydronephrosis - UA with 2+ protein, 2+ blood, leukocyte esterase 2+ - received Ceftriaxone in the ED, will consult [facility] for further abx, unclear if to escalate meds with stent and recent abx from ED ( bactrim) - CT: inficative of UTI with wall thickening - f/u UCX - CT ABD/Pelvis: R double J ureteral stent with moderate right renal hydronephrosis, with wall thickening and stranding of surrounding fat, - CT from 08/02 also showed - consulted Urology, has outpatient Lithotripsy scheduled with Dr. Robb for the 7th ( spoke with office and he is aware patient is in the hospital) - Spoke with Dr Robb, he will see the patient, the stent is in the correct position and the hydronephrosis does not look worse #larger right superior mediastinal soft tissue mass - enlarged lymph nodes could be 2/2 to returned lymphoma vs infectious - ONC is Dr. Cerrato - consult heme onc #rash, swelling - possibly 2/2 to allergic reaction now resolved - chest tightness likely from allergic reaction with SOB, trop neg x1, no ekg changes #hematuria 2/2 to stones and stent - plans for outpatient lithotripsy #HIV - last CD4 > 300 at [facility] - continue patients home meds #DVT ppx - Lovenox 40 sq daily FEN - regular diet Dispo: monitor on med surg Visit type - Emergency Visit Emergency Visit: Yes ED Registration Date: 08/17/19 Care time: The patient presented to the Emergency Department on the above date and was hospitalized for further evaluation of their emergent condition. - New Patient This patient is new to me today: Yes Date on this admission: 08/19/19 - Critical Care Critical Care patient: No ATTENDING PHYSICIAN STATEMENT I saw and evaluated the patient. I reviewed the resident's note and discussed the case with the resident. I agree with the resident's findings and plan as documented. SUBJECTIVE: OBJECTIVE: ASSESSMENT AND PLAN:
--- NOTE | 2019-08-17 12:12 | EKG ---
Test Reason : Blood Pressure : / mmHG Vent. Rate : 077 BPM Atrial Rate : 077 BPM P-R Int : 138 ms QRS Dur : 078 ms QT Int : 384 ms P-R-T Axes : 076 -16 036 degrees QTc Int : 434 ms NORMAL SINUS RHYTHM WHEN COMPARED WITH ECG OF 07-APR-2019 12:58, NO SIGNIFICANT CHANGE WAS FOUND Confirmed by ALIREZA WU MD ([id number]) on 08/17/2019 12:11:42 PM Referred By: Confirmed By:ALIREZA WU MD
[2019-08-17] MEDS ORDERED: ALBUTEROL SO4 2.5/IPRATROPIUM 0.5 INH SOL 3 ML VIAL.NEB. NEB SCH (14:00)
[2019-08-17] MEDS: ALBUTEROL SO4 2.5/IPRATROPIUM 0.5 INH SOL 3 ML VIAL.NEB. NEB SCH ×2 (16:03→19:39)
--- NOTE | 2019-08-17 16:23 | PN ---
Progress Note (short form) - Note Progress Note: ID consult dictated imp.[email or web address] 59 yo female from the [facility] with well controlled HIV history of NHL diagnosed 2011 by right axillary biopsy- followed by dr hoyos at [facility] admitted with continued suprapubic pain and urinary discomfort-this has been present since June when ureteral stent was placed at [facility] she is followed by dr viramontes has had intermittent hematuria and continued pain since placement of the stent she is scheduled for eswl and stent removal also facial swelling that she reports occured after going to the ED at [facility] on Tuesday night and getting a pain shot she has some residual face and neck swelling on exam she has continued suprapubic discomfort ct scans notable for large right paratracheal mass-collection of nodes? and ureteral stent right paratracheal mass- ?recurrence NHL- check ldh, ask hematology to see if repeat biopsy is needed ?thoracic for vats ureteral stent with stone and hydronephrosis would get blood cultures urine cultures continue ceftriaxone adverse drug reaction?- by report happened after pain injection at [facility] stable HIV- continue meds history of asthma- nebs add steroids if needed d/w hospitalist service Problem List - Problems (1) Lung mass Code(s): R91.8 - OTHER NONSPECIFIC ABNORMAL FINDING OF LUNG FIELD (2) Nephrolithiasis Code(s): N20.0 - CALCULUS OF KIDNEY (3) HIV (human immunodeficiency virus infection) Code(s): Z21 - ASYMPTOMATIC HUMAN IMMUNODEFICIENCY VIRUS INFECTION STATUS Qualifiers: HIV symptom status: unspecified Qualified Code(s): B20 - Human immunodeficiency virus [HIV] disease (4) Asthma Code(s): J45.909 - UNSPECIFIED ASTHMA, UNCOMPLICATED (5) Lymphoma Code(s): C85.90 - NON-HODGKIN LYMPHOMA, UNSPECIFIED, UNSPECIFIED SITE Qualifiers: Lymphoma type: non-Hodgkin
--- NOTE | 2019-08-17 17:00 | PN ---
Teaching Attending Note Name of Resident: Sheela Ervin ATTENDING PHYSICIAN STATEMENT I saw and evaluated the patient. I reviewed the resident's note and discussed the case with the resident. I agree with the resident's findings and plan as documented. SUBJECTIVE: CC: Abd pain, hematuria HPI: Unfortunate , pleasant 59 y/o lady with h/o HIV, on HAART, Athma, remote h/ o cocaine use, non Hodgkin's lymphoma, s/p chemo, UTI, R hydronephrosis and R hydroureter s/p R sided stent placement, who presented to ER with abd pain and hematuria she is a difficult historian . Since her stent placement on 06/25 she continued to have R sided Abd pain and hematuria. she visited her PCP for that. she went to [facility] ER on 07/26 and was given cipro . she presnented to our ER on and was d/c on bactri x 7 days. She went to [facility] yesterday , received an injectin ( she thinks pain med) , after which she wwas discharged home. she developed swelling in her face , and neck and felt her throat was closing, and had SOb and wheezing and CP ( CP and wheezing and throat sx lasted for an hour). She feels her facial edema is better. No rash reported. she is scheduled to have Lithotripsy later this month with Dr. Robb. She denies fever or chills, but feels warm. for her lymphoma, she was diagnosed in 2011, had chemo and has been following with Dr. Felipe. last visit per her was 1 year ago. unknown w/u ( PET , scans , ..) OBJECTIVE: NAD, awake, alert , oriented. looks ill. cooperative . started talking to her cat during exam. HEENT: Nl oropharynx, no edema in uvula, no erythema , no facial droop, MMM, round equal pupils, reactive to light, tongue at mid line. lymphadenopathy in b/ l neck R > L . fullness of neck . no rash on face. Cv: RRR, no mRG Lungs: rales b/l . no wheezes Ext: No edema or erythema on upper or lower extremities Abd: soft, Nd, TTP in RUQ, and RLQ, and periumbilical area and suprapubic area. no rebound ot guarding. NL BS Lymphatic: lymphadenopathy in b/l neck ( R > L), and in axillary areas. None in groins. Neuro: EOMI, round equal pupils, reactive to light , no facial droop, EOMI, uvula at mid line. strength 5/5 in upper and lower extremities proximally and distally. sensation to light touch nl. reflexes 2+ knee jerk and biceps Imaging: CT of C/A/P reviewed. Cxray reviewed. ASSESSMENT AND PLAN: Unfortunate , pleasant 59 y/o lady with h/o HIV, on HAART, Athma, remote h/o cocaine use, non Hodgkin's lymphoma, s/p chemo, UTI, R hydronephrosis and R hydroureter s/p R sided stent placement, who presented to ER with abd pain and hematuria . 1- Abd pain and hematuria. has SIRS . r/o sepsis due to UTI. although fever could be due to nonHodgkin's lymphoma - Case d/w dr. Vargas - start ceftriaxone . - old cx reviewed. no growth - hydronephrosis is present onCt from last month - CAse was d/w Dr. Robb, who will evaluate 2- H/O Non-Hosgkkin's lymphoma, s/p chemo. - try to get records form dr. Felipe's office - mediastinal mass and kailash-aortic abd lymphnodes are highly suspicious for recurrence. also has LAP in her neck and axillae . fever could be frm lymphoma - will obtain MRI of brain due to periods of weird behavior during interview. r/ o lymphoma involvement in brain 3- Possible angioedema, after unknown medication administration: was unable to obtain any records from [facility] ER. - start prednisone. no signs of resp compromise - start H1, H2 blockers 4- h/o HIV: cont meds 5- H/o Asthma, cont inhaler and start Nebs DVT PX : lovenox
[2019-08-17] MEDS: predniSONE 20 MG TABLET (UD) PO SCH (17:02)
[2019-08-17] MEDS: ACETAMINOPHEN 325 MG TABLET (FP) PO PRN (17:03)
[2019-08-17 19:05] LABS: LDH 558 U/L (84-246)
[2019-08-17] MEDS: FAMOTIDINE 20 MG/50 ML IVPB 20 MG/50 ML MG IVPB SCH (21:44)
[2019-08-17] MEDS: diphenhydrAMINE HCL 25 MG CAPSULE (FP) PO SCH (21:44)
[2019-08-17] MEDS: BUDESONIDE/FORMETEROL FUMARATE 80/4.5 mcg INHALER IH SCH (21:45)
[2019-08-17] MEDS ORDERED: SULFAMETHOXAZOLE/TRIMETHOPRIM 800MG/160MG D.S. TABLET PO SCH (22:00)
[2019-08-18 07:49] LABS: BASO % 0.3 % (0-2.0); EOS % 2.9 % (0-4.5); HEMATOCRIT 33.2 % (32.4-45.2); HEMOGLOBIN 11.1 GM/dL (10.7-15.3); LYMPH % 9.9 % (8-40); MCHC 33.4 g/dl (32.0-36.0); MEAN CELL VOLUME 92.8 fl (80-96); MEAN PLT VOLUME 9.2 fl (7.5-11.1); MONO % 6.3 % (3.8-10.2); NEUT % 80.6 % (42.8-82.8); PLATELET COUNT 202 K/MM3 (134-434); RBC 3.57 M/mm3 (3.60-5.2); RDW 14.5 % (11.6-15.6); WHITE BLOOD COUNT 16.9 K/mm3 (4.0-10.0)
[2019-08-18] MEDS: ALBUTEROL SO4 2.5/IPRATROPIUM 0.5 INH SOL 3 ML VIAL.NEB. NEB SCH ×4 (07:50→20:11)
[2019-08-18 08:14] LABS: ALBUMIN 3.1 g/dl (3.4-5.0); BILIRUBIN,TOTAL 0.3 mg/dL (0.2-1); BLOOD UREA NITROGEN 16.5 mg/dL (7-18); CREATININE 0.8 mg/dL (0.55-1.3); MAGNESIUM 1.8 mg/dL (1.8-2.4); PHOSPHOROUS 3.6 mg/dL (2.5-4.9); POTASSIUM 4.3 mmol/L (3.5-5.1)
--- NOTE | 2019-08-18 09:32 | PN ---
Teaching Attending Note ATTENDING PHYSICIAN STATEMENT I saw and evaluated the patient. I reviewed the resident's note and discussed the case with the resident. I agree with the resident's findings and plan as documented. SUBJECTIVE: OBJECTIVE: ASSESSMENT AND PLAN:
--- NOTE | 2019-08-18 09:51 | CONSULT ---
Consult - text type - Consultation Consultation Note: Patient seen and examined 59 y/o female with a history of HIV, asthma, substance abuse, renal stones, and lymphoma who presents for rash and swelling of her face. Patient reports she has pelvic pain and hematuria. she went to [facility] on Tuesday for these complaints and reports she was given a pain medication shot. Since then she noted she had rash on her face and swelling under her eyes. She has not had this in the past. Patient reports she is also having chest pain and shortness of breath. These symptons started recently. She was treated for lymphoma [place] [address] Felipe and had been in complete remission Now with concern for recurrence --- AFVSS Cor: RSR, No murmurs, No gallops Lungs: Clear to P&A Abd: Soft, Normal bowel sounds, No organomegaly Ext:No significant edema Labs/Meds reviewed PAST MEDICAL HISTORY: HIV, asthma, substance abuse( sobe r9 months), renal stones, and lymphoma PAST SURGICAL HISTORY: stent placement Social History: Smoking: "1-2 every once in a while" Alcohol: "1 beer every once in a while" Drugs: sober from cocaine for 9 months Allergies hydromorphone [From Dilaudid] Allergy (Verified 08/17/19 06:37) HOME MEDICATIONS: Home Medications Medication Instructions Recorded Docusate Sodium [Colace -] 100 mg PO TID PRN #90 capsule 09/28/18 Albuterol 0.083% Nebulizer Neha 1 neb NEB Q6H #30 vial 05/29/19 [Ventolin 0.083% Nebulizer Soln -] Albuterol Sulfate Inhaler - 1 - 2 inh PO QID PRN #1 inhaler 05/29/19 [Ventolin HFA Inhaler -] Budesonide/Formeterol Fumarate 2 inh PO BID #1 cannister 05/29/19 [SYMBICORT 80/4.5mcg -] Dolutegravir Sodium [Tivicay] 50 mg PO DAILY #30 tablet 05/29/19 Emtricitabine/Tenofov Alafenam 1 each PO DAILY #30 tablet 05/29/19 [Descovy 200-25 mg Tablet (Nf)] Multivitamin [One-Daily 1 each PO DAILY #30 tablet 05/29/19 Multi-Vitamin] Ibuprofen [Motrin -] 600 mg PO BID PRN 07/31/19 Oxycodone HCl/Acetaminophen 1 tab PO Q6H #10 tablet MDD 4 07/31/19 [Percocet 5-325 mg Tablet] Sulfamethoxazole/Trimethoprim 1 tab PO BID #14 tablet 07/31/19 [Bactrim Ds -] PHYSICAL EXAMINATION AFVSS Cor: RSR, No murmurs, No gallops Lungs: Clear to P&A Abd: Soft, Normal bowel sounds, No organomegaly Ext:No significant edema axillary adenopathy Labs/Meds reviewed ASSESSMENT/PLAN: Patient is a 59 y/o female with a history of HIV, asthma, substance abuse( sober 9 months), renal stones, and lymphoma who is admitted for UTI and found to have superior mediastinal mass 6x 5cm, aand fewmm paraaortic nodes on prednisone 40mg On rocephin for UTI to review scans with IR and discuss biopsy ? axillary nodes. If not feasible then ct surgery consult
[2019-08-18] MEDS ORDERED: cefTRIAXone SODIUM 1 GM VIAL ONE (11:17)
[2019-08-18] MEDS ORDERED: DEXTROSE 5%-WATER - 50 ML IVPB ONE (11:17)
[2019-08-18] MEDS: ENOXAPARIN NA (PORCINE) 40 MG/0.4 ML DISP.SYRIN SQ SCH (11:26)
[2019-08-18] MEDS: CEFTRIAXONE 1 GM in DEXTROSE 5%-WATER - 50 ML IVPB SCH (11:26)
[2019-08-18] MEDS: FAMOTIDINE 20 MG/50 ML IVPB 20 MG/50 ML MG IVPB SCH ×2 (11:26→21:12)
[2019-08-18] MEDS: ACETAMINOPHEN 325 MG TABLET (FP) PO PRN ×2 (11:27→18:57)
[2019-08-18] MEDS: predniSONE 20 MG TABLET (UD) PO SCH (11:27)
[2019-08-18] MEDS ORDERED: PT OWN MED DRAWER 7, Y5N ONE (11:33)
[2019-08-18] MEDS: DOLUTEGRAVIR SODIUM 50 MG TABLET (NON-FORMULARY) PO SCH (11:36)
[2019-08-18] MEDS: diphenhydrAMINE HCL 25 MG CAPSULE (FP) PO SCH ×2 (11:40→21:13)
[2019-08-18] MEDS: BUDESONIDE/FORMETEROL FUMARATE 80/4.5 mcg INHALER IH SCH ×2 (11:41→21:13)
--- NOTE | 2019-08-18 11:47 | PN ---
Physical Exam: SUBJECTIVE: Patient seen and examined at bedside. Reports improvement in abdominal pain, which is still present but at a reduced amount compared to yesterday. Reports continual hematuria. OBJECTIVE: Vital Signs Period Temp Pulse Resp BP Sys/Rosas Pulse Ox Last 24 Hr 99.8 F-101.3 F 113-121 20-20 121-152/71-72 97-99 GENERAL: A&Ox3, no acute distress EYES: PERRLA, EOMI ENT: Moist mucus membranes NECK: R + L cervical lymphadenopathy LUNGS: CTA, no wheezes HEART: tachycardic, no murmurs ABDOMEN: Soft, mildly tender to palpation in the epigastrum MUSCULOSKELETAL: No CVA Tenderness EXTREMITIES: 2+ pulses, no edema. NEUROLOGICAL: Cranial nerves II-XII intact. Laboratory Results - last 24 hr 08/17/19 08/18/19 08/18/19 12:18 06:35 06:35 WBC 16.9 H RBC 3.57 L Hgb 11.1 Hct 33.2 MCV 92.8 MCH 31.0 MCHC 33.4 RDW 14.5 Plt Count 202 MPV 9.2 Absolute Neuts (auto) 13.6 H Neutrophils % 80.6 Lymphocytes % 9.9 D Monocytes % 6.3 Eosinophils % 2.9 Basophils % 0.3 Nucleated RBC % 0 Sodium 139 Potassium 4.3 Chloride 107 Carbon Dioxide 24 Anion Gap 8 BUN 16.5 Creatinine 0.8 Est GFR (CKD-EPI)AfAm 92.87 Est GFR (CKD-EPI)NonAf 80.13 Random Glucose 98 Calcium 9.0 Phosphorus 3.6 Magnesium 1.8 Total Bilirubin 0.3 AST 23 ALT 31 Alkaline Phosphatase 216 H LD Total 558 H Troponin I < 0.02 Total Protein 6.0 L Albumin 3.1 L Active Medications Generic Name Dose Route Start Last Admin Trade Name Freq PRN Reason Stop Dose Admin Acetaminophen 650 mg 08/17/19 11:08 08/17/19 17:03 Tylenol - PO 650 mg Q4H PRN Administration PAIN OR FEVER Albuterol Sulfate 1 puff 08/17/19 11:20 Ventolin Hfa Inhaler - IH Q6H PRN WHEEZING Albuterol/Ipratropium 1 amp 08/17/19 14:36 08/18/19 07:50 Duoneb - NEB 1 amp RQID HIPOLITO Administration Budesonide/Formoterol Fumarate 2 puff 08/17/19 22:00 08/17/19 21:45 Symbicort 80/4.5mcg - IH Not Given BID HIPOLITO Diphenhydramine HCl 25 mg 08/17/19 22:00 08/17/19 21:44 Benadryl - PO 25 mg BID HIPOLITO Administration Docusate Sodium 100 mg 08/17/19 11:20 Colace - PO TID PRN CONSTIPATION Enoxaparin Sodium 40 mg 08/18/19 10:00 Lovenox - SQ DAILY HIPOLITO Ceftriaxone Sodium 1 gm/ 50 mls @ 200 mls/hr 08/18/19 10:00 Dextrose IVPB DAILY [facility] Protocol Famotidine/Sodium Chloride 20 mg in 50 mls @ 100 mls/hr 08/17/19 22:00 21:44 Pepcid 20 Mg Premixed Ivpb - IVPB 100 mls/hr BID HIPOLITO Administration Prednisone 40 mg 08/17/19 17:00 08/17/19 17:02 Deltasone - PO 40 mg DAILY HIPOLITO Administration ASSESSMENT/PLAN: 59 year old female with a history of HIV on HAART, asthma and substance abuse, Non-hodgkin's lymphoma s/p chemo, s/p R sided urinary stent 3 months ago admitted for abdominal pain/hematuria and fevers in the setting of possible NHL progression #Fevers: could be related to NHL vs urinary tract infection, Tmax 101.3 yesterday -follow urine cultures -continue ceftriaxone day 2 -MRI brain -will need further workup of mediastinal mass -d/w onc, mediastinal mass should get tissue diagnosis, will need to consider CT surg vs IR. Will need to d/w IR on tuesday if possible to biopsy - possibly axillary lymph node? -tylenol for symptom control #Non-hodgkins lymphoma: found to have superior mediastinal mass 6x5cm with some para-aortic lymphadenopathy -could be progression of non-hodgkins lymphoma -heme/onc consulted -will discuss options for diagnosis and treatment -brain MRI to r/o metastatic lesions #Abdominal Pain: improving -continue pepcid -continue w/u of fevers #Hematuria: continues to have hematuria, not painful, no dysuria -monitor CBC -Dr. Bayron Hope consulted -follow urine cultures #Angioedema: patient was at [facility] ER for pain on 08/16, discussed with ED doctor there; she is a frequent flyer. They did not do labs on that visit but did administer ketorolac 60mg -on Prednisone 40mg day 2, continue -continue benadryl -pepcid -not completely resolved -ID consulted #HIV: on HAART -ID following -continue descovy #Asthma -continue home meds #FEN -no standing fluids -replete lytes as necessary -regular diet #Prophylaxis -lovenox 40 #Disposition -continue to monitor on med surg, unclear time for length of stay at present Visit type - Emergency Visit Emergency Visit: No - New Patient This patient is new to me today: Yes Date on this admission: 08/18/19 - Critical Care Critical Care patient: No ATTENDING PHYSICIAN STATEMENT I saw and evaluated the patient. I reviewed the resident's note and discussed the case with the resident. I agree with the resident's findings and plan as documented. SUBJECTIVE: OBJECTIVE: ASSESSMENT AND PLAN:
--- NOTE | 2019-08-18 12:15 | PN ---
Teaching Attending Note Name of Resident: Flaco Loomis ATTENDING PHYSICIAN STATEMENT I saw and evaluated the patient. I reviewed the resident's note and discussed the case with the resident. I agree with the resident's findings and plan as documented. SUBJECTIVE: suprapubic pain. cont with hematuria. NO OSB . feels better today OBJECTIVE: NAD, awake, alert , oriented. looks better today HEENT: Nl oropharynx,MMM. lymphadenopathy in b/l neck R > L . fullness of neck . no rash on face. decreased swelling of face Cv: RRR, no mRG Lungs: clear today, minimal rales on bases . no wheezes Ext: No edema or erythema on upper or lower extremities Abd: soft, Nd, TTP in suprapubic area. no rebound or guarding. NL BS Lymphatic: lymphadenopathy in b/l neck ( R > L), and in axillary areas. None in groins. ASSESSMENT AND PLAN: Unfortunate , pleasant 59 y/o lady with h/o HIV, on HAART, Athma, remote h/o cocaine use, non Hodgkin's lymphoma, s/p chemo, UTI, R hydronephrosis and R hydroureter s/p R sided stent placement, who presented to ER with abd pain and hematuria . 1- Abd pain and hematuria. has SIRS . r/o sepsis due to UTI. although fever could be due to non-Hodgkin's lymphoma - start ceftriaxone . - follow cultures - CAse was d/w Dr. Robb, who will evaluate 2- H/O Non-Hosgkkin's lymphoma, s/p chemo. - try to get records form dr. Felipe's office - mediastinal mass and kailash-aortic abd lymphnodes are highly suspicious for recurrence. also has LAP in her neck and axillae . fever could be from lymphoma - Heme Recs pending - MRI of brain pending . 3- Possible angioedema, after unknown medication administration: was unable to obtain any records from [facility] ER. - Cont prednisone,H1, H2 blockers. day 2 - will try to reach [facility] again 4- h/o HIV: cont meds 5- H/o Asthma, cont inhaler and Nebs DVT PX: lovenox ASSESSMENT AND PLAN:
--- NOTE | 2019-08-18 14:30 | PN ---
Progress Note (short form) - Note Progress Note: continues with suprapubic discomfort less facial swelling Vital Signs Period Temp Pulse Resp BP Sys/Rosas Pulse Ox Last 24 Hr 98 F-101.3 F 113-121 18-20 121-152/71-85 97-99 cor-rrr lungs decreased bs at bases abd soft,nt ext no edema less facail and neck swelling today CBC, BMP 08/18/19 06:35 08/18/19 06:35 Microbiology 08/17/19 06:45 Urine - Urine Clean Catch Urine Culture - Final NO GROWTH OBTAINED ct scans notable for large right paratracheal mass-collection of nodes? and ureteral stent a/p fevers- ?lymphoma right paratracheal mass- ?recurrence NHL- hematology following, reccd IR Biopsy ureteral stent with stone and hydronephrosis would get blood cultures urine culture is negative continue ceftriaxone adverse drug reaction?- by report happened after pain injection at [facility]- improved facial swelling stable HIV- continue meds history of asthma- nebs add steroids if needed
[2019-08-18 15:20] LABS: PLATELET ESTIMATE NORMAL
[2019-08-18] MEDS: EMTRICITABINE/TENOFOV ALAFENAM (DESCOVY) TABLET PO SCH (18:31)
[2019-08-18] MEDS: oxyCODONE HCL 5 MG TABLET PO PRN (22:58)
[2019-08-19] MEDS ORDERED: KETOROLAC TROMETHAMINE 30 MG/1 ML VIAL IVPUSH PRN (03:43)
[2019-08-19] MEDS ORDERED: KETOROLAC TROMETHAMINE 10 MG TABLET PO SCH (06:00)
[2019-08-19] MEDS ORDERED: INSULIN (LEVEMIR) 100 UNITS/ML UNITS SQ ONE (07:34)
[2019-08-19] MEDS: oxyCODONE HCL 5 MG TABLET PO PRN ×3 (07:53→22:11)
[2019-08-19 08:18] LABS: BASO % 0.8 % (0-2.0); EOS % 2.7 % (0-4.5); HEMATOCRIT 32.4 % (32.4-45.2); HEMOGLOBIN 10.8 GM/dL (10.7-15.3); LYMPH % 10.7 % (8-40); MCHC 33.5 g/dl (32.0-36.0); MEAN CELL VOLUME 92.5 fl (80-96); MEAN PLT VOLUME 9.1 fl (7.5-11.1); NEUT % 83.8 % (42.8-82.8); PLATELET COUNT 159 K/MM3 (134-434); RDW 14.8 % (11.6-15.6); WHITE BLOOD COUNT 14.9 K/mm3 (4.0-10.0)
[2019-08-19] MEDS: ALBUTEROL SO4 2.5/IPRATROPIUM 0.5 INH SOL 3 ML VIAL.NEB. NEB SCH ×4 (08:32→19:38)
[2019-08-19 09:20] LABS: INR 1.03 (0.83-1.09); PROTHROMBIN TIME (PATIENT) 12.2 SEC (9.7-13.0)
[2019-08-19 09:23] LABS: ACTIVATED PTT 28.9 SECONDS (25.2-36.5)
[2019-08-19] MEDS: diphenhydrAMINE HCL 25 MG CAPSULE (FP) PO SCH ×2 (09:59→22:11)
[2019-08-19] MEDS ORDERED: DEXTROSE 5%-WATER - 50 ML IVPB ONE (10:21)
[2019-08-19] MEDS ORDERED: PT OWN MED DRAWER 7, Y5N ONE (10:21)
[2019-08-19] MEDS ORDERED: cefTRIAXone SODIUM 1 GM VIAL ONE (10:21)
[2019-08-19] MEDS: ENOXAPARIN NA (PORCINE) 40 MG/0.4 ML DISP.SYRIN SQ SCH (10:25)
[2019-08-19] MEDS: CEFTRIAXONE 1 GM in DEXTROSE 5%-WATER - 50 ML IVPB SCH (10:26)
[2019-08-19] MEDS: predniSONE 20 MG TABLET (UD) PO SCH (10:27)
[2019-08-19] MEDS: FAMOTIDINE 20 MG/50 ML IVPB 20 MG/50 ML MG IVPB SCH ×2 (10:27→22:11)
[2019-08-19] MEDS: EMTRICITABINE/TENOFOV ALAFENAM (DESCOVY) TABLET PO SCH (10:29)
[2019-08-19] MEDS: BUDESONIDE/FORMETEROL FUMARATE 80/4.5 mcg INHALER IH SCH ×2 (10:30→23:00)
[2019-08-19] MEDS: DOLUTEGRAVIR SODIUM 50 MG TABLET (NON-FORMULARY) PO SCH (10:30)
--- NOTE | 2019-08-19 11:03 | PN ---
Progress Note (short form) - Note Progress Note: continues with suprapubic discomfort less facial swelling had mri yesterday Vital Signs Period Temp Pulse Resp BP Sys/Rosas Pulse Ox Last 24 Hr 98 F-98.2 F 83-101 16-20 132-155/84-85 97-97 cor-rrr lungs clear abd soft,nt ext no edema CBC, BMP 08/19/19 06:20 08/18/19 06:35 Microbiology 08/17/19 20:00 Blood - Peripheral Venous Blood Culture - Preliminary NO GROWTH OBTAINED AFTER 24 HOURS, INCUBATION TO CONTINUE FOR 4 DAYS. 08/17/19 20:00 Blood - Peripheral Venous Blood Culture - Preliminary NO GROWTH OBTAINED AFTER 24 HOURS, INCUBATION TO CONTINUE FOR 4 DAYS. 08/17/19 06:45 Urine - Urine Clean Catch Urine Culture - Final NO GROWTH OBTAINED ct scans notable for large right paratracheal mass-collection of nodes? and ureteral stent Current Medications Acetaminophen (Tylenol -) 650 mg PO Q4H PRN PRN Reason: PAIN OR FEVER Last Admin: 08/18/19 18:57 Dose: 650 mg Albuterol Sulfate (Ventolin Hfa Inhaler -) 1 puff IH Q6H PRN PRN Reason: WHEEZING Albuterol/Ipratropium (Duoneb -) 1 amp NEB RQID [facility] Last Admin: 08/19/19 08:32 Dose: Not Given Budesonide/Formoterol Fumarate (Symbicort 80/4.5mcg -) 2 puff IH BID [facility] Last Admin: 08/19/19 10:30 Dose: Not Given Diphenhydramine HCl (Benadryl -) 25 mg PO BID [facility] Last Admin: 08/19/19 09:59 Dose: Not Given Docusate Sodium (Colace -) 100 mg PO TID PRN PRN Reason: CONSTIPATION Enoxaparin Sodium (Lovenox -) 40 mg SQ DAILY [facility] Last Admin: 08/19/19 10:25 Dose: 40 mg Ceftriaxone Sodium 1 gm/ (Dextrose) 50 mls @ 200 mls/hr IVPB DAILY [facility], [facility]; Protocol Last Admin: 08/19/19 10:26 Dose: 200 mls/hr Famotidine/Sodium Chloride (Pepcid 20 Mg Premixed Ivpb -) 20 mg in 50 mls @ 100 mls/hr IVPB BID [facility] Last Admin: 08/19/19 10:27 Dose: 100 mls/hr Ketorolac Tromethamine (Toradol Injection -) 30 mg IVPUSH Q6H PRN PRN Reason: PAIN LEVEL 6-10 Stop: 08/24/19 03:42 Last Admin: 08/19/19 03:48 Dose: 30 mg Oxycodone HCl (Roxicodone -) 2.5 mg PO Q6H PRN PRN Reason: PAIN LEVEL 6-10 Last Admin: 08/19/19 07:53 Dose: 2.5 mg Prednisone (Deltasone -) 20 mg PO DAILY [facility] a/p fevers- ?lymphoma-she reports eswl scheduled for tomorrow- would contact urology to see if this can be done inpt, continue rocephin pendingt he procedure right paratracheal mass- ?recurrence NHL- hematology following, reccd IR Biopsy ureteral stent with stone and hydronephrosis adverse drug reaction?- by report happened after pain injection at [facility]- improved facial swelling stable HIV- continue meds history of asthma- nebs add steroids if needed history of prior cva many years ago at [facility] d/w hospitalist
--- NOTE | 2019-08-19 11:06 | PN ---
Progress Note (short form) - Note Progress Note: Subjective: No fever or chills. cont to have pain in R flank and R abd pain. Cont to have hematuria. no N/V. no LEYVA . she feels that her face is abck to normal Objective: Vital Signs: Last Vital Signs Temp Pulse Resp BP Pulse Ox 98.2 F 84 18 132/85 97 08/19/19 06:00 08/19/19 06:00 08/19/19 08:59 08/19/19 06:00 08/19/19 08:59 Laboratory Results - last 24 hr 08/18/19 08/19/19 08/19/19 06:35 06:20 06:20 WBC 14.9 H RBC 3.50 L Hgb 10.8 Hct 32.4 MCV 92.5 MCH 31.0 MCHC 33.5 RDW 14.8 Plt Count 159 D MPV 9.1 Absolute Neuts (auto) 12.5 H Neutrophils % 83.8 H Neutrophils % (Manual) 71.3 Band Neutrophils % 5.0 Lymphocytes % 10.7 Lymphocytes % (Manual) 4.9 L D Monocytes % 2.0 L Monocytes % (Manual) 2 L Eosinophils % 2.7 Eosinophils % (Manual) 6.9 H Basophils % 0.8 Basophils % (Manual) 0.0 Myelocytes % (Man) 3 H Promyelocytes % (Man) 0 Blast Cells % (Manual) 0 Nucleated RBC % 0 Metamyelocytes 0 D Platelet Estimate Normal PT with INR 12.20 INR 1.03 PTT (Actin FS) 28.9 Physical Exam: NAD, awake, alert. HEENT: MMM. no facial swelling . neck swelling is better Cv: RRR, no MRG Lungs: CTAB . no wheezes, no rales Ext: No edema or erythema on upper or lower extremities. Abd: soft, Nd, TTP in suprapubic area, and RUQ and RLQ . no rebound or guarding. NL BS Lymphatic: lymphadenopathy in b/l neck , and in axillary areas. ASSESSMENT AND PLAN: Unfortunate , pleasant 59 y/o lady with h/o HIV, on HAART, Athma,CVA, remote h/ o cocaine use, non Hodgkin's lymphoma, s/p chemo, UTI, R hydronephrosis and R hydroureter s/p R sided stent placement, who presented to ER with abd pain and hematuria . 1-R/o sepsis due to UTI. Fever could be due to non-Hodgkin's lymphoma - Cont ceftriaxone. - follow cultures ( Neg to date ) - Spoke to Dr. Walsh, plan for ESWL tomorrow . but stent will not be removed as has lymphademnopathy. - Make NPO after MN. - dc toradol ordered last night 2- H/O Non-Hosgkkin's lymphoma, s/p chemo. - try to get records form dr. Felipe's office on Tuesday - mediastinal mass and kailash-aortic abd lymphnodes are highly suspicious for recurrence. also peripheral lymphadenopathy - will consult Dr. Griffiths for excisional Lymph node Bx - MRI of brain with no lymphoma involvement in her brain. old stroke. patient says she had a stroke few years ago, and was asked to take ASA. will hold for now for procedure and also hematuria. 3- Possible angioedema. - decrease prednisione to 20 mg. H1, H2 blockers. day 01/18 4- h/o HIV: cont meds 5- H/o Asthma, cont inhaler and Nebs DVT PX: lovenox Visit type - Emergency Visit Emergency Visit: Yes ED Registration Date: 08/17/19 Care time: The patient presented to the Emergency Department on the above date and was hospitalized for further evaluation of their emergent condition. - New Patient This patient is new to me today: No - Critical Care Critical Care patient: No
[2019-08-19] MEDS: ACETAMINOPHEN 325 MG TABLET (FP) PO PRN ×2 (12:28→22:12)
[2019-08-19 12:35] LABS: ANISOCYTOSIS 0; MACROCYTOSIS 0
[2019-08-19 12:51] LABS: PLATELET ESTIMATE ADEQUATE
[2019-08-20] MEDS: ACETAMINOPHEN 325 MG TABLET (FP) PO PRN ×3 (02:31→23:40)
[2019-08-20] MEDS: oxyCODONE HCL 5 MG TABLET PO PRN ×3 (03:22→23:39)
[2019-08-20 07:39] LABS: BASO % 0.9 % (0-2.0); EOS % 3.2 % (0-4.5); HEMATOCRIT 36.1 % (32.4-45.2); HEMOGLOBIN 11.9 GM/dL (10.7-15.3); LYMPH % 13.2 % (8-40); MCH 30.8 pg (25.7-33.7); MCHC 33.1 g/dl (32.0-36.0); MEAN PLT VOLUME 9.1 fl (7.5-11.1); NEUT % 80.7 % (42.8-82.8); PLATELET COUNT 110 K/MM3 (134-434); RBC 3.88 M/mm3 (3.60-5.2); WHITE BLOOD COUNT 16.3 K/mm3 (4.0-10.0)
[2019-08-20] MEDS: ALBUTEROL SO4 2.5/IPRATROPIUM 0.5 INH SOL 3 ML VIAL.NEB. NEB SCH ×4 (08:45→20:40)
[2019-08-20] MEDS ORDERED: PT OWN MED DRAWER 7, Y5N ONE (08:51)
[2019-08-20] MEDS ORDERED: DEXTROSE 5%-WATER - 50 ML IVPB ONE (08:52)
[2019-08-20] MEDS ORDERED: cefTRIAXone SODIUM 1 GM VIAL ONE (08:52)
[2019-08-20] MEDS: FAMOTIDINE 20 MG/50 ML IVPB 20 MG/50 ML MG IVPB SCH ×2 (09:00→21:04)
[2019-08-20] MEDS: CEFTRIAXONE 1 GM in DEXTROSE 5%-WATER - 50 ML IVPB SCH (09:01)
[2019-08-20] MEDS: BUDESONIDE/FORMETEROL FUMARATE 80/4.5 mcg INHALER IH SCH ×2 (09:02→21:05)
[2019-08-20] MEDS: DOLUTEGRAVIR SODIUM 50 MG TABLET (NON-FORMULARY) PO SCH (09:05)
[2019-08-20] MEDS: EMTRICITABINE/TENOFOV ALAFENAM (DESCOVY) TABLET PO SCH (09:05)
[2019-08-20] MEDS: diphenhydrAMINE HCL 25 MG CAPSULE (FP) PO SCH ×2 (09:05→21:04)
[2019-08-20] MEDS ORDERED: predniSONE 20 MG TABLET (UD) PO SCH (10:00)
[2019-08-20] MEDS ORDERED: ONDANSETRON 4 MG/2 ML VIAL IVPUSH PRN ×2 (10:04→13:33)
[2019-08-20] MEDS ORDERED: LACTATED RINGERS SOLUTION 1,000 ML IV SCH (10:15)
[2019-08-20 11:27] LABS: ANISOCYTOSIS 1+; MACROCYTOSIS 0; PLATELET ESTIMATE DECREASED
[2019-08-20] MEDS ORDERED: MIDAZOLAM HCL 2 MG/2 ML SINGLE DOSE VIAL ONE (11:59)
[2019-08-20] MEDS ORDERED: PROPOFOL 20 ML ONE ×2 (11:59→12:43)
--- NOTE | 2019-08-20 12:49 | CONSULT ---
- Consultation REQUESTING PROVIDER: CONSULT REQUEST: We have been asked to surgically evaluate this patient for lymph node biopsy/excision PCP:Claudia Moy HISTORY OF PRESENT ILLNESS: 59y F hx of HIV, non hodgkins lymphona, asthma, R uretheral stent placed 06/2019 presented to ED with nausea, abdominal pain and bleeding since her stent placement back in June. she is scheduled to have the stent removed by urology today. She also c/o rash and swelling below her eyes since (08/16) morning. She has had suprapubic pain, hematuria, and burning micturation for the past few months. She was treated at [facility] last Tuesday where she received an IM painkiller, and the swelling and rash developed the next day. She has associated nausea, 1 episode of whitish nbnb vomiting , diffuse chest pain tender to palpation, SOB, productive cough with yellow sputum for the past 7 days, dysuria, and hematuria. She has a history of smoking crack cocaine (no IV drug use), but has been clean for the past 9 months. She has been tolerating her diet and denies any fever/chills, diarrhea. pt is a poor historian. PMHx: As stated above Anemia: Yes Asthma: Yes Cancer: (LYMPHOMA) Cardiac Disorders: No CVA: No COPD: Yes CHF: No DVT: No Dementia: No Diabetes: No GI Disorders: No Disorders: No HTN: Yes Hypercholesterolemia: No Kidney Stones: Yes Liver Disease: Yes Seizures: No Thyroid Disease: No - Surgical History Abdominal Surgery: Yes Appendectomy: No Cardiac Surgery: No Cholecystectomy: No Lung Surgery: No Neurologic Surgery: No Orthopedic Surgery: No - Immunization History Immunization Up to Date: Yes - Psycho Social/Smoking Cessation Hx Smoking Status: No Smoking History: Current every day smoker Have you smoked in the past 12 months: Yes Number of Cigarettes Smoked Daily: 1 If you are a former smoker, when did you quit?: 1month Cigars Per Day: 0 Information on smoking cessation initiated: Yes 'Breaking Loose' booklet given: 01/25/19 Hx Alcohol Use: Yes (Seasonal) Drug/Substance Use Hx: No Substance Use Type: Cocaine Hx Substance Use Treatment: No PSHx: urethreal stent Home Medications Medication Instructions Recorded Docusate Sodium [Colace -] 100 mg PO TID PRN #90 capsule 09/28/18 Albuterol 0.083% Nebulizer Neha 1 neb NEB Q6H #30 vial 05/29/19 [Ventolin 0.083% Nebulizer Soln -] Albuterol Sulfate Inhaler - 1 - 2 inh PO QID PRN #1 inhaler 05/29/19 [Ventolin HFA Inhaler -] Budesonide/Formeterol Fumarate 2 inh PO BID #1 cannister 05/29/19 [SYMBICORT 80/4.5mcg -] Dolutegravir Sodium [Tivicay] 50 mg PO DAILY #30 tablet 05/29/19 Emtricitabine/Tenofov Alafenam 1 each PO DAILY #30 tablet 05/29/19 [Descovy 200-25 mg Tablet (Nf)] Multivitamin [One-Daily 1 each PO DAILY #30 tablet 05/29/19 Multi-Vitamin] Ibuprofen [Motrin -] 600 mg PO BID PRN 07/31/19 Oxycodone HCl/Acetaminophen 1 tab PO Q6H #10 tablet MDD 4 07/31/19 [Percocet 5-325 mg Tablet] Allergies Allergy/AdvReac Type Severity Reaction Status Date / Time hydromorphone [From Dilaudid] Allergy Verified 08/17/19 06:37 REVIEW OF SYSTEMS CONSTITUTIONAL: Absent: fever, chills, diaphoresis, generalized weakness, malaise, loss of appetite, weight change HEENT: Absent: rhinorrhea, nasal congestion, throat pain, throat swelling, CARDIOVASCULAR: +chest wall tenderness Absent: syncope, palpitations, irregular heart rate, lightheadedness, peripheral edema RESPIRATORY: +shortness of breath, Absent: cough, dyspnea with exertion, GASTROINTESTINAL: +abdominal pain, +nausea, +vomiting x1 GENITOURINARY: Absent: + dysuria, + hematuria, + flank pain MUSCULOSKELETAL: Absent: myalgia, arthralgia, joint swelling, back pain, neck pain SKIN: Absent: +rash, HEMATOLOGIC/IMMUNOLOGIC: + lymphadenopathy ENDOCRINE: Absent: unexplained weight gain, unexplained weight loss, heat intolerance, cold intolerance NEUROLOGIC: Absent: headache, focal weakness or paresthesias, dizziness, unsteady gait, seizure, mental status changes, bladder or bowel incontinence PSYCHIATRIC: Absent: anxiety, depression, suicidal or homicidal ideation, hallucinations. PHYSICAL EXAM: GENERAL: The patient is awake, alert, and fully oriented, NAD HEAD: Normocephalic, atraumatic. EYES: sclera anicteric, conjunctiva clear. LUNGS: unlabored resp on RA, speaking complete sentences. EXTREMITIES: Normal range of motion, no edema. palpable lymphadenopathy in right axilla, NEUROLOGICAL: No facial assymetry, Normal speech, PSYCH: Normal mood, normal affect. SKIN: Warm, Dry, normal turgor, Vital Signs Temperature 99.6 F 08/20/19 06:00 Pulse Rate 75 08/20/19 06:00 Respiratory Rate 20 08/20/19 06:00 Blood Pressure 154/89 08/20/19 06:00 O2 Sat by Pulse Oximetry (%) 97 08/19/19 08:59 Lab Results WBC 16.3 K/mm3 (4.0-10.0) H 08/20/19 06:10 RBC 3.88 M/mm3 (3.60-5.2) 08/20/19 06:10 Hgb 11.9 GM/dL (10.7-15.3) 08/20/19 06:10 Hct 36.1 % (32.4-45.2) 08/20/19 06:10 MCV 93.0 fl (80-96) 08/20/19 06:10 MCHC 33.1 g/dl (32.0-36.0) 08/20/19 06:10 RDW 15.0 % (11.6-15.6) 08/20/19 06:10 Plt Count 110 K/MM3 (134-434) L D 08/20/19 06:10 Sodium 139 mmol/L (136-145) 08/18/19 06:35 Potassium 4.3 mmol/L (3.5-5.1) 08/18/19 06:35 Chloride 107 mmol/L (98-107) 08/18/19 06:35 Carbon Dioxide 24 mmol/L (21-32) 08/18/19 06:35 Anion Gap 8 MMOL/L (8-16) 08/18/19 06:35 BUN 16.5 mg/dL (7-18) 08/18/19 06:35 Creatinine 0.8 mg/dL (0.55-1.3) 08/18/19 06:35 Random Glucose 98 mg/dL (74-106) 10/05/19 06:35 Calcium 9.0 mg/dL (8.5-10.1) 08/18/19 06:35 INR 1.03 (0.83-1.09) 08/19/19 06:20 Problem List - Problems (1) HIV (human immunodeficiency virus infection) Assessment/Plan: Patient with history of cancer and HIV with new/worsening axillary lymphadenopathy 1) NPO for OR tomorrow, right axillary lymph node excision 2) Medical optimization 3) GI and DVT prophylaxis Evaluation and plan discussed with Dr Griffiths Code(s): Z21 - ASYMPTOMATIC HUMAN IMMUNODEFICIENCY VIRUS INFECTION STATUS Qualifiers: HIV symptom status: unspecified Qualified Code(s): B20 - Human immunodeficiency virus [HIV] disease (2) Non-Hodgkin lymphoma Code(s): C85.90 - NON-HODGKIN LYMPHOMA, UNSPECIFIED, UNSPECIFIED SITE
[2019-08-20] MEDS ORDERED: DEXAMETHASONE SOD PHOSPHATE 4 MG/1 ML VIAL ONE (12:54)
[2019-08-20] MEDS ORDERED: KETOROLAC TROMETHAMINE 30 MG/1 ML VIAL ONE (12:54)
--- NOTE | 2019-08-20 13:15 | PN ---
Teaching Attending Note Name of Resident: Althea Chance ATTENDING PHYSICIAN STATEMENT I saw and evaluated the patient. I reviewed the resident's note and discussed the case with the resident. I agree with the resident's findings and plan as documented. SUBJECTIVE: No fever or chills. abd pain and R flank pain with radiation to R groin. has no hematuria today. OBJECTIVE: crying HEENT: MMM. no facial swelling. LAP in R upper neck Cv: RRR, no MRG Lungs: CTAB . no wheezes, no rales Ext: No edema or erythema on upper or lower extremities. Abd: soft, ND, TTP in suprapubic area, and RUQ and RLQ . no rebound or guarding. NL BS Lymphatic: lymphadenopathy in R upper neck , and in axillary areas ( 2 cm node in R axilla and 1 cm node in L axilla ) ASSESSMENT AND PLAN: Unfortunate , pleasant 59 y/o lady with h/o HIV, on HAART, Athma,CVA, remote h/ o cocaine use, non Hodgkin's lymphoma, s/p chemo, UTI, R hydronephrosis and R hydroureter s/p R sided stent placement, who presented to ER with abd pain and hematuria . 1-R/o sepsis due to UTI. Fever could be due to non-Hodgkin's lymphoma. - Cont ceftriaxone. - Urine and blood cultures are Neg to date - ESWL Today 2- H/O Non-Hosgkkin's lymphoma, s/p chemo. concern for recurrence - case d/w dr. Griffiths and with patient. she is agreeable to an excisional bx of R lymph node tomorrow - make NPO after MN. hold lovenox fro tomorrow 3- h/o CVA: she is on asa as out pt - will cont to hold for procedures today - resumption of asa depends on the degree of hematuria after prpocedure 4- Possible angioedema. - prednisone , H1, H2 blockers. day 4/7. cont current dose of steroids until off 5- h/o HIV: cont meds 6- H/o Asthma,No acute exacerbation. cont inhaler and Nebs DVT PX: lovenox on hold
[2019-08-20] MEDS ORDERED: ALBUTEROL SO4 8 GM HFA INHALER IH PRN (13:33)
[2019-08-20] MEDS ORDERED: DOCUSATE SODIUM 100 MG CAPSULE (FP) PO PRN (13:33)
[2019-08-20] MEDS: LACTATED RINGERS SOLUTION 1,000 ML IV SCH ×2 (13:55→15:08)
--- NOTE | 2019-08-20 14:36 | PN ---
Physical Exam: SUBJECTIVE: Patient seen and examined. Pt offered no complaints at the time. no blood in urine overnight. no fevers. OBJECTIVE: Vital Signs Period Temp Pulse Resp BP Sys/Rosas Pulse Ox Last 24 Hr 98.0 F-99.6 F 74-89 14-20 109-169/60-94 94-99 GENERAL: The patient is awake, alert, and fully oriented, in no acute distress. HEAD: Normal with no signs of trauma. EYES: PERRL, extraocular movements intact, sclera anicteric, conjunctiva clear. No ptosis. ENT: oropharynx clear without exudates, moist mucous membranes. LUNGS: Breath sounds equal, clear to auscultation bilaterally, no wheezes, no crackles, no accessory muscle use. HEART: Regular rate and rhythm, S1, S2 without murmur, rub or gallop. ABDOMEN: Soft, nontender, nondistended, normoactive bowel sounds, no guarding, no rebound, no hepatosplenomegaly, no masses. EXTREMITIES: 2+ pulses, warm, well-perfused, no edema. NEUROLOGICAL: Cranial nerves II through XII grossly intact. Normal speech, gait not observed. Laboratory Results - last 24 hr 08/20/19 06:10 WBC 16.3 H RBC 3.88 Hgb 11.9 Hct 36.1 MCV 93.0 MCH 30.8 MCHC 33.1 RDW 15.0 Plt Count 110 L D MPV 9.1 Absolute Neuts (auto) 13.2 H Neutrophils % 80.7 Neutrophils % (Manual) 54.5 Band Neutrophils % 6.1 Lymphocytes % 13.2 D Lymphocytes % (Manual) 19.2 D Monocytes % 2.0 L Monocytes % (Manual) 1 L Eosinophils % 3.2 Eosinophils % (Manual) 5.0 H D Basophils % 0.9 Basophils % (Manual) 1.0 Myelocytes % (Man) 7 H D Promyelocytes % (Man) 0 Blast Cells % (Manual) 0 Nucleated RBC % 0 Metamyelocytes 5 H D Hypochromia 0 Platelet Estimate Decreased Polychromasia 1+ Poikilocytosis 0 Anisocytosis 1+ Microcytosis 1+ Macrocytosis 0 Spherocytes 1+ Active Medications Generic Name Dose Route Start Last Admin Trade Name Freq PRN Reason Stop Dose Admin Acetaminophen 650 mg 08/20/19 13:33 Tylenol - PO Q4H PRN PAIN OR FEVER Albuterol Sulfate 1 puff 08/20/19 13:33 Ventolin Hfa Inhaler - IH Q6H PRN WHEEZING Albuterol/Ipratropium 1 amp 08/20/19 16:00 Duoneb - NEB RQID HIPOLITO Budesonide/Formoterol Fumarate 2 puff 08/20/19 22:00 Symbicort 80/4.5mcg - IH BID HIPOLITO Diphenhydramine HCl 25 mg 08/20/19 22:00 Benadryl - PO BID HIPOLITO Docusate Sodium 100 mg 08/20/19 13:33 Colace - PO TID PRN CONSTIPATION Ceftriaxone Sodium 1 gm/ 50 mls @ 200 mls/hr 08/21/19 10:00 Dextrose IVPB DAILY COUNT INCLUDES THE [facility] Protocol Lactated Ringer's 1,000 mls @ 75 mls/hr 08/20/19 13:33 08/20/19 13:55 Lactated Ringers Solution IV 0 mls ASDIR HIPOLITO Administration Famotidine/Sodium Chloride 20 mg in 50 mls @ 100 mls/hr 08/20/19 22:00 Pepcid 20 Mg Premixed Ivpb - IVPB BID COUNT INCLUDES THE [facility] Ondansetron HCl 4 mg 08/20/19 13:33 Zofran Injection IVPUSH Q6H PRN NAUSEA AND/OR VOMITING Oxycodone HCl 5 mg 08/20/19 13:33 Roxicodone - PO Q6H PRN PAIN LEVEL 6-10 Prednisone 20 mg 08/21/19 10:00 Deltasone - PO DAILY COUNT INCLUDES THE [facility] ASSESSMENT/PLAN: 59 y/o lady with h/o HIV, on HAART, Athma,CVA, remote h/o cocaine use, non Hodgkin's lymphoma, s/p chemo, UTI, R hydronephrosis and R hydroureter s/p R sided stent placement, who presented to ER with abd pain and hematuria . Fever 2/2 worsening non-Hodgkin's lymphoma or sepsis Cont ceftriaxone day4 Urine and blood cultures are Neg monitor Non-Hodgkin's lymphoma, s/p chemo. worsening lymphadenopathy. concern for recurrence NPO after MN . preop labs GI PPX hold lovenox for tomorrow CVA cont to hold for procedures ASA post op? based on hematuria post op Angioedema improved prednisone decreased to 20 for 3 more days , H1, H2 blockers. HIV cont meds Asthma No acute exacerbation cont inhaler and Nebs DVT PPX lovenox on hold Visit type - Emergency Visit Emergency Visit: Yes ED Registration Date: 08/17/19 Care time: The patient presented to the Emergency Department on the above date and was hospitalized for further evaluation of their emergent condition. - New Patient This patient is new to me today: Yes Date on this admission: 08/20/19 - Critical Care Critical Care patient: No - Discharge Referral Referred to [facility] No ATTENDING PHYSICIAN STATEMENT I saw and evaluated the patient. I reviewed the resident's note and discussed the case with the resident. I agree with the resident's findings and plan as documented. SUBJECTIVE: OBJECTIVE: ASSESSMENT AND PLAN:
--- NOTE | 2019-08-20 14:59 | PN ---
Progress Note (short form) - Note Progress Note: s/p laser lithotripsy today Vital Signs Period Temp Pulse Resp BP Sys/Rosas Pulse Ox Last 24 Hr 98.0 F-99.6 F 74-89 14-20 109-169/60-94 94-99 cor-rrr lungs clear abd soft,nt ext no edema CBC, BMP 08/20/19 06:10 08/18/19 06:35 Microbiology 08/17/19 20:00 Blood - Peripheral Venous Blood Culture - Preliminary NO GROWTH OBTAINED AFTER 48 HOURS, INCUBATION TO CONTINUE FOR 3 DAYS. 08/17/19 20:00 Blood - Peripheral Venous Blood Culture - Preliminary NO GROWTH OBTAINED AFTER 48 HOURS, INCUBATION TO CONTINUE FOR 3 DAYS. 08/17/19 06:45 Urine - Urine Clean Catch Urine Culture - Final NO GROWTH OBTAINED ct scans notable for large right paratracheal mass-collection of nodes? and ureteral stent Microbiology 08/17/19 20:00 Blood - Peripheral Venous Blood Culture - Preliminary NO GROWTH OBTAINED AFTER 48 HOURS, INCUBATION TO CONTINUE FOR 3 DAYS. 08/17/19 20:00 Blood - Peripheral Venous Blood Culture - Preliminary NO GROWTH OBTAINED AFTER 48 HOURS, INCUBATION TO CONTINUE FOR 3 DAYS. 08/17/19 06:45 Urine - Urine Clean Catch Urine Culture - Final NO GROWTH OBTAINED a/p fevers- ?lymphoma -SHE IS AGREEABLE TO LN BIOPSY TOMORROW right paratracheal mass- ?recurrence NHL- hematology following, reccd IR Biopsy ureteral stent with stone and hydronephrosis-s/p eswl, will d/c rocephin adverse drug reaction?- by report happened after pain injection at [facility]- improved facial swelling stable HIV- continue meds history of asthma- nebs add steroids if needed history of prior cva many years ago at [facility] d/w hospitalist
--- NOTE | 2019-08-20 18:50 | PN ---
Progress Note (short form) - Note Progress Note: Patient seen and examined No complaints. Has agreed to lymph node biopsy Last Vital Signs Temp Pulse Resp BP Pulse Ox 98.2 F 82 20 117/59 L 99 08/20/19 17:54 08/20/19 17:54 08/20/19 17:54 08/20/19 17:54 08/20/19 14:28 CBC, BMP 08/20/19 06:10 08/18/19 06:35 HEENT: TREVER, EOM Intact Nodes: prominent right axillary adenopathy Cor: RSR, No murmurs, No gallops Lungs: clear Abd: Soft, Normal bowel sounds, No organomegaly Ext- neg CBC, BMP 08/20/19 06:10 08/18/19 06:35 Impression: History of NHL- axillary/mediastinal lymphadenopathy Fevers HIV disease Thrombocytopenia
[2019-08-21] MEDS: oxyCODONE HCL 5 MG TABLET PO PRN ×2 (05:49→21:04)
[2019-08-21] MEDS: ACETAMINOPHEN 325 MG TABLET (FP) PO PRN ×2 (05:50→21:26)
[2019-08-21] MEDS: ALBUTEROL SO4 2.5/IPRATROPIUM 0.5 INH SOL 3 ML VIAL.NEB. NEB SCH ×4 (07:48→20:22)
--- NOTE | 2019-08-21 09:46 | PN ---
Progress Note (short form) - Note Progress Note: Anesthesia Post op Pt seen and examined S:Alert and awake O: CBC, BMP 08/20/19 06:10 08/18/19 06:35 Vital Signs Temperature 97.9 F 08/21/19 01:00 Pulse Rate 88 08/21/19 01:00 Respiratory Rate 20 08/21/19 01:00 Blood Pressure 135/51 L 08/21/19 01:00 O2 Sat by Pulse Oximetry (%) 99 08/20/19 21:00 A/P Current Active Problems Abdominal pain (Acute) Lung mass (Acute) UTI (urinary tract infection) (Acute) s/p ESWL Doing well post op Continue current care Flaco Corbin MD
[2019-08-21] MEDS ORDERED: CEFTRIAXONE 1 GM in DEXTROSE 5%-WATER - 50 ML IVPB SCH (10:00)
[2019-08-21] MEDS ORDERED: DOLUTEGRAVIR SODIUM 50 MG TABLET (NON-FORMULARY) PO SCH (10:00)
[2019-08-21] MEDS ORDERED: EMTRICITABINE/TENOFOV ALAFENAM (DESCOVY) TABLET PO SCH (10:00)
[2019-08-21] MEDS ORDERED: predniSONE 20 MG TABLET (UD) PO SCH (10:00)
[2019-08-21] MEDS: FAMOTIDINE 20 MG/50 ML IVPB 20 MG/50 ML MG IVPB SCH ×2 (10:06→21:26)
[2019-08-21] MEDS: diphenhydrAMINE HCL 25 MG CAPSULE (FP) PO SCH ×2 (10:35→21:26)
[2019-08-21] MEDS: BUDESONIDE/FORMETEROL FUMARATE 80/4.5 mcg INHALER IH SCH ×3 (10:56→21:27)
[2019-08-21] MEDS ORDERED: BUPIVACAINE HCL/PF 0.5% (5 MG/ML) 30 ML VIAL IJ ONE ×3 (11:22→12:10)
[2019-08-21] MEDS ORDERED: PROPOFOL 20 ML ONE (11:41)
[2019-08-21] MEDS ORDERED: LIDOCAINE HCL/PF 2% SDV 5ML VIAL ONE (11:41)
[2019-08-21] MEDS ORDERED: MIDAZOLAM HCL 2 MG/2 ML SINGLE DOSE VIAL ONE (11:41)
[2019-08-21] MEDS ORDERED: LIDOCAINE HCL 1%, 10 MG/ML (20ML VIAL) ONE (11:56)
[2019-08-21 12:07] LABS: BASO % 0.4 % (0-2.0); EOS % 2.7 % (0-4.5); HEMATOCRIT 31.9 % (32.4-45.2); HEMOGLOBIN 10.6 GM/dL (10.7-15.3); LYMPH % 14.7 % (8-40); MCH 30.3 pg (25.7-33.7); MCHC 33.1 g/dl (32.0-36.0); MEAN CELL VOLUME 91.5 fl (80-96); MONO % 2.7 % (3.8-10.2); NEUT % 79.5 % (42.8-82.8); PLATELET COUNT 58 K/MM3 (134-434); RBC 3.49 M/mm3 (3.60-5.2); RDW 14.8 % (11.6-15.6); WHITE BLOOD COUNT 16.4 K/mm3 (4.0-10.0)
[2019-08-21] MEDS ORDERED: KETOROLAC TROMETHAMINE 30 MG/1 ML VIAL ONE (12:07)
[2019-08-21] MEDS ORDERED: LIDOCAINE HCL 1%, 10 MG/ML (20ML VIAL) INF ONE ×2 (12:10)
[2019-08-21 12:20] LABS: INR 1.08 (0.83-1.09); PROTHROMBIN TIME (PATIENT) 12.8 SEC (9.7-13.0)
[2019-08-21 12:28] LABS: BLOOD UREA NITROGEN 21.5 mg/dL (7-18); CALCIUM 8.9 mg/dL (8.5-10.1); CREATININE 0.8 mg/dL (0.55-1.3); POTASSIUM 3.8 mmol/L (3.5-5.1)
--- NOTE | 2019-08-21 13:20 | OP ---
Operative Note - Note: Operative Date: 08/21/19 Pre-Operative Diagnosis: right axillary adenopathy Operation: right axillary lymph node biopsy Findings: shotty adenopathy Post-Operative Diagnosis: Same as Pre-op Surgeon: Mathew Griffiths Rn Interventional: Billy Ashby Anesthesiologist/PARTNER MANAGER: Debbie Haq Anesthesia: MAC Specimens Removed: lymphoid tissue Estimated Blood Loss (mls): 15
--- NOTE | 2019-08-21 13:23 | SURG ---
Surgery Compound Coating Machine Offbearer Note Compound Coating Machine Offbearer: Billy Ashby PA-C Date of Service: 08/21/19 Diagnosis: right axillary adenopathy Procedure: right axillary lymph node biopsy I was present for the entirety of the operative procedure. For further detail, please refer to operative report. Visit type - Case Type Case Type: ED Admission - Emergency Emergency Visit: Yes ED Registration Date: 08/17/19 Care time: The patient presented to the Emergency Department on the above date and was hospitalized for further evaluation of their emergent condition. - New patient This patient is new to me today: Yes Date on this admission: 08/21/19 - Critical Care Critical Care patient: No
[2019-08-21] MEDS ORDERED: DOCUSATE SODIUM 100 MG CAPSULE (FP) PO PRN (13:35)
[2019-08-21] MEDS ORDERED: ALBUTEROL SO4 8 GM HFA INHALER IH PRN (13:35)
[2019-08-21] MEDS ORDERED: ONDANSETRON 4 MG/2 ML VIAL IVPUSH PRN (13:35)
[2019-08-21 14:40] LABS: ANISOCYTOSIS 0; MACROCYTOSIS 0; PLATELET ESTIMATE DECREASED
[2019-08-21] MEDS ORDERED: PT OWN MED DRAWER 7, Y5N ONE (15:05)
[2019-08-21] MEDS: DOLUTEGRAVIR SODIUM 50 MG TABLET (NON-FORMULARY) PO SCH (15:11)
[2019-08-21] MEDS: EMTRICITABINE/TENOFOV ALAFENAM (DESCOVY) TABLET PO SCH (15:11)
[2019-08-21] MEDS: LACTATED RINGERS SOLUTION 1,000 ML IV SCH (15:16)
--- NOTE | 2019-08-21 15:41 | PN ---
Physical Exam: SUBJECTIVE: Patient seen and examined. pt s/p axillary node excision biopsy OBJECTIVE: Vital Signs Period Temp Pulse Resp BP Sys/Rosas Pulse Ox Last 24 Hr 97.8 F-98.8 F 72-88 16-23 115-152/51-97 93-100 GENERAL: The patient is awake, alert, and fully oriented, in no acute distress. HEAD: Normal with no signs of trauma. EYES: PERRL, extraocular movements intact, sclera anicteric, conjunctiva clear. No ptosis. ENT: oropharynx clear without exudates, moist mucous membranes. LUNGS: Breath sounds equal, clear to auscultation bilaterally, no wheezes, no crackles, no accessory muscle use. HEART: Regular rate and rhythm, S1, S2 without murmur, rub or gallop. ABDOMEN: Soft, nontender, nondistended, normoactive bowel sounds, no guarding, no rebound, no hepatosplenomegaly, no masses. EXTREMITIES: 2+ pulses, warm, well-perfused, no edema. NEUROLOGICAL: Cranial nerves II through XII grossly intact. Normal speech, gait not observed. Laboratory Results - last 24 hr 08/21/19 08/21/19 08/21/19 11:12 11:12 11:12 WBC 16.4 H RBC 3.49 L Hgb 10.6 L Hct 31.9 L MCV 91.5 MCH 30.3 MCHC 33.1 RDW 14.8 Plt Count 58 L D MPV 9.0 Absolute Neuts (auto) 13.0 H Neutrophils % 79.5 Neutrophils % (Manual) 64.6 Band Neutrophils % 5.1 Lymphocytes % 14.7 Lymphocytes % (Manual) 11.1 D Monocytes % 2.7 L Monocytes % (Manual) 2 L D Eosinophils % 2.7 Eosinophils % (Manual) 2.0 Basophils % 0.4 Basophils % (Manual) 0.0 Myelocytes % (Man) 5 H D Promyelocytes % (Man) 3 H D Blast Cells % (Manual) 0 Nucleated RBC % 0 Metamyelocytes 7 H D Hypochromia 0 Platelet Estimate Decreased Polychromasia 0 Poikilocytosis 1+ Anisocytosis 0 Microcytosis 0 Macrocytosis 0 Spherocytes 1+ Stomatocytes 1+ PT with INR 12.80 INR 1.08 Sodium 139 Potassium 3.8 Chloride 104 Carbon Dioxide 27 Anion Gap 7 L BUN 21.5 H Creatinine 0.8 Est GFR (CKD-EPI)AfAm 92.87 Est GFR (CKD-EPI)NonAf 80.13 Random Glucose 74 Calcium 8.9 Blood Type Antibody Screen 08/21/19 11:12 WBC RBC Hgb Hct MCV MCH MCHC RDW Plt Count MPV Absolute Neuts (auto) Neutrophils % Neutrophils % (Manual) Band Neutrophils % Lymphocytes % Lymphocytes % (Manual) Monocytes % Monocytes % (Manual) Eosinophils % Eosinophils % (Manual) Basophils % Basophils % (Manual) Myelocytes % (Man) Promyelocytes % (Man) Blast Cells % (Manual) Nucleated RBC % Metamyelocytes Hypochromia Platelet Estimate Polychromasia Poikilocytosis Anisocytosis Microcytosis Macrocytosis Spherocytes Stomatocytes PT with INR INR Sodium Potassium Chloride Carbon Dioxide Anion Gap BUN Creatinine Est GFR (CKD-EPI)AfAm Est GFR (CKD-EPI)NonAf Random Glucose Calcium Blood Type O POSITIVE Antibody Screen Negative Active Medications Generic Name Dose Route Start Last Admin Trade Name Freq PRN Reason Stop Dose Admin Acetaminophen 650 mg 08/21/19 13:35 Tylenol - PO Q4H PRN PAIN OR FEVER Albuterol Sulfate 1 puff 08/21/19 13:35 Ventolin Hfa Inhaler - IH Q6H PRN WHEEZING Albuterol/Ipratropium 1 amp 08/21/19 16:00 Duoneb - NEB RQID HIPOLITO Budesonide/Formoterol Fumarate 2 puff 08/21/19 22:00 08/21/19 15:13 Symbicort 80/4.5mcg - IH 2 puff BID HIPOLITO Administration Diphenhydramine HCl 25 mg 08/21/19 22:00 Benadryl - PO BID HIPOLITO Docusate Sodium 100 mg 08/21/19 13:35 Colace - PO TID PRN CONSTIPATION Lactated Ringer's 1,000 mls @ 75 mls/hr 08/21/19 13:35 08/21/19 15:16 Lactated Ringers Solution IV Not Given ASDIR HIPOLITO Famotidine/Sodium Chloride 20 mg in 50 mls @ 100 mls/hr 08/21/19 22:00 Pepcid 20 Mg Premixed Ivpb - IVPB BID HIPOLITO Oxycodone HCl 5 mg 08/21/19 13:35 Roxicodone - PO Q6H PRN PAIN LEVEL 6-10 Prednisone 20 mg 08/22/19 10:00 Deltasone - PO DAILY [facility]O ASSESSMENT/PLAN: 59 y/o lady with h/o HIV, on HAART, Athma, CVA, remote h/o cocaine use, non Hodgkin's lymphoma, s/p chemo, UTI, R hydronephrosis and R hydroureter s/p R sided stent placement, who presented to ER with abd pain and hematuria . thrombocytopenia platelet dropped to 58k today Heme on board will discuss Fever 2/2 worsening non-Hodgkin's lymphoma or sepsis D/C ceftriaxone per ID rec Urine and blood cultures are Neg monitor Non-Hodgkin's lymphoma, s/p chemo. worsening lymphadenopathy. concern for recurrence S/P axillary lymph node excision biopsy. will follow path report Angioedema improved prednisone decreased to 20 for 2 more days , H1, H2 blockers. HIV cont meds Asthma No acute exacerbation cont inhaler and Nebs DVT PPX lovenox on hold platelet drop 58k Visit type - Emergency Visit Emergency Visit: Yes ED Registration Date: 08/17/19 Care time: The patient presented to the Emergency Department on the above date and was hospitalized for further evaluation of their emergent condition. - New Patient This patient is new to me today: No - Critical Care Critical Care patient: No - Discharge Referral Referred to [facility] No ATTENDING PHYSICIAN STATEMENT I saw and evaluated the patient. I reviewed the resident's note and discussed the case with the resident. I agree with the resident's findings and plan as documented. SUBJECTIVE: OBJECTIVE: ASSESSMENT AND PLAN:
--- NOTE | 2019-08-21 18:46 | PN ---
Progress Note (short form) - Note Progress Note: s/p laser lithotripsy yesterday LN biopsy today no fevers, no wheezing Vital Signs Period Temp Pulse Resp BP Sys/Rosas Pulse Ox Last 24 Hr 97.8 F-98.8 F 72-88 16-23 115-158/51-97 93-100 cor-rrr lungs clear abd soft,nt ext no edema ct scans notable for large right paratracheal mass-collection of nodes CBC, BMP 08/21/19 11:12 08/21/19 11:12 Microbiology 08/17/19 20:00 Blood - Peripheral Venous Blood Culture - Preliminary NO GROWTH OBTAINED AFTER 72 HOURS, INCUBATION TO CONTINUE FOR 2 DAYS. 08/17/19 20:00 Blood - Peripheral Venous Blood Culture - Preliminary NO GROWTH OBTAINED AFTER 72 HOURS, INCUBATION TO CONTINUE FOR 2 DAYS. 08/17/19 06:45 Urine - Urine Clean Catch Urine Culture - Final NO GROWTH OBTAINED a/p thrombocytopenia- ?llymphoma- f/u with hematology repeat cbc in am fevers- ?lymphoma -s/p LN biopsy today right paratracheal mass- ?recurrence NHL- hematology following, reccd IR Biopsy ureteral stent with stone and hydronephrosis-s/p eswl, adverse drug reaction?- by report happened after pain injection at [facility]- improved facial swelling stable HIV- continue meds history of asthma- nebs steroid taper history of prior cva many years ago at [facility] d/w hospitalist
--- NOTE | 2019-08-21 21:07 | PN ---
Teaching Attending Note Name of Resident: Althea Chance ATTENDING PHYSICIAN STATEMENT I saw and evaluated the patient. I reviewed the resident's note and discussed the case with the resident. I agree with the resident's findings and plan as documented. SUBJECTIVE: Patient is feeling well. OBJECTIVE: Vital Signs Temperature 98.0 F 08/21/19 17:57 Pulse Rate 85 08/21/19 17:57 Respiratory Rate 18 08/21/19 17:57 Blood Pressure 158/88 08/21/19 17:57 O2 Sat by Pulse Oximetry (%) 97 08/21/19 14:20 GENERAL: The patient is awake, alert, and fully oriented, in no acute distress. HEAD: Normal with no signs of trauma. EYES: PERRL, extraocular movements intact, sclera anicteric, conjunctiva clear. ENT: Ears normal, oropharynx clear without exudates, moist mucous membranes. NECK: Trachea midline, full range of motion, supple. LUNGS: Breath sounds equal, clear to auscultation bilaterally, no wheezes, no crackles, no accessory muscle use. HEART: Regular rate and rhythm, S1, S2 without murmur, rub or gallop. ABDOMEN: Soft, nontender, nondistended, normoactive bowel sounds, no guarding, no rebound, no hepatosplenomegaly, no masses. EXTREMITIES: 2+ pulses, warm, well-perfused, LUE axillary lymph node Bx. NEUROLOGICAL: Cranial nerves II through XII grossly intact. Normal speech, gait not observed. PSYCH: Normal mood, normal affect. SKIN: Warm, dry, normal turgor, no rashes or lesions noted CBCD WBC 16.4 K/mm3 (4.0-10.0) H 08/21/19 11:12 RBC 3.49 M/mm3 (3.60-5.2) L 08/21/19 11:12 Hgb 10.6 GM/dL (10.7-15.3) L 08/21/19 11:12 Hct 31.9 % (32.4-45.2) L 08/21/19 11:12 MCV 91.5 fl (80-96) 08/21/19 11:12 MCHC 33.1 g/dl (32.0-36.0) 08/21/19 11:12 RDW 14.8 % (11.6-15.6) 08/21/19 11:12 Plt Count 58 K/MM3 (134-434) L D 08/21/19 11:12 MPV 9.0 fl (7.5-11.1) 08/21/19 11:12 CMP Sodium 139 mmol/L (136-145) 08/21/19 11:12 Potassium 3.8 mmol/L (3.5-5.1) 08/21/19 11:12 Chloride 104 mmol/L (98-107) 08/21/19 11:12 Carbon Dioxide 27 mmol/L (21-32) 08/21/19 11:12 Anion Gap 7 MMOL/L (8-16) L 08/21/19 11:12 BUN 21.5 mg/dL (7-18) H 08/21/19 11:12 Creatinine 0.8 mg/dL (0.55-1.3) 08/21/19 11:12 Random Glucose 74 mg/dL (74-106) 08/21/19 11:12 Calcium 8.9 mg/dL (8.5-10.1) 08/21/19 11:12 Total Bilirubin 0.3 mg/dL (0.2-1) 08/18/19 06:35 AST 23 U/L (15-37) 08/18/19 06:35 ALT 31 U/L (13-61) 08/18/19 06:35 Alkaline Phosphatase 216 U/L (45-117) H 08/18/19 06:35 Total Protein 6.0 g/dl (6.4-8.2) L 08/18/19 06:35 Albumin 3.1 g/dl (3.4-5.0) L 08/18/19 06:35 CARDIAC ENZYMES Creatine Kinase 80 U/L (26-192) 08/17/19 06:19 Troponin I < 0.02 ng/ml (0.00-0.05) 08/17/19 12:18 Current Medications Generic Name Dose Route Start Last Admin Trade Name Freq PRN Reason Stop Dose Admin Acetaminophen 650 mg 08/21/19 13:35 Tylenol - PO Q4H PRN PAIN OR FEVER Albuterol Sulfate 1 puff 08/21/19 13:35 Ventolin Hfa Inhaler - IH Q6H PRN WHEEZING Albuterol/Ipratropium 1 amp 08/21/19 16:00 08/21/19 20:22 Duoneb - NEB 1 amp RQID HIPOLITO Administration Budesonide/Formoterol Fumarate 2 puff 08/21/19 22:00 08/21/19 15:13 Symbicort 80/4.5mcg - IH 2 puff BID HIPOLITO Administration Diphenhydramine HCl 25 mg 08/21/19 22:00 Benadryl - PO BID HIPOLITO Docusate Sodium 100 mg 08/21/19 13:35 Colace - PO TID PRN CONSTIPATION Lactated Ringer's 1,000 mls @ 75 mls/hr 08/21/19 13:35 08/21/19 15:16 Lactated Ringers Solution IV Not Given ASDIR HIPOLITO Famotidine/Sodium Chloride 20 mg in 50 mls @ 100 mls/hr 08/21/19 22:00 Pepcid 20 Mg Premixed Ivpb - IVPB BID HIPOLITO Oxycodone HCl 5 mg 08/21/19 13:35 Roxicodone - PO Q6H PRN PAIN LEVEL 6-10 Prednisone 20 mg 08/22/19 10:00 Deltasone - PO DAILY [facility] Home Medications Medication Instructions Recorded Docusate Sodium [Colace -] 100 mg PO TID PRN #90 capsule 09/28/18 Albuterol 0.083% Nebulizer Neha 1 neb NEB Q6H #30 vial 05/29/19 [Ventolin 0.083% Nebulizer Soln -] Albuterol Sulfate Inhaler - 1 - 2 inh PO QID PRN #1 inhaler 05/29/19 [Ventolin HFA Inhaler -] Budesonide/Formeterol Fumarate 2 inh PO BID #1 cannister 05/29/19 [SYMBICORT 80/4.5mcg -] Dolutegravir Sodium [Tivicay] 50 mg PO DAILY #30 tablet 05/29/19 Emtricitabine/Tenofov Alafenam 1 each PO DAILY #30 tablet 05/29/19 [Descovy 200-25 mg Tablet (Nf)] Multivitamin [One-Daily 1 each PO DAILY #30 tablet 05/29/19 Multi-Vitamin] Ibuprofen [Motrin -] 600 mg PO BID PRN 07/31/19 Oxycodone HCl/Acetaminophen 1 tab PO Q6H #10 tablet MDD 4 07/31/19 [Percocet 5-325 mg Tablet] Microbiology 08/17/19 20:00 Blood - Peripheral Venous Blood Culture - Preliminary NO GROWTH OBTAINED AFTER 96 HOURS, INCUBATION TO CONTINUE FOR 1 DAYS. 08/17/19 20:00 Blood - Peripheral Venous Blood Culture - Preliminary NO GROWTH OBTAINED AFTER 96 HOURS, INCUBATION TO CONTINUE FOR 1 DAYS. 08/17/19 06:45 Urine - Urine Clean Catch Urine Culture - Final NO GROWTH OBTAINED ASSESSMENT AND PLAN: Patient is a 59 y/o lady with h/o HIV, on HAART, Athma,CVA, remote h/o cocaine use, non Hodgkin's lymphoma, s/p chemo, UTI, R hydronephrosis and R hydroureter s/p R sided stent placement, who presented to ED with abd pain and hematuria . #H/x of Non-Hogkin's lymphoma, s/p chemo. s/p excisional Bx of right axilla by dr. Griffiths # Hx of CVA: she is on asa as out pt # Possible angioedema. prednisone , H1, H2 blockers. day 4/. cont current dose of steroids until off # h/o HIV: cont meds # H/o Asthma cont inhaler and Nebs DVT PX: lovenox on hold
[2019-08-22] MEDS: ACETAMINOPHEN 325 MG TABLET (FP) PO PRN ×5 (01:46→23:35)
[2019-08-22] MEDS: oxyCODONE HCL 5 MG TABLET PO PRN ×3 (04:13→21:37)
[2019-08-22] MEDS: LACTATED RINGERS SOLUTION 1,000 ML IV SCH ×2 (07:00→18:10)
--- NOTE | 2019-08-22 08:05 | PN ---
Progress Note (short form) - Note Progress Note: POD 1, s/p R axillary lymph node biopsy Pt seen and examined. Doing well post op, has some pain/discomfort which is improved with pain meds. Has been oob to the restroom. Tolerating Po. Denies cp/ sob, n/v/d. Vital Signs Temp 98.5 F 08/22/19 07:38 Pulse 82 08/22/19 07:38 Resp 20 08/22/19 07:38 BP 142/84 08/22/19 07:38 Pulse Ox 97 08/21/19 21:00 Intake & Output 08/21/19 08/21/19 08/22/19 11:59 23:59 11:59 Intake Total 675 1200 675 Output Total 15 Balance 675 1185 675 Intake: IV 675 850 675 Lactated Ringers Solution 675 1,000 ml @ 75 mls/hr IV ASDIR HIPOLITO Rx#:[id number] Lactated Ringers Solution 675 675 1,000 ml @ 75 mls/hr IV ASDIR HIPOLITO Rx#:[id number] IVPB 50 Oral 300 Output: Estimated Blood Loss 15 Other: Voiding Method Toilet Toilet # Unmeasured Voids Void 1 Gen: awake, alert, nad Resp: Unlabored on RA Axilla: R axilla with dressing moderately saturated, intact. Dressing changed, nasim c/d/i. No erythema or drainage noted. New 4x4 and tegaderms placed. A/P: 59 y/o F w/ PMHx HIV, asthma, substance abuse( sober 9 months), renal stones, and non-Hodgkins lymphoma a/w rash and swelling of her face, now POD 1, s/p R axillary lymph node biopsy for worsening lymphadenopathy. Doing well post op Wound stable -Keep dressings c/d/i -Pt should f/u in the office with Dr Griffiths in 7-10 days -Remainder of care per medical team d/w attending Dr Griffiths
[2019-08-22] MEDS: ALBUTEROL SO4 2.5/IPRATROPIUM 0.5 INH SOL 3 ML VIAL.NEB. NEB SCH ×4 (08:09→21:06)
[2019-08-22 08:13] LABS: BASO % 0.9 % (0-2.0); EOS % 3.6 % (0-4.5); HEMATOCRIT 31.4 % (32.4-45.2); HEMOGLOBIN 10.5 GM/dL (10.7-15.3); MCH 30.8 pg (25.7-33.7); MCHC 33.3 g/dl (32.0-36.0); MEAN CELL VOLUME 92.5 fl (80-96); MONO % 3.4 % (3.8-10.2); NEUT % 73.1 % (42.8-82.8); PLATELET COUNT 47 K/MM3 (134-434); RDW 14.7 % (11.6-15.6); WHITE BLOOD COUNT 18.5 K/mm3 (4.0-10.0)
[2019-08-22 08:17] LABS: BLOOD UREA NITROGEN 20.8 mg/dL (7-18); CALCIUM 8.6 mg/dL (8.5-10.1); CREATININE 1.1 mg/dL (0.55-1.3); POTASSIUM 4.1 mmol/L (3.5-5.1)
[2019-08-22] MEDS ORDERED: PT OWN MED DRAWER 7, Y5N ONE (09:19)
[2019-08-22] MEDS: EMTRICITABINE/TENOFOV ALAFENAM (DESCOVY) TABLET PO SCH (09:27)
[2019-08-22] MEDS: BUDESONIDE/FORMETEROL FUMARATE 80/4.5 mcg INHALER IH SCH ×2 (09:27→21:44)
[2019-08-22] MEDS: amLODIPine BESYLATE 5 MG TABLET (FP) PO SCH (09:27)
[2019-08-22] MEDS: diphenhydrAMINE HCL 25 MG CAPSULE (FP) PO SCH ×2 (09:27→21:38)
[2019-08-22] MEDS: FAMOTIDINE 20 MG/50 ML IVPB 20 MG/50 ML MG IVPB SCH (09:27)
[2019-08-22] MEDS: predniSONE 20 MG TABLET (UD) PO SCH (09:27)
[2019-08-22] MEDS: DOLUTEGRAVIR SODIUM 50 MG TABLET (NON-FORMULARY) PO SCH (09:28)
[2019-08-22 14:12] LABS: MACROCYTOSIS 1+; OVALOCYTE 1+; PLATELET ESTIMATE DECREASED
--- NOTE | 2019-08-22 15:10 | PN ---
Physical Exam: SUBJECTIVE: Patient seen and examined. Pt want to go home . offered no complaints of hematuria, or excessive bleeding for biopsy site. hypertensive a few time over night :181/106, 169/104 OBJECTIVE: Vital Signs Period Temp Pulse Resp BP Sys/Rosas Pulse Ox Last 24 Hr 97.8 F-99 F 82-95 18-20 142-181/84-106 97-97 GENERAL: The patient is awake, alert, and fully oriented, in no acute distress. HEAD: Normal with no signs of trauma. EYES: PERRL, extraocular movements intact, sclera anicteric, conjunctiva clear. No ptosis. ENT: oropharynx clear without exudates, moist mucous membranes. LUNGS: Breath sounds equal, clear to auscultation bilaterally, no wheezes, no crackles, no accessory muscle use. HEART: Regular rate and rhythm, S1, S2 without murmur, rub or gallop. ABDOMEN: Soft, nontender, nondistended, normoactive bowel sounds, no guarding, no rebound, no hepatosplenomegaly, no masses. EXTREMITIES: 2+ pulses, warm, well-perfused, no edema. axillary with dressing on the right NEUROLOGICAL: Cranial nerves II through XII grossly intact. Normal speech, gait not observed. Laboratory Results - last 24 hr 08/21/19 08/22/19 08/22/19 11:12 06:39 06:39 WBC 18.5 H RBC 3.40 L Hgb 10.5 L Hct 31.4 L MCV 92.5 MCH 30.8 MCHC 33.3 RDW 14.7 Plt Count 47 L MPV 9.0 Absolute Neuts (auto) 13.6 H Neutrophils % 73.1 Neutrophils % (Manual) 64.6 49.1 Band Neutrophils % 5.1 8.5 Lymphocytes % 19.0 D Lymphocytes % (Manual) 11.1 D 9.4 Monocytes % 3.4 L Monocytes % (Manual) 2 L D 4 D Eosinophils % 3.6 Eosinophils % (Manual) 2.0 2.8 Basophils % 0.9 Basophils % (Manual) 0.0 0.0 Myelocytes % (Man) 5 H D 1 D Promyelocytes % (Man) 3 H D 0 D Blast Cells % (Manual) 0 0 Nucleated RBC % 0 Metamyelocytes 7 H D 19 H D Hypochromia 0 Platelet Estimate Decreased Decreased Platelet Comment No clumping noted Polychromasia 0 Poikilocytosis 1+ Anisocytosis 0 Microcytosis 0 Macrocytosis 0 1+ Spherocytes 1+ Ovalocytes 1+ Stomatocytes 1+ Sodium 140 Potassium 4.1 Chloride 105 Carbon Dioxide 29 Anion Gap 7 L BUN 20.8 H Creatinine 1.1 Est GFR (CKD-EPI)AfAm 63.20 Est GFR (CKD-EPI)NonAf 54.53 Random Glucose 72 L Calcium 8.6 Active Medications Generic Name Dose Route Start Last Admin Trade Name Freq PRN Reason Stop Dose Admin Acetaminophen 650 mg 08/21/19 13:35 08/22/19 07:54 Tylenol - PO 650 mg Q4H PRN Administration PAIN OR FEVER Albuterol Sulfate 1 puff 08/21/19 13:35 Ventolin Hfa Inhaler - IH Q6H PRN WHEEZING Albuterol/Ipratropium 1 amp 08/21/19 16:00 08/22/19 11:24 Duoneb - NEB 1 amp RQID [facility] Administration Amlodipine Besylate 5 mg 08/22/19 10:00 08/22/19 09:27 Norvasc - PO 5 mg DAILY [facility] Administration Budesonide/Formoterol Fumarate 2 puff 08/21/19 22:00 08/22/19 09:27 Symbicort 80/4.5mcg - IH 2 puff BID [facility] Administration Diphenhydramine HCl 25 mg 08/21/19 22:00 08/22/19 09:27 Benadryl - PO 25 mg BID [facility] Administration Docusate Sodium 100 mg 08/21/19 13:35 Colace - PO TID PRN CONSTIPATION Lactated Ringer's 1,000 mls @ 75 mls/hr 08/21/19 13:35 08/22/19 07:00 Lactated Ringers Solution IV 75 mls/hr ASDIR [facility] Administration Famotidine/Sodium Chloride 20 mg in 50 mls @ 100 mls/hr 08/21/19 22:00 09:27 Pepcid 20 Mg Premixed Ivpb - IVPB 100 mls/hr BID [facility] Administration Oxycodone HCl 5 mg 08/21/19 13:35 08/22/19 10:41 Roxicodone - PO 5 mg Q6H PRN Administration PAIN LEVEL 6-10 Prednisone 20 mg 08/22/19 10:00 08/22/19 09:27 Deltasone - PO 20 mg DAILY [facility] Administration ASSESSMENT/PLAN: 59 y/o lady with h/o HIV, on HAART, Athma, CVA, remote h/o cocaine use, non Hodgkin's lymphoma, s/p chemo, UTI, R hydronephrosis and R hydroureter s/p R sided stent placement, who presented to ER with abd pain and hematuria . thrombocytopenia platelet dropped to 47k today from 58k yesterday Heme on board will discuss Fever 2/2 worsening non-Hodgkin's lymphoma or sepsis afebrile 97.5 D/C ceftriaxone per ID rec Urine and blood cultures are Neg monitor Non-Hodgkin's lymphoma, s/p chemo. worsening lymphadenopathy. concern for recurrence S/P axillary lymph node excision biopsy. will follow path report. pt to f/u with Dr Griffiths in 7-10d HTN started on norvasc 5 mg. pt had few episodes of high BP. no Hx of HTN Angioedema improved prednisone decreased to 20 for 1 more day , H1, H2 blockers. HIV cont meds Asthma No acute exacerbation cont inhaler and Nebs DVT PPX lovenox on hold platelet drop Visit type - Emergency Visit Emergency Visit: Yes ED Registration Date: 08/17/19 Care time: The patient presented to the Emergency Department on the above date and was hospitalized for further evaluation of their emergent condition. - New Patient This patient is new to me today: No - Critical Care Critical Care patient: No - Discharge Referral Referred to [facility] No ATTENDING PHYSICIAN STATEMENT I saw and evaluated the patient. I reviewed the resident's note and discussed the case with the resident. I agree with the resident's findings and plan as documented. SUBJECTIVE: OBJECTIVE: ASSESSMENT AND PLAN:
--- NOTE | 2019-08-22 19:33 | PN ---
Teaching Attending Note Name of Resident: Althea Chance ATTENDING PHYSICIAN STATEMENT I saw and evaluated the patient. I reviewed the resident's note and discussed the case with the resident. I agree with the resident's findings and plan as documented. SUBJECTIVE: Patient is feeling better, wants to go home. OBJECTIVE: Vital Signs Temperature 98.7 F 08/22/19 19:06 Pulse Rate 98 H 08/22/19 19:06 Respiratory Rate 18 08/22/19 19:06 Blood Pressure 142/78 08/22/19 19:06 O2 Sat by Pulse Oximetry (%) 97 08/22/19 09:00 GENERAL: The patient is awake, alert, and fully oriented, in no acute distress. HEAD: Normal with no signs of trauma. EYES: PERRL, extraocular movements intact, sclera anicteric, conjunctiva clear. ENT: Ears normal, oropharynx clear without exudates, moist mucous membranes. NECK: Trachea midline, full range of motion, supple. LUNGS: Breath sounds equal, clear to auscultation bilaterally, no wheezes, no crackles, no accessory muscle use. HEART: Regular rate and rhythm, S1, S2 without murmur, rub or gallop. ABDOMEN: Soft, NT, ND, normoactive bowel sounds, no guarding, no rebound, no hepatosplenomegaly, no masses. EXTREMITIES: 2+ pulses, warm, well-perfused, LUE axillary lymph node Bx. NEUROLOGICAL: Cranial nerves II through XII grossly intact. Normal speech, gait not observed. PSYCH: Normal mood, normal affect. SKIN: Warm, dry, normal turgor, no rashes or lesions noted CBCD WBC 18.5 K/mm3 (4.0-10.0) H 08/22/19 06:39 RBC 3.40 M/mm3 (3.60-5.2) L 08/22/19 06:39 Hgb 10.5 GM/dL (10.7-15.3) L 08/22/19 06:39 Hct 31.4 % (32.4-45.2) L 08/22/19 06:39 MCV 92.5 fl (80-96) 08/22/19 06:39 MCHC 33.3 g/dl (32.0-36.0) 08/22/19 06:39 RDW 14.7 % (11.6-15.6) 08/22/19 06:39 Plt Count 47 K/MM3 (134-434) L 08/22/19 06:39 MPV 9.0 fl (7.5-11.1) 08/22/19 06:39 CMP Sodium 140 mmol/L (136-145) 08/22/19 06:39 Potassium 4.1 mmol/L (3.5-5.1) 08/22/19 06:39 Chloride 105 mmol/L (98-107) 08/22/19 06:39 Carbon Dioxide 29 mmol/L (21-32) 08/22/19 06:39 Anion Gap 7 MMOL/L (8-16) L 08/22/19 06:39 BUN 20.8 mg/dL (7-18) H 08/22/19 06:39 Creatinine 1.1 mg/dL (0.55-1.3) 08/22/19 06:39 Random Glucose 72 mg/dL (74-106) L 08/22/19 06:39 Calcium 8.6 mg/dL (8.5-10.1) 08/22/19 06:39 Total Bilirubin 0.3 mg/dL (0.2-1) 08/18/19 06:35 AST 23 U/L (15-37) 08/18/19 06:35 ALT 31 U/L (13-61) 08/18/19 06:35 Alkaline Phosphatase 216 U/L (45-117) H 08/18/19 06:35 Total Protein 6.0 g/dl (6.4-8.2) L 08/18/19 06:35 Albumin 3.1 g/dl (3.4-5.0) L 08/18/19 06:35 CARDIAC ENZYMES Creatine Kinase 80 U/L (26-192) 08/17/19 06:19 Troponin I < 0.02 ng/ml (0.00-0.05) 08/17/19 12:18 Current Medications Generic Name Dose Route Start Last Admin Trade Name Freq PRN Reason Stop Dose Admin Acetaminophen 650 mg 08/21/19 13:35 08/22/19 15:56 Tylenol - PO 650 mg Q4H PRN Administration PAIN OR FEVER Albuterol Sulfate 1 puff 08/21/19 13:35 Ventolin Hfa Inhaler - IH Q6H PRN WHEEZING Albuterol/Ipratropium 1 amp 08/21/19 16:00 08/22/19 15:42 Duoneb - NEB 1 amp RQID [facility] Administration Amlodipine Besylate 5 mg 08/22/19 10:00 08/22/19 09:27 Norvasc - PO 5 mg DAILY [facility] Administration Budesonide/Formoterol Fumarate 2 puff 08/21/19 22:00 08/22/19 09:27 Symbicort 80/4.5mcg - IH 2 puff BID [facility] Administration Diphenhydramine HCl 25 mg 08/21/19 22:00 08/22/19 09:27 Benadryl - PO 25 mg BID [facility] Administration Docusate Sodium 100 mg 08/21/19 13:35 Colace - PO TID PRN CONSTIPATION Lactated Ringer's 1,000 mls @ 75 mls/hr 08/21/19 13:35 08/22/19 18:10 Lactated Ringers Solution IV Not Given ASDIR [facility]OL[facility]O Famotidine/Sodium Chloride 20 mg in 50 mls @ 100 mls/hr 08/21/19 22:00 09:27 Pepcid 20 Mg Premixed Ivpb - IVPB 100 mls/hr BID [facility] Administration Oxycodone HCl 5 mg 08/21/19 13:35 08/22/19 10:41 Roxicodone - PO 5 mg Q6H PRN Administration PAIN LEVEL 6-10 Prednisone 20 mg 08/22/19 10:00 08/22/19 09:27 Deltasone - PO 20 mg DAILY [facility] Administration Home Medications Medication Instructions Recorded Docusate Sodium [Colace -] 100 mg PO TID PRN #90 capsule 09/28/18 Albuterol 0.083% Nebulizer Neha 1 neb NEB Q6H #30 vial 05/29/19 [Ventolin 0.083% Nebulizer Soln -] Albuterol Sulfate Inhaler - 1 - 2 inh PO QID PRN #1 inhaler 05/29/19 [Ventolin HFA Inhaler -] Budesonide/Formeterol Fumarate 2 inh PO BID #1 cannister 05/29/19 [SYMBICORT 80/4.5mcg -] Dolutegravir Sodium [Tivicay] 50 mg PO DAILY #30 tablet 05/29/19 Emtricitabine/Tenofov Alafenam 1 each PO DAILY #30 tablet 05/29/19 [Descovy 200-25 mg Tablet (Nf)] Multivitamin [One-Daily 1 each PO DAILY #30 tablet 05/29/19 Multi-Vitamin] Ibuprofen [Motrin -] 600 mg PO BID PRN 07/31/19 Oxycodone HCl/Acetaminophen 1 tab PO Q6H #10 tablet MDD 4 07/31/19 [Percocet 5-325 mg Tablet] Microbiology 08/17/19 20:00 Blood - Peripheral Venous Blood Culture - Preliminary NO GROWTH OBTAINED AFTER 96 HOURS, INCUBATION TO CONTINUE FOR 1 DAYS. 08/17/19 20:00 Blood - Peripheral Venous Blood Culture - Preliminary NO GROWTH OBTAINED AFTER 96 HOURS, INCUBATION TO CONTINUE FOR 1 DAYS. 08/17/19 06:45 Urine - Urine Clean Catch Urine Culture - Final NO GROWTH OBTAINED ASSESSMENT AND PLAN: Patient is a 59 y/o lady with h/o HIV, on HAART, Athma,CVA, remote h/o cocaine use, non Hodgkin's lymphoma, s/p chemo, UTI, R hydronephrosis and R hydroureter s/p R sided stent placement, who presented to ED with abd pain and hematuria . #H/x of Non-Hogkin's lymphoma, s/p chemo. s/p excisional Bx of right axilla by dr. Griffiths , waiting for the bx result # Hx of CVA: she is on asa as out pt #Thrombocytopenia: monitor for bleeding sign , will send for Hit2 level # Possible angioedema. prednisone , H1, H2 blockers. day 4/7. cont current dose of steroids until off # h/o HIV: cont meds # H/o Asthma : cont inhaler and Nebs DVT PX: lovenox on hold
--- NOTE | 2019-08-22 20:09 | PN ---
Progress Note (short form) - Note Progress Note: Hematology and oncology follow up Subjective: Patient seen and examined at bedside. No new complaints, no events overnight. No bleeding episodes. Objective: Vital Signs Temperature 98.7 F 08/22/19 19:06 Pulse Rate 98 H 08/22/19 19:06 Respiratory Rate 18 08/22/19 19:06 Blood Pressure 142/78 08/22/19 19:06 O2 Sat by Pulse Oximetry (%) 97 08/22/19 09:00 Physical exam: Gen.: patient found lying in bed. Well appearing. Awake, alert. Lungs: clear to auscultation bilaterally down to the bases. Heart: regular rate and rhythm. S1, S2 heard. No murmurs gallops or rubs heard. Abdomen: soft, nontender, nondistended. Bowel sounds heard. Extremities: no peripheral edema noted. No bruising, swelling, erythema or warmth of extremities noted. neuro: patient A&O x3. Moving all four limbs spontaneously. CBC, BMP 08/22/19 06:39 08/22/19 06:39 Assessment and plan: The patient is a 59 yo F w/ PMH HIV, on HAART, Athma, CVA, non Hodgkin's lymphoma (s/p chemo), UTI, R hydronephrosis and R hydroureter s/p R sided stent placement, who presented to ER with abd pain and hematuria. #thrombocytopenia likely 2/2 post op reaction, r/o medication cause or HIT -platelet 47 from 58 yesterday -patelet drop was more severe from 08/20 - 08/21 -platelet count appears to be stabilizing -plt can be seen to drop up to 2 days after surgery/procedure -trend platelets to nilson -No evidence of bleeding at this time -per chart review, patient has not received heparin products during her admission -will need to speak to surgery/anesthesia to confirm that patient did not receive heparin intraoperatively -confirm no heparin flushes were used on the patient. -review medication changes to confirm that this is not the cause -can consider flow cytometry or bone marrow aspiration if thrombocytopenia persists -it is possible that her lymphoma may have infiltrated the bone marrow, though this is less likely. #Non-Hodgkin's lymphoma, s/p chemo. -Pt received chemo treatment w/ Dr. Felipe as outpatient and was documented in complete remission -axillary adenopathy concerning for recurrence -s/p axillary LN biopsy w/ Dr. Griffiths -await pathology results -patient states that she does not want chemo again and would be interested in immunotherapy
--- NOTE | 2019-08-22 20:29 | PN ---
Teaching Attending Note Name of Resident: Gold Tracy ATTENDING PHYSICIAN STATEMENT I saw and evaluated the patient. I reviewed the resident's note and discussed the case with the resident. I agree with the resident's findings and plan as documented. SUBJECTIVE: Doing well. Voices no complaints. OBJECTIVE: Last Vital Signs Temp Pulse Resp BP Pulse Ox 98.7 F 98 H 18 142/78 97 08/22/19 19:06 08/22/19 19:06 08/22/19 19:06 08/22/19 19:06 08/22/19 09:00 General: NAD HEENT: MMM CVS: S1, S2 Lungs: CTAB Abdomen: Soft, NT,ND Extremities: No edema Neuro: Moves all extremities Psych: Conversant, appropriate Current Medications Acetaminophen (Tylenol -) 650 mg PO Q4H PRN PRN Reason: PAIN OR FEVER Last Admin: 08/22/19 15:56 Dose: 650 mg Albuterol Sulfate (Ventolin Hfa Inhaler -) 1 puff IH Q6H PRN PRN Reason: WHEEZING Albuterol/Ipratropium (Duoneb -) 1 amp NEB RQID [facility] Last Admin: 08/22/19 15:42 Dose: 1 amp Amlodipine Besylate (Norvasc -) 5 mg PO DAILY [facility] Last Admin: 08/22/19 09:27 Dose: 5 mg Budesonide/Formoterol Fumarate (Symbicort 80/4.5mcg -) 2 puff IH BID [facility] Last Admin: 08/22/19 09:27 Dose: 2 puff Diphenhydramine HCl (Benadryl -) 25 mg PO BID [facility] Last Admin: 08/22/19 09:27 Dose: 25 mg Docusate Sodium (Colace -) 100 mg PO TID PRN PRN Reason: CONSTIPATION Lactated Ringer's (Lactated Ringers Solution) 1,000 mls @ 75 mls/hr IV ASDIR [facility] Last Admin: 08/22/19 18:10 Dose: Not Given Famotidine/Sodium Chloride (Pepcid 20 Mg Premixed Ivpb -) 20 mg in 50 mls @ 100 mls/hr IVPB BID [facility] Last Admin: 08/22/19 09:27 Dose: 100 mls/hr Oxycodone HCl (Roxicodone -) 5 mg PO Q6H PRN PRN Reason: PAIN LEVEL 6-10 Last Admin: 08/22/19 10:41 Dose: 5 mg Prednisone (Deltasone -) 20 mg PO DAILY HIPOLITO Last Admin: 08/22/19 09:27 Dose: 20 mg 08/22/19 06:39 08/22/19 06:39 ASSESSMENT AND PLAN: 59 y/o lady with a history of HIV, asthma, substance abuse, renal stones, and lymphoma who presented for rash and swelling of her face. Patient reports she has pelvic pain and hematuria and admitted for UTI. 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 She had a prior dx of NHL and was treated by Dr. Felipe in 2011. Hematology re- consulted for worsening thrombocytopenia Recommend: 1) Thrombocytopenia (TCP): Likely post-operative thrombocytopenia. Siddharth may occur 2 days after surgery so she may continue to decrease but it appears that is plateauing. Additional causes include Drug induced TCP (will check all new drugs she received including line flushes with heparin), lymphoma related, HIV and/or medication induced. Will continue to monitor to determine need for further investigations 2) NHL: Patient told us that she does not want chemotherapy even if the biopsy were to show relapsed NHL. However, I explained that there are many therapeutic options that are extremely well tolerated including targeted therapies, monoclonal antibodies, etc. Will consider. Please readdress and make an appointment at the time of discharge with oncology provider either Dr. Felipe or as per patient. 3) DVT prophylaxis: Ambulate and intermittent pneumatic compressions
[2019-08-22 21:46] LABS: EPI CELLS 1.2 /HPF (0-5/HPF); HYALINE CASTS 1 /lpf (0-8); URINE APPEARANCE CLEAR; URINE BACTERIA 3.8 /hpf (NEGATIVE); URINE BILIRUBIN NEGATIVE (NEGATIVE); URINE COLOR YELLOW; URINE GLUCOSE (UA) NEGATIVE (NEGATIVE); URINE KETONE NEGATIVE (NEGATIVE); URINE LEUK ESTERASE TRACE (NEGATIVE); URINE NITRITE NEGATIVE (NEGATIVE); URINE PROTEIN TRACE (NEGATIVE); URINE RBC 89 /hpf (0-4); URINE UROBILINOGEN 0.2 mg/dL (0.2-1.0); URINE WBC 3 /hpf (0-5)
[2019-08-23] MEDS: oxyCODONE HCL 5 MG TABLET PO PRN ×3 (02:55→21:34)
[2019-08-23 07:04] LABS: BASO % 0.6 % (0-2.0); EOS % 2.1 % (0-4.5); HEMATOCRIT 31.8 % (32.4-45.2); HEMOGLOBIN 10.6 GM/dL (10.7-15.3); LYMPH % 18.5 % (8-40); MCH 30.7 pg (25.7-33.7); MCHC 33.2 g/dl (32.0-36.0); MEAN CELL VOLUME 92.4 fl (80-96); MEAN PLT VOLUME 9.6 fl (7.5-11.1); MONO % 4.3 % (3.8-10.2); NEUT % 74.5 % (42.8-82.8); PLATELET COUNT 38 K/MM3 (134-434); RBC 3.44 M/mm3 (3.60-5.2); RDW 14.5 % (11.6-15.6); WHITE BLOOD COUNT 19.2 K/mm3 (4.0-10.0)
[2019-08-23] MEDS: ALBUTEROL SO4 2.5/IPRATROPIUM 0.5 INH SOL 3 ML VIAL.NEB. NEB SCH ×4 (07:22→20:24)
[2019-08-23] MEDS ORDERED: PT OWN MED DRAWER 7, Y5N ONE (09:25)
[2019-08-23] MEDS: predniSONE 20 MG TABLET (UD) PO SCH (09:30)
[2019-08-23] MEDS: EMTRICITABINE/TENOFOV ALAFENAM (DESCOVY) TABLET PO SCH (09:30)
[2019-08-23] MEDS: diphenhydrAMINE HCL 25 MG CAPSULE (FP) PO SCH (09:30)
[2019-08-23] MEDS: DOLUTEGRAVIR SODIUM 50 MG TABLET (NON-FORMULARY) PO SCH (09:30)
[2019-08-23] MEDS: amLODIPine BESYLATE 5 MG TABLET (FP) PO SCH (09:30)
[2019-08-23] MEDS: BUDESONIDE/FORMETEROL FUMARATE 80/4.5 mcg INHALER IH SCH ×2 (09:31→22:05)
[2019-08-23 09:35] LABS: ANISOCYTOSIS 0; MACROCYTOSIS 0; PLATELET ESTIMATE DECREASED
[2019-08-23] MEDS ORDERED: RANITIDINE HCL 150 MG TABLET (FP) PO SCH (10:00)
--- NOTE | 2019-08-23 10:59 | OP ---
DATE OF OPERATION: 08/21/2019 PREOPERATIVE DIAGNOSIS: Right axillary adenopathy. PROCEDURE: Right axillary lymph node biopsy. SURGEON: Mathew Griffiths MD [employer] SERVICE OPERATOR HELPER: Billy Diaz PA-C ANESTHESIA: Local with IV sedation. ESTIMATED BLOOD LOSS: 15 mL. REPLACEMENT: Crystalloid. DRAINS: None. SPECIMEN: Lymphoid tissue from the right axilla to Pathology. OPERATIVE FINDINGS: There was shotty lymphadenopathy in the right axilla. There was no discrete lymph node greater than 1.5 cm, and the rest of the findings were unremarkable. DESCRIPTION OF PROCEDURE: The patient was placed on the operating room table in supine position with the right arm abducted at the right side. The axilla was prepped with ChloraPrep and draped in a sterile fashion, and a time-out was taken. After intravenous sedation, 1% lidocaine, 0.5% Marcaine was infiltrated into the right axilla and a transverse incision mapped out and made with a scalpel and taken down through skin and subcutaneous tissue. The axillary space was identified and then using blunt dissection the axillary vein was identified. Lymphoareolar tissue was bluntly dissected from this area and sent for pathological evaluation. Bleeding was controlled with electrocautery and then the wound copiously irrigated with sterile water. The incision was closed in layers with interrupted 2-0 Vicryl for the deep fascia, interrupted 3-0 Vicryl for the deep dermis, and surgical nasim to reapproximate the skin edges. Dry sterile dressings were placed and procedure terminated at this point and the patient transferred to the post anesthesia care unit in stable condition awake and alert. I, Mathew Griffiths, was physically present in the operating room from the time the patient was placed on the operating room table until she was transferred to the post anesthesia care unit in [email or web address]. MD ELIJAH Figueroa/[id number] MTDD
--- NOTE | 2019-08-23 12:17 | PN ---
Progress Note (short form) - Note Progress Note: Hematology and oncology follow up Subjective: Patient seen and examined at bedside. No new complaints, no events overnight. No bleeding episodes. Objective: Vital Signs Temperature 99.6 F 08/23/19 10:00 Pulse Rate 107 H 08/23/19 10:00 Respiratory Rate 20 08/23/19 10:00 Blood Pressure 160/89 08/23/19 10:00 O2 Sat by Pulse Oximetry (%) 80 L 08/23/19 09:00 Physical exam: Gen.: patient found lying in bed. Well appearing. Awake, alert. Lungs: crackles heard at the bases b/l. Heart: regular rate and rhythm. S1, S2 heard. No murmurs gallops or rubs heard. Abdomen: soft, nontender, nondistended. Bowel sounds heard. Extremities: no peripheral edema noted. No bruising, swelling, erythema or warmth of extremities noted. neuro: patient A&O x3. Moving all four limbs spontaneously. CBC, BMP 08/23/19 06:05 08/22/19 06:39 Assessment and plan: The patient is a 59 yo F w/ PMH HIV, on HAART, Athma, CVA, non Hodgkin's lymphoma (s/p chemo), UTI, R hydronephrosis and R hydroureter s/p R sided stent placement, who presented to ER with abd pain and hematuria. #thrombocytopenia r/o medication cause, HIT, lymphoma progression -platelets continue to drop to 38 today -platelet drop was more severe from 08/20 - 08/21 -Patient oozing from surgical site -patient has 2+microscopic hematuria on UA -Hb stable, patient hemodynamically stable -no indication for plt transfusion at this time -patient received Lovenox on 08/18 and 08/19 -no indication to start argatroban at this time -send HIT panel -obtain BCX, cxr r/o infectious cause -Will consider bone marrow aspiration if thrombocytopenia persists/ worsens #Non-Hodgkin's lymphoma, s/p chemo. -Pt received chemo treatment w/ Dr. Felipe as outpatient and was documented in complete remission -axillary adenopathy concerning for recurrence -s/p axillary LN biopsy w/ Dr. Griffiths -await pathology results -patient states that she does not want chemo again and would be interested in immunotherapy Case d/w Dr. Cervantes
[2019-08-23 14:04] VITALS: BMI 28.1
--- NOTE | 2019-08-23 17:10 | PN ---
Progress Note (short form) - Note Progress Note: s/p laser lithotripsy yesterday s/p LN biopsy no complaints Vital Signs Period Temp Pulse Resp BP Sys/Rosas Pulse Ox Last 24 Hr 98.5 F-99.6 F 87-107 18-25 132-160/68-89 80-97 cor-rrr lungs decreased bs at bases, no wheezing axillary wound is dry abd soft,nt ext no edema ct scans notable for large right paratracheal mass-collection of nodes CBC, BMP 08/23/19 06:05 08/22/19 06:39 Microbiology 08/17/19 20:00 Blood - Peripheral Venous Blood Culture - Final NO GROWTH AFTER 5 DAYS INCUBATION 08/17/19 20:00 Blood - Peripheral Venous Blood Culture - Final NO GROWTH AFTER 5 DAYS INCUBATION 08/17/19 06:45 Urine - Urine Clean Catch Urine Culture - Final NO GROWTH OBTAINED a/p progressive thrombocytopenia- I suspect bone marrow involvement with lymphoma, now with metamyelocytes as well fevers- ?lymphoma -s/p LN biopsy , blood cultures repeated, no lung infiltrate right paratracheal mass- ?recurrence NHL- hematology following ureteral stent with stone and hydronephrosis-s/p eswl, still with stent adverse drug reaction?- by report happened after pain injection at [facility]- improved facial swelling stable HIV- continue meds-descovy/tivicay history of asthma- nebs steroids stopped history of prior cva many years ago at [facility] she is aware she may have lymphoma recurrence and is agreeable to treatment
--- NOTE | 2019-08-23 17:24 | PN ---
Physical Exam: SUBJECTIVE: Patient seen and examined OBJECTIVE: Vital Signs Period Temp Pulse Resp BP Sys/Rosas Pulse Ox Last 24 Hr 98.5 F-99.6 F 87-107 18-25 132-160/68-89 80-97 GENERAL: The patient is awake, alert, and fully oriented, in no acute distress. HEAD: Normal with no signs of trauma. EYES: PERRL, extraocular movements intact, sclera anicteric, conjunctiva clear. No ptosis. ENT: Ears normal, nares patent, oropharynx clear without exudates, moist mucous membranes. NECK: Trachea midline, full range of motion, supple. LUNGS: Breath sounds equal, clear to auscultation bilaterally, no wheezes, no crackles, no accessory muscle use. HEART: Regular rate and rhythm, S1, S2 without murmur, rub or gallop. ABDOMEN: Soft, nontender, nondistended, normoactive bowel sounds, no guarding, no rebound, no hepatosplenomegaly, no masses. EXTREMITIES: 2+ pulses, warm, well-perfused, no edema. NEUROLOGICAL: Cranial nerves II through XII grossly intact. Normal speech, gait not observed. PSYCH: Normal mood, normal affect. SKIN: Warm, dry, normal turgor, no rashes or lesions noted Laboratory Results - last 24 hr 08/22/19 08/23/19 08/23/19 20:50 06:05 12:04 WBC 19.2 H RBC 3.44 L Hgb 10.6 L Hct 31.8 L MCV 92.4 MCH 30.7 MCHC 33.2 RDW 14.5 Plt Count 38 L MPV 9.6 Absolute Neuts (auto) 14.3 H Neutrophils % 74.5 Neutrophils % (Manual) 51.5 Band Neutrophils % 4.9 Lymphocytes % 18.5 Lymphocytes % (Manual) 14.8 D Monocytes % 4.3 Monocytes % (Manual) 3 L Eosinophils % 2.1 Eosinophils % (Manual) 4.0 Basophils % 0.6 Basophils % (Manual) 0.0 Myelocytes % (Man) 0 D Promyelocytes % (Man) 0 Blast Cells % (Manual) 0 Nucleated RBC % 0 Metamyelocytes 7 H D Hypochromia 0 Platelet Estimate Decreased Polychromasia 1+ Poikilocytosis 0 Anisocytosis 0 Microcytosis 0 Macrocytosis 0 Spherocytes 1+ Stomatocytes 1+ POC Glucometer 89 Urine Color Yellow Urine Appearance Clear Urine pH 7.0 Ur Specific [place] 1.013 Urine Protein Trace Urine Glucose (UA) Negative Urine Ketones Negative Urine Blood 3+ H Urine Nitrite Negative Urine Bilirubin Negative Urine Urobilinogen 0.2 Ur Leukocyte Esterase Trace Urine WBC (Auto) 3 Urine RBC (Auto) 89 Urine Casts (Auto) 1 U Epithel Cells (Auto) 1.2 Urine Bacteria (Auto) 3.8 Active Medications Generic Name Dose Route Start Last Admin Trade Name Freq PRN Reason Stop Dose Admin Acetaminophen 650 mg 08/21/19 13:35 08/22/19 23:35 Tylenol - PO 650 mg Q4H PRN Administration PAIN OR FEVER Albuterol Sulfate 1 puff 08/21/19 13:35 Ventolin Hfa Inhaler - IH Q6H PRN WHEEZING Albuterol/Ipratropium 1 amp 08/21/19 16:00 08/23/19 15:15 Duoneb - NEB Not Given RQID HIPOLITO Amlodipine Besylate 5 mg 08/22/19 10:00 08/23/19 09:30 Norvasc - PO 5 mg DAILY HIPOLITO Administration Budesonide/Formoterol Fumarate 2 puff 08/21/19 22:00 08/23/19 09:31 Symbicort 80/4.5mcg - IH 2 puff BID HIPOLITO Administration Docusate Sodium 100 mg 08/21/19 13:35 Colace - PO TID PRN CONSTIPATION Oxycodone HCl 5 mg 08/21/19 13:35 08/23/19 09:49 Roxicodone - PO 5 mg Q6H PRN Administration PAIN LEVEL 6-10 ASSESSMENT/PLAN: 59 y/o lady with h/o HIV, on HAART, Athma, CVA, remote h/o cocaine use, non Hodgkin's lymphoma, s/p chemo, UTI, R hydronephrosis and R hydroureter s/p R sided stent placement, who presented to ER with abd pain and hematuria . thrombocytopenia platelet dropped to 38k today from 47k yesterday.patient received Lovenox on 08/18 and 08/19 Patient oozing from surgical site patient has 3+microscopic hematuria on UA Hb stable at 10.6/31.8, patient hemodynamically stable. monitor for bleeding; if increased, stat cbc and contact heme for platelet transfusion or argatroban IV Heme rec: -no indication for plt transfusion at this time -no indication to start argatroban at this time -hep induced platelet antibodies sent -obtain BCX (which are sent) CXR with new finding of LLL atelectasis -can consider flow cytometry or bone marrow aspiration if thrombocytopenia persists and HIT ruled out Fever 2/2 worsening non-Hodgkin's lymphoma or sepsis afebrile 97.6 D/C ceftriaxone per ID rec Urine and blood cultures are Neg monitor Non-Hodgkin's lymphoma, s/p chemo. worsening lymphadenopathy. concern for recurrence S/P axillary lymph node excision biopsy. pt to f/u with Dr Griffiths in 7- 10dwill follow path report.Pt agree to treatment if NHL recur HTN started on norvasc 5 mg Angioedema improved prednisone , H1, H2 blockers on day 7 will D/C HIV cont meds Asthma No acute exacerbation cont inhaler and Nebs as needed DVT PPX lovenox on hold platelet drop Visit type - Emergency Visit Emergency Visit: Yes ED Registration Date: 08/17/19 Care time: The patient presented to the Emergency Department on the above date and was hospitalized for further evaluation of their emergent condition. - New Patient This patient is new to me today: No - Critical Care Critical Care patient: No - Discharge Referral Referred to [facility] Med P.C.: No ATTENDING PHYSICIAN STATEMENT I saw and evaluated the patient. I reviewed the resident's note and discussed the case with the resident. I agree with the resident's findings and plan as documented. SUBJECTIVE: OBJECTIVE: ASSESSMENT AND PLAN:
--- NOTE | 2019-08-23 19:43 | PN ---
Progress Note (short form) - Note Progress Note: Patient seen and examined Oozing from axillary biopsy site Platelet count has fallen to 37 K Received Lovenox on 08/18 and 08/19 . Fall in platelets over 3-4 days somewhat early for HIT (usually 5-10 days ) but consistent No obvious infection , > 50% fall, platelets > 20-30K Will check on labs in AM and decide re argatroban. Path of biopsy - pending.
--- NOTE | 2019-08-23 19:45 | PN ---
Teaching Attending Note Name of Resident: Althea Chance ATTENDING PHYSICIAN STATEMENT I saw and evaluated the patient. I reviewed the resident's note and discussed the case with the resident. I agree with the resident's findings and plan as documented. SUBJECTIVE: Patient is feeling better, would like to go home. OBJECTIVE: Vital Signs Period Temp Pulse Resp BP Sys/Rosas Pulse Ox Last 24 Hr 98.5 F-99.6 F 87-107 18-25 132-160/68-89 80-97 GENERAL: The patient is awake, alert, and fully oriented, in no acute distress. HEAD: Normal with no signs of trauma. EYES: PERRL, extraocular movements intact, sclera anicteric, conjunctiva clear. ENT: Ears normal, oropharynx clear without exudates, moist mucous membranes. NECK: Trachea midline, full range of motion, supple. LUNGS: Breath sounds equal, clear to auscultation bilaterally, no wheezes, no crackles, no accessory muscle use. HEART: Regular rate and rhythm, S1, S2 without murmur, rub or gallop. ABDOMEN: Soft, NT, ND, normoactive bowel sounds, no guarding, no rebound, no hepatosplenomegaly, no masses. EXTREMITIES: 2+ pulses, warm, well-perfused, LUE axillary lymph node Bx. NEUROLOGICAL: Cranial nerves II through XII grossly intact. Normal speech, gait not observed. PSYCH: Normal mood, normal affect. SKIN: Warm, dry, normal turgor, no rashes or lesions noted Laboratory Results - last 24 hr 08/22/19 08/23/19 08/23/19 20:50 06:05 12:04 WBC 19.2 H RBC 3.44 L Hgb 10.6 L Hct 31.8 L MCV 92.4 MCH 30.7 MCHC 33.2 RDW 14.5 Plt Count 38 L MPV 9.6 Absolute Neuts (auto) 14.3 H Neutrophils % 74.5 Neutrophils % (Manual) 51.5 Band Neutrophils % 4.9 Lymphocytes % 18.5 Lymphocytes % (Manual) 14.8 D Monocytes % 4.3 Monocytes % (Manual) 3 L Eosinophils % 2.1 Eosinophils % (Manual) 4.0 Basophils % 0.6 Basophils % (Manual) 0.0 Myelocytes % (Man) 0 D Promyelocytes % (Man) 0 Blast Cells % (Manual) 0 Nucleated RBC % 0 Metamyelocytes 7 H D Hypochromia 0 Platelet Estimate Decreased Polychromasia 1+ Poikilocytosis 0 Anisocytosis 0 Microcytosis 0 Macrocytosis 0 Spherocytes 1+ Stomatocytes 1+ POC Glucometer 89 Urine Color Yellow Urine Appearance Clear Urine pH 7.0 Ur Specific [place] 1.013 Urine Protein Trace Urine Glucose (UA) Negative Urine Ketones Negative Urine Blood 3+ H Urine Nitrite Negative Urine Bilirubin Negative Urine Urobilinogen 0.2 Ur Leukocyte Esterase Trace Urine WBC (Auto) 3 Urine RBC (Auto) 89 Urine Casts (Auto) 1 U Epithel Cells (Auto) 1.2 Urine Bacteria (Auto) 3.8 Active Medications Generic Name Dose Route Start Last Admin Trade Name Freq PRN Reason Stop Dose Admin Acetaminophen 650 mg 08/21/19 13:35 08/22/19 23:35 Tylenol - PO 650 mg Q4H PRN Administration PAIN OR FEVER Albuterol Sulfate 1 puff 08/21/19 13:35 Ventolin Hfa Inhaler - IH Q6H PRN WHEEZING Albuterol/Ipratropium 1 amp 08/21/19 16:00 08/23/19 15:15 Duoneb - NEB Not Given RQID HIPOLITO Amlodipine Besylate 5 mg 08/22/19 10:00 08/23/19 09:30 Norvasc - PO 5 mg DAILY HIPOLITO Administration Budesonide/Formoterol Fumarate 2 puff 08/21/19 22:00 08/23/19 09:31 Symbicort 80/4.5mcg - IH 2 puff BID HIPOLITO Administration Docusate Sodium 100 mg 08/21/19 13:35 Colace - PO TID PRN CONSTIPATION Oxycodone HCl 5 mg 08/21/19 13:35 08/23/19 09:49 Roxicodone - PO 5 mg Q6H PRN Administration PAIN LEVEL 6-10 Home Medications Medication Instructions Recorded Docusate Sodium [Colace -] 100 mg PO TID PRN #90 capsule 09/28/18 Albuterol 0.083% Nebulizer Neha 1 neb NEB Q6H #30 vial 05/29/19 [Ventolin 0.083% Nebulizer Soln -] Albuterol Sulfate Inhaler - 1 - 2 inh PO QID PRN #1 inhaler 05/29/19 [Ventolin HFA Inhaler -] Budesonide/Formeterol Fumarate 2 inh PO BID #1 cannister 05/29/19 [SYMBICORT 80/4.5mcg -] Dolutegravir Sodium [Tivicay] 50 mg PO DAILY #30 tablet 05/29/19 Emtricitabine/Tenofov Alafenam 1 each PO DAILY #30 tablet 05/29/19 [Descovy 200-25 mg Tablet (Nf)] Multivitamin [One-Daily 1 each PO DAILY #30 tablet 05/29/19 Multi-Vitamin] Ibuprofen [Motrin -] 600 mg PO BID PRN 07/31/19 Oxycodone HCl/Acetaminophen 1 tab PO Q6H #10 tablet MDD 4 07/31/19 [Percocet 5-325 mg Tablet] Microbiology 08/17/19 20:00 Blood - Peripheral Venous Blood Culture - Final NO GROWTH AFTER 5 DAYS INCUBATION 08/17/19 20:00 Blood - Peripheral Venous Blood Culture - Final NO GROWTH AFTER 5 DAYS INCUBATION 08/17/19 06:45 Urine - Urine Clean Catch Urine Culture - Final NO GROWTH OBTAINED ASSESSMENT AND PLAN: Patient is a 59 y/o lady with h/o HIV, on HAART, Asthma, CVA, remote h/o cocaine use, non Hodgkin's lymphoma, s/p chemo, UTI, R hydronephrosis and R hydroureter s/p R sided stent placement, who presented to ED with abd pain and hematuria . # Thrombocytopenia: will continue to monitr, Hit2 ordered, follow up , repeat in am , argotraban decesion per #H/x of Non-Hogkin's lymphoma, s/p chemo. s/p excisional Bx of right axilla by dr. Griffiths , as per dr. Griffiths , inconclusive the bx result # Hx of CVA: she is on asa as out pt #Thrombocytopenia: monitor for bleeding sign , will send for Hit2 level # Possible angioedema. prednisone , H1, H2 blockers. day 4/7. cont current dose of steroids until off # h/o HIV: cont meds # H/o Asthma : cont inhaler and Nebs DVT PX: lovenox on hold
[2019-08-23] MEDS: ACETAMINOPHEN 325 MG TABLET (FP) PO PRN (20:33)
[2019-08-24] MEDS: ACETAMINOPHEN 325 MG TABLET (FP) PO PRN ×4 (05:31→20:27)
[2019-08-24] MEDS: oxyCODONE HCL 5 MG TABLET PO PRN ×2 (05:33→23:16)
[2019-08-24 08:24] LABS: BASO % 0.9 % (0-2.0); HEMATOCRIT 29.5 % (32.4-45.2); HEMOGLOBIN 9.9 GM/dL (10.7-15.3); MCH 30.5 pg (25.7-33.7); MCHC 33.4 g/dl (32.0-36.0); MEAN CELL VOLUME 91.5 fl (80-96); MEAN PLT VOLUME 8.9 fl (7.5-11.1); MONO % 7.9 % (3.8-10.2); NEUT % 67.2 % (42.8-82.8); RBC 3.23 M/mm3 (3.60-5.2); RDW 14.8 % (11.6-15.6)
[2019-08-24] MEDS: ALBUTEROL SO4 2.5/IPRATROPIUM 0.5 INH SOL 3 ML VIAL.NEB. NEB SCH ×3 (08:25→15:58)
[2019-08-24 08:38] LABS: PLATELET COUNT 26 K/MM3 (134-434)
[2019-08-24 08:56] LABS: BLOOD UREA NITROGEN 19.7 mg/dL (7-18); CALCIUM 8.9 mg/dL (8.5-10.1); POTASSIUM 3.7 mmol/L (3.5-5.1)
[2019-08-24] MEDS ORDERED: ARGATROBAN - 250,000 MCG in SODIUM CHLORIDE 247.5 ML IVPB SCH (09:00)
--- NOTE | 2019-08-24 09:17 | PN ---
Teaching Attending Note Name of Resident: Althea Chance ATTENDING PHYSICIAN STATEMENT I saw and evaluated the patient. I reviewed the resident's note and discussed the case with the resident. I agree with the resident's findings and plan as documented. SUBJECTIVE: Patient has no new complains. OBJECTIVE: Vital Signs Temperature 98.1 F 08/24/19 05:35 Pulse Rate 101 H 08/24/19 05:35 Respiratory Rate 20 08/24/19 05:35 Blood Pressure 140/89 08/24/19 05:35 O2 Sat by Pulse Oximetry (%) 94 L 08/23/19 21:00 GENERAL: The patient is awake, alert, and fully oriented, in no acute distress. HEAD: Normal with no signs of trauma. EYES: PERRL, extraocular movements intact, sclera anicteric, conjunctiva clear. ENT: Ears normal, oropharynx clear without exudates, moist mucous membranes. NECK: Trachea midline, full range of motion, supple. LUNGS: Breath sounds equal, clear to auscultation bilaterally, no wheezes, no crackles, no accessory muscle use. HEART: Regular rate and rhythm, S1, S2 without murmur, rub or gallop. ABDOMEN: Soft, NT, ND, normoactive bowel sounds, no guarding, no rebound, no hepatosplenomegaly, no masses. EXTREMITIES: 2+ pulses, warm, well-perfused, LUE axillary lymph node Bx pending . NEUROLOGICAL: Cranial nerves II through XII grossly intact. Normal speech, gait not observed. PSYCH: Normal mood, normal affect. SKIN: Warm, dry, normal turgor, no rashes or lesions noted CBCD WBC 18.1 K/mm3 (4.0-10.0) H 08/24/19 07:00 RBC 3.23 M/mm3 (3.60-5.2) L 08/24/19 07:00 Hgb 9.9 GM/dL (10.7-15.3) L 08/24/19 07:00 Hct 29.5 % (32.4-45.2) L 08/24/19 07:00 MCV 91.5 fl (80-96) 08/24/19 07:00 MCHC 33.4 g/dl (32.0-36.0) 08/24/19 07:00 RDW 14.8 % (11.6-15.6) 08/24/19 07:00 Plt Count 26 K/MM3 (134-434) L* D 08/24/19 07:00 MPV 8.9 fl (7.5-11.1) 08/24/19 07:00 CMP Sodium 135 mmol/L (136-145) L 08/24/19 07:00 Potassium 3.7 mmol/L (3.5-5.1) 08/24/19 07:00 Chloride 102 mmol/L (98-107) 08/24/19 07:00 Carbon Dioxide 27 mmol/L (21-32) 08/24/19 07:00 Anion Gap 7 MMOL/L (8-16) L 08/24/19 07:00 BUN 19.7 mg/dL (7-18) H 08/24/19 07:00 Creatinine 1.0 mg/dL (0.55-1.3) 08/24/19 07:00 Random Glucose 75 mg/dL (74-106) 08/24/19 07:00 Calcium 8.9 mg/dL (8.5-10.1) 08/24/19 07:00 Total Bilirubin 0.3 mg/dL (0.2-1) 08/18/19 06:35 AST 23 U/L (15-37) 08/18/19 06:35 ALT 31 U/L (13-61) 08/18/19 06:35 Alkaline Phosphatase 216 U/L (45-117) H 08/18/19 06:35 Total Protein 6.0 g/dl (6.4-8.2) L 08/18/19 06:35 Albumin 3.1 g/dl (3.4-5.0) L 08/18/19 06:35 CARDIAC ENZYMES Creatine Kinase 80 U/L (26-192) 08/17/19 06:19 Troponin I < 0.02 ng/ml (0.00-0.05) 08/17/19 12:18 Current Medications Generic Name Dose Route Start Last Admin Trade Name Freq PRN Reason Stop Dose Admin Acetaminophen 650 mg 08/21/19 13:35 08/24/19 05:31 Tylenol - PO 650 mg Q4H PRN Administration PAIN OR FEVER Albuterol Sulfate 1 puff 08/21/19 13:35 Ventolin Hfa Inhaler - IH Q6H PRN WHEEZING Albuterol/Ipratropium 1 amp 08/21/19 16:00 08/24/19 09:12 Duoneb - NEB 1 amp RQID HIPOLITO Administration Amlodipine Besylate 5 mg 08/22/19 10:00 08/23/19 09:30 Norvasc - PO 5 mg DAILY HIPOLITO Administration Budesonide/Formoterol Fumarate 2 puff 08/21/19 22:00 08/23/19 22:05 Symbicort 80/4.5mcg - IH 2 puff BID HIPOLITO Administration Docusate Sodium 100 mg 08/21/19 13:35 Colace - PO TID PRN CONSTIPATION Argatroban 250,000 mcg/ Sodium 250 mls @ 8.52 mls/hr 08/24/19 09:00 Chloride IVPB TITR HIPOLITO Protocol 2 MCG/KG/MIN Oxycodone HCl 5 mg 08/21/19 13:35 08/24/19 05:33 Roxicodone - PO 5 mg Q6H PRN Administration PAIN LEVEL 6-10 Home Medications Medication Instructions Recorded Docusate Sodium [Colace -] 100 mg PO TID PRN #90 capsule 09/28/18 Albuterol 0.083% Nebulizer Neha 1 neb NEB Q6H #30 vial 05/29/19 [Ventolin 0.083% Nebulizer Soln -] Albuterol Sulfate Inhaler - 1 - 2 inh PO QID PRN #1 inhaler 05/29/19 [Ventolin HFA Inhaler -] Budesonide/Formeterol Fumarate 2 inh PO BID #1 cannister 05/29/19 [SYMBICORT 80/4.5mcg -] Dolutegravir Sodium [Tivicay] 50 mg PO DAILY #30 tablet 05/29/19 Emtricitabine/Tenofov Alafenam 1 each PO DAILY #30 tablet 05/29/19 [Descovy 200-25 mg Tablet (Nf)] Multivitamin [One-Daily 1 each PO DAILY #30 tablet 05/29/19 Multi-Vitamin] Ibuprofen [Motrin -] 600 mg PO BID PRN 07/31/19 Oxycodone HCl/Acetaminophen 1 tab PO Q6H #10 tablet MDD 4 07/31/19 [Percocet 5-325 mg Tablet] Laboratory Tests 08/19/19 08/20/19 08/21/19 06:20 06:10 11:12 Plt Count 159 D 110 L D 58 L D 08/22/19 08/23/19 08/24/19 06:39 06:05 07:00 Plt Count 47 L 38 L 26 L* D 08/17/19 20:00 Blood - Peripheral Venous Blood Culture - Final NO GROWTH AFTER 5 DAYS INCUBATION 08/17/19 20:00 Blood - Peripheral Venous Blood Culture - Final NO GROWTH AFTER 5 DAYS INCUBATION 08/17/19 06:45 Urine - Urine Clean Catch Urine Culture - Final NO GROWTH OBTAINED ASSESSMENT AND PLAN: Patient is a 59 y/o lady with h/o HIV, on HAART, Asthma, CVA, remote h/o cocaine use, non Hodgkin's lymphoma, s/p chemo, UTI, R hydronephrosis and R hydroureter s/p R sided stent placement, who presented to ED with abd pain and hematuria . #Thrombocytopenia: will continue to monitor, Hit2 ordered, follow up , today is 26K. will check with should transfuse platelets or not #H/x of Non-Hogkin's lymphoma, s/p chemo. s/p excisional Bx of right axilla by dr. 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 ryan # Hx of CVA: she is on asa as out pt # Possible angioedema.s/p prednisone , H1, H2 blockers. # h/o HIV: cont meds # H/o Asthma : cont inhaler and Nebs prn DVT PX: lovenox on hold
[2019-08-24] MEDS ORDERED: PT OWN MED DRAWER 7, Y5N ONE (09:28)
[2019-08-24] MEDS: BUDESONIDE/FORMETEROL FUMARATE 80/4.5 mcg INHALER IH SCH ×2 (09:38→22:10)
[2019-08-24] MEDS: DOLUTEGRAVIR SODIUM 50 MG TABLET (NON-FORMULARY) PO SCH (09:38)
[2019-08-24] MEDS: EMTRICITABINE/TENOFOV ALAFENAM (DESCOVY) TABLET PO SCH (09:38)
[2019-08-24] MEDS: amLODIPine BESYLATE 5 MG TABLET (FP) PO SCH (09:38)
[2019-08-24] MEDS ORDERED: POLYETHYLENE GLYCOL 3350 119 GM BTL PO ONE (13:19)
[2019-08-24 13:27] LABS: ANISOCYTOSIS 2+; MACROCYTOSIS 0; PLATELET ESTIMATE DECREASED; TOXIC GRANULATION 1+
--- NOTE | 2019-08-24 14:56 | PN ---
Physical Exam: SUBJECTIVE: Patient seen and examined. offered no complaints but pt did have oozing from axillary site and from venipuncture site. OBJECTIVE: Vital Signs Period Temp Pulse Resp BP Sys/Rosas Pulse Ox Last 24 Hr 98.1 F-98.9 F 90-101 18-20 126-142/58-89 93-94 GENERAL: The patient is awake, alert, and fully oriented, in no acute distress. HEAD: Normal with no signs of trauma. EYES: PERRL, extraocular movements intact, sclera anicteric, conjunctiva clear. No ptosis. ENT: oropharynx clear without exudates, moist mucous membranes. LUNGS: Breath sounds equal, clear to auscultation bilaterally, no wheezes, no crackles, no accessory muscle use. HEART: Regular rate and rhythm, S1, S2 without murmur, rub or gallop. ABDOMEN: Soft, nontender, nondistended, normoactive bowel sounds, no guarding, no rebound, no hepatosplenomegaly, no masses. EXTREMITIES: 2+ pulses, warm, well-perfused, no edema. NEUROLOGICAL: Cranial nerves II through XII grossly intact. Normal speech, gait not observed. PSYCH: Normal mood, normal affect. Laboratory Results - last 24 hr 08/24/19 08/24/19 07:00 07:00 WBC 18.1 H RBC 3.23 L Hgb 9.9 L Hct 29.5 L MCV 91.5 MCH 30.5 MCHC 33.4 RDW 14.8 Plt Count 26 L* D MPV 8.9 Absolute Neuts (auto) 12.1 H Neutrophils % 67.2 Lymphocytes % 22.0 Monocytes % 7.9 D Eosinophils % 2.0 Basophils % 0.9 Nucleated RBC % 0 Sodium 135 L Potassium 3.7 Chloride 102 Carbon Dioxide 27 Anion Gap 7 L BUN 19.7 H Creatinine 1.0 Est GFR (CKD-EPI)AfAm 70.91 Est GFR (CKD-EPI)NonAf 61.19 Random Glucose 75 Calcium 8.9 Active Medications Generic Name Dose Route Start Last Admin Trade Name Freq PRN Reason Stop Dose Admin Acetaminophen 650 mg 08/21/19 13:35 08/24/19 11:17 Tylenol - PO 650 mg Q4H PRN Administration PAIN OR FEVER Albuterol Sulfate 1 puff 08/21/19 13:35 Ventolin Hfa Inhaler - IH Q6H PRN WHEEZING Albuterol/Ipratropium 1 amp 08/21/19 16:00 08/24/19 11:20 Duoneb - NEB 1 amp RQID HIPOLITO Administration Amlodipine Besylate 5 mg 08/22/19 10:00 08/24/19 09:38 Norvasc - PO 5 mg DAILY HIPOLITO Administration Budesonide/Formoterol Fumarate 2 puff 08/21/19 22:00 08/24/19 09:38 Symbicort 80/4.5mcg - IH 2 puff BID HIPOLITO Administration Docusate Sodium 100 mg 08/21/19 13:35 Colace - PO TID PRN CONSTIPATION Oxycodone HCl 5 mg 08/21/19 13:35 08/24/19 05:33 Roxicodone - PO 5 mg Q6H PRN Administration PAIN LEVEL 6-10 ASSESSMENT/PLAN: 59 y/o lady with h/o HIV, on HAART, Athma, CVA, remote h/o cocaine use, non Hodgkin's lymphoma, s/p chemo, UTI, R hydronephrosis and R hydroureter s/p R sided stent placement, who presented to ER with abd pain and hematuria . thrombocytopenia platelet dropped to 26k today from 38k yesterday.patient received Lovenox on 08/18 and 08/19 Patient oozing from surgical site and from venipuncture site. Platelet x1 ordered with stat CBC 30 min after if still less than 70 will transfuse another. patient had 3+microscopic hematuria on UA Hb trended down to 9.9/29.5 , patient still hemodynamically stable. monitor Heme rec: hep induced platelet antibodies sent can consider flow cytometry or bone marrow aspiration if thrombocytopenia persists and HIT ruled out Fever 2/2 worsening non-Hodgkin's lymphoma or sepsis afebrile 98.1 D/C ceftriaxone per ID rec Urine and blood cultures are Neg monitor Non-Hodgkin's lymphoma, s/p chemo. worsening lymphadenopathy. concern for recurrence S/P axillary lymph node excision biopsy. pt to f/u with Dr Griffiths in 7-10d . path report inconclusive Pt agree to treatment if NHL recur HTN started on norvasc 5 mg Angioedema resolved HIV cont meds Asthma No acute exacerbation cont inhaler and Nebs as needed DVT PPX lovenox on hold platelet drop Visit type - Emergency Visit Emergency Visit: Yes ED Registration Date: 08/17/19 Care time: The patient presented to the Emergency Department on the above date and was hospitalized for further evaluation of their emergent condition. - New Patient This patient is new to me today: No - Critical Care Critical Care patient: No - Discharge Referral Referred to [facility] Med P.C.: No ATTENDING PHYSICIAN STATEMENT I saw and evaluated the patient. I reviewed the resident's note and discussed the case with the resident. I agree with the resident's findings and plan as documented. SUBJECTIVE: OBJECTIVE: ASSESSMENT AND PLAN:
--- NOTE | 2019-08-24 16:39 | PN ---
Progress Note (short form) - Note Progress Note: Hematology and oncology follow up Subjective: Patient seen and examined at bedside. No new complaints, no events overnight. No bleeding episodes. Objective: Vital Signs Temperature 99.6 F 08/23/19 10:00 Pulse Rate 107 H 08/23/19 10:00 Respiratory Rate 20 08/23/19 10:00 Blood Pressure 160/89 08/23/19 10:00 O2 Sat by Pulse Oximetry (%) 80 L 08/23/19 09:00 Physical exam: Gen.: patient found lying in bed. Well appearing. Awake, alert. Lungs: crackles heard at the bases b/l. Heart: regular rate and rhythm. S1, S2 heard. No murmurs gallops or rubs heard. Abdomen: soft, nontender, nondistended. Bowel sounds heard. Extremities: no peripheral edema noted. No bruising, swelling, erythema or warmth of extremities noted. neuro: patient A&O x3. Moving all four limbs spontaneously. CBC, BMP 08/23/19 06:05 08/22/19 06:39 Home Medication List Medication Instructions Recorded Confirmed Type Ibuprofen [Motrin -] 600 mg PO BID PRN 07/31/19 08/17/19 History Active Medications Generic Name Dose Route Start Last Admin Trade Name Freq PRN Reason Stop Dose Admin Acetaminophen 650 mg 08/21/19 13:35 08/24/19 16:04 Tylenol - PO 650 mg Q4H PRN Administration PAIN OR FEVER Albuterol Sulfate 1 puff 08/21/19 13:35 Ventolin Hfa Inhaler - IH Q6H PRN WHEEZING Amlodipine Besylate 5 mg 08/22/19 10:00 08/24/19 09:38 Norvasc - PO 5 mg DAILY HIPOLITO Administration Budesonide/Formoterol Fumarate 2 puff 08/21/19 22:00 08/24/19 09:38 Symbicort 80/4.5mcg - IH 2 puff BID HIPOLITO Administration Docusate Sodium 100 mg 08/21/19 13:35 Colace - PO TID PRN CONSTIPATION Oxycodone HCl 5 mg 08/21/19 13:35 08/24/19 05:33 Roxicodone - PO 5 mg Q6H PRN Administration PAIN LEVEL 6-10 Assessment and plan: The patient is a 59 yo F w/ PMH HIV, on HAART, Athma, CVA, non Hodgkin's lymphoma (s/p chemo), UTI, R hydronephrosis and R hydroureter s/p R sided stent placement, who presented to ER with abd pain and hematuria. #thrombocytopenia r/o medication cause, HIT, lymphoma progression -platelets continue to drop to 26 today -platelet drop was more severe from 08/20 - 08/21 -Patient oozing from surgical site and now from phlebotomy sites -Patient remains hemodynamically stable -patient received Lovenox on 08/18 and 08/19 -f/u HIT panel -Case discussed with Dr. Cervantes in detail: -Patient has an intermediate risk score (~10%) for HIT -Given lack of thrombosis, decision was made to transfuse 1u platelets -f/u post platelet trasfusion cbc; if plt do not rise by >50k, transfuse a second unit. -Patient will likely need BM aspiration if this is indeed BM supression 2/2 recurrent lymphoma #Non-Hodgkin's lymphoma, s/p chemo. -Pt received chemo treatment w/ Dr. Felipe as outpatient and was documented in complete remission -axillary adenopathy concerning for recurrence -s/p axillary LN biopsy w/ Dr. Griffiths -Biopsy pathology shows fatty tissue only -patient states that she does not want chemo again and would be interested in immunotherapy -Patient will require a biopsy of the mass in her lung; will discuss with IR for potential procedure once platelets stabilize. #Hoarseness -noticed by hematology and ID team -suggest ENT consult to rule out recurrent laryngeal nerve occlusion 2/2 lung mass. Case d/w Dr. Cervantes and with primary team
[2019-08-24 16:54] LABS: WHITE BLOOD COUNT 18.1 K/mm3 (4.0-10.0)
--- NOTE | 2019-08-24 17:08 | PN ---
Progress Note (short form) - Note Progress Note: Patient seen with Dr. villanueva Biopsy results of axillary surgery- no lymphoid tissue - normal fibroadipose tisssue Problem of thrombocytopenia -absence of thrombosis against HIT -hold on argatroban Some oozing from dressing and IV sites platelets to be administered To discuss with I.R. New hoarseness- for ENT evaluation CT surgery -to assess.
--- NOTE | 2019-08-24 17:27 | PN ---
Progress Note (short form) - Note Progress Note: s/p laser lithotripsy s/p LN biopsy- nondiagnostic some oozing from the axillary LN biopsy site voice appears high pitched to me Vital Signs Period Temp Pulse Resp BP Sys/Rosas Pulse Ox Last 24 Hr 98.1 F-98.9 F 90-101 18-20 126-142/58-89 93-94 no thrush cor-rrr lungs clear abd soft,nt ext no edema Microbiology 08/23/19 10:30 Blood - Peripheral Venous Blood Culture - Preliminary NO GROWTH OBTAINED AFTER 24 HOURS, INCUBATION TO CONTINUE FOR 4 DAYS. 08/23/19 10:20 Blood - Peripheral Venous Blood Culture - Preliminary NO GROWTH OBTAINED AFTER 24 HOURS, INCUBATION TO CONTINUE FOR 4 DAYS. 08/22/19 20:50 Urine - Urine Clean Catch Urine Culture - Final NO GROWTH OBTAINED 08/17/19 20:00 Blood - Peripheral Venous Blood Culture - Final NO GROWTH AFTER 5 DAYS INCUBATION 08/17/19 20:00 Blood - Peripheral Venous Blood Culture - Final NO GROWTH AFTER 5 DAYS INCUBATION 08/17/19 06:45 Urine - Urine Clean Catch Urine Culture - Final NO GROWTH OBTAINED a/p progressive thrombocytopenia- I suspect bone marrow involvement with lymphoma, now with metamyelocytes as well-for platelet transfusion today fevers- ?lymphoma -s/p LN biopsy , blood cultures repeated, no lung infiltrate right paratracheal mass- ?recurrence NHL-?lung cancer hematology following ureteral stent with stone and hydronephrosis-s/p eswl, still with stent stable HIV- continue meds-descovy/tivicay history of asthma- nebs steroids stopped history of prior cva many years ago at [facility] she is aware she may have lymphoma recurrence and is agreeable to treatment chuck is aware biopsy is nondiagnostic-she gave permission for us to speak with her daughters Shabnam and Shira- THEIR NUMBERS ARE ON THE CHART I spoke with her daughter Shabnam who is asking that we contact them d/w Dr Cervantes she will need another biopsy spoke with dr vásquez to evaluate for biopsy also please ask ENT to see her for voice change, ?recurrent laryngeal nerve involvement d/w hospitalist
[2019-08-24 20:43] LABS: HEMATOCRIT 29.5 % (32.4-45.2); HEMOGLOBIN 9.7 GM/dL (10.7-15.3); MCH 30.1 pg (25.7-33.7); MCHC 32.9 g/dl (32.0-36.0); MEAN CELL VOLUME 91.8 fl (80-96); MEAN PLT VOLUME 7.6 fl (7.5-11.1); PLATELET COUNT 87 K/MM3 (134-434); RBC 3.22 M/mm3 (3.60-5.2); RDW 14.6 % (11.6-15.6)
[2019-08-25] MEDS: ACETAMINOPHEN 325 MG TABLET (FP) PO PRN (02:46)
[2019-08-25] MEDS: oxyCODONE HCL 5 MG TABLET PO PRN ×3 (04:38→18:16)
[2019-08-25 08:06] LABS: EOS % 2.7 % (0-4.5); HEMATOCRIT 28.8 % (32.4-45.2); HEMOGLOBIN 9.7 GM/dL (10.7-15.3); LYMPH % 23.4 % (8-40); MCH 30.6 pg (25.7-33.7); MCHC 33.7 g/dl (32.0-36.0); MEAN CELL VOLUME 90.8 fl (80-96); MEAN PLT VOLUME 7.4 fl (7.5-11.1); NEUT % 68.9 % (42.8-82.8); PLATELET COUNT 72 K/MM3 (134-434); RBC 3.17 M/mm3 (3.60-5.2); RDW 14.7 % (11.6-15.6); WHITE BLOOD COUNT 16.7 K/mm3 (4.0-10.0)
[2019-08-25 08:36] LABS: ALBUMIN 3.1 g/dl (3.4-5.0); BILIRUBIN,TOTAL 0.4 mg/dL (0.2-1); BLOOD UREA NITROGEN 19.4 mg/dL (7-18); CALCIUM 8.9 mg/dL (8.5-10.1); CREATININE 1.1 mg/dL (0.55-1.3); POTASSIUM 4.1 mmol/L (3.5-5.1); TOT PROT 6.2 g/dl (6.4-8.2)
[2019-08-25] MEDS ORDERED: PT OWN MED DRAWER 7, Y5N ONE (09:44)
[2019-08-25] MEDS: amLODIPine BESYLATE 5 MG TABLET (FP) PO SCH (09:48)
[2019-08-25] MEDS: DOLUTEGRAVIR SODIUM 50 MG TABLET (NON-FORMULARY) PO SCH (09:49)
[2019-08-25] MEDS: EMTRICITABINE/TENOFOV ALAFENAM (DESCOVY) TABLET PO SCH (09:49)
[2019-08-25] MEDS: BUDESONIDE/FORMETEROL FUMARATE 80/4.5 mcg INHALER IH SCH ×2 (09:50→22:50)
--- NOTE | 2019-08-25 11:16 | PN ---
Progress Note (short form) - Note Progress Note: Patient is comfortable, family at bedside. Vital Signs Temperature 98.5 F 08/25/19 05:58 Pulse Rate 95 H 08/25/19 05:58 Respiratory Rate 20 08/25/19 05:58 Blood Pressure 133/71 08/25/19 05:58 O2 Sat by Pulse Oximetry (%) 94 L 08/24/19 21:00 GENERAL: The patient is awake, alert, and fully oriented, in no acute distress. HEAD: Normal with no signs of trauma. EYES: PERRL, extraocular movements intact, sclera anicteric, conjunctiva clear. . ENT: oropharynx clear without exudates, moist mucous membranes. LUNGS: Breath sounds equal, clear to auscultation bilaterally, no wheezes, no crackles, no accessory muscle use. HEART: Regular rate and rhythm, S1, S2 without murmur, rub or gallop. ABDOMEN: Soft, nontender, nondistended, normoactive bowel sounds, no guarding, no rebound, no hepatosplenomegaly, no masses. EXTREMITIES: 2+ pulses, warm, well-perfused, no edema. right axillary bx , no further oozing of blood. s/p axillary bx NEUROLOGICAL: Cranial nerves II through XII grossly intact. Normal speech, gait not observed. PSYCH: Normal mood, normal affect. CBCD WBC 16.7 K/mm3 (4.0-10.0) H 08/25/19 07:26 RBC 3.17 M/mm3 (3.60-5.2) L 08/25/19 07:26 Hgb 9.7 GM/dL (10.7-15.3) L 08/25/19 07:26 Hct 28.8 % (32.4-45.2) L 08/25/19 07:26 MCV 90.8 fl (80-96) 08/25/19 07:26 MCHC 33.7 g/dl (32.0-36.0) 08/25/19 07:26 RDW 14.7 % (11.6-15.6) 08/25/19 07:26 Plt Count 72 K/MM3 (134-434) L 08/25/19 07:26 MPV 7.4 fl (7.5-11.1) L 08/25/19 07:26 CMP Sodium 135 mmol/L (136-145) L 08/25/19 07:26 Potassium 4.1 mmol/L (3.5-5.1) 08/25/19 07:26 Chloride 100 mmol/L (98-107) 08/25/19 07:26 Carbon Dioxide 27 mmol/L (21-32) 08/25/19 07:26 Anion Gap 9 MMOL/L (8-16) 08/25/19 07:26 BUN 19.4 mg/dL (7-18) H 08/25/19 07:26 Creatinine 1.1 mg/dL (0.55-1.3) 08/25/19 07:26 Random Glucose 74 mg/dL (74-106) 08/25/19 07:26 Calcium 8.9 mg/dL (8.5-10.1) 08/25/19 07:26 Total Bilirubin 0.4 mg/dL (0.2-1) 08/25/19 07:26 AST 137 U/L (15-37) H 08/25/19 07:26 ALT 58 U/L (13-61) 08/25/19 07:26 Alkaline Phosphatase 480 U/L (45-117) H 08/25/19 07:26 Total Protein 6.2 g/dl (6.4-8.2) L 08/25/19 07:26 Albumin 3.1 g/dl (3.4-5.0) L 08/25/19 07:26 CARDIAC ENZYMES Creatine Kinase 80 U/L (26-192) 08/17/19 06:19 Troponin I < 0.02 ng/ml (0.00-0.05) 08/17/19 12:18 Current Medications Generic Name Dose Route Start Last Admin Trade Name Freq PRN Reason Stop Dose Admin Acetaminophen 650 mg 08/21/19 13:35 08/25/19 02:46 Tylenol - PO 650 mg Q4H PRN Administration PAIN OR FEVER Albuterol Sulfate 1 puff 08/21/19 13:35 Ventolin Hfa Inhaler - IH Q6H PRN WHEEZING Amlodipine Besylate 5 mg 08/22/19 10:00 08/25/19 09:48 Norvasc - PO 5 mg DAILY [facility] Administration Budesonide/Formoterol Fumarate 2 puff 08/21/19 22:00 08/25/19 09:50 Symbicort 80/4.5mcg - IH 2 puff BID [facility] Administration Docusate Sodium 100 mg 08/21/19 13:35 Colace - PO TID PRN CONSTIPATION Oxycodone HCl 5 mg 08/21/19 13:35 08/25/19 04:38 Roxicodone - PO 5 mg Q6H PRN Administration PAIN LEVEL 6-10 Home Medications Medication Instructions Recorded Docusate Sodium [Colace -] 100 mg PO TID PRN #90 capsule 09/28/18 Albuterol 0.083% Nebulizer Neha 1 neb NEB Q6H #30 vial 05/29/19 [Ventolin 0.083% Nebulizer Soln -] Albuterol Sulfate Inhaler - 1 - 2 inh PO QID PRN #1 inhaler 05/29/19 [Ventolin HFA Inhaler -] Budesonide/Formeterol Fumarate 2 inh PO BID #1 cannister 05/29/19 [SYMBICORT 80/4.5mcg -] Dolutegravir Sodium [Tivicay] 50 mg PO DAILY #30 tablet 05/29/19 Emtricitabine/Tenofov Alafenam 1 each PO DAILY #30 tablet 05/29/19 [Descovy 200-25 mg Tablet (Nf)] Multivitamin [One-Daily 1 each PO DAILY #30 tablet 05/29/19 Multi-Vitamin] Ibuprofen [Motrin -] 600 mg PO BID PRN 07/31/19 Oxycodone HCl/Acetaminophen 1 tab PO Q6H #10 tablet MDD 4 07/31/19 [Percocet 5-325 mg Tablet] 08/17/19 20:00 Blood - Peripheral Venous Blood Culture - Final NO GROWTH AFTER 5 DAYS INCUBATION 08/17/19 20:00 Blood - Peripheral Venous Blood Culture - Final NO GROWTH AFTER 5 DAYS INCUBATION 08/17/19 06:45 Urine - Urine Clean Catch Urine Culture - Final NO GROWTH OBTAINED ASSESSMENT AND PLAN: Patient is a 59 y/o lady with h/o HIV, on HAART, Asthma, CVA, remote h/o cocaine use, non Hodgkin's lymphoma, s/p chemo, UTI, R hydronephrosis and R hydroureter s/p R sided stent placement, who presented to ED with abd pain and hematuria . # Thrombocytopenia: s/p transfusion 72K today #H/x of Non-Hogkin's lymphoma, s/p chemo. s/p excisional Bx of right axilla by dr. Griffiths ,Bx result : normal fibroadipose tisssue # Hx of CVA: she is on asa as out pt # Possible angioedema. prednisone ,H1, H2 blockers. s/p treatment # h/o HIV: cont meds # H/o Asthma : cont inhaler and Nebs DVT PX: lovenox on hold Visit type - Emergency Visit Emergency Visit: Yes ED Registration Date: 08/17/19 Care time: The patient presented to the Emergency Department on the above date and was hospitalized for further evaluation of their emergent condition. - New Patient This patient is new to me today: No - Critical Care Critical Care patient: No - Discharge Referral Referred to [facility] Med P.C.: No
[2019-08-25 15:42] LABS: ANISOCYTOSIS 2+; MACROCYTOSIS 0; OVALOCYTE 1+; PLATELET ESTIMATE DECREASED
--- NOTE | 2019-08-25 19:13 | PN ---
Progress Note, Physician History of Present Illness: No bleeding. No complaints. Feeling well today - Current Medication List Current Medications: Active Medications Acetaminophen (Tylenol -) 650 mg PO Q4H PRN PRN Reason: PAIN OR FEVER Last Admin: 08/25/19 02:46 Dose: 650 mg Albuterol Sulfate (Ventolin Hfa Inhaler -) 1 puff IH Q6H PRN PRN Reason: WHEEZING Amlodipine Besylate (Norvasc -) 5 mg PO DAILY [facility] Last Admin: 08/25/19 09:48 Dose: 5 mg Budesonide/Formoterol Fumarate (Symbicort 80/4.5mcg -) 2 puff IH BID [facility] Last Admin: 08/25/19 09:50 Dose: 2 puff Docusate Sodium (Colace -) 100 mg PO TID PRN PRN Reason: CONSTIPATION Oxycodone HCl (Roxicodone -) 5 mg PO Q6H PRN PRN Reason: PAIN LEVEL 6-10 Last Admin: 08/25/19 18:16 Dose: 5 mg - Objective Vital Signs: Vital Signs Temperature 98.8 F 08/25/19 15:59 Pulse Rate 98 H 08/25/19 15:59 Respiratory Rate 20 08/25/19 15:59 Blood Pressure 142/82 08/25/19 15:59 O2 Sat by Pulse Oximetry (%) 90 L 08/25/19 09:00 Constitutional: Yes: No Distress Eyes: Yes: Conjunctiva Clear Cardiovascular: Yes: Regular Rate and Rhythm Respiratory: Yes: Regular, CTA Bilaterally Gastrointestinal: Yes: Soft. No: Tenderness Edema: No Labs: CBC, BMP 08/25/19 07:26 08/25/19 07:26 INR, PTT INR 1.08 (0.83-1.09) 08/21/19 11:12 Assessment/Plan 59F with HIV, asthma, substance abuse, renal stones, hx of NHL (treated by Dr. Felipe in 2011, reportedly in CR) now with mediastinal mass and LAD. Biopsy of axillary LN non-diagnostic (fibroadipose tissue only). Being considered for bx of mediastinal mass by IR. Also with thrombocytopenia of unclear etiology. Low risk for HIT but Ab pending. Responded well to plt transfusion. Plt 72 today. No bleeding.
[2019-08-26] MEDS: ACETAMINOPHEN 325 MG TABLET (FP) PO PRN ×2 (05:02→18:50)
[2019-08-26] MEDS ORDERED: PT OWN MED DRAWER 7, Y5N ONE (09:18)
--- NOTE | 2019-08-26 10:10 | PN ---
Progress Note (short form) - Note Progress Note: Patient is comfortable with no acute distress. no shortness of breath, no nausea or vomiting. Vital Signs Temperature 99.0 F 08/26/19 06:40 Pulse Rate 89 08/26/19 06:40 Respiratory Rate 19 08/26/19 06:40 Blood Pressure 136/75 08/26/19 06:40 O2 Sat by Pulse Oximetry (%) 94 L 08/25/19 21:00 GENERAL: The patient is awake, alert, and fully oriented, in no acute distress. HEAD: Normal with no signs of trauma. EYES: PERRL, extraocular movements intact, sclera anicteric, conjunctiva clear. . ENT: oropharynx clear without exudates, moist mucous membranes. LUNGS: Breath sounds equal, clear to auscultation bilaterally, no wheezes, no crackles, no accessory muscle use. HEART: Regular rate and rhythm, S1, S2 without murmur, rub or gallop. ABDOMEN: Soft, nontender, nondistended, normoactive bowel sounds, no guarding, no rebound, no hepatosplenomegaly, no masses. EXTREMITIES: 2+ pulses, warm, well-perfused, no edema. NEUROLOGICAL: Cranial nerves II through XII grossly intact. Normal speech, gait not observed. PSYCH: Normal mood, normal affect. CBCD WBC 16.7 K/mm3 (4.0-10.0) H 08/25/19 07:26 RBC 3.17 M/mm3 (3.60-5.2) L 08/25/19 07:26 Hgb 9.7 GM/dL (10.7-15.3) L 08/25/19 07:26 Hct 28.8 % (32.4-45.2) L 08/25/19 07:26 MCV 90.8 fl (80-96) 08/25/19 07:26 MCHC 33.7 g/dl (32.0-36.0) 08/25/19 07:26 RDW 14.7 % (11.6-15.6) 08/25/19 07:26 Plt Count 72 K/MM3 (134-434) L 08/25/19 07:26 MPV 7.4 fl (7.5-11.1) L 08/25/19 07:26 CMP Sodium 135 mmol/L (136-145) L 08/25/19 07:26 Potassium 4.1 mmol/L (3.5-5.1) 08/25/19 07:26 Chloride 100 mmol/L (98-107) 08/25/19 07:26 Carbon Dioxide 27 mmol/L (21-32) 08/25/19 07:26 Anion Gap 9 MMOL/L (8-16) 08/25/19 07:26 BUN 19.4 mg/dL (7-18) H 08/25/19 07:26 Creatinine 1.1 mg/dL (0.55-1.3) 08/25/19 07:26 Random Glucose 74 mg/dL (74-106) 08/25/19 07:26 Calcium 8.9 mg/dL (8.5-10.1) 08/25/19 07:26 Total Bilirubin 0.4 mg/dL (0.2-1) 08/25/19 07:26 AST 137 U/L (15-37) H 08/25/19 07:26 ALT 58 U/L (13-61) 08/25/19 07:26 Alkaline Phosphatase 480 U/L (45-117) H 08/25/19 07:26 Total Protein 6.2 g/dl (6.4-8.2) L 08/25/19 07:26 Albumin 3.1 g/dl (3.4-5.0) L 08/25/19 07:26 CARDIAC ENZYMES Creatine Kinase 80 U/L (26-192) 08/17/19 06:19 Troponin I < 0.02 ng/ml (0.00-0.05) 08/17/19 12:18 Current Medications Generic Name Dose Route Start Last Admin Trade Name Freq PRN Reason Stop Dose Admin Acetaminophen 650 mg 08/21/19 13:35 08/26/19 05:02 Tylenol - PO 650 mg Q4H PRN Administration PAIN OR FEVER Albuterol Sulfate 1 puff 08/21/19 13:35 Ventolin Hfa Inhaler - IH Q6H PRN WHEEZING Amlodipine Besylate 5 mg 08/22/19 10:00 08/25/19 09:48 Norvasc - PO 5 mg DAILY [facility] Administration Budesonide/Formoterol Fumarate 2 puff 08/21/19 22:00 08/25/19 22:50 Symbicort 80/4.5mcg - IH 2 puff BID [facility] Administration Docusate Sodium 100 mg 08/21/19 13:35 Colace - PO TID PRN CONSTIPATION Oxycodone HCl 5 mg 08/25/19 17:44 08/25/19 18:16 Roxicodone - PO 5 mg Q6H PRN Administration PAIN LEVEL 6-10 Home Medications Medication Instructions Recorded Docusate Sodium [Colace -] 100 mg PO TID PRN #90 capsule 09/28/18 Albuterol 0.083% Nebulizer Neha 1 neb NEB Q6H #30 vial 05/29/19 [Ventolin 0.083% Nebulizer Soln -] Albuterol Sulfate Inhaler - 1 - 2 inh PO QID PRN #1 inhaler 05/29/19 [Ventolin HFA Inhaler -] Budesonide/Formeterol Fumarate 2 inh PO BID #1 cannister 05/29/19 [SYMBICORT 80/4.5mcg -] Dolutegravir Sodium [Tivicay] 50 mg PO DAILY #30 tablet 05/29/19 Emtricitabine/Tenofov Alafenam 1 each PO DAILY #30 tablet 05/29/19 [Descovy 200-25 mg Tablet (Nf)] Multivitamin [One-Daily 1 each PO DAILY #30 tablet 05/29/19 Multi-Vitamin] Ibuprofen [Motrin -] 600 mg PO BID PRN 07/31/19 Oxycodone HCl/Acetaminophen 1 tab PO Q6H #10 tablet MDD 4 07/31/19 [Percocet 5-325 mg Tablet] Microbiology 08/23/19 10:30 Blood - Peripheral Venous Blood Culture - Preliminary NO GROWTH OBTAINED AFTER 48 HOURS, INCUBATION TO CONTINUE FOR 3 DAYS. 08/23/19 10:20 Blood - Peripheral Venous Blood Culture - Preliminary NO GROWTH OBTAINED AFTER 48 HOURS, INCUBATION TO CONTINUE FOR 3 DAYS. 08/22/19 20:50 Urine - Urine Clean Catch Urine Culture - Final NO GROWTH OBTAINED 08/17/19 20:00 Blood - Peripheral Venous Blood Culture - Final NO GROWTH AFTER 5 DAYS INCUBATION 08/17/19 20:00 Blood - Peripheral Venous Blood Culture - Final NO GROWTH AFTER 5 DAYS INCUBATION 08/17/19 06:45 Urine - Urine Clean Catch Urine Culture - Final NO GROWTH OBTAINED ASSESSMENT AND PLAN: Patient is a 59 y/o lady with h/o HIV, on HAART, Asthma, CVA, remote h/o cocaine use, non Hodgkin's lymphoma, s/p chemo, UTI, R hydronephrosis and R hydroureter s/p R sided stent placement, who presented to ED with abd pain and hematuria . # Thrombocytopenia: s/p transfusion 72K today #H/x of Non-Hogkin's lymphoma, s/p chemo. s/p excisional Bx of right axilla by dr. Griffiths ,Bx result : normal fibroadipose tisssue # Hx of CVA: she is on asa as out pt # Possible angioedema. prednisone ,H1, H2 blockers. s/p treatment # h/o HIV: cont meds # H/o Asthma : cont inhaler and Nebs # Hx of NHL DVT PX: lovenox on hold Mediastinal mass bx by IR vs cardiosurgery , dr Macedo is aware, Biopsy of axillary LN non-diagnostic (fibroadipose tissue only). npo after midnight. Visit type - Emergency Visit Emergency Visit: Yes ED Registration Date: 08/17/19 Care time: The patient presented to the Emergency Department on the above date and was hospitalized for further evaluation of their emergent condition. - New Patient This patient is new to me today: No - Critical Care Critical Care patient: No - Discharge Referral Referred to [facility] Med P.C.: No
[2019-08-26] MEDS: amLODIPine BESYLATE 5 MG TABLET (FP) PO SCH (10:43)
[2019-08-26] MEDS: EMTRICITABINE/TENOFOV ALAFENAM (DESCOVY) TABLET PO SCH (10:43)
[2019-08-26] MEDS: BUDESONIDE/FORMETEROL FUMARATE 80/4.5 mcg INHALER IH SCH ×2 (10:43→21:30)
[2019-08-26] MEDS: DOLUTEGRAVIR SODIUM 50 MG TABLET (NON-FORMULARY) PO SCH (10:43)
--- NOTE | 2019-08-26 14:59 | RAPID ---
Physical Examination Vital Signs: Vital Signs Temperature 98.6 F 08/26/19 10:00 Pulse Rate 93 H 08/26/19 10:00 Respiratory Rate 18 08/26/19 10:00 Blood Pressure 123/72 08/26/19 10:00 O2 Sat by Pulse Oximetry (%) 95 08/26/19 09:00 Tab landa was called around 1pm, the rapid response team responded immediately. On arrival the patient was complaining of numbness and pain on her chin and tongue. She denied any other motor or sensory deficits. The patient stated the numbness started just recently and was causing her "a lot of pain". On arrival she was hypertensive to 160/100s and she was satting 93% on RA. The patient was also yelling that she was in pain and crying. Once calmed the patient participated in her neurologic exam. She had an NIH stroke scare of 0 and did not have any obvious deficits. She was hooked up to the salvage determiner which showed a regular rhythm. She was brought down for a non-contrast head CT which showed no interval change from her previous imaging and did not reveal any acute pathology or bleed. Troponin and EKG were also ordered. Will continue to monitor the patient closely. Labs: CBC, BMP 08/25/19 07:26 08/25/19 07:[address] Stroke ordered: Yes Stat "Tab Landa" Consult to Neurology called & responded: No Last Known Well (Date): 08/26/19 Last Known Well (Time): 07:00 Symptom Discovery (Date): 08/26/19 Symptom Discovery (Time): 01:00 - NIH Stroke Scale/Score Level of consciousness: Alert Ask patient the month and their age: Answers both correctly Ask patient to open & close eyes; make fist and let go: Obeys both correctly Best gaze (horizontal eye movement): Normal Visual field testing: No visual field loss Facial paresis (Show teeth/raise eyebrows/close eyes tight): Normal symmetrical movement Motor Function: Left Arm: Normal Motor Function: Right Arm: Normal (extends arm 90 (or 45) degrees for 10 seconds without drift Motor Function: Left Leg: Normal (extends leg 30 degrees for 5 seconds without drift) Motor Function: Right Leg: Normal (extends leg 30 degrees for 5 seconds without drift) Limb Ataxia: No ataxia Sensory(Use pinprick test arms,legs,trunk,face/side to side): Normal Best language (Describe picture, name items, read sentences): No Aphasia Dysarthria (read several words): Normal articulation Extinction and Inattention: No abnormality NIH Stroke Scale Score: 0
[2019-08-26 17:12] LABS: BASO % 0.7 % (0-2.0); EOS % 2.8 % (0-4.5); HEMATOCRIT 29.3 % (32.4-45.2); HEMOGLOBIN 9.7 GM/dL (10.7-15.3); LYMPH % 28.4 % (8-40); MCH 30.4 pg (25.7-33.7); MCHC 33.1 g/dl (32.0-36.0); MEAN PLT VOLUME 8.4 fl (7.5-11.1); MONO % 5.1 % (3.8-10.2); PLATELET COUNT 39 K/MM3 (134-434); RBC 3.18 M/mm3 (3.60-5.2); WHITE BLOOD COUNT 15.8 K/mm3 (4.0-10.0)
[2019-08-26 17:28] LABS: INR 1.02 (0.83-1.09)
[2019-08-26 17:30] LABS: ACTIVATED PTT 29.1 SECONDS (25.2-36.5)
[2019-08-26 17:53] LABS: BLOOD UREA NITROGEN 24.8 mg/dL (7-18); CALCIUM 8.8 mg/dL (8.5-10.1); CREATININE 1.3 mg/dL (0.55-1.3)
[2019-08-26 18:06] LABS: PLATELET ESTIMATE DECREASED
--- NOTE | 2019-08-26 19:26 | PN ---
Progress Note, Physician History of Present Illness: Had a stroke code called at 1 pm today for chin numbness. Pt reported similar sx in the past. No acute change on non-contrast CTH - Current Medication List Current Medications: Active Medications Acetaminophen (Tylenol -) 650 mg PO Q4H PRN PRN Reason: PAIN OR FEVER Last Admin: 08/26/19 18:50 Dose: 650 mg Albuterol Sulfate (Ventolin Hfa Inhaler -) 1 puff IH Q6H PRN PRN Reason: WHEEZING Amlodipine Besylate (Norvasc -) 5 mg PO DAILY [facility] Last Admin: 08/26/19 10:43 Dose: 5 mg Budesonide/Formoterol Fumarate (Symbicort 80/4.5mcg -) 2 puff IH BID [facility] Last Admin: 08/26/19 10:43 Dose: 2 puff Docusate Sodium (Colace -) 100 mg PO TID PRN PRN Reason: CONSTIPATION Oxycodone HCl (Roxicodone -) 5 mg PO Q6H PRN PRN Reason: PAIN LEVEL 6-10 Last Admin: 08/25/19 18:16 Dose: 5 mg - Objective Vital Signs: Vital Signs Temperature 99.7 F H 08/26/19 17:51 Pulse Rate 106 H 08/26/19 17:51 Respiratory Rate 20 08/26/19 17:51 Blood Pressure 116/66 08/26/19 17:51 O2 Sat by Pulse Oximetry (%) 95 08/26/19 09:00 Constitutional: Yes: No Distress Eyes: Yes: Conjunctiva Clear Respiratory: Yes: Regular Gastrointestinal: Yes: Soft. No: Tenderness ...Rectal Exam: Yes: Induration Edema: No Neurological: Yes: Alert, Oriented Labs: CBC, BMP 08/26/19 15:48 08/26/19 15:48 INR, PTT INR 1.02 (0.83-1.09) 08/26/19 15:48 Assessment/Plan 59F with HIV, asthma, substance abuse, renal stones, hx of NHL (treated by Dr. Felipe in 2011, reportedly in CR) now with mediastinal mass and LAD. Biopsy of axillary LN non-diagnostic (fibroadipose tissue only). Being considered for bx of mediastinal mass by IR. Also with thrombocytopenia of unclear etiology. Low risk for HIT but Ab pending. Responded well to plt transfusion but plts now downtrending -- 39 this afternoon. Ordered 2 u MDP for tomorrow morning in anticipation of biopsy
[2019-08-26] MEDS ORDERED: MELATONIN 5 MG TABLETS PO ONE (20:47)
--- NOTE | 2019-08-26 21:52 | EKG ---
Test Reason : Blood Pressure : / mmHG Vent. Rate : 099 BPM Atrial Rate : 099 BPM P-R Int : 132 ms QRS Dur : 082 ms QT Int : 350 ms P-R-T Axes : 071 007 022 degrees QTc Int : 449 ms NORMAL SINUS RHYTHM NORMAL ECG WHEN COMPARED WITH ECG OF 17-AUG-2019 06:57, NO SIGNIFICANT CHANGE WAS FOUND Confirmed by Antoinette Small ([id number]) on 08/26/2019 9:52:31 PM Referred By: Della BLANTON Confirmed By:Antoinette Small
[2019-08-27] MEDS: ACETAMINOPHEN 325 MG TABLET (FP) PO PRN ×2 (03:13→20:43)
[2019-08-27 07:15] LABS: BASO % 1.3 % (0-2.0); EOS % 2.5 % (0-4.5); HEMATOCRIT 28.5 % (32.4-45.2); HEMOGLOBIN 9.4 GM/dL (10.7-15.3); LYMPH % 25.8 % (8-40); MCHC 32.9 g/dl (32.0-36.0); MEAN CELL VOLUME 91.1 fl (80-96); MEAN PLT VOLUME 8.8 fl (7.5-11.1); MONO % 6.1 % (3.8-10.2); NEUT % 64.3 % (42.8-82.8); PLATELET COUNT 86 K/MM3 (134-434); RBC 3.13 M/mm3 (3.60-5.2); RDW 14.3 % (11.6-15.6); WHITE BLOOD COUNT 13.5 K/mm3 (4.0-10.0)
[2019-08-27 07:25] LABS: ACTIVATED PTT 27.4 SECONDS (25.2-36.5)
[2019-08-27 07:45] LABS: ALBUMIN 3.2 g/dl (3.4-5.0); BILIRUBIN,TOTAL 0.5 mg/dL (0.2-1); BLOOD UREA NITROGEN 25.3 mg/dL (7-18); CALCIUM 9.3 mg/dL (8.5-10.1); CREATININE 1.5 mg/dL (0.55-1.3); POTASSIUM 3.9 mmol/L (3.5-5.1); TOT PROT 6.2 g/dl (6.4-8.2)
[2019-08-27 09:11] LABS: INR 1.05 (0.83-1.09); PROTHROMBIN TIME (PATIENT) 12.4 SEC (9.7-13.0)
[2019-08-27] MEDS: amLODIPine BESYLATE 5 MG TABLET (FP) PO SCH (09:33)
--- NOTE | 2019-08-27 09:35 | PN ---
Teaching Attending Note Name of Resident: Althea Chance ATTENDING PHYSICIAN STATEMENT I saw and evaluated the patient. I reviewed the resident's note and discussed the case with the resident. I agree with the resident's findings and plan as documented. SUBJECTIVE: Patient is comfortable but c/o having left ear pain. No fever or chills. OBJECTIVE: Vital Signs Temperature 97.7 F 08/27/19 05:47 Pulse Rate 89 08/27/19 05:47 Respiratory Rate 19 08/27/19 05:47 Blood Pressure 138/87 08/27/19 05:47 O2 Sat by Pulse Oximetry (%) 95 08/26/19 21:00 GENERAL: The patient is awake, alert, and fully oriented, in no acute distress. HEAD: Normal with no signs of trauma. EYES: PERRL, extraocular movements intact, sclera anicteric, conjunctiva clear. . ENT: oropharynx clear without exudates, moist mucous membranes. LUNGS: Breath sounds equal, clear to auscultation bilaterally, no wheezes, no crackles, no accessory muscle use. HEART: Regular rate and rhythm, S1, S2 without murmur, rub or gallop. ABDOMEN: Soft, NT,ND, normoactive bowel sounds, no guarding, no rebound, no hepatosplenomegaly, no masses. EXTREMITIES: 2+ pulses, warm, well-perfused, no edema. NEUROLOGICAL: Cranial nerves II through XII grossly intact. Normal speech, gait not observed. PSYCH: Normal mood, normal affect. CBCD WBC 13.5 K/mm3 (4.0-10.0) H 08/27/19 06:05 RBC 3.13 M/mm3 (3.60-5.2) L 08/27/19 06:05 Hgb 9.4 GM/dL (10.7-15.3) L 08/27/19 06:05 Hct 28.5 % (32.4-45.2) L 08/27/19 06:05 MCV 91.1 fl (80-96) 08/27/19 06:05 MCHC 32.9 g/dl (32.0-36.0) 08/27/19 06:05 RDW 14.3 % (11.6-15.6) 08/27/19 06:05 Plt Count 86 K/MM3 (134-434) L D 08/27/19 06:05 MPV 8.8 fl (7.5-11.1) 08/27/19 06:05 CMP Sodium 135 mmol/L (136-145) L 08/27/19 06:05 Potassium 3.9 mmol/L (3.5-5.1) 08/27/19 06:05 Chloride 98 mmol/L (98-107) 08/27/19 06:05 Carbon Dioxide 26 mmol/L (21-32) 08/27/19 06:05 Anion Gap 11 MMOL/L (8-16) 08/27/19 06:05 BUN 25.3 mg/dL (7-18) H 08/27/19 06:05 Creatinine 1.5 mg/dL (0.55-1.3) H 08/27/19 06:05 Random Glucose 74 mg/dL (74-106) 08/27/19 06:05 Calcium 9.3 mg/dL (8.5-10.1) 08/27/19 06:05 Total Bilirubin 0.5 mg/dL (0.2-1) 08/27/19 06:05 AST 146 U/L (15-37) H 08/27/19 06:05 ALT 44 U/L (13-61) 08/27/19 06:05 Alkaline Phosphatase 535 U/L (45-117) H 08/27/19 06:05 Total Protein 6.2 g/dl (6.4-8.2) L 08/27/19 06:05 Albumin 3.2 g/dl (3.4-5.0) L 08/27/19 06:05 CARDIAC ENZYMES Creatine Kinase 80 U/L (26-192) 08/17/19 06:19 Troponin I 0.02 ng/ml (0.00-0.05) 08/26/19 15:48 Current Medications Generic Name Dose Route Start Last Admin Trade Name Freq PRN Reason Stop Dose Admin Acetaminophen 650 mg 08/21/19 13:35 08/27/19 03:13 Tylenol - PO 650 mg Q4H PRN Administration PAIN OR FEVER Albuterol Sulfate 1 puff 08/21/19 13:35 Ventolin Hfa Inhaler - IH Q6H PRN WHEEZING Amlodipine Besylate 5 mg 08/22/19 10:00 08/26/19 10:43 Norvasc - PO 5 mg DAILY HIPOLITO Administration Budesonide/Formoterol Fumarate 2 puff 08/21/19 22:00 08/26/19 21:30 Symbicort 80/4.5mcg - IH 2 puff BID HIPOLITO Administration Docusate Sodium 100 mg 08/21/19 13:35 Colace - PO TID PRN CONSTIPATION Oxycodone HCl 5 mg 08/25/19 17:44 08/25/19 18:16 Roxicodone - PO 5 mg Q6H PRN Administration PAIN LEVEL 6-10 Home Medications Medication Instructions Recorded Docusate Sodium [Colace -] 100 mg PO TID PRN #90 capsule 09/28/18 Albuterol 0.083% Nebulizer Neha 1 neb NEB Q6H #30 vial 05/29/19 [Ventolin 0.083% Nebulizer Soln -] Albuterol Sulfate Inhaler - 1 - 2 inh PO QID PRN #1 inhaler 05/29/19 [Ventolin HFA Inhaler -] Budesonide/Formeterol Fumarate 2 inh PO BID #1 cannister 05/29/19 [SYMBICORT 80/4.5mcg -] Dolutegravir Sodium [Tivicay] 50 mg PO DAILY #30 tablet 05/29/19 Emtricitabine/Tenofov Alafenam 1 each PO DAILY #30 tablet 05/29/19 [Descovy 200-25 mg Tablet (Nf)] Multivitamin [One-Daily 1 each PO DAILY #30 tablet 05/29/19 Multi-Vitamin] Ibuprofen [Motrin -] 600 mg PO BID PRN 07/31/19 Oxycodone HCl/Acetaminophen 1 tab PO Q6H #10 tablet MDD 4 07/31/19 [Percocet 5-325 mg Tablet] ASSESSMENT AND PLAN: Patient is a 59 y/o lady with h/o HIV, on HAART, Asthma, CVA, remote h/o cocaine use, non Hodgkin's lymphoma, s/p chemo, UTI, R hydronephrosis and R hydroureter s/p R sided stent placement, who presented to ED with abd pain and hematuria . # Thrombocytopenia: s/p transfusion 72K--> 86K now, will discuss with oncology whether tx the patient to tertiary facility or follow up with Dr. Macedo for bx since our IR unable to do the bx. for tissue bx. #H/x of Non-Hogkin's lymphoma, s/p chemo. s/p excisional Bx of right axilla by dr. Griffiths ,Bx result : normal fibroadipose tisssue # Hx of CVA: she is on asa as out pt # Possible angioedema. prednisone ,H1, H2 blockers. s/p treatment # h/o HIV: cont meds # H/o Asthma : cont inhaler and Nebs # Hx of NHL DVT PX: lovenox on hold due to thrombocytopenia Mediastinal mass bx by IRis not possible, patient needs either tx to tertiary care or outpatient follow up with cardiosurgery , dr Macedo is aware, Biopsy of axillary LN non-diagnostic (fibroadipose tissue only). willcheck with oncologist.
[2019-08-27] MEDS: BUDESONIDE/FORMETEROL FUMARATE 80/4.5 mcg INHALER IH SCH ×2 (09:36→21:39)
[2019-08-27] MEDS: oxyCODONE HCL 5 MG TABLET PO PRN ×2 (10:40→20:43)
[2019-08-27 12:12] LABS: ANISOCYTOSIS 1+; MACROCYTOSIS 0; PLATELET ESTIMATE DECREASED
--- NOTE | 2019-08-27 13:18 | CON.PULM ---
Consult Consult Specialty:: PULM/CCM Referred by:: Hospitalist Reason for Consultation:: abnormal CT chest - History of Present Illness Chief Complaint: Rash History of Present Illness: 59 F, HIV, asthma, substance abuse(sober 9 months), renal stones, and lymphoma about 20 years ago (follows with Dr Wang). Admitted via the ER due to rash and swelling of her face. Also reported pelvic pain and hematuria. She initially was admitted to [facility] for her initial workup. Associated chest pain and SOB. Called to evaluate an abnormal CT of the chest: 5.8 x 5.8 x 6.2 Right paratracheal soft tissue mass / 2.1 x 1.3 cm infracarinal lymph node / Mild COPD - History Source History Provided By: Patient Limitations to Obtaining History: No Limitations - Past Medical History Cardio/Vascular: No: AFIB Pulmonary: Yes: Asthma, Bronchitis, COPD, Pneumonia. No: Cancer, Previously Intubated, Pulmonary Embolus, Pulmonary Fibrosis, Sleep Apnea Gastrointestinal: Yes: Constipation, Pancreatitis ...LMP: 11/27/15 ...: No Infectious Disease: Yes: AIDS Psych: Yes: Addictions (PAST IVDA) ENT: Yes: Other (recent epistaxis) Additional Medical History: substance use (cocaine) - Past Surgical History Past Surgical History: Yes: - Alcohol/Substance Use Hx Alcohol Use: Yes (Seasonal) History of Substance Use: reports: Cocaine, Heroin - Smoking History Smoking history: Current every day smoker Have you smoked in the past 12 months: Yes Aproximately how many cigarettes per day: 1 If you are a former smoker, when did you quit?: 1month - Social History Usual Living Arrangement: With Spouse ADL: Independent Occupation: unemployed History of Recent Travel: No Home Medications - Allergies Allergies/Adverse Reactions: Allergies Allergy/AdvReac Type Severity Reaction Status Date / Time hydromorphone [From Dilaudid] Allergy Verified 08/17/19 06:37 - Home Medications Home Medications: Ambulatory Orders Docusate Sodium [Colace -] 100 mg PO TID PRN #90 capsule 09/28/18 Albuterol 0.083% Nebulizer Neha [Ventolin 0.083% Nebulizer Soln -] 1 neb NEB Q6H #30 vial 05/29/19 Albuterol Sulfate Inhaler - [Ventolin HFA Inhaler -] 1 - 2 inh PO QID PRN #1 inhaler 05/29/19 Budesonide/Formeterol Fumarate [SYMBICORT 80/4.5mcg -] 2 inh PO BID #1 cannister 05/29/19 Dolutegravir Sodium [Tivicay] 50 mg PO DAILY #30 tablet 05/29/19 Emtricitabine/Tenofov Alafenam [Descovy 200-25 mg Tablet (Nf)] 1 each PO DAILY # 30 tablet 05/29/19 Multivitamin [One-Daily Multi-Vitamin] 1 each PO DAILY #30 tablet 05/29/19 Ibuprofen [Motrin -] 600 mg PO BID PRN 07/31/19 Oxycodone HCl/Acetaminophen [Percocet 5-325 mg Tablet] 1 tab PO Q6H #10 tablet MDD 4 07/31/19 Review of Systems - Review of Systems Constitutional: reports: Fever, Lethargy, Malaise, Weakness. denies: Chills, Night Sweats, Unintentional Wgt. Loss Eyes: reports: No Symptoms HENT: reports: No Symptoms Neck: reports: No Symptoms Cardiovascular: reports: Chest Pain, Shortness of Breath. denies: Edema, Palpitations Respiratory: reports: Cough, SOB, SOB on Exertion. denies: Hemoptysis, PND, Snoring, Wheezing Gastrointestinal: reports: No Symptoms Genitourinary: reports: No Symptoms Breasts: reports: No Symptoms Reported Musculoskeletal: reports: Back Pain, Joint Pain Integumentary: reports: Pruritis, Rash Neurological: reports: No Symptoms Endocrine: reports: No Symptoms Hematology/Lymphatic: reports: No Symptoms Psychiatric: reports: No Symptoms Physical Exam Vital Sings: Vital Signs Temperature 98.8 F 08/27/19 10:00 Pulse Rate 88 08/27/19 10:00 Respiratory Rate 18 08/27/19 10:00 Blood Pressure 136/74 08/27/19 10:00 O2 Sat by Pulse Oximetry (%) 95 08/26/19 21:00 Constitutional: Yes: No Distress Eyes: Yes: Conjunctiva Clear, EOM Intact HENT: Yes: Atraumatic, Normocephalic Neck: Yes: Supple, Trachea Midline Cardiovascular: Yes: Regular Rate and Rhythm Respiratory: Yes: Rhonchi. No: Accessory Muscle Use, Rales, SOB, SOB on Exertion, Stridor, Tachypnea, Wheezes ...Inspection: Yes: WNL Gastrointestinal: Yes: Normal Bowel Sounds, Soft Renal/: Yes: WNL Musculoskeletal: Yes: WNL Extremities: Yes: WNL Edema: No Peripheral Pulses WNL: Yes Integumentary: Yes: WNL Neurological: Yes: WNL, Alert, Oriented ...Motor Strength: WNL Psychiatric: Yes: WNL, Alert, Oriented Labs: CBC, BMP 08/27/19 06:05 08/27/19 06:05 Imaging - Results Chest X-ray: Report Reviewed, Image Reviewed Cat Scan: Report Reviewed, Image Reviewed Problem List - Problems (1) Mass of mediastinum Code(s): J98.59 - OTHER DISEASES OF MEDIASTINUM, NOT ELSEWHERE CLASSIFIED (2) Lung mass Code(s): R91.8 - OTHER NONSPECIFIC ABNORMAL FINDING OF LUNG FIELD (3) Abnormal CT scan, pelvis Code(s): R93.5 - ABN FINDINGS ON DX IMAGING OF ABD REGIONS, INC RETROPERITON (4) Allergic rhinitis Code(s): J30.9 - ALLERGIC RHINITIS, UNSPECIFIED (5) Anemia Code(s): D64.9 - ANEMIA, UNSPECIFIED (6) Asthma Code(s): J45.909 - UNSPECIFIED ASTHMA, UNCOMPLICATED Qualifiers: Asthma severity: mild Asthma persistence: persistent Asthma complication type: unspecified Qualified Code(s): J45.30 - Mild persistent asthma, uncomplicated (7) Depression Code(s): F32.9 - MAJOR DEPRESSIVE DISORDER, SINGLE EPISODE, UNSPECIFIED (8) Dizziness Code(s): R42 - DIZZINESS AND GIDDINESS (9) Dyspepsia Code(s): R10.13 - EPIGASTRIC PAIN (10) Dyspnea Code(s): R06.00 - DYSPNEA, UNSPECIFIED (11) Pelvic pain Code(s): R10.2 - PELVIC AND PERINEAL PAIN (12) Tobacco use Code(s): Z72.0 - TOBACCO USE (13) Back pain Code(s): M54.9 - DORSALGIA, UNSPECIFIED (14) COPD (chronic obstructive pulmonary disease) Code(s): J44.9 - CHRONIC OBSTRUCTIVE PULMONARY DISEASE, UNSPECIFIED (15) HIV (human immunodeficiency virus infection) Code(s): Z21 - ASYMPTOMATIC HUMAN IMMUNODEFICIENCY VIRUS INFECTION STATUS Qualifiers: HIV symptom status: unspecified Qualified Code(s): B20 - Human immunodeficiency virus [HIV] disease (16) Lymphoma Code(s): C85.90 - NON-HODGKIN LYMPHOMA, UNSPECIFIED, UNSPECIFIED SITE Qualifiers: Lymphoma type: unspecified type (17) Smoking Code(s): F17.200 - NICOTINE DEPENDENCE, UNSPECIFIED, UNCOMPLICATED Assessment/Plan D/W IR. The patient is very high risk for IR guided biopsy. Will likely develop a PTX as both pleural linings need to be traversed. She will most likely require a chest tube placement post-procedure. In addition, there are several blood vessels that may be injured during the procedure. Will contact CTS and discuss other approaches that may carry less risk. D/W the patient and her daughters and sister who were present. Thank you. Dr Sanon
--- NOTE | 2019-08-27 13:56 | PN ---
Physical Exam: SUBJECTIVE: Patient seen and examined. pt offered no complaints. denied any bleeding or pain OBJECTIVE: Vital Signs Period Temp Pulse Resp BP Sys/Rosas Pulse Ox Last 24 Hr 97.7 F-99.9 F 88-106 18-20 116-146/66-88 94-95 GENERAL: The patient is awake, alert, and fully oriented, in no acute distress. HEAD: Normal with no signs of trauma. EYES: PERRL, extraocular movements intact, sclera anicteric, conjunctiva clear. No ptosis. ENT: oropharynx clear without exudates, moist mucous membranes. mild swelling around the mandibular and submandibular region LUNGS: Breath sounds equal, clear to auscultation bilaterally, no wheezes, no crackles, no accessory muscle use. HEART: Regular rate and rhythm, S1, S2 without murmur, rub or gallop. ABDOMEN: Soft, nontender, nondistended, normoactive bowel sounds, no guarding, no rebound, no hepatosplenomegaly, no masses. EXTREMITIES: 2+ pulses, warm, well-perfused, no edema. NEUROLOGICAL: Cranial nerves II through XII grossly intact. Normal speech, gait not observed. Laboratory Results - last 24 hr 08/26/19 08/26/19 08/26/19 12:39 15:48 15:48 WBC 15.8 H RBC 3.18 L Hgb 9.7 L Hct 29.3 L MCV 92.0 MCH 30.4 MCHC 33.1 RDW 15.0 Plt Count 39 L D MPV 8.4 D Absolute Neuts (auto) 9.9 H Neutrophils % 63.0 Neutrophils % (Manual) 36.1 L Band Neutrophils % 6.2 Lymphocytes % 28.4 D Lymphocytes % (Manual) 22.7 D Monocytes % 5.1 Monocytes % (Manual) 3 L D Eosinophils % 2.8 Eosinophils % (Manual) 2.0 D Basophils % 0.7 Basophils % (Manual) 0.0 Myelocytes % (Man) 7 H D Promyelocytes % (Man) 0 Blast Cells % (Manual) 5 H D Nucleated RBC % 1 H Metamyelocytes 2 D Hypochromia Platelet Estimate Decreased Polychromasia Poikilocytosis Anisocytosis Microcytosis Macrocytosis PT with INR 12.00 INR 1.02 PTT (Actin FS) 29.1 Sodium Potassium Chloride Carbon Dioxide Anion Gap BUN Creatinine Est GFR (CKD-EPI)AfAm Est GFR (CKD-EPI)NonAf Random Glucose Calcium Total Bilirubin AST ALT Alkaline Phosphatase Troponin I Total Protein Albumin Blood Type O POSITIVE Antibody Screen Negative 08/26/19 08/27/19 08/27/19 15:48 06:05 06:05 WBC 13.5 H RBC 3.13 L Hgb 9.4 L Hct 28.5 L MCV 91.1 MCH 30.0 MCHC 32.9 RDW 14.3 Plt Count 86 L D MPV 8.8 Absolute Neuts (auto) 8.7 H Neutrophils % 64.3 Neutrophils % (Manual) 36.4 L Band Neutrophils % 9.1 Lymphocytes % 25.8 Lymphocytes % (Manual) 31.3 D Monocytes % 6.1 Monocytes % (Manual) 2 L Eosinophils % 2.5 Eosinophils % (Manual) 1.0 Basophils % 1.3 Basophils % (Manual) 0.0 Myelocytes % (Man) 6 H Promyelocytes % (Man) 0 Blast Cells % (Manual) 0 D Nucleated RBC % 0 Metamyelocytes 3 H D Hypochromia 0 Platelet Estimate Decreased Polychromasia 0 Poikilocytosis 0 Anisocytosis 1+ Microcytosis 1+ Macrocytosis 0 PT with INR 12.40 INR 1.05 PTT (Actin FS) 27.4 Sodium 134 L Potassium 4.0 Chloride 98 Carbon Dioxide 25 Anion Gap 11 BUN 24.8 H Creatinine 1.3 Est GFR (CKD-EPI)AfAm 51.64 Est GFR (CKD-EPI)NonAf 44.55 Random Glucose 80 Calcium 8.8 Total Bilirubin AST ALT Alkaline Phosphatase Troponin I 0.02 Total Protein Albumin Blood Type Antibody Screen 08/27/19 06:05 WBC RBC Hgb Hct MCV MCH MCHC RDW Plt Count MPV Absolute Neuts (auto) Neutrophils % Neutrophils % (Manual) Band Neutrophils % Lymphocytes % Lymphocytes % (Manual) Monocytes % Monocytes % (Manual) Eosinophils % Eosinophils % (Manual) Basophils % Basophils % (Manual) Myelocytes % (Man) Promyelocytes % (Man) Blast Cells % (Manual) Nucleated RBC % Metamyelocytes Hypochromia Platelet Estimate Polychromasia Poikilocytosis Anisocytosis Microcytosis Macrocytosis PT with INR INR PTT (Actin FS) Sodium 135 L Potassium 3.9 Chloride 98 Carbon Dioxide 26 Anion Gap 11 BUN 25.3 H Creatinine 1.5 H Est GFR (CKD-EPI)AfAm 43.43 Est GFR (CKD-EPI)NonAf 37.48 Random Glucose 74 Calcium 9.3 Total Bilirubin 0.5 AST 146 H ALT 44 Alkaline Phosphatase 535 H Troponin I Total Protein 6.2 L Albumin 3.2 L Blood Type Antibody Screen Active Medications Generic Name Dose Route Start Last Admin Trade Name Freq PRN Reason Stop Dose Admin Acetaminophen 650 mg 08/21/19 13:35 08/27/19 03:13 Tylenol - PO 650 mg Q4H PRN Administration PAIN OR FEVER Albuterol Sulfate 1 puff 08/21/19 13:35 Ventolin Hfa Inhaler - IH Q6H PRN WHEEZING Amlodipine Besylate 5 mg 08/22/19 10:00 08/27/19 09:33 Norvasc - PO 5 mg DAILY HIPOLITO Administration Budesonide/Formoterol Fumarate 2 puff 08/21/19 22:00 08/27/19 09:36 Symbicort 80/4.5mcg - IH 2 puff BID HIPOLITO Administration Docusate Sodium 100 mg 08/21/19 13:35 Colace - PO TID PRN CONSTIPATION Oxycodone HCl 5 mg 08/25/19 17:44 08/27/19 10:40 Roxicodone - PO 5 mg Q6H PRN Administration PAIN LEVEL 6-10 ASSESSMENT/PLAN: 59 y/o lady with h/o HIV, on HAART, [place], CVA, remote h/o cocaine use, non Hodgkin's lymphoma, s/p chemo, UTI, R hydronephrosis and R hydroureter s/p R sided stent placement, who presented to ER with abd pain and hematuria . thrombocytopenia platelet improved today to 86 s/p 1 unit Initially there was a concern for HIIT but antiplatelet antibodies came back WNL continuing to monitor and transfuse as needed Fever 2/2 worsening non-Hodgkin's lymphoma or sepsis resolved Non-Hodgkin's lymphoma, s/p chemo. worsening lymphadenopathy. concern for recurrence S/P axillary lymph node excision biopsy. pt to f/u with Dr Griffiths in 7-10d . path report inconclusive Mediastinal mass biopsy per IR unable to do so based on location Pt agree to treatment if NHL recur HTN started on norvasc 5 mg Angioedema poss recurrence? pt noted today to have some facial swelling s/p treatment HIV cont meds Asthma No acute exacerbation cont inhaler and Nebs as needed DVT PPX lovenox on hold platelet drop Visit type - Emergency Visit Emergency Visit: Yes ED Registration Date: 08/17/19 Care time: The patient presented to the Emergency Department on the above date and was hospitalized for further evaluation of their emergent condition. - New Patient This patient is new to me today: No - Critical Care Critical Care patient: No - Discharge Referral Referred to [facility] Med [facility].C[facility] No ATTENDING PHYSICIAN STATEMENT I saw and evaluated the patient. I reviewed the resident's note and discussed the case with the resident. I agree with the resident's findings and plan as documented. SUBJECTIVE: OBJECTIVE: ASSESSMENT AND PLAN:
[2019-08-27] MEDS ORDERED: CYCLOBENZAPRINE HCL 5 MG TABLET PO ONE (15:04)
[2019-08-27] MEDS: EMTRICITABINE/TENOFOV ALAFENAM (DESCOVY) TABLET PO SCH (15:27)
[2019-08-27] MEDS: DOLUTEGRAVIR SODIUM 50 MG TABLET (NON-FORMULARY) PO SCH (15:27)
--- NOTE | 2019-08-27 16:22 | PN ---
Progress Note (short form) - Note Progress Note: s/p laser lithotripsy s/p LN biopsy- nondiagnostic fatigued Vital Signs Period Temp Pulse Resp BP Sys/Rosas Pulse Ox Last 24 Hr 97.7 F-99.7 F 88-106 18-20 116-140/66-87 94-95 cor-rrr lungs decreased bs at bases abd soft,nt ext no edema CBC, BMP 08/27/19 06:05 08/27/19 06:05 Microbiology 08/23/19 10:30 Blood - Peripheral Venous Blood Culture - Preliminary NO GROWTH OBTAINED AFTER 96 HOURS, INCUBATION TO CONTINUE FOR 1 DAYS. 08/23/19 10:20 Blood - Peripheral Venous Blood Culture - Preliminary NO GROWTH OBTAINED AFTER 96 HOURS, INCUBATION TO CONTINUE FOR 1 DAYS. 08/22/19 20:50 Urine - Urine Clean Catch Urine Culture - Final NO GROWTH OBTAINED 08/17/19 20:00 Blood - Peripheral Venous Blood Culture - Final NO GROWTH AFTER 5 DAYS INCUBATION 08/17/19 20:00 Blood - Peripheral Venous Blood Culture - Final NO GROWTH AFTER 5 DAYS INCUBATION 08/17/19 06:45 Urine - Urine Clean Catch Urine Culture - Final NO GROWTH OBTAINED a/p thrombocytopenia- hit ab pending, ?malignancy, bone marrow involvement? fevers- ?lymphoma -s/p LN biopsy , blood cultures repeated, no lung infiltrate right paratracheal mass- ?recurrence NHL-?lung cancer hematology following ureteral stent with stone and hydronephrosis-s/p eswl, still with stent stable HIV- continue meds-descovy/tivicay history of asthma- nebs steroids stopped history of prior cva many years ago at [facility] chuck is aware biopsy is nondiagnostic-she gave permission for us to speak with her daughters Shabnam and Shira- THEIR NUMBERS ARE ON THE CHART I spoke with her daughter Shabnam who is asking that we contact them d/w Dr Cervantes she will need another biopsy spoke with dr vásquez to evaluate for biopsy-referred biopsy to IR also please ask ENT to see her for voice change, ?recurrent laryngeal nerve involvement spoke with pulmonary today as IR feels biopsy is too risky patient is aware that she will need a biopsy still with low platelets
--- NOTE | 2019-08-27 20:38 | PN ---
Progress Note (short form) - Note Progress Note: PAtient seen and examined c/o headache AFVSS Cor: RSR, No murmurs, No gallops Lungs: Clear to P&A Abd: Soft, Normal bowel sounds, No organomegaly Ext:No significant edema Labs/Meds reviewed A/P Patient is a 59 y/o female with a history of HIV, asthma, substance abuse( sober 9 months), renal stones, and lymphoma who is admitted for UTI and found to have superior mediastinal mass 6x 5cm, aand fewmm paraaortic nodes Concern for lymphoma recurrence Axillary node biopsy nondiagnostic ? CT surgery for superior mediastinal node biopsy Thrombocytopenia -- ? ITP related to lymphoma HIT negative Transfused anticipating IR procedure. 86,000 On discussing today with patient --refusing any kind of biopsies at this maranda will discuss with teams involved
[2019-08-28 09:27] LABS: BASO % 0.8 % (0-2.0); EOS % 3.8 % (0-4.5); HEMATOCRIT 26.8 % (32.4-45.2); HEMOGLOBIN 9.2 GM/dL (10.7-15.3); LYMPH % 32.4 % (8-40); MCH 30.9 pg (25.7-33.7); MCHC 34.3 g/dl (32.0-36.0); MEAN CELL VOLUME 90.2 fl (80-96); MEAN PLT VOLUME 8.3 fl (7.5-11.1); MONO % 2.8 % (3.8-10.2); NEUT % 60.2 % (42.8-82.8); PLATELET COUNT 57 K/MM3 (134-434); RBC 2.97 M/mm3 (3.60-5.2); RDW 14.2 % (11.6-15.6); WHITE BLOOD COUNT 12.8 K/mm3 (4.0-10.0)
--- NOTE | 2019-08-28 10:25 | PN ---
Progress Note (short form) - Note Progress Note: Reports feeling better. Anxious to go home. No CP or SOB. Intake & Output 08/25/19 08/26/19 08/27/19 08/28/19 23:59 23:59 23:59 23:59 Intake Total 450 680 200 0 Balance 450 680 200 0 Weight 152 lb 6.983 oz 153 lb 1.6 oz Last Vital Signs Temp Pulse Resp BP Pulse Ox 98.2 F 102 H 20 130/79 97 08/28/19 06:08 08/28/19 06:08 08/28/19 06:08 08/28/19 06:08 08/27/19 21:00 Active Medications Acetaminophen (Tylenol -) 650 mg PO Q4H PRN PRN Reason: PAIN OR FEVER Last Admin: 08/27/19 20:43 Dose: 650 mg Albuterol Sulfate (Ventolin Hfa Inhaler -) 1 puff IH Q6H PRN PRN Reason: WHEEZING Amlodipine Besylate (Norvasc -) 5 mg PO DAILY [facility] Last Admin: 08/27/19 09:33 Dose: 5 mg Budesonide/Formoterol Fumarate (Symbicort 80/4.5mcg -) 2 puff IH BID [facility] Last Admin: 08/27/19 21:39 Dose: 2 puff Docusate Sodium (Colace -) 100 mg PO TID PRN PRN Reason: CONSTIPATION Oxycodone HCl (Roxicodone -) 5 mg PO Q6H PRN PRN Reason: PAIN LEVEL 6-10 Last Admin: 08/27/19 20:43 Dose: 5 mg Constitutional: Yes: No Distress Eyes: Yes: Conjunctiva Clear, EOM Intact HENT: Yes: Atraumatic, Normocephalic Neck: Yes: Supple, Trachea Midline Cardiovascular: Yes: Regular Rate and Rhythm Respiratory: Yes: Rhonchi. No: Accessory Muscle Use, Rales, SOB, SOB on Exertion, Stridor, Tachypnea, Wheezes ...Inspection: Yes: WNL Gastrointestinal: Yes: Normal Bowel Sounds, Soft Renal/: Yes: WNL Musculoskeletal: Yes: WNL Extremities: Yes: WNL Edema: No Peripheral Pulses WNL: Yes Integumentary: Yes: WNL Neurological: Yes: WNL, Alert, Oriented ...Motor Strength: WNL Psychiatric: Yes: WNL, Alert, Oriented Labs: Laboratory Results - last 24 hr 08/27/19 08/28/19 06:05 09:00 WBC 12.8 H RBC 2.97 L Hgb 9.2 L Hct 26.8 L MCV 90.2 MCH 30.9 MCHC 34.3 RDW 14.2 Plt Count 57 L D MPV 8.3 Absolute Neuts (auto) 7.7 Neutrophils % 60.2 Neutrophils % (Manual) 36.4 L Band Neutrophils % 9.1 Lymphocytes % 32.4 D Lymphocytes % (Manual) 31.3 D Monocytes % 2.8 L Monocytes % (Manual) 2 L Eosinophils % 3.8 Eosinophils % (Manual) 1.0 Basophils % 0.8 Basophils % (Manual) 0.0 Myelocytes % (Man) 6 H Promyelocytes % (Man) 0 Blast Cells % (Manual) 0 D Metamyelocytes 3 H D Hypochromia 0 Platelet Estimate Decreased Polychromasia 0 Poikilocytosis 0 Anisocytosis 1+ Microcytosis 1+ Macrocytosis 0 Problem List - Problems (1) Mass of mediastinum Code(s): J98.59 - OTHER DISEASES OF MEDIASTINUM, NOT ELSEWHERE CLASSIFIED (2) Lung mass Code(s): R91.8 - OTHER NONSPECIFIC ABNORMAL FINDING OF LUNG FIELD (3) Abnormal CT scan, pelvis Code(s): R93.5 - ABN FINDINGS ON DX IMAGING OF ABD REGIONS, INC RETROPERITON (4) Allergic rhinitis Code(s): J30.9 - ALLERGIC RHINITIS, UNSPECIFIED (5) Anemia Code(s): D64.9 - ANEMIA, UNSPECIFIED (6) Asthma Code(s): J45.909 - UNSPECIFIED ASTHMA, UNCOMPLICATED Qualifiers: Asthma severity: mild Asthma persistence: persistent Asthma complication type: unspecified Qualified Code(s): J45.30 - Mild persistent asthma, uncomplicated (7) Depression Code(s): F32.9 - MAJOR DEPRESSIVE DISORDER, SINGLE EPISODE, UNSPECIFIED (8) Dizziness Code(s): R42 - DIZZINESS AND GIDDINESS (9) Dyspepsia Code(s): R10.13 - EPIGASTRIC PAIN (10) Dyspnea Code(s): R06.00 - DYSPNEA, UNSPECIFIED (11) Pelvic pain Code(s): R10.2 - PELVIC AND PERINEAL PAIN (12) Tobacco use Code(s): Z72.0 - TOBACCO USE (13) Back pain Code(s): M54.9 - DORSALGIA, UNSPECIFIED (14) COPD (chronic obstructive pulmonary disease) Code(s): J44.9 - CHRONIC OBSTRUCTIVE PULMONARY DISEASE, UNSPECIFIED (15) HIV (human immunodeficiency virus infection) Code(s): Z21 - ASYMPTOMATIC HUMAN IMMUNODEFICIENCY VIRUS INFECTION STATUS Qualifiers: HIV symptom status: unspecified Qualified Code(s): B20 - Human immunodeficiency virus [HIV] disease (16) Lymphoma Code(s): C85.90 - NON-HODGKIN LYMPHOMA, UNSPECIFIED, UNSPECIFIED SITE Qualifiers: Lymphoma type: unspecified type (17) Smoking Code(s): F17.200 - NICOTINE DEPENDENCE, UNSPECIFIED, UNCOMPLICATED Assessment/Plan D/W IR. The patient is very high risk for IR guided biopsy. Will likely develop a PTX as both pleural linings need to be traversed. She will most likely require a chest tube placement post-procedure. In addition, there are several blood vessels that may be injured during the procedure. CTS: recommend [facility] or EBUS. Patient and family have been informed. Consideration for transfer to [facility] for further inpatient. Dr Sanon Problem List - Problems (1) Mass of mediastinum Code(s): J98.59 - OTHER DISEASES OF MEDIASTINUM, NOT ELSEWHERE CLASSIFIED (2) Lung mass Code(s): R91.8 - OTHER NONSPECIFIC ABNORMAL FINDING OF LUNG FIELD (3) Abnormal CT scan, pelvis Code(s): R93.5 - ABN FINDINGS ON DX IMAGING OF ABD REGIONS, INC RETROPERITON (4) Allergic rhinitis Code(s): J30.9 - ALLERGIC RHINITIS, UNSPECIFIED (5) Anemia Code(s): D64.9 - ANEMIA, UNSPECIFIED (6) Asthma Code(s): J45.909 - UNSPECIFIED ASTHMA, UNCOMPLICATED Qualifiers: Asthma severity: mild Asthma persistence: persistent Asthma complication type: unspecified Qualified Code(s): J45.30 - Mild persistent asthma, uncomplicated (7) Depression Code(s): F32.9 - MAJOR DEPRESSIVE DISORDER, SINGLE EPISODE, UNSPECIFIED (8) Dizziness Code(s): R42 - DIZZINESS AND GIDDINESS (9) Dyspepsia Code(s): R10.13 - EPIGASTRIC PAIN (10) Dyspnea Code(s): R06.00 - DYSPNEA, UNSPECIFIED (11) Pelvic pain Code(s): R10.2 - PELVIC AND PERINEAL PAIN (12) Tobacco use Code(s): Z72.0 - TOBACCO USE (13) Back pain Code(s): M54.9 - DORSALGIA, UNSPECIFIED (14) COPD (chronic obstructive pulmonary disease) Code(s): J44.9 - CHRONIC OBSTRUCTIVE PULMONARY DISEASE, UNSPECIFIED (15) HIV (human immunodeficiency virus infection) Code(s): Z21 - ASYMPTOMATIC HUMAN IMMUNODEFICIENCY VIRUS INFECTION STATUS Qualifiers: HIV symptom status: unspecified Qualified Code(s): B20 - Human immunodeficiency virus [HIV] disease (16) Lymphoma Code(s): C85.90 - NON-HODGKIN LYMPHOMA, UNSPECIFIED, UNSPECIFIED SITE Qualifiers: Lymphoma type: unspecified type (17) Smoking Code(s): F17.200 - NICOTINE DEPENDENCE, UNSPECIFIED, UNCOMPLICATED
[2019-08-28] MEDS: EMTRICITABINE/TENOFOV ALAFENAM (DESCOVY) TABLET PO SCH (11:15)
[2019-08-28] MEDS: ACETAMINOPHEN 325 MG TABLET (FP) PO PRN ×2 (11:15→20:11)
[2019-08-28] MEDS: DOLUTEGRAVIR SODIUM 50 MG TABLET (NON-FORMULARY) PO SCH (11:15)
[2019-08-28] MEDS: amLODIPine BESYLATE 5 MG TABLET (FP) PO SCH (11:19)
[2019-08-28] MEDS: BUDESONIDE/FORMETEROL FUMARATE 80/4.5 mcg INHALER IH SCH ×2 (11:19→22:11)
--- NOTE | 2019-08-28 14:11 | PN ---
Physical Exam: SUBJECTIVE: Patient seen and examined. Pt offered no complaints and facial swelling resolved OBJECTIVE: Vital Signs Period Temp Pulse Resp BP Sys/Rosas Pulse Ox Last 24 Hr 98.2 F-99.4 F 95-102 20-20 129-140/68-80 97 GENERAL: The patient is awake, alert, and fully oriented, in no acute distress. HEAD: Normal with no signs of trauma. EYES: PERRL, extraocular movements intact, sclera anicteric, conjunctiva clear. No ptosis. ENT: oropharynx clear without exudates, moist mucous membranes. LUNGS: Breath sounds equal, clear to auscultation bilaterally, no wheezes, no crackles, no accessory muscle use. HEART: Regular rate and rhythm, S1, S2 without murmur, rub or gallop. ABDOMEN: Soft, nontender, nondistended, normoactive bowel sounds, no guarding, no rebound, no hepatosplenomegaly, no masses. EXTREMITIES: 2+ pulses, warm, well-perfused, no edema. NEUROLOGICAL: Cranial nerves II through XII grossly intact. Normal speech, gait not observed. Laboratory Results - last 24 hr 08/28/19 09:00 WBC 12.8 H RBC 2.97 L Hgb 9.2 L Hct 26.8 L MCV 90.2 MCH 30.9 MCHC 34.3 RDW 14.2 Plt Count 57 L D MPV 8.3 Absolute Neuts (auto) 7.7 Neutrophils % 60.2 Lymphocytes % 32.4 D Monocytes % 2.8 L Eosinophils % 3.8 Basophils % 0.8 Active Medications Generic Name Dose Route Start Last Admin Trade Name Freq PRN Reason Stop Dose Admin Acetaminophen 650 mg 08/21/19 13:35 08/28/19 11:15 Tylenol - PO 650 mg Q4H PRN Administration PAIN OR FEVER Albuterol Sulfate 1 puff 08/21/19 13:35 Ventolin Hfa Inhaler - IH Q6H PRN WHEEZING Amlodipine Besylate 5 mg 08/22/19 10:00 08/28/19 11:19 Norvasc - PO 5 mg DAILY [facility] Administration Budesonide/Formoterol Fumarate 2 puff 08/21/19 22:00 08/28/19 11:19 Symbicort 80/4.5mcg - IH 2 puff BID [facility] Administration Docusate Sodium 100 mg 08/21/19 13:35 Colace - PO TID PRN CONSTIPATION Oxycodone HCl 5 mg 08/25/19 17:44 08/27/19 20:43 Roxicodone - PO 5 mg Q6H PRN Administration PAIN LEVEL 6-10 ASSESSMENT/PLAN: 59 y/o lady with h/o HIV, on HAART, Athma, CVA, remote h/o cocaine use, non Hodgkin's lymphoma, s/p chemo, UTI, R hydronephrosis and R hydroureter s/p R sided stent placement , who presented to ER with abd pain and hematuria . s/p lithotripsy thrombocytopenia platelet dropped to 57 Initially there was a concern for HIIT but antiplatelet antibodies came back WNL continuing to monitor Per Heme/onc post NHL related ITP no intervention needed at this time since platelets are above 50k Pt will also need a bone marrow biopsy for further evaluation Fever 2/2 worsening non-Hodgkin's lymphoma or sepsis resolved Non-Hodgkin's lymphoma, s/p chemo. worsening lymphadenopathy. concern for recurrence S/P axillary lymph node excision biopsy. pt to f/u with Dr Griffiths in 7-10d . path report inconclusive Mediastinal mass biopsy per IR unable to do so based on location Pt agree to treatment if NHL recur considering transfer to [facility] for bx HTN started on norvasc 5 mg Angioedema resolved s/p treatment HIV cont meds Asthma No acute exacerbation cont inhaler and Nebs as needed DVT PPX lovenox on hold platelet drop Visit type - Emergency Visit Emergency Visit: Yes ED Registration Date: 08/17/19 Care time: The patient presented to the Emergency Department on the above date and was hospitalized for further evaluation of their emergent condition. - New Patient This patient is new to me today: No - Critical Care Critical Care patient: No - Discharge Referral Referred to [facility] Med P.C.: No ATTENDING PHYSICIAN STATEMENT I saw and evaluated the patient. I reviewed the resident's note and discussed the case with the resident. I agree with the resident's findings and plan as documented. SUBJECTIVE: OBJECTIVE: ASSESSMENT AND PLAN:
[2019-08-28 14:48] LABS: ANISOCYTOSIS 0; MACROCYTOSIS 0; PLATELET ESTIMATE DECREASED
--- NOTE | 2019-08-28 16:12 | DS ---
Physical Exam: SUBJECTIVE: Patient seen and examined. pt offered no complaints. Denied any SOB , bleeding or bruising over her body or fevers. OBJECTIVE: Vital Signs Period Temp Pulse Resp BP Sys/Rosas Pulse Ox Last 24 Hr 97.3 F-99.0 F 95-102 20-20 129-146/76-80 97 PHYSICAL EXAM GENERAL: The patient is awake, alert, and fully oriented, in no acute distress. HEAD: Normal with no signs of trauma. EYES: PERRL, extraocular movements intact, sclera anicteric, conjunctiva clear. ENT: oropharynx clear without exudates, moist mucous membranes. NECK: Trachea midline, full range of motion, supple. LUNGS: Breath sounds equal, clear to auscultation bilaterally, no wheezes, no crackles, no accessory muscle use. HEART: Regular rate and rhythm, S1, S2 without murmur, rub or gallop. ABDOMEN: Soft, nontender, nondistended, normoactive bowel sounds, no guarding, no rebound, no hepatosplenomegaly, no masses. EXTREMITIES: 2+ pulses, warm, well-perfused, no edema. NEUROLOGICAL: Cranial nerves II through XII grossly intact. Normal speech, gait not observed. SKIN: Warm, dry, normal turgor, with R axillary dressing without sign of bleeding. LABS Laboratory Results - last 24 hr 08/28/19 09:00 WBC 12.8 H RBC 2.97 L Hgb 9.2 L Hct 26.8 L MCV 90.2 MCH 30.9 MCHC 34.3 RDW 14.2 Plt Count 57 L D MPV 8.3 Absolute Neuts (auto) 7.7 Neutrophils % 60.2 Neutrophils % (Manual) 24.8 L Band Neutrophils % 13.3 Lymphocytes % 32.4 D Lymphocytes % (Manual) 25.7 Monocytes % 2.8 L Monocytes % (Manual) 1 L Eosinophils % 3.8 Eosinophils % (Manual) 3.8 D Basophils % 0.8 Basophils % (Manual) 0.0 Myelocytes % (Man) 5 H Promyelocytes % (Man) 0 Blast Cells % (Manual) 0 Nucleated RBC % 2 H Metamyelocytes 3 H Hypochromia 0 Platelet Estimate Decreased Polychromasia 0 Poikilocytosis 0 Anisocytosis 0 Microcytosis 0 Macrocytosis 0 HOSPITAL COURSE: Date of Admission:08/17/19 59 y/o lady with h/o HIV, on HAART, Athma, CVA, remote h/o cocaine use, non Hodgkin's lymphoma, s/p chemo, UTI, R hydronephrosis and R hydroureter s/p R sided stent placement , who presented to ER with abd pain and hematuria . UA was postive for blood and infection and CT was positive for stone and prior right ureteral stent.ID Dr Vargas was consulted and recommended to continue rocephin at dose given in ED. Urology Dr IDA Hope was also consulted and pt underwent lithotripsy as well as stent replacement. On first days of admission, Pt also complained of facial swelling after receiving pain shot from [email or web address]; A 7 day course of steroid, benadryl and ranitidine was given and symptoms improved. During the early course of her hospital course, Pt had multiple fevers spike; with concern for sepsis 2/2 UTI cultures for blood and urine were sent and all came back negative for bacterial growth.On the same CT imaging discussed ekron, there was concern for large mediastinal mass or cluster of lymph node. With the pt's hx of NHL s/p chemo, the differential for the fevers included recurrence of NHL as pt had no source of infection. Dr Griffiths was consulted and pt went for right axillary lymph node excision biopsy. A day after the procedure, pt's platelets halved and continued to drop a subsequent days.Pt had a 3+ blood UA and oozing from biopsy site and a venipuncture site as platelets reached and all time low of 26. Pt was transfused 3 units of Platelets. Heme/onc ruled out post op thrombocytopenia but the precipitous dropped made it unlikely. Another differential was HIIT since pt received 2 days of Hep products; antibodies and serotonin assay were sent with the results of antiplatelet antibodies coming back WNL and absence of thrombosis making it unlikely. 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 Patholgy report for axillary lymph node came back inconclusive. However, further evaluation still needed as per ID and Heme/ONc. Mediastinal mass biopsy per IR unable to do so based on location, and CT surg wants to evaluate as o/p: transfer to [facility] for bx approved and pending. Pt will also need a bone marrow biopsy for further evaluation Date of Discharge: 08/28/19 Minutes to complete discharge: 35 Discharge Summary Problems reviewed: Yes Reason For Visit: UTI,LUNG MASS Current Active Problems Abdominal pain (Acute) Lung mass (Acute) Mass of mediastinum (Acute) UTI (urinary tract infection) (Acute) Condition: Stable - Instructions Diet, Activity, Other Instructions: You came into the ED because you were having abdominal pain and blood in your urine. You were seen by urology who who broke the stone; please do follow up as you need stent removal in a week or so. We did some scans of your chest and of your abdomen which showed concern for recurrence of your lymphoma. We were initially concern for an infection but all cultures came back negative. You also had some facial swelling which we treated with steroids and antihistamines and your symptoms resolved. We took some tissue from the nodes under your armpit that was inconclusive. Because of the probability of your lymphoma, you need further biopsy; you will be transferred to [facility] for that. While you were here, you had multiple episodes of your platelet ( blood clotting agent) that drops to levels requiring transfusions: we transfused you with 3 units of platelets and they are currently stable. We tested for antibodies against your platelets due to the anticoagulation product you received and that was found to be negative. Medications; Please resume all of your home medications Follow up: Please follow up with Urology Dr Gallardo within one week Please follow up with Heme/onc Dr Oswald within one week Please follow up with Infectious Disease Dr Sow within one week Please follow up with your primary care physician as well; If you do not have one we can refer you to Dr Johnson from the [facility] outpatient clinic; please call [phone] If you begin to experience any bleeding, shortness of breath, difficulty speaking or breathing, chest pain, bleeding/ bruising please return to the ED immediately. Referrals: Jovan Johnson MD [Staff Physician] - 1 Week Mathew Griffiths MD [Staff Physician] - 1 Week Flavio Gallardo MD [Staff Physician] - 1 Week Estefanía Vargas MD [Staff Physician] - 1 Week Margret Elliott MD [Staff Physician] - 1 Week Disposition: AGAINST MEDICAL ADVICE - Home Medications Comprehensive Discharge Medication List: Ambulatory Orders Docusate Sodium [Colace -] 100 mg PO TID PRN #90 capsule 09/28/18 Albuterol 0.083% Nebulizer Neha [Ventolin 0.083% Nebulizer Soln -] 1 neb NEB Q6H #30 vial 05/29/19 Albuterol Sulfate Inhaler - [Ventolin HFA Inhaler -] 1 - 2 inh PO QID PRN #1 inhaler 05/29/19 Budesonide/Formeterol Fumarate [SYMBICORT 80/4.5mcg -] 2 inh PO BID #1 cannister 05/29/19 Dolutegravir Sodium [Tivicay] 50 mg PO DAILY #30 tablet 05/29/19 Emtricitabine/Tenofov Alafenam [Descovy 200-25 mg Tablet (Nf)] 1 each PO DAILY # 30 tablet 05/29/19 Multivitamin [One-Daily Multi-Vitamin] 1 each PO DAILY #30 tablet 05/29/19 Ibuprofen [Motrin -] 600 mg PO BID PRN 07/31/19 Oxycodone HCl/Acetaminophen [Percocet 5-325 mg Tablet] 1 tab PO Q6H #10 tablet MDD 4 07/31/19 Amlodipine Besylate [Norvasc -] 5 mg PO DAILY #30 tablet 08/28/19 This patient is new to me today: No Emergency Visit: Yes ED Registration Date: 08/17/19 Care time: The patient presented to the Emergency Department on the above date and was hospitalized for further evaluation of their emergent condition. Critical Care patient: No - Discharge Referral Referred to [facility] Med P.C.: No ATTENDING PHYSICIAN STATEMENT I saw and evaluated the patient. I reviewed the resident's note and discussed the case with the resident. I agree with the resident's findings and plan as documented. SUBJECTIVE: OBJECTIVE: ASSESSMENT AND PLAN:
--- NOTE | 2019-08-28 17:20 | PN ---
Progress Note (short form) - Note Progress Note: Hematology and oncology follow up Subjective: Patient seen and examined at bedside. No new complaints, no events overnight. No bleeding episodes. Objective: Vital Signs Temperature 99.6 F 08/23/19 10:00 Pulse Rate 107 H 08/23/19 10:00 Respiratory Rate 20 08/23/19 10:00 Blood Pressure 160/89 08/23/19 10:00 O2 Sat by Pulse Oximetry (%) 80 L 08/23/19 09:00 Physical exam: Gen.: patient found lying in bed. Well appearing. Awake, alert. Lungs: crackles heard at the bases b/l. Heart: regular rate and rhythm. S1, S2 heard. No murmurs gallops or rubs heard. Abdomen: soft, nontender, nondistended. Bowel sounds heard. Extremities: no peripheral edema noted. No bruising, swelling, erythema or warmth of extremities noted. neuro: patient A&O x3. Moving all four limbs spontaneously. CBC, BMP 08/23/19 06:05 08/22/19 06:39 Home Medication List Medication Instructions Recorded Confirmed Type Ibuprofen [Motrin -] 600 mg PO BID PRN 07/31/19 08/17/19 History Active Medications Generic Name Dose Route Start Last Admin Trade Name Freq PRN Reason Stop Dose Admin Acetaminophen 650 mg 08/21/19 13:35 08/24/19 16:04 Tylenol - PO 650 mg Q4H PRN Administration PAIN OR FEVER Albuterol Sulfate 1 puff 08/21/19 13:35 Ventolin Hfa Inhaler - IH Q6H PRN WHEEZING Amlodipine Besylate 5 mg 08/22/19 10:00 08/24/19 09:38 Norvasc - PO 5 mg DAILY [facility] Administration Budesonide/Formoterol Fumarate 2 puff 08/21/19 22:00 08/24/19 09:38 Symbicort 80/4.5mcg - IH 2 puff BID [facility] Administration Docusate Sodium 100 mg 08/21/19 13:35 Colace - PO TID PRN CONSTIPATION Oxycodone HCl 5 mg 08/21/19 13:35 08/24/19 05:33 Roxicodone - PO 5 mg Q6H PRN Administration PAIN LEVEL 6-10 Assessment and plan: The patient is a 59 yo F w/ PMH HIV, on HAART, Athma, CVA, non Hodgkin's lymphoma (s/p chemo), UTI, R hydronephrosis and R hydroureter s/p R sided stent placement, who presented to ER with abd pain and hematuria. #thrombocytopenia r/o medication cause, HIT, lymphoma progression -Platelets continue to drop despite platelet transfusions -Patient remains hemodynamically stable -Patient will likely need BM aspiration if this is indeed BM supression 2/2 recurrent lymphoma #Non-Hodgkin's lymphoma, s/p chemo. -Pt received chemo treatment w/ Dr. Felipe as outpatient and was documented in complete remission -Biopsy pathology shows fatty tissue only -Patient also needs mediastinoscopy for mediastinal Bx -These procedures cannot be done at [facility] -Patient accepted for transfer to [facility] for further care; patient and family aware and agreeable #Hoarseness -noticed by hematology and ID team -suggest ENT consult to rule out recurrent laryngeal nerve occlusion 2/2 lung mass. <Gold Tracy - Last Filed: 08/28/19 17:05> - Note Progress Note: I have seen and examined Shyanne Shannon with Dr. Gold Tracy. Agree with his note and plan. 59 y/o lady with HIV on HAART, NHL s/p chemotherapy treatment (?) with Dr. Felipe in 2012 with documented complete remission. Now with mediastinal mass and increased LAD suspicious for relapsed disease. Prior biopsy did not yield a diagnosis. Will need mediastinoscopy which cannot be performed here. Pt agreed to be transferred to [facility] for biopsy. Transfer process in course. I discussed case with [facility] charge nurse. <Gilbert Manzo - Last Filed: 08/28/19 17:34>
--- NOTE | 2019-08-28 17:59 | PN ---
Progress Note (short form) - Note Progress Note: s/p laser lithotripsy -still has stent, no abdominal pain no bleeding s/p LN biopsy- nondiagnostic Vital Signs Period Temp Pulse Resp BP Sys/Rosas Pulse Ox Last 24 Hr 97.3 F-99.3 F 95-102 20-20 129-146/76-82 97-97 cor-rrr lungs decreased bs at bses abd soft,nt ext trace edema CBC, BMP 08/28/19 09:00 08/27/19 06:05 Microbiology 08/23/19 10:30 Blood - Peripheral Venous Blood Culture - Final NO GROWTH AFTER 5 DAYS INCUBATION 08/23/19 10:20 Blood - Peripheral Venous Blood Culture - Final NO GROWTH AFTER 5 DAYS INCUBATION 08/22/19 20:50 Urine - Urine Clean Catch Urine Culture - Final NO GROWTH OBTAINED 08/17/19 20:00 Blood - Peripheral Venous Blood Culture - Final NO GROWTH AFTER 5 DAYS INCUBATION 08/17/19 20:00 Blood - Peripheral Venous Blood Culture - Final NO GROWTH AFTER 5 DAYS INCUBATION 08/17/19 06:45 Urine - Urine Clean Catch Urine Culture - Final NO GROWTH OBTAINED a/p thrombocytopenia- hit ab pending, ?malignancy, bone marrow involvement? fevers- ?lymphoma -s/p LN biopsy , blood cultures repeated, no lung infiltrate right paratracheal mass- ?recurrence NHL-?lung cancer hematology following ureteral stent with stone and hydronephrosis-s/p eswl, still with stent stable HIV- continue meds-descovy/tivicay history of asthma- nebs steroids stopped history of prior cva many years ago at [facility] chuck is aware biopsy is nondiagnostic-she gave permission for us to speak with her daughters Colleen- THEIR NUMBERS ARE ON THE CHART for transfer to [facility] for biopsy and treatment patient is agreeable d/w oncology and pulmonary
--- NOTE | 2019-08-28 18:18 | PN ---
Teaching Attending Note Name of Resident: Althea Chance ATTENDING PHYSICIAN STATEMENT I saw and evaluated the patient. I reviewed the resident's note and discussed the case with the resident. I agree with the resident's findings and plan as documented. SUBJECTIVE: Patient has no new complains today. No fever or chill, no shortness of breath. OBJECTIVE: Vital Signs Temperature 97.3 F L 08/28/19 14:46 Pulse Rate 95 H 08/28/19 14:46 Respiratory Rate 20 08/28/19 14:46 Blood Pressure 146/76 08/28/19 14:46 O2 Sat by Pulse Oximetry (%) 97 08/28/19 09:00 GENERAL: The patient is awake, alert, and fully oriented, in no acute distress. HEAD: Normal with no signs of trauma. EYES: PERRL, extraocular movements intact, sclera anicteric, conjunctiva clear. . ENT: oropharynx clear without exudates, moist mucous membranes. LUNGS: Breath sounds equal, clear to auscultation bilaterally, no wheezes, no crackles, no accessory muscle use. HEART: Regular rate and rhythm, S1, S2 without murmur, rub or gallop. ABDOMEN: Soft, NT,ND, normoactive bowel sounds, no guarding, no rebound, no hepatosplenomegaly, no masses. EXTREMITIES: 2+ pulses, warm, well-perfused, no edema. NEUROLOGICAL: Cranial nerves II through XII grossly intact. Normal speech, gait not observed. PSYCH: Normal mood, normal affect. CBCD WBC 12.8 K/mm3 (4.0-10.0) H 08/28/19 09:00 RBC 2.97 M/mm3 (3.60-5.2) L 08/28/19 09:00 Hgb 9.2 GM/dL (10.7-15.3) L 08/28/19 09:00 Hct 26.8 % (32.4-45.2) L 08/28/19 09:00 MCV 90.2 fl (80-96) 08/28/19 09:00 MCHC 34.3 g/dl (32.0-36.0) 08/28/19 09:00 RDW 14.2 % (11.6-15.6) 08/28/19 09:00 Plt Count 57 K/MM3 (134-434) L D 10/15/19 09:00 MPV 8.3 fl (7.5-11.1) 08/28/19 09:00 CMP Sodium 135 mmol/L (136-145) L 08/27/19 06:05 Potassium 3.9 mmol/L (3.5-5.1) 08/27/19 06:05 Chloride 98 mmol/L (98-107) 08/27/19 06:05 Carbon Dioxide 26 mmol/L (21-32) 08/27/19 06:05 Anion Gap 11 MMOL/L (8-16) 08/27/19 06:05 BUN 25.3 mg/dL (7-18) H 08/27/19 06:05 Creatinine 1.5 mg/dL (0.55-1.3) H 08/27/19 06:05 Random Glucose 74 mg/dL (74-106) 08/27/19 06:05 Calcium 9.3 mg/dL (8.5-10.1) 08/27/19 06:05 Total Bilirubin 0.5 mg/dL (0.2-1) 08/27/19 06:05 AST 146 U/L (15-37) H 08/27/19 06:05 ALT 44 U/L (13-61) 08/27/19 06:05 Alkaline Phosphatase 535 U/L (45-117) H 08/27/19 06:05 Total Protein 6.2 g/dl (6.4-8.2) L 08/27/19 06:05 Albumin 3.2 g/dl (3.4-5.0) L 08/27/19 06:05 CARDIAC ENZYMES Creatine Kinase 80 U/L (26-192) 08/17/19 06:19 Troponin I 0.02 ng/ml (0.00-0.05) 08/26/19 15:48 Current Medications Generic Name Dose Route Start Last Admin Trade Name Freq PRN Reason Stop Dose Admin Acetaminophen 650 mg 08/21/19 13:35 08/28/19 11:15 Tylenol - PO 650 mg Q4H PRN Administration PAIN OR FEVER Albuterol Sulfate 1 puff 08/21/19 13:35 Ventolin Hfa Inhaler - IH Q6H PRN WHEEZING Amlodipine Besylate 5 mg 08/22/19 10:00 08/28/19 11:19 Norvasc - PO 5 mg DAILY [facility] Administration Budesonide/Formoterol Fumarate 2 puff 08/21/19 22:00 08/28/19 11:19 Symbicort 80/4.5mcg - IH 2 puff BID [facility] Administration Docusate Sodium 100 mg 08/21/19 13:35 Colace - PO TID PRN CONSTIPATION Home Medications Medication Instructions Recorded Docusate Sodium [Colace -] 100 mg PO TID PRN #90 capsule 09/28/18 Albuterol 0.083% Nebulizer Neha 1 neb NEB Q6H #30 vial 05/29/19 [Ventolin 0.083% Nebulizer Soln -] Albuterol Sulfate Inhaler - 1 - 2 inh PO QID PRN #1 inhaler 05/29/19 [Ventolin HFA Inhaler -] Budesonide/Formeterol Fumarate 2 inh PO BID #1 cannister 05/29/19 [SYMBICORT 80/4.5mcg -] Dolutegravir Sodium [Tivicay] 50 mg PO DAILY #30 tablet 05/29/19 Emtricitabine/Tenofov Alafenam 1 each PO DAILY #30 tablet 05/29/19 [Descovy 200-25 mg Tablet (Nf)] Multivitamin [One-Daily 1 each PO DAILY #30 tablet 05/29/19 Multi-Vitamin] Ibuprofen [Motrin -] 600 mg PO BID PRN 07/31/19 Oxycodone HCl/Acetaminophen 1 tab PO Q6H #10 tablet MDD 4 07/31/19 [Percocet 5-325 mg Tablet] Amlodipine Besylate [Norvasc -] 5 mg PO DAILY #30 tablet 08/28/19 ASSESSMENT AND PLAN: Patient is a 59 y/o lady with h/o HIV, on HAART, Asthma, CVA, remote h/o cocaine use, non Hodgkin's lymphoma s/p chemo as per in 2011 documentations was in complete remission, UTI, R hydronephrosis and R hydroureter s/p R sided stent placement, who presented to ED with abd pain and hematuria and was found to have mediastinal mass. # Thrombocytopenia: s/p transfusion 72K--> 86K--> 57K s/p transfusion of platelets x 2 . Patient needs a close monitoring since platelets keep dropping. #H/x of Non-Hogkin's lymphoma, s/p chemo. s/p excisional Bx of right axilla by dr. Griffiths ,Bx result : normal fibroadipose tisssue, patient needs a tissue bx for suspecious relapsed dz, Will need mediastinoscopy which cannot be performed here. will tx the patient to [facility]. waiting for the patient to be transfered to [facility] by the transfer center. discussed with thoracic surgeon cannot do bx at [facility] , and IR is not able to do bc if the location. # Hx of CVA: she is on asa as out pt # Possible angioedema. prednisone ,H1, H2 blockers. s/p treatment # h/o HIV: cont meds # H/o Asthma : cont inhaler and Nebs # Hx of NHL DVT PX: lovenox on hold due to thrombocytopenia Transfer to [facility] for biopsy and treatment, patient is agreeable
[2019-08-29] MEDS: ACETAMINOPHEN 325 MG TABLET (FP) PO PRN ×2 (09:45→19:47)
[2019-08-29] MEDS: amLODIPine BESYLATE 5 MG TABLET (FP) PO SCH (09:46)
[2019-08-29] MEDS: DOLUTEGRAVIR SODIUM 50 MG TABLET (NON-FORMULARY) PO SCH (09:46)
[2019-08-29] MEDS: EMTRICITABINE/TENOFOV ALAFENAM (DESCOVY) TABLET PO SCH (09:46)
[2019-08-29] MEDS: BUDESONIDE/FORMETEROL FUMARATE 80/4.5 mcg INHALER IH SCH ×2 (09:49→22:05)
[2019-08-29 11:49] LABS: BLOOD UREA NITROGEN 26.6 mg/dL (7-18); CALCIUM 9.6 mg/dL (8.5-10.1); CREATININE 1.8 mg/dL (0.55-1.3); POTASSIUM 4.5 mmol/L (3.5-5.1)
--- NOTE | 2019-08-29 13:32 | PN ---
Progress Note (short form) - Note Progress Note: PULMONARY States breathing better today. Less coughing. No fevers or chills. Vital Signs Period Temp Pulse Resp BP Sys/Rosas Pulse Ox Last 24 Hr 97.3 F-100.1 F 90-110 16-21 120-146/53-77 94 Gen: NAD at rest Heart: RRR Lung: decreased breath sounds at the bases Abd: soft, nontender Ext: no edema CBC, BMP 08/28/19 09:00 08/29/19 10:57 Active Medications Acetaminophen (Tylenol -) 650 mg PO Q4H PRN PRN Reason: PAIN OR FEVER Last Admin: 08/29/19 09:45 Dose: 650 mg Albuterol Sulfate (Ventolin Hfa Inhaler -) 1 puff IH Q6H PRN PRN Reason: WHEEZING Amlodipine Besylate (Norvasc -) 5 mg PO DAILY [facility] Last Admin: 08/29/19 09:46 Dose: 5 mg Budesonide/Formoterol Fumarate (Symbicort 80/4.5mcg -) 2 puff IH BID [facility] Last Admin: 08/29/19 09:49 Dose: Not Given Docusate Sodium (Colace -) 100 mg PO TID PRN PRN Reason: CONSTIPATION A/P Mediastinal Mass h/o Non Hodgkin's Lymphoma HIV Asthma Thrombocytopenia Anemia h/o CVA - for transfer to [facility] for further work up - inhaled bronchodilators as needed - O2 to keep SpO2 >90% - DVT prophylaxis
--- NOTE | 2019-08-29 14:23 | PN ---
Progress Note (short form) - Note Progress Note: waiting for transfer to [facility] no abdominal pain no vomiting no diarrhea s/p laser lithotripsy -still has stent, no abdominal pain no bleeding s/p LN biopsy- nondiagnostic Vital Signs Period Temp Pulse Resp BP Sys/Rosas Pulse Ox Last 24 Hr 97.3 F-100.1 F 90-110 16-21 120-146/53-77 94 cor-rrr lungs clear abd soft,nt ext no edema CBC, BMP 08/28/19 09:00 08/29/19 10:57 Microbiology 08/23/19 10:30 Blood - Peripheral Venous Blood Culture - Final NO GROWTH AFTER 5 DAYS INCUBATION 08/23/19 10:20 Blood - Peripheral Venous Blood Culture - Final NO GROWTH AFTER 5 DAYS INCUBATION 08/22/19 20:50 Urine - Urine Clean Catch Urine Culture - Final NO GROWTH OBTAINED 08/17/19 20:00 Blood - Peripheral Venous Blood Culture - Final NO GROWTH AFTER 5 DAYS INCUBATION 08/17/19 20:00 Blood - Peripheral Venous Blood Culture - Final NO GROWTH AFTER 5 DAYS INCUBATION 08/17/19 06:45 Urine - Urine Clean Catch Urine Culture - Final NO GROWTH OBTAINED Current Medications Acetaminophen (Tylenol -) 650 mg PO Q4H PRN PRN Reason: PAIN OR FEVER Last Admin: 08/29/19 09:45 Dose: 650 mg Albuterol Sulfate (Ventolin Hfa Inhaler -) 1 puff IH Q6H PRN PRN Reason: WHEEZING Amlodipine Besylate (Norvasc -) 5 mg PO DAILY [facility] Last Admin: 08/29/19 09:46 Dose: 5 mg Budesonide/Formoterol Fumarate (Symbicort 80/4.5mcg -) 2 puff IH BID [facility] Last Admin: 08/29/19 09:49 Dose: Not Given Docusate Sodium (Colace -) 100 mg PO TID PRN PRN Reason: CONSTIPATION descovy/tivicay a/p worsening renal function- would get renal sonogram, she still has a stent in place, ?ivf ? thrombocytopenia- ?malignancy, bone marrow involvement? repeat cbc fevers- ?lymphoma -s/p LN biopsy , blood cultures repeated, no lung infiltrate right paratracheal mass- ?recurrence NHL-?lung cancer hematology following ureteral stent with stone and hydronephrosis-s/p eswl, still with stent stable HIV- continue meds-descovy/tivicay history of asthma- nebs steroids stopped history of prior cva many years ago at [facility] chuck is aware biopsy is nondiagnostic-she gave permission for us to speak with her daughters Colleen- THEIR NUMBERS ARE ON THE CHART for transfer to [facility] for biopsy and treatment patient is agreeable repeat MRSA screen pending
[2019-08-29] MEDS ORDERED: SODIUM CHLORIDE 1,000 ML IV SCH ×2 (14:30→21:00)
--- NOTE | 2019-08-29 14:45 | PN ---
Teaching Attending Note Name of Resident: Ricardo Huber ATTENDING PHYSICIAN STATEMENT I saw and evaluated the patient. I reviewed the resident's note and discussed the case with the resident. I agree with the resident's findings and plan as documented. SUBJECTIVE: no abd pain, no BN/V . numbness in her chin . No CP or SOB . OBJECTIVE: NAD HEENT: MMM. no facial swelling.fullness in b/l upper neck Cv: RRR, no MRG Lungs: CTAB. Ext: No edema or erythema on upper or lower extremities. Abd: soft, ND, TTP in suprapubic area,and epigastric area ,no rebound or guarding. NL BS R axilla withcelan surgical wound with nasim and no discharge Neuro : EOMI, round equal pupils, no facial droop, nl facial sensation except for chin area. strength 5/5 in upper and lwoer extremities proximally and distally. sensation to light touch nl . ASSESSMENT AND PLAN: Unfortunate , pleasant 59 y/o lady with h/o HIV, on HAART, Athma,CVA, remote h/ o cocaine use, non Hodgkin's lymphoma, s/p chemo, UTI, R hydronephrosis and R hydroureter s/p R sided stent placement, who presented to ER with abd pain and hematuria . 1-UTI. off Abx 2- lymphadenopathy : r/o recuurrent NON Hodgkin's 3- s/p ESWL . 4- R ureteral stent 5- ESHA 6- h/o CVA 7- Possible angioedema . completed treatment 8- h/o HIV 9- H/o Asthma 10 - chin numbness plan : - start IVF - order US of the kidneys . r/o R stent obstruction or L sided hydro - repeat CBC - hold off asa due to thrombocytopenia - chin numbness--> ? side effect of Truvada . check B 12. Nl neuro exam except for chin numbness. - need bx of mediastinal lymph nodes dispo : pending transfer to [facility]
--- NOTE | 2019-08-29 15:20 | PN ---
Physical Exam: SUBJECTIVE: Patient seen and examined. cont to c/o duran numbness OBJECTIVE: Vital Signs Period Temp Pulse Resp BP Sys/Rosas Pulse Ox Last 24 Hr 97.5 F-100.1 F 90-110 16-21 120-138/53-77 94 GENERAL: The patient is awake, alert, and fully oriented, in no acute distress. HEAD: Normal with no signs of trauma. duran numbness due to HIV med side effect EYES: PERRL, extraocular movements intact, sclera anicteric, conjunctiva clear. No ptosis. ENT: oropharynx clear without exudates, moist mucous membranes. LUNGS: Breath sounds equal, clear to auscultation bilaterally, no wheezes, no crackles, no accessory muscle use. HEART: Regular rate and rhythm, S1, S2 without murmur, rub or gallop. ABDOMEN: Soft, nontender, nondistended, normoactive bowel sounds, no guarding, no rebound, no hepatosplenomegaly, no masses. EXTREMITIES: 2+ pulses, warm, well-perfused, no edema. NEUROLOGICAL: Cranial nerves II through XII grossly intact. Normal speech, gait normal Laboratory Results - last 24 hr 08/28/19 08/28/19 08/29/19 18:50 18:50 10:57 Sodium 135 L Potassium 4.5 Chloride 97 L Carbon Dioxide 27 Anion Gap 12 BUN 26.6 H Creatinine 1.8 H Est GFR (CKD-EPI)AfAm 34.84 Est GFR (CKD-EPI)NonAf 30.06 Random Glucose 74 Calcium 9.6 Influenza A (Rapid) Negative Influenza B (Rapid) Negative RSV Rapid Negative Active Medications Generic Name Dose Route Start Last Admin Trade Name Thadq PRN Reason Stop Dose Admin Acetaminophen 650 mg 08/21/19 13:35 08/29/19 09:45 Tylenol - PO 650 mg Q4H PRN Administration PAIN OR FEVER Albuterol Sulfate 1 puff 08/21/19 13:35 Ventolin Hfa Inhaler - IH Q6H PRN WHEEZING Amlodipine Besylate 5 mg 08/22/19 10:00 08/29/19 09:46 Norvasc - PO 5 mg DAILY [facility] Administration Budesonide/Formoterol Fumarate 2 puff 08/21/19 22:00 08/29/19 09:49 Symbicort 80/4.5mcg - IH Not Given BID [facility] Docusate Sodium 100 mg 08/21/19 13:35 Colace - PO TID PRN CONSTIPATION Sodium Chloride 1,000 mls @ 83 mls/hr 08/29/19 14:30 Normal Saline - IV ASDIR [facility] ASSESSMENT/PLAN: 59 y/o lady with h/o HIV, on HAART, Athma, CVA, remote h/o cocaine use, non Hodgkin's lymphoma, s/p chemo, UTI, R hydronephrosis and R hydroureter s/p R sided stent placement , who presented to ER with abd pain and hematuria . s/p lithotripsy Renal U/S to r/o stent obstruction abdominal pain thrombocytopenia platelet at 57 pending repeat Initially there was a concern for HIIT but antiplatelet antibodies came back WNL continuing to monitor Per Heme/onc post NHL related ITP no intervention needed at this time since platelets are above 50k Pt will also need a bone marrow biopsy for further evaluation pending transfer to [facility] for biopsy Fever 2/2 worsening non-Hodgkin's lymphoma or sepsis resolved Non-Hodgkin's lymphoma, s/p chemo. worsening lymphadenopathy. concern for recurrence S/P axillary lymph node excision biopsy. pt to f/u with Dr Griffiths in 7-10d . path report inconclusive Mediastinal mass biopsy per IR unable to do so based on location Pt agree to treatment if NHL recur pending transfer to [facility] for bx once MRSA screen and bed is available HTN started on norvasc 5 mg Angioedema resolved s/p treatment HIV cont meds Asthma No acute exacerbation cont inhaler and Nebs as needed DVT PPX lovenox on hold platelet drop Visit type - Emergency Visit Emergency Visit: Yes ED Registration Date: 08/17/19 Care time: The patient presented to the Emergency Department on the above date and was hospitalized for further evaluation of their emergent condition. - New Patient This patient is new to me today: No - Critical Care Critical Care patient: No - Discharge Referral [facility]erred to [facility] Med [facility] No ATTENDING PHYSICIAN STATEMENT I saw and evaluated the patient. I reviewed the resident's note and discussed the case with the resident. I agree with the resident's findings and plan as documented. SUBJECTIVE: OBJECTIVE: ASSESSMENT AND PLAN:
[2019-08-29 16:11] LABS: BASO % 0.7 % (0-2.0); EOS % 2.4 % (0-4.5); HEMATOCRIT 29.4 % (32.4-45.2); HEMOGLOBIN 9.8 GM/dL (10.7-15.3); LYMPH % 38.7 % (8-40); MCH 29.9 pg (25.7-33.7); MCHC 33.2 g/dl (32.0-36.0); MEAN CELL VOLUME 90.1 fl (80-96); MEAN PLT VOLUME 8.3 fl (7.5-11.1); NEUT % 53.2 % (42.8-82.8); RBC 3.27 M/mm3 (3.60-5.2); RDW 14.2 % (11.6-15.6); WHITE BLOOD COUNT 13.9 K/mm3 (4.0-10.0)
[2019-08-29 16:15] LABS: PLATELET COUNT 28 K/MM3 (134-434)
[2019-08-29 16:58] LABS: PLATELET ESTIMATE DECREASED
[2019-08-29 19:18] VITALS: BP 135/84; PULSE 100; TEMP 98.5
--- NOTE | 2019-08-29 19:34 | PN ---
Progress Note (short form) - Note Progress Note: PAtient seen and examined Does not want any blood draws Does not want IV fluids Does not want to be examined Does not want any testing Discussed that she may end up with renal failure/dialysis if she does not cooperate and get iv fluids. Discussed about potential life threatening bleeding complications. She states she wants to be left alone. She will consider the transfer Labs/Meds reviewed A/P Patient is a 59 y/o female with a history of HIV, asthma, substance abuse( sober 9 months), renal stones, and lymphoma who is admitted for UTI and found to have superior mediastinal mass 6x 5cm, aand fewmm paraaortic nodes Concern for lymphoma recurrence Axillary node biopsy nondiagnostic ? CT surgery for superior mediastinal node biopsy Thrombocytopenia -- ? ITP related to lymphoma HIT negative
[2019-08-29] MEDS ORDERED: ALLOPURINOL 300 MG TABLET (FP) PO SCH (20:45)
--- NOTE | 2019-08-30 07:13 | PN ---
Progress Note (short form) - Note Progress Note: Received call that patient wanted to sign out AMA. Spoke with patient, explained risks of leaving against medical advice including risk of bleeding due to thrombocytopenia, risk of infection, worsening of current condition. Patient adamant that she wanted to leave. Expressed to the patient that we need to transfer her to [facility] for further care but patient stated that she will go there on her own. Explained to patient to return to ED for any worsening symptoms or to follow up at [facility] as soon as possible.
== END 2019-08-29 23:06 | disposition left against medical advice (07) | DRG 681 ==
LOC: JER 05:26 → JERBED 09:54 → J7W 14:33
PROVIDERS: ADMIT Internal Medicine; ATTEND Internal Medicine
PROC: 0X3 Anatomical Regions, Upper Extremities, Control (ICD-10-PCS; 2019-08-21)
PROC: 07B50ZX Excision of Right Axillary Lymphatic, Open Approach, Diagnostic (ICD-10-PCS; principal; 2019-08-21 12:30)
PROC: 30233R1 Transfusion of Nonautologous Platelets into Peripheral Vein, Percutaneous Approach (ICD-10-PCS; 2019-08-24)
DX: C85.90 Non-Hodgkin lymphoma, unspecified, unspecified site (principal); Z21 Asymptomatic human immunodeficiency virus [HIV] infection status; T78.3XXA Angioneurotic edema, initial encounter; R11.2 Nausea with vomiting, unspecified; R31.9 Hematuria, unspecified; Z72.89 Other problems related to lifestyle; F14.10 Cocaine abuse, uncomplicated; J45.909 Unspecified asthma, uncomplicated; R10.9 Unspecified abdominal pain; R06.02 Shortness of breath; R59.1 Generalized enlarged lymph nodes; N39.0 Urinary tract infection, site not specified; N13.0 Hydronephrosis with ureteropelvic junction obstruction; D69.3 Immune thrombocytopenic purpura; D69.6 Thrombocytopenia, unspecified; N17.9 Acute kidney failure, unspecified; D64.9 Anemia, unspecified; F17.210 Nicotine dependence, cigarettes, uncomplicated
CPT/HCPCS: 36415; 36430; 36511; 70450-TC; 70553-TC; 71045-TC-FY; 71275-TC; 74174-TC; 76775-TC; 80048; 80053; 81003; 82542; 82550; 82607; 82962; 83615; 83735; 84100; 84484; 85025; 85027; 85610; 85730; 86022; 86850; 86900; 86901; 87040; 87077; 87081; 87086; 87804; 87807; 88307-TC; 93005; 93010; 94640; 94760; 99284-25; A9579; J0131; J7030; P9034; P9038